=== PATIENT | female | born 1935 | race Caucasian/White ===

== ENCOUNTER → 2019-12-07 15:13 | Outpatient (BNVA) | payer MEDICARE, SELFPAY | PROVIDERS: PCP Internal Medicine; Referring Provider Internal Medicine; Visit Provider Internal Medicine | DX: J44.9 Chronic obstructive pulmonary disease, unspecified (principal); Z79.899 Other long term (current) drug therapy | CPT/HCPCS: 99213 ==

== ENCOUNTER → 2020-10-31 14:42 | Outpatient (BNVA) | payer MEDICARE, SELFPAY | PROVIDERS: PCP Internal Medicine; Visit Provider Internal Medicine | DX: J44.9 Chronic obstructive pulmonary disease, unspecified (principal); I10 Essential (primary) hypertension; E78.01 Familial hypercholesterolemia; F33.2 Major depressive disorder, recurrent severe without psychotic features; F41.9 Anxiety disorder, unspecified; Z88.6 Allergy status to analgesic agent; Z79.899 Other long term (current) drug therapy | CPT/HCPCS: Q3014 ==

== ENCOUNTER 2020-11-06 16:52 | Outpatient (REF) | payer MEDICARE, SELFPAY ==
[2020-11-06 16:59] LABS: Appearance Urine HAZY; Color Urine YELLOW; Glucose Urine UA NEG (NEG); Leukocyte Esterase Urine 2+ (NEG); Nitrite Urine NEG (NEG); Specific Gravity - Urine <= 1.005 (1.005-1.025); Urine Blood NEG (NEG); Urine Ketones NEG (NEG); Urine Protein NEG (NEG-TRACE)
[2020-11-06 17:22] LABS: Bacteria Urine 3+ /LPF; Squamous Epithelial Cell Urine 1+ /LPF
== END 2020-11-06 16:53 | disposition home or self-care (01) ==
LOC: HO.LNP 16:52
PROVIDERS: Visit Provider Internal Medicine
DX: N39.0 Urinary tract infection, site not specified (principal)
CPT/HCPCS: 81001; 87086

== ENCOUNTER 2020-12-17 09:15 | Outpatient (REF) | payer MEDICARE, SELFPAY ==
[2020-12-17 09:25] LABS: MANUAL DIFF FLAG NO
[2020-12-17 09:32] LABS: Basophils Percent Auto 0.4 % (0-2); Eosinophils Absolute Auto 0.2 X10*3/uL (0.0-0.4); Eosinophils Percent Auto 3.4 % (0-4); Hematocrit 34.7 % (37.0-47.0); Imm Gran Abs Auto 0.02 X10*3/uL (0.00-0.03); Imm Gran Pct Auto 0.4 % (0.0-0.4); Lymphocytes Absolute Auto 2.6 X10*3/uL (1.2-4.9); Lymphocytes Percent Auto 48.6 % (20-40); Mean Corpuscular HGB Conc 31.7 g/dl (31.0-35.0); Mean Corpuscular Hemoglobin 30.1 pg (27.0-33.0); Mean Corpuscular Volume 94.8 fL (80.0-98.0); Mean Platelet Volume 10.3 fL (9.4-12.3); Monocytes Absolute Auto 0.8 X10*3/uL (0.1-1.2); Monocytes Percent Auto 15.7 % (2-11); Neutrophils Absolute Auto 1.67 x10*3/uL (2.0-8.3); Neutrophils Percent Auto 31.5 % (45-73); Platelet Count 292 X10*3/uL (160-400); Red Blood Count 3.66 X10*6/uL (4.20-5.50); Red Cell Distribution Width 14.2 % (11.0-16.0); White Blood Count 5.3 X10*3/uL (4.8-10.8)
[2020-12-17 10:00] LABS: Alanine Aminotransferase 13 U/L (0-31); Albumin Level 4.4 g/dL (3.5-5.0); Alkaline Phosphatase 72 U/L (39-117); Anion Gap 12 (12-20); Aspartate Amino Transferase 23 U/L (5-31); Bilirubin Total 0.3 mg/dL (0.0-1.0); Blood Urea Nitrogen 16 mg/dL (9-16); Calcium 9.7 mg/dL (8.4-10.2); Carbon Dioxide 30 mmol/L (22-29); Chloride 102 mmol/L (96-108); Cholesterol 195 mg/dL; Estimated Glomerular Filt Rate 49; Glucose Fasting 97 mg/dL (60-99); HDL Cholesterol 45 mg/dL; Iron 75 mcg/dL (30-160); LDL Cholesterol Calculated 114 mg/dl; Percent Iron Saturation 27 % (15-50); Potassium 4.7 mmol/L (3.3-5.1); Sodium 139 mmol/L (135-145); Total Iron Binding Capacity 282 mcg/dL (228-428); Total Protein 7.4 g/dL (6.5-8.0); Triglycerides 183 mg/dL; Unsaturated Iron Binding 207 ug/dL
[2020-12-21 15:47] LABS: Vitamin D 25-OH, D2 <4 ng/mL; Vitamin D 25-OH, D3 28 ng/mL; Vitamin D 25-OH, Total 28 ng/mL (30-100)
== END 2020-12-17 09:16 | disposition home or self-care (01) ==
LOC: HO.LAB 09:15
PROVIDERS: PCP Internal Medicine; Visit Provider Internal Medicine
DX: D64.9 Anemia, unspecified (principal); E55.9 Vitamin D deficiency, unspecified; F41.9 Anxiety disorder, unspecified; I10 Essential (primary) hypertension; E78.5 Hyperlipidemia, unspecified
CPT/HCPCS: 36415; 80053; 80061; 82306; 83540; 85025

== ENCOUNTER 2020-12-26 14:06 | Outpatient (REF) | payer MEDICARE, SELFPAY ==
[2020-12-26 14:14] LABS: Appearance Urine HAZY; Color Urine YELLOW; Glucose Urine UA NEG (NEG); Leukocyte Esterase Urine 2+ (NEG); Nitrite Urine NEG (NEG); Specific Gravity - Urine <= 1.005 (1.005-1.025); UACC Culture Trigger YES; Urine Blood TRACE (NEG); Urine Ketones NEG (NEG); Urine Protein NEG (NEG-TRACE)
[2020-12-26 14:25] LABS: Bacteria Urine 4+ /LPF; RBC Urine 0-2 /HPF (0); Squamous Epithelial Cell Urine 1+ /LPF
== END 2020-12-26 14:07 | disposition home or self-care (01) ==
LOC: HO.LNP 14:06
PROVIDERS: Referring Provider Internal Medicine; Visit Provider Internal Medicine
DX: N39.0 Urinary tract infection, site not specified (principal)
CPT/HCPCS: 81001; 87086

== ENCOUNTER → 2021-01-22 12:58 | Outpatient (BNVA) | payer MEDICARE, SELFPAY | PROVIDERS: PCP Internal Medicine | DX: R35.89 Other polyuria (principal) | CPT/HCPCS: 99202 ==

== ENCOUNTER 2021-01-24 14:26 | Outpatient (REF) | payer MEDICARE, SELFPAY | END 2021-01-24 14:27 | disposition home or self-care (01) | LOC: HO.LNP 14:26 | DX: N39.0 Urinary tract infection, site not specified (principal) | CPT/HCPCS: 87086 ==

== ENCOUNTER → 2021-02-22 09:03 | Outpatient (BNVA) | payer MEDICARE, SELFPAY | PROVIDERS: PCP Internal Medicine | DX: R35.89 Other polyuria (principal) | CPT/HCPCS: Q3014 ==

== ENCOUNTER → 2021-05-01 13:33 | Outpatient (BNVA) | payer MEDICARE, SELFPAY | PROVIDERS: PCP Internal Medicine; Visit Provider Internal Medicine | DX: J45.909 Unspecified asthma, uncomplicated (principal) | CPT/HCPCS: 94010; 99212 ==

== ENCOUNTER → 2021-05-24 09:07 | Outpatient (BNVA) | payer MEDICARE, SELFPAY | PROVIDERS: PCP Internal Medicine | DX: Z13.89 Encounter for screening for other disorder (principal) | CPT/HCPCS: Q3014 ==

== ENCOUNTER 2021-07-08 12:58 | Inpatient (IN) | payer MEDICARE, SELFPAY ==
[2021-07-08] VITALS (7 sets, daily range): BP systolic 114–225; BP diastolic 63–111; PULSE 71–91; RESP 16–18; TEMP 36.3–37; O2SAT 97–99; BMI 25.8
--- NOTE | 2021-07-08 | ECG_ITS ---
Test Reason : FALL Blood Pressure : / mmHG Vent. Rate : 083 BPM Atrial Rate : 083 BPM P-R Int : 150 ms QRS Dur : 132 ms QT Int : 400 ms P-R-T Axes : 022 -03 010 degrees QTc Int : 470 ms Normal sinus rhythm Possible Left atrial enlargement Right bundle branch block Abnormal ECG When compared with ECG of 10-MAY-2019 02:28, No significant change was found Referred By: Charli Olson Electronically Signed By:Moses Arredondo
--- NOTE | ~2021-07-08 | US_ITS ---
EXAMINATION: US RETROPERITONEAL COMPLETE (RENAL) CLINICAL INFORMATION: ZEE. Urinary frequency. COMPARISON: CT abdomen and pelvis 05/10/2019. Ultrasound abdomen complete 11/07/2014. TECHNIQUE: Real-time imaging of the kidneys and bladder. FINDINGS: RIGHT KIDNEY: 8.0 x 4.0 x 3.4 cm (SAG x AP x TRV). The kidney is normal in size, contour, and echogenicity. Renal cortical thickness is normal. No renal calculi or focal parenchymal lesions. There is mild hydronephrosis. LEFT KIDNEY: 8.0 x 4.1 x 3.9 cm (SAG x AP x TRV). The kidney is normal in size, contour, and echogenicity. Renal cortical thickness is normal. No renal calculi or focal parenchymal lesions. There is mild hydronephrosis. BLADDER: Well distended with echogenic debris/sludge within. Bilateral ureteral jets are not demonstrated. Prevoid bladder volume is 540.19 mL. Postvoid bladder volume was not obtained. There is thickening of bladder wall with prominent rugae. A prominent right diverticulum is noted measuring 4.4 x 2.6 x 2.8 cm. US/US retroperitoneal comp IMPRESSION: 1. Bilateral hydronephrosis. No echogenic renal calculi seen. 2. Distended bladder with thickened bladder wall and several outpouchings. There is small diverticulum seen measuring 4.5 x 2.2 x 4.6 cm. 3. Prevoid volume measures 50.19 mL. Postvoid volume was not obtained.
--- NOTE | ~2021-07-08 | FL_ITS ---
PROCEDURE: XR FLUOROSCOPY WITH IMAGES CLINICAL INFORMATION: Left femoral fracture. COMPARISON: Radiographs left hip 07/08/2021. TECHNIQUE: Fluoroscopy performed by Dr. Luis Gleason Fluoroscopy time: 0.7 minutes DAP: 15.4 mGy-cm2 Images: 4 FINDINGS: Imaging demonstrates placement of an intramedullary sharmaine and screw in the left femur which appears in good position. FL/FL guidance in OR IMPRESSION: Fluoroscopy and spot films provided during open reduction and internal femoral fracture.
--- NOTE | ~2021-07-08 | XR_ITS ---
EXAMINATION: XR HIP, LEFT CLINICAL INFORMATION: Pain COMPARISON: None TECHNIQUE: Two views of the left hip. FINDINGS: There is an impacted fracture proximal left femur intertrochanteric region with almost 90 degrees first angulation. Left femoral head however is not dislocated. Pelvis intact. Right hip intact. There is degenerative change in the lower lumbar spine. XR/XR hip LT min 2V IMPRESSION: Proximal femoral fracture.
--- NOTE | ~2021-07-08 | NM_ITS ---
EXAMINATION: NM KIDNEY IMAGING WITH LASIX CLINICAL INFORMATION: Acute kidney injury. Urinary frequency. COMPARISON: None. TECHNIQUE: Following intravenous administration of 10 mCi of 99m technetium DTPA, imaging of both kidneys was obtained up to 30 minutes. 37 mg of IV Lasix was given at 30 minutes and further imaging was obtained for another 30 minutes. FINDINGS: On perfusion imaging, there is normal flow seen to both kidneys. There is normal bilateral symmetrical cortical uptake and slow excretion without any evidence of obstruction or hydronephrosis. There are bilateral extrarenal kidney pelvises. Post Lasix, there is bilateral slow excretion of isotope activity with no retention seen. No suspicion for hydronephrosis. On renal analysis, split renal function is 50% of each kidney. The right kidney reaches peak at 18.0 minutes and left kidney is 15.5 minutes. The T-half max of right kidney is 45.9 minutes and left kidney is 38.8 minutes. NM/NM renal flow w pharm int IMPRESSION: Normal renal perfusion with 50% cortical split function. There are extrarenal kidney pelvises with no suspicion for obstruction. There is a slow excretion which remains unchanged post Lasix.
--- NOTE | 2021-07-08 13:18 | ED.FALL ---
HPI - Fall General Chief Complaint: Fall Stated Complaint: UNWIT MECH FALL,L LEG PAIN/SHORTENED PER EMS Time Seen by Provider: 07/08/21 13:17 Source: patient Mode of arrival: EMS Limitations: no limitations History of Present Illness HPI Narrative: patient was wearing bad sneakers and tripped in the bathroom. complaint: fall Onset (ago): minute(s) Fall from: standing Fall witnessed: no Place fall occurred: home Loss of consciousness: none Context: tripped/slipped Location of injury - extremities: left: lower leg Severity: mild Quality: sharp Related Data Home Medications Medication Instructions Recorded Confirmed fluorometholone 0.1 % eye 1 drp OPHTHALMIC (EYE) BID 11/16/19 01/22/21 drops,suspension Previous Rx's Medication Instructions Recorded albuterol sulfate 90 mcg/actuation 2 puff INHALATION Q6H PRN 30 Days 01/16/21 aerosol inhaler (Ventolin HFA) #6.7 g atenolol 25 mg tablet 25 mg PO DAILY 90 Days #90 tab 01/16/21 atorvastatin 10 mg tablet 10 mg PO DAILY 90 Days #90 tab 01/16/21 fluticasone 250 mcg-salmeterol 50 1 ea PO BID 90 Days #180 ea 01/16/21 mcg/dose blistr powdr for inhalation (Milyxela Inhub) lisinopril 40 mg tablet 40 mg PO DAILY 90 Days #90 tab 01/16/21 venlafaxine 150 mg 150 mg PO DAILY 90 Days #90 cap 01/16/21 capsule,extended release 24 hr venlafaxine 75 mg capsule,extended 75 mg PO DAILY 90 Days #90 cap 01/16/21 release 24 hr vibegron 75 mg tablet (Gemtesa) 75 mg PO DAILY 30 Days #30 tab 07/02/21 Allergies Allergy/AdvReac Type Severity Reaction Status Date / Time codeine [CODEINE] Allergy Mild upset Verified 05/24/21 09:08 stomach, nause Review of Systems Constitutional: Constitutional: Reports no additional constitutional complaints Eyes: Eyes: Reports no additional eye complaints ENT: Denies dizziness Cardiovascular: Cardiovascular: Reports no additional cardiovascular complaints Respiratory: Respiratory: Reports as per HPI Gastrointestinal: Gastrointestinal: Reports no additional gastrointestinal complaints Genitourinary: Genitourinary: Reports no additional female genitourinary complaints Musculoskeletal: Musculoskeletal: Reports no additional musculoskeletal complaints Integumentary/Breasts: Skin/Breast: Denies rash Neurologic: Reports system reviewed and no additional complaints, except as documented, Denies dizziness and Denies Sensory deficit (Neuro) Psychiatric: Psychiatric: Denies anxiety PMFSH Past Medical History Medical History Anxiety Asthma COPD (chronic obstructive pulmonary disease) Endogenous depression Essential hypertension Familial hypercholesterolemia GERD (gastroesophageal reflux disease) Polyuria Vertigo Surgical History History of cataract surgery History of eye surgery S/P lumpectomy of breast Family History Family History Father No problems noted. Mother No problems noted. Brother No problems noted. Sister No problems noted. Son No problems noted. Daughter No problems noted. Social History Social History Housing: House (rented) Alcohol intake: never Patient Tobacco Use Status: Never used Tobacco e-Cigarette/Vaping Use: Never Used Second Hand Smoke Exposure: No Advance Directives: Yes Advance Directives Information Provided: Yes Advance Directives on File: No service: No Current occupational status: unemployed and retired Physical Exam Vital Signs: Vital Signs: Last Vital Signs Temp 98 F 07/08/21 13:08 Pulse 91 07/08/21 16:24 Resp 16 07/08/21 16:24 BP 224/111 H 07/08/21 16:24 Pulse Ox 98 07/08/21 14:44 BMI result Body Mass Index 25.8 Const: General: healthy appearing Nutritional Appearance: average body habitus Orientation/consciousness: oriented to person and patient oriented x3 Limitations: no limitations HEENT: Head: Yes normal to inspection Ears: external ears normal General nose exam: Normal external nose present Mouth: Normal oral and palatal mucosa present and oropharynx normal Throat: Yes posterior oropharynx normal Eyes: General: appearance normal, both eyes and all related structures Neck: Other: supple Neck: Yes normal visual inspection Chest: Chest palpation & inspection: normal inspection of the chest Resp: Auscultation: clear to auscultation bilaterally Cardio: Jugular venous distension: no JVD Rate: regular rate Rhythm: regular rhythm Heart sounds: S1 normal heart sound present and S2 normal heart sound present GI: Inspection: Yes normal to inspection Palpation (GI): Soft to palpation, nontender and No hepatosplenomegaly present Auscultation: normal bowel sounds : General: Yes no CVA tenderness Back/Spine/Pelvis: Back: no CVA tenderness Skin: General skin exam: no rashes or lesions noted Neuro: General: oriented to person and patient oriented x3 Cranial nerves: Yes CN's II-XII intact bilaterally Motor exam (neuro): 5/5 motor strength present throughout Sensory Exam: No Sensory deficit (Neuro) Extrem: Other: left hip shortened and externally rotated Psych: Appearance: grossly normal Course Reevaluation(s) Reevaluation #1: patient with intertrocanteric fracture will admit to hospital for ortho Time: 15:55 MDM - Fall Lab Data Result diagrams: 07/08/21 14:13 07/08/21 14:13 Labs: Lab Results 07/08/21 07/08/21 Range/Units 14:13 14:13 WBC 12.5 H (4.8-10.8) X10*3/uL RBC 3.29 L (4.20-5.50) X10*6/uL Hgb 9.7 L (12.0-16.0) g/dl Hct 29.7 L (37.0-47.0) % MCV 90.3 (80.0-98.0) fL MCH 29.5 (27.0-33.0) pg MCHC 32.7 (31.0-35.0) g/dl RDW 12.4 (11.0-16.0) % Plt Count 340 (160-400) X10*3/uL MPV 9.5 (9.4-12.3) fL Immature Gran % (Auto) 0.6 H (0.0-0.4) % Neut % (Auto) 76.1 H (45-73) % Lymph % (Auto) 9.6 L (20-40) % Petroleum % (Auto) 12.1 H (2-11) % Eos % (Auto) 1.4 (0-4) % Baso % (Auto) 0.2 (0-2) % Lymph # (Auto) 1.2 (1.2-4.9) X10*3/uL Petroleum # (Auto) 1.5 H (0.1-1.2) X10*3/uL Eos # (Auto) 0.2 (0.0-0.4) X10*3/uL Baso # (Auto) 0.0 (0.0-0.2) X10*3/uL Abs Immat Gran (auto) 0.07 H (0.00-0.03) X10*3/uL Absolute Neuts (auto) 9.5 H (2.0-8.3) x10*3/uL Absolute Nucleated RBC 0.000 (0.0-0.012) X10*3/uL Nucleated RBC % (auto) 0.0 (0.0-0.2) /100WBC Smear Tech's Comments VERIFIED Sodium 127 L (135-145) mmol/L Potassium 5.1 (3.3-5.1) mmol/L Chloride 94 L (96-108) mmol/L Carbon Dioxide 25 (22-29) mmol/L Anion Gap 13 (12-20) BUN 15 (9-16) mg/dL Creatinine 1.02 (0.5-1.4) mg/dL Estim Creat Clear Calc 41.8 Estimated GFR 52 Random Glucose 111 (60-115) mg/dL Calcium 9.3 (8.4-10.2) mg/dL ECG Data Attestation: I personally reviewed and interpreted this ECG as follows: Interpretation: sinus 80, RBBB no st or twave changes Discharge Plan Discharge Clinical Impression: Closed intertrochanteric fracture, COPD (chronic obstructive pulmonary disease), Essential hypertension Patient Disposition: Admitted As Inpatient
[2021-07-08 14:20] LABS: Basophils Percent Auto 0.2 % (0-2); Eosinophils Absolute Auto 0.2 X10*3/uL (0.0-0.4); Eosinophils Percent Auto 1.4 % (0-4); Hematocrit 29.7 % (37.0-47.0); Hemoglobin 9.7 g/dl (12.0-16.0); Imm Gran Abs Auto 0.07 X10*3/uL (0.00-0.03); Imm Gran Pct Auto 0.6 % (0.0-0.4); Lymphocytes Absolute Auto 1.2 X10*3/uL (1.2-4.9); Lymphocytes Percent Auto 9.6 % (20-40); MANUAL DIFF FLAG SCAN; Mean Corpuscular HGB Conc 32.7 g/dl (31.0-35.0); Mean Corpuscular Hemoglobin 29.5 pg (27.0-33.0); Mean Corpuscular Volume 90.3 fL (80.0-98.0); Mean Platelet Volume 9.5 fL (9.4-12.3); Monocytes Absolute Auto 1.5 X10*3/uL (0.1-1.2); Monocytes Percent Auto 12.1 % (2-11); Neutrophils Absolute Auto 9.5 x10*3/uL (2.0-8.3); Neutrophils Percent Auto 76.1 % (45-73); Platelet Count 340 X10*3/uL (160-400); Red Blood Count 3.29 X10*6/uL (4.20-5.50); Red Cell Distribution Width 12.4 % (11.0-16.0); SCAN SMEAR FLAG 1; White Blood Count 12.5 X10*3/uL (4.8-10.8)
[2021-07-08 14:31] LABS: Anion Gap 13 (12-20); Blood Urea Nitrogen 15 mg/dL (9-16); Calcium 9.3 mg/dL (8.4-10.2); Carbon Dioxide 25 mmol/L (22-29); Chloride 94 mmol/L (96-108); Creatinine Clr Calc Pharmacy 41.8; Estimated Glomerular Filt Rate 52; Glucose Random 111 mg/dL (60-115); Potassium 5.1 mmol/L (3.3-5.1); Sodium 127 mmol/L (135-145)
[2021-07-08 14:39] LABS: SLIDE REVIEW VERIFIED
[2021-07-08] MEDS: Morphine Sulfate 4 MG/ML CARTRIDGE IVPUSH (16:21)
[2021-07-08 16:38] LABS: COVID-19 Test Negative (Negative); IDNOW Serial# 55D5AD1C
--- NOTE | 2021-07-08 16:57 | P.HPHOSP_ITS ---
History of Present Illness Date of Service: 07/08/21 Chief Complaint: Left proxmal femor fracture 85-year-old female presents to [place] ER with left hip pain after mechanical fall. She states she tripped while going to the bathroom. X-rays in ER demonstrated a proximal left femur fracture. Patient states she did not take her meds today ; hypertensive on arrival Review of Systems Review of Systems: Denies chest pain Denies shortness of breath Denies nausea vomiting diarrhea Denies fever chills Denies hitting head or loss of consciousness [facility], LAT[facility] Medical History Anxiety Asthma COPD (chronic obstructive pulmonary disease) Endogenous depression Essential hypertension Familial hypercholesterolemia GERD (gastroesophageal reflux disease) Polyuria Vertigo Family History Father No problems noted. Mother No problems noted. Brother No problems noted. Sister No problems noted. Son No problems noted. Daughter No problems noted. Surgical History History of cataract surgery History of eye surgery S/P lumpectomy of breast Social History Housing: House (rented) Alcohol intake: never Patient Tobacco Use Status: Never used Tobacco e-Cigarette/Vaping Use: Never Used Second Hand Smoke Exposure: No Advance Directives: Yes Advance Directives Information Provided: Yes Advance Directives on File: No service: No Current occupational status: unemployed and retired Meds Allergies Allergy/AdvReac Type Severity Reaction Status Date / Time codeine [CODEINE] Allergy Mild upset Verified 05/24/21 09:08 stomach, nause Active Medications: Current Medications Acetaminophen (Acetaminophen 325 Mg Tablet) 650 mg PO Q6H PRN PRN Reason: Pain, Mild (Pain Scale 1-3) Morphine Sulfate (Morphine Sulfate 4 Mg/Ml Cartridge) 4 mg IVPUSH Q4H PRN; P rotocol PRN Reason: Pain, Severe (Pain Scale 7-10) Oxycodone HCl (Oxycodone Hcl Immed Release 5 Mg Tablet) 5 mg PO Q4H PRN PRN Reason: Pain, Moderate (Pain Scale 4-6 Pharmacy Consult (Consult Rx Perform Med Rec) 1 each MISCELLANE ONCE PRN PRN Reason: Consult order Pharmacy Consult (Consult Rx Perform Med Rec) 1 each MISCELLANE ONCE PRN PRN Reason: Consult order Pharmacy Consult (Consult Rx Perform Med Rec) 1 each MISCELLANE ONCE PRN PRN Reason: Consult order Sodium Chloride (0.9 % Sodium Chloride Flush 3 Ml Syringe) 3 ml IVFLUSH QSHIFT [facility] Home Medications Medication Instructions Recorded Confirmed Last Taken Type fluorometholone 0.1 % eye 1 drp OPHTHALMIC (EYE) BID 11/16/19 01/22/21 Unknown History drops,suspension cyanocobalamin (vitamin B-12) 1,000 mcg PO DAILY 07/08/21 07/08/21 07/07/21 History 1,000 mcg tablet melatonin 3 mg tablet 3 mg PO BEDTIME PRN 07/08/21 07/08/21 Unknown History naproxen sodium 220 mg tablet 220 mg PO BID PRN 07/08/21 07/08/21 07/07/21 History Physical Exam Vital Signs and Narrative: Vital Signs: Last Vital Signs Temp 98 F 07/08/21 13:08 Pulse 91 07/08/21 16:24 Resp 16 07/08/21 16:24 BP 224/111 H 07/08/21 16:24 Pulse Ox 98 07/08/21 14:44 BMI result Body Mass Index 25.8 Const: Other: Awake alert no acute distress uncomfortable on stretcher Resp: Other: Clear to auscultation bilaterally no rales rhonchi or wheezes GI: Other: Soft nontender nondistended with normoactive bowel sounds Extrem: Other: No edema bilaterally. Left lower leg shorter and externally rotated Results Labs CBC and Chem 7: 07/08/21 14:13 07/08/21 14:13 Labs: Laboratory Results - last 24 hr 07/08/21 07/08/21 07/08/21 14:13 14:13 16:16 MCV 90.3 MCH 29.5 MCHC 32.7 RDW 12.4 Plt Count 340 MPV 9.5 Immature Gran % (Auto) 0.6 H Neut % (Auto) 76.1 H Lymph % (Auto) 9.6 L [place] % (Auto) 12.1 H Eos % (Auto) 1.4 Baso % (Auto) 0.2 Lymph # (Auto) 1.2 [place] # (Auto) 1.5 H Eos # (Auto) 0.2 Baso # (Auto) 0.0 Abs Immat Gran (auto) 0.07 H Absolute Neuts (auto) 9.5 H Absolute Nucleated RBC 0.000 Nucleated RBC % (auto) 0.0 Smear Tech's Comments VERIFIED Anion Gap 13 Estim Creat Clear Calc 41.8 Estimated GFR 52 Random Glucose 111 Calcium 9.3 COVID-19 (JOE) Negative COVID-19 Clin Com See Note Imaging Radiologist's Impressions: Impressions Hip X-Ray 07/08/21 13:50 IMPRESSION: Proximal femoral fracture. Assessment and Plan (1) Closed intertrochanteric fracture: Status: Acute (2) Essential hypertension: Status: Acute (3) Urinary tract infection: Qualifiers: Urinary tract infection type: site unspecified Hematuria presence: without hematuria Qualified Code(s): N39.0 - Urinary tract infection, site not specified Status: Acute (4) GERD (gastroesophageal reflux disease): Status: Acute Plan 85-year-old female presents after mechanical fall fracturing left proximal femur. Found to be markedly hypertensive in the ER. Voices no cardiac complaints 1. Left proximal femur fracture -consult orthopedics. Patient is a moderate but acceptable cardiovascular risk for orthopedic repair and can proceed as per Orthopedics. There are no medically prohibitive issues at this time 2. Hypertension -poorly control secondary to no medicines today -will give 1 dose IV hydralazine then give lisinopril and atenolol at home doses -resume all home meds and adjust as indicated 3. Hyperlipidemia -continue statin as ordered 4. Anxiety -continue Effexor at outpatient dosing -add PRNs if indicated 5. GERD -PPI perioperatively Full code Sequential Patient will require 2 midnights going forward for repair of left proximal femoral fracture. This cannot be achieved and a lesser acute setting Quality Stroke Does the patient have a stroke diagnosis?: No VTE Prior VTE?: No VTE Risk Level:: Medical - moderate - high VTE Device Contraindication: N/A - Device Ordered VTE Drug Contraindication: Treatment Not Indicated
--- NOTE | 2021-07-08 17:00 | PHA.MEDREC ---
Pharmacy Consult ? Medication Reconciliation Pharmacy has completed the medication reconciliation. Per patient, Dr Chadwick d/c all COPD and acute inhalers. Romario
[2021-07-08] MEDS: atenoloL 25 MG TABLET PO (17:44)
[2021-07-08] MEDS: lisinopriL 40 MG TABLET PO (17:44)
[2021-07-08] MEDS: Atorvastatin Calcium 10 MG TABLET PO (17:45)
[2021-07-08 17:51] LABS: Appearance Urine CLOUDY; Color Urine YELLOW; Glucose Urine UA NEG (NEG); Leukocyte Esterase Urine 3+ (NEG); Nitrite Urine NEG (NEG); UACC Culture Trigger YES; Urine Blood 3+ (NEG); Urine Ketones NEG (NEG); Urine Protein 2+ MG/DL (NEG-TRACE)
[2021-07-08 18:02] LABS: WBC Urine TNTC /HPF (0-4)
[2021-07-08 18:03] LABS: Bacteria Urine 4+ /LPF; Squamous Epithelial Cell Urine 1+ /LPF; WBC Clumps Urine NOTED
[2021-07-08] MEDS: 0.9 % Sodium Chloride Flush 3 ML SYRINGE IVFLUSH (22:04)
[2021-07-09] VITALS (10 sets, daily range): BP systolic 128–149; BP diastolic 43–67; PULSE 66–84; RESP 16–18; TEMP 36.2–37.4; O2SAT 95–100
[2021-07-09] MEDS: Morphine Sulfate 4 MG/ML CARTRIDGE IVPUSH (03:54)
[2021-07-09 06:27] LABS: Basophils Percent Auto 0.3 % (0-2); Eosinophils Absolute Auto 0.1 X10*3/uL (0.0-0.4); Eosinophils Percent Auto 0.9 % (0-4); Hematocrit 28.9 % (37.0-47.0); Hemoglobin 9.6 g/dl (12.0-16.0); Imm Gran Abs Auto 0.06 X10*3/uL (0.00-0.03); Imm Gran Pct Auto 0.5 % (0.0-0.4); Lymphocytes Absolute Auto 1.8 X10*3/uL (1.2-4.9); Lymphocytes Percent Auto 15.9 % (20-40); MANUAL DIFF FLAG SCAN; Mean Corpuscular HGB Conc 33.2 g/dl (31.0-35.0); Mean Corpuscular Volume 90.3 fL (80.0-98.0); Mean Platelet Volume 9.7 fL (9.4-12.3); Monocytes Absolute Auto 2.1 X10*3/uL (0.1-1.2); Monocytes Percent Auto 18.7 % (2-11); Neutrophils Absolute Auto 7.1 x10*3/uL (2.0-8.3); Neutrophils Percent Auto 63.7 % (45-73); Platelet Count 361 X10*3/uL (160-400); Red Cell Distribution Width 12.4 % (11.0-16.0); SCAN SMEAR FLAG 1; White Blood Count 11.2 X10*3/uL (4.8-10.8)
--- NOTE | 2021-07-09 06:45 | P.CONOP_ITS ---
History of Present Illness HPI Consult date: 07/09/21 Requesting physician: Clayton Carlson Consult reason: fracture Chief complaint: proximal left fe,oral fracture Narrative: This is a 85 yo F in her usual state of health who presented to the ED with a left proximal femur fracture sustained after a mechanical fall at home. She presented hypertensive and unable to ambulate. Radiographs revealed a left intertrocahnteric femur fracture and she was admitted to the hospitalist service. She is a community ambulator with a history of COPD. She denied LOC or chest pain prior to her fall. Review of Systems Review of Systems: Yes all other systems are reviewed and are negative Constitutional: Constitutional: Reports as per HPI Eyes: Eyes: Reports no additional eye complaints ENT: Reports system reviewed and no additional complaints, except as documented Cardiovascular: Cardiovascular: Reports no additional cardiovascular complaints Respiratory: Respiratory: Reports no additional respiratory complaints Gastrointestinal: Gastrointestinal: Reports no additional gastrointestinal complaints Genitourinary: Genitourinary: Reports no additional female genitourinary complaints Musculoskeletal: Musculoskeletal: Reports other (left hip pain) Integumentary/Breasts: Skin/Breast: Reports system reviewed and no additional complaints, except as docu Neurologic: Reports system reviewed and no additional complaints, except as documented Psychiatric: Psychiatric: Reports no additional psychiatric complaints Endocrine: Endocrine: Reports no additional endocrine complaints Hematologic/Lymphatic: Hematologic/Lymphatic: Reports no additional hematologic/lymphatic complaints Allergic/Immunologic: Allergic/Immunologic: Reports no additional allergic/immunologic complaints [facility] Past Medical History Medical History Anxiety Asthma COPD (chronic obstructive pulmonary disease) Endogenous depression Essential hypertension Familial hypercholesterolemia GERD (gastroesophageal reflux disease) Polyuria Vertigo Family History Family History Father No problems noted. Mother No problems noted. Brother No problems noted. Sister No problems noted. Son No problems noted. Daughter No problems noted. Surgical History Surgical History History of cataract surgery History of eye surgery S/P lumpectomy of breast Social History Social History Household Members: Children Housing: Apartment Do you presently have visiting nurse or other home services: No Alcohol intake: never Patient Tobacco Use Status: Never used Tobacco e-Cigarette/Vaping Use: Never Used Second Hand Smoke Exposure: No Use of substances other than those prescribed or required for medical reasons: No Currently Displaying Signs/Symptoms of Drug Intoxication Withdrawal: No Have you been hit, kicked, punched, or otherwise hurt by someone within the past year? If so, by whom?: No Do you feel safe in your current relationship?: Yes Is there a partner from a previous relationship who is making you feel unsafe now?: No Are you made to feel afraid or neglected: No Advance Directives: Yes Advance Directives Information Provided: Yes Advance Directives on File: No Advance Directives Date on File: 07/08/21 Do you have a plan to hurt others: No Plan Recently lost weight without trying: No Nutrition Risks: No Nutritional Risk service: No Current occupational status: unemployed and retired Meds Allergies Allergy/AdvReac Type Severity Reaction Status Date / Time codeine [CODEINE] Allergy Mild upset Verified 05/24/21 09:08 stomach, nause Active Medications: Current Medications Acetaminophen (Acetaminophen 325 Mg Tablet) 650 mg PO Q6H PRN PRN Reason: Pain, Mild (Pain Scale 1-3) Atenolol (Atenolol 25 Mg Tablet) 25 mg PO DAILY [facility]; Protocol Last Admin: 07/08/21 17:44 Dose: 25 mg Documented by: Atorvastatin Calcium (Atorvastatin Calcium 10 Mg Tablet) 10 mg PO DAILY [facility] Last Admin: 07/08/21 17:45 Dose: 10 mg Documented by: Cyanocobalamin (Cyanocobalamin (Vitamin B-12) 1,000 Mcg Tablet) 1,000 mcg PO DAILY [facility] Lisinopril (Lisinopril 40 Mg Tablet) 40 mg PO DAILY [facility]; Protocol Last Admin: 07/08/21 17:44 Dose: 40 mg Documented by: Melatonin (Melatonin 3 Mg Tablet) 3 mg PO BEDTIME PRN PRN Reason: Insomnia Morphine Sulfate (Morphine Sulfate 4 Mg/Ml Cartridge) 4 mg IVPUSH Q4H PRN; Protocol PRN Reason: Pain, Severe (Pain Scale 7-10) Last Admin: 07/09/21 03:54 Dose: 4 mg Documented by: Patient Own Med ( Vibegron [Gemtesa] 75 Mg Tablet) 75 mg PO DAILY [facility] Oxycodone HCl (Oxycodone Hcl Immed Release 5 Mg Tablet) 5 mg PO Q4H PRN PRN Reason: Pain, Moderate (Pain Scale 4-6 Pharmacy Consult (Consult Rx Perform Med Rec) 1 each MISCELLANE ONCE PRN PRN Reason: Consult order Pharmacy Consult (Consult Rx Perform Med Rec) 1 each MISCELLANE ONCE PRN PRN Reason: Consult order Pharmacy Consult (Consult Rx Perform Med Rec) 1 each MISCELLANE ONCE PRN PRN Reason: Consult order Sodium Chloride (0.9 % Sodium Chloride Flush 3 Ml Syringe) 3 ml IVFLUSH QSHIFT [facility] Last Admin: 07/08/21 22:04 Dose: 3 ml Documented by: Venlafaxine HCl (Venlafaxine Hcl Er 75 Mg Cap.Er.24h) 75 mg PO DAILY [facility] Venlafaxine HCl (Venlafaxine Hcl Er 150 Mg Cap.Er.24h) 150 mg PO DAILY [facility] Home Medications Medication Instructions Recorded Confirmed Last Taken Type fluorometholone 0.1 % eye 1 drp OPHTHALMIC (EYE) BID 11/16/19 07/08/21 07/07/21 History drops,suspension cyanocobalamin (vitamin B-12) 1,000 mcg PO DAILY 07/08/21 07/08/21 07/07/21 History 1,000 mcg tablet melatonin 3 mg tablet 3 mg PO BEDTIME PRN 07/08/21 07/08/21 Unknown History naproxen sodium 220 mg tablet 220 mg PO BID PRN 07/08/21 07/08/21 07/07/21 History Physical Exam Vital Signs: Vital Signs: Last Vital Signs Temp 98 F 07/09/21 03:56 Pulse 75 07/09/21 03:56 Resp 17 07/09/21 03:56 BP 135/65 07/09/21 03:56 Pulse Ox 97 07/09/21 03:56 BMI result Body Mass Index 25.8 Extrem: Other: Left LE externally roatoted and minimal motion 2/2 pain Results Labs Result Diagrams: 07/09/21 05:17 07/09/21 05:17 Labs: Abnormal lab results 07/08/21 07/08/21 07/08/21 Range/Units 14:13 14:13 17:40 WBC 12.5 H (4.8-10.8) X10*3/uL RBC 3.29 L (4.20-5.50) X10*6/uL Hgb 9.7 L (12.0-16.0) g/dl Hct 29.7 L (37.0-47.0) % Immature Gran % (Auto) 0.6 H (0.0-0.4) % Neut % (Auto) 76.1 H (45-73) % Lymph % (Auto) 9.6 L (20-40) % [place] % (Auto) 12.1 H (2-11) % [place] # (Auto) 1.5 H (0.1-1.2) X10*3/uL Abs Immat Gran (auto) 0.07 H (0.00-0.03) X10*3/uL Absolute Neuts (auto) 9.5 H (2.0-8.3) x10*3/uL Sodium 127 L (135-145) mmol/L Chloride 94 L (96-108) mmol/L Urine Protein 2+ H (NEG-TRACE) MG/DL Urine Blood 3+ H (NEG) Ur Leukocyte Esterase 3+ H (NEG) Urine RBC 10-14 H (0) /HPF Urine WBC TNTC H (0-4) /HPF H & H 07/08/21 Range/Units 14:13 Hgb 9.7 L (12.0-16.0) g/dl Hct 29.7 L (37.0-47.0) % All other labs normal. Diagnostic results Hip x-ray: image reviewed (Left displaced intertroachanteric femur fracture) Assessment and Plan (1) Closed intertrochanteric fracture: Status: Acute Plan This is a 85 yo healthy F with a left hip IT fracture sustained after a mechanical fall. She has been cleared for surgery by the medical service. I recommend intra-medullary fixation for her left hip fracture. I discussed the risks benefits and alternatives including but not limited to the risk of pain, infection, stiffness, need for further surgery as well as potential medical complications such as blood clots, pulmonary embolism and cardiac complications. She expressed understanding and would like to proceed forward. She will be kept NPO. Procedures Date of Service Date of Service: 07/09/21
[2021-07-09 06:50] LABS: Alanine Aminotransferase 12 U/L (0-31); Albumin Level 3.3 g/dL (3.5-5.0); Alkaline Phosphatase 76 U/L (39-117); Anion Gap 15 (12-20); Aspartate Amino Transferase 18 U/L (5-31); Bilirubin Total 0.3 mg/dL (0.0-1.0); Blood Urea Nitrogen 15 mg/dL (9-16); Calcium 8.9 mg/dL (8.4-10.2); Carbon Dioxide 23 mmol/L (22-29); Chloride 97 mmol/L (96-108); Creatinine Clr Calc Pharmacy 47.4; Estimated Glomerular Filt Rate 60; Glucose Fasting 93 mg/dL (60-99); Potassium 4.6 mmol/L (3.3-5.1); Sodium 130 mmol/L (135-145); Total Protein 6.2 g/dL (6.5-8.0)
[2021-07-09 06:57] LABS: INTERNATIONAL NORM RATIO 1.3 (0.9-1.1); Prothrombin Time 14.9 SEC (9.9-13.0)
[2021-07-09 07:15] LABS: SLIDE REVIEW VERIFIED
[2021-07-09] MEDS: lisinopriL 40 MG TABLET PO (09:25)
[2021-07-09] MEDS: atenoloL 25 MG TABLET PO (09:25)
[2021-07-09] MEDS: Venlafaxine HCl ER 150 MG CAP.ER.24H PO (09:25)
[2021-07-09] MEDS: Venlafaxine HCl ER 75 MG CAP.ER.24H PO (09:25)
[2021-07-09] MEDS: 0.9 % Sodium Chloride Flush 3 ML SYRINGE IVFLUSH ×2 (09:25→23:39)
[2021-07-09] MEDS: Cyanocobalamin (Vitamin B-12) 1,000 MCG TABLET 1000 MCG PO (09:25)
[2021-07-09] MEDS: oxyCODONE HCl Immed Release 5 MG TABLET PO (09:28)
--- NOTE | 2021-07-09 09:35 | MHC.CM.PN ---
IMM 07/09/21 REVIEWED W/PT AND PLACED IN CHART, EMR REVIEWED, PT ADMITTED W/A L FEMORAL FX AFTER A MECHANICAL FALL AT HOME, CM MET W/PT WHO IS A&O, PT REPORTS SHE LIVES ALONE IN AN APT W/1 LIGHT OF STAIRS, PT HAS A CANE, TOILET RISE AND GRAB BARS IN BR, PT DENIES HAVING ANY HOME SERVICES. PT REQUESTING CM CONTACT EITHER KAROLINA OR SHANNON WHO ARE PT'S CHILDREN/HCP'S TO DISCUSS DISPO AND SNF VS AR OPTIONS, KAROLINA IS AN EMPLOYEE OF [employer] AND WOULD LIKE TO BE UPDATED, HER EXT IS [id number]. PT VERIFIES PCP IS RICHARD PARKS, HCP IS ON FILE FROM PREVIOUS ADMIT AND UPLOADED TO [facility], PT HAS RECEIVED Beryllium VACCINE X2 ON 12/12/20 AND 01/17/21. D/C PLAN: STR VS AR W/BLS TRANSPORT
--- NOTE | 2021-07-09 11:01 | HO.ANESPROP2 ---
Documented by User: Yusuf Henry MD 07/09/21 11:03 HPI - Anesthesia Eval Consult details Narrative: 85 F for IM nailing PMFSH Active Problems Active Problems: All Active Problems (Updated 07/08/21 @ 16:00 by Clayton Carlson MD) Closed intertrochanteric fracture (Acute) Asthma (Acute) Vertigo (Acute) Polyuria (Acute) Anxiety (Acute) Essential hypertension (Acute) GERD (gastroesophageal reflux disease) (Acute) Familial hypercholesterolemia (Acute) Endogenous depression (Acute) Urinary tract infection (Acute) COPD (chronic obstructive pulmonary disease) (Acute) Past Medical History Medical History Anxiety Asthma COPD (chronic obstructive pulmonary disease) Endogenous depression Essential hypertension Familial hypercholesterolemia GERD (gastroesophageal reflux disease) Polyuria Vertigo Family History Family History Father No problems noted. Mother No problems noted. Brother No problems noted. Sister No problems noted. Son No problems noted. Daughter No problems noted. Family history of problems with anesthesia: No Surgical History Surgical History History of cataract surgery History of eye surgery S/P lumpectomy of breast History of Problems with Anesthesia: No Social History Social History Household Members: Children Housing: Apartment Do you presently have visiting nurse or other home services: No Alcohol intake: never Patient Tobacco Use Status: Never used Tobacco e-Cigarette/Vaping Use: Never Used Second Hand Smoke Exposure: No Use of substances other than those prescribed or required for medical reasons: No Currently Displaying Signs/Symptoms of Drug Intoxication Withdrawal: No Have you been hit, kicked, punched, or otherwise hurt by someone within the past year? If so, by whom?: No Do you feel safe in your current relationship?: Yes Is there a partner from a previous relationship who is making you feel unsafe now?: No Are you made to feel afraid or neglected: No Are you DNR?: No Advance Directives: Yes Advance Directives Information Provided: Yes Advance Directives on File: No Advance Directives Date on File: 07/08/21 Do you have a plan to hurt others: No Plan Recently lost weight without trying: No Nutrition Risks: No Nutritional Risk service: No Current occupational status: retired Meds Allergies Allergy/AdvReac Type Severity Reaction Status Date / Time codeine [CODEINE] Allergy Mild upset Verified 05/24/21 09:08 stomach, nause Active Medications: Current Medications Acetaminophen (Acetaminophen 325 Mg Tablet) 650 mg PO Q6H PRN PRN Reason: Pain, Mild (Pain Scale 1-3) Atenolol (Atenolol 25 Mg Tablet) 25 mg PO DAILY [facility]; Protocol Last Admin: 07/09/21 09:25 Dose: 25 mg Documented by: Atorvastatin Calcium (Atorvastatin Calcium 10 Mg Tablet) 10 mg PO DAILY [facility] Last Admin: 07/09/21 09:25 Dose: Not Given Documented by: Cyanocobalamin (Cyanocobalamin (Vitamin B-12) 1,000 Mcg Tablet) 1,000 mcg PO DAILY [facility] Last Admin: 07/09/21 09:25 Dose: 1,000 mcg Documented by: Lisinopril (Lisinopril 40 Mg Tablet) 40 mg PO DAILY [facility]; Protocol Last Admin: 07/09/21 09:25 Dose: 40 mg Documented by: Melatonin (Melatonin 3 Mg Tablet) 3 mg PO BEDTIME PRN PRN Reason: Insomnia Morphine Sulfate (Morphine Sulfate 4 Mg/Ml Cartridge) 4 mg IVPUSH Q4H PRN; Protocol PRN Reason: Pain, Severe (Pain Scale 7-10) Last Admin: 07/09/21 03:54 Dose: 4 mg Documented by: Patient Own Med ( Vibegron [Gemtesa] 75 Mg Tablet) 75 mg PO DAILY [facility] Last Admin: 07/09/21 09:33 Dose: Not Given Documented by: Oxycodone HCl (Oxycodone Hcl Immed Release 5 Mg Tablet) 5 mg PO Q4H PRN PRN Reason: Pain, Moderate (Pain Scale 4-6 Last Admin: 07/09/21 09:28 Dose: 5 mg Documented by: Pharmacy Consult (Consult Rx Perform Med Rec) 1 each MISCELLANE ONCE PRN PRN Reason: Consult order Pharmacy Consult (Consult Rx Perform Med Rec) 1 each MISCELLANE ONCE PRN PRN Reason: Consult order Pharmacy Consult (Consult Rx Perform Med Rec) 1 each MISCELLANE ONCE PRN PRN Reason: Consult order Sodium Chloride (0.9 % Sodium Chloride Flush 3 Ml Syringe) 3 ml IVFLUSH QSHIFT [facility] Last Admin: 07/09/21 09:25 Dose: 3 ml Documented by: Venlafaxine HCl (Venlafaxine Hcl Er 75 Mg Cap.Er.24h) 75 mg PO DAILY [facility] Last Admin: 07/09/21 09:25 Dose: 75 mg Documented by: Venlafaxine HCl (Venlafaxine Hcl Er 150 Mg Cap.Er.24h) 150 mg PO DAILY [facility] Last Admin: 07/09/21 09:25 Dose: 150 mg Documented by: Home Medications Medication Instructions Recorded Confirmed Last Taken Type fluorometholone 0.1 % eye 1 drp OPHTHALMIC (EYE) BID 11/16/19 07/08/21 07/07/21 History drops,suspension cyanocobalamin (vitamin B-12) 1,000 mcg PO DAILY 07/08/21 07/08/21 07/07/21 History 1,000 mcg tablet melatonin 3 mg tablet 3 mg PO BEDTIME PRN 07/08/21 07/08/21 Unknown History naproxen sodium 220 mg tablet 220 mg PO BID PRN 07/08/21 07/08/21 07/07/21 History Exam Exam Date and Time: July 09, 2021 1101 Height,Weight and Vital Signs: Height 5 ft 6 in Weight 72.575 kg Last Vital Signs Temp 98.0 F 07/09/21 10:54 Pulse 72 07/09/21 10:54 Resp 16 07/09/21 10:54 BP 131/59 L 07/09/21 10:54 Pulse Ox 96 07/09/21 10:54 Pertinent Lab Results Pertinent Lab Results: Laboratory Tests 07/08/21 07/08/21 07/08/21 14:13 14:13 16:16 WBC 12.5 H RBC 3.29 L Hgb 9.7 L Hct 29.7 L MCV 90.3 MCH 29.5 MCHC 32.7 RDW 12.4 Plt Count 340 MPV 9.5 Immature Gran % (Auto) 0.6 H Neut % (Auto) 76.1 H Lymph % (Auto) 9.6 L [place] % (Auto) 12.1 H Eos % (Auto) 1.4 Baso % (Auto) 0.2 Lymph # (Auto) 1.2 [place] # (Auto) 1.5 H Eos # (Auto) 0.2 Baso # (Auto) 0.0 Abs Immat Gran (auto) 0.07 H Absolute Neuts (auto) 9.5 H Absolute Nucleated RBC 0.000 Nucleated RBC % (auto) 0.0 Smear Tech's Comments VERIFIED PT INR Sodium 127 L Potassium 5.1 Chloride 94 L Carbon Dioxide 25 Anion Gap 13 BUN 15 Creatinine 1.02 Estim Creat Clear Calc 41.8 Estimated GFR 52 Random Glucose 111 Fasting Glucose Calcium 9.3 Total Bilirubin AST ALT Alkaline Phosphatase Total Protein Albumin Urine Color Urine Appearance Urine pH Ur Specific [place] Urine Protein Urine Glucose (UA) Urine Ketones Urine Blood Urine Nitrite Ur Leukocyte Esterase Urine RBC Urine WBC Urine WBC Clumps Ur Squamous Epith Cells Urine Bacteria COVID-19 (JOE) Negative COVID-19 Clin Com See Note Blood Type Antibody Screen 07/08/21 07/09/21 07/09/21 17:40 05:17 05:17 WBC 11.2 H RBC 3.20 L Hgb 9.6 L Hct 28.9 L MCV 90.3 MCH 30.0 MCHC 33.2 RDW 12.4 Plt Count 361 MPV 9.7 Immature Gran % (Auto) 0.5 H Neut % (Auto) 63.7 Lymph % (Auto) 15.9 L [place] % (Auto) 18.7 H Eos % (Auto) 0.9 Baso % (Auto) 0.3 Lymph # (Auto) 1.8 [place] # (Auto) 2.1 H Eos # (Auto) 0.1 Baso # (Auto) 0.0 Abs Immat Gran (auto) 0.06 H Absolute Neuts (auto) 7.1 Absolute Nucleated RBC 0.000 Nucleated RBC % (auto) 0.0 Smear Tech's Comments VERIFIED PT 14.9 H INR 1.3 H Sodium Potassium Chloride Carbon Dioxide Anion Gap BUN Creatinine Estim Creat Clear Calc Estimated GFR Random Glucose Fasting Glucose Calcium Total Bilirubin AST ALT Alkaline Phosphatase Total Protein Albumin Urine Color YELLOW Urine Appearance CLOUDY Urine pH 8.0 Ur Specific [place] 1.020 Urine Protein 2+ H Urine Glucose (UA) NEG Urine Ketones NEG Urine Blood 3+ H Urine Nitrite NEG Ur Leukocyte Esterase 3+ H Urine RBC 10-14 H Urine WBC TNTC H Urine WBC Clumps NOTED Ur Squamous Epith Cells 1+ Urine Bacteria 4+ COVID-19 ([facility]E) COVID-19 Clin Com Blood Type Antibody Screen 07/09/21 07/09/21 05:17 08:08 WBC RBC Hgb Hct MCV MCH MCHC RDW Plt Count MPV Immature Gran % (Auto) Neut % (Auto) Lymph % (Auto) [place] % (Auto) Eos % (Auto) Baso % (Auto) Lymph # (Auto) [place] # (Auto) Eos # (Auto) Baso # (Auto) Abs Immat Gran (auto) Absolute Neuts (auto) Absolute Nucleated RBC Nucleated RBC % (auto) Smear Tech's Comments PT INR Sodium 130 L Potassium 4.6 Chloride 97 Carbon Dioxide 23 Anion Gap 15 BUN 15 Creatinine 0.90 Estim Creat Clear Calc 47.4 Estimated GFR 60 Random Glucose Fasting Glucose 93 Calcium 8.9 Total Bilirubin 0.3 AST 18 ALT 12 Alkaline Phosphatase 76 Total Protein 6.2 L Albumin 3.3 L D Urine Color Urine Appearance Urine pH Ur Specific [place] Urine Protein Urine Glucose (UA) Urine Ketones Urine Blood Urine Nitrite Ur Leukocyte Esterase Urine RBC Urine WBC Urine WBC Clumps Ur Squamous Epith Cells Urine Bacteria COVID-19 (JOE) COVID-19 Clin Com Blood Type A Positive Antibody Screen NEGATIVE Airway Mallampati Class: IV TM Dist: >3cm Neck ROM: Full Denture: Upper and Lower Assessment and Plan Final Anesthetic Review Family History of Problems with Anesthesia: No History of Problems with Anesthesia: No NPO: Yes ASA Class: III and Emergency Patient Risk: Intermediate Procedure Risk: Intermediate Anesthetic Plan Anesthetic Plan: GA Disposition: Inp. Admit - Standard Bed Documented by User: aJss Estes MD 07/09/21 17:30 HPI - Anesthesia Eval Consult details Narrative: 85 F for IM nailing Na 130 Asthma , possible UTI PMFSH Past Medical History Medical History Anxiety Asthma COPD (chronic obstructive pulmonary disease) Endogenous depression Essential hypertension Familial hypercholesterolemia GERD (gastroesophageal reflux disease) Polyuria Vertigo Family History Family History Father No problems noted. Mother No problems noted. Brother No problems noted. Sister No problems noted. Son No problems noted. Daughter No problems noted. Surgical History Surgical History History of cataract surgery History of eye surgery S/P lumpectomy of breast Social History Social History Household Members: Children Housing: Apartment Do you presently have visiting nurse or other home services: No Alcohol intake: never Patient Tobacco Use Status: Never used Tobacco e-Cigarette/Vaping Use: Never Used Second Hand Smoke Exposure: No Use of substances other than those prescribed or required for medical reasons: No Currently Displaying Signs/Symptoms of Drug Intoxication Withdrawal: No Have you been hit, kicked, punched, or otherwise hurt by someone within the past year? If so, by whom?: No Do you feel safe in your current relationship?: Yes Is there a partner from a previous relationship who is making you feel unsafe now?: No Are you made to feel afraid or neglected: No Are you DNR?: No Advance Directives: Yes Advance Directives Information Provided: Yes Advance Directives on File: No Advance Directives Date on File: 07/08/21 Do you have a plan to hurt others: No Plan Recently lost weight without trying: No Nutrition Risks: No Nutritional Risk service: No Current occupational status: retired [employer] (?)s Allergies Allergy/AdvReac Type Severity Reaction Status Date / Time codeine [CODEINE] Allergy Mild upset Verified 05/24/21 09:08 stomach, nause Home Medications Medication Instructions Recorded Confirmed Last Taken Type fluorometholone 0.1 % eye 1 drp OPHTHALMIC (EYE) BID 11/16/19 07/08/21 07/07/21 History drops,suspension cyanocobalamin (vitamin B-12) 1,000 mcg PO DAILY 07/08/21 07/08/21 07/07/21 History 1,000 mcg tablet melatonin 3 mg tablet 3 mg PO BEDTIME PRN 07/08/21 07/08/21 Unknown History naproxen sodium 220 mg tablet 220 mg PO BID PRN 07/08/21 07/08/21 07/07/21 History Assessment and Plan Anesthetic Plan Disposition: Standard PACU
--- NOTE | 2021-07-09 12:53 | MHC.CM.PN ---
CM MET W/PT'S DTR/HCP KAROLINA ON UNIT TO DISCUSS DISPO, PER DISCUSSION KAROLINA PREFERS ACUTE REHAB FOR PT, CM RECEIVED CALL BACK FROM K[facility]OL[facility] AFTER [facility]UTE [facility] OPTIONS WERE DISCUSSED W/FAMILY AND KAROLINA REPORTS [facility] IS PREFERRED FACILITY, REFERRAL WILL BE PLACED.
--- NOTE | 2021-07-09 13:29 | MHC.SHP ---
Pre-Procedural Eval Section A Date of Service: 07/09/21 The patient is an INPATIENT: Yes Changes since office visit: No Cold of Flu in the past 2 weeks, No New Medical Problems, No Changes in Medication and No Patient answered all questions The History & Physical has been completed within 30 days and I have reviewed it.: Yes Section B Chief Complaint: proximal left fe,oral fracture Allergies: Allergies Allergy/AdvReac Type Severity Reaction Status Date / Time codeine [CODEINE] Allergy Mild upset Verified 05/24/21 09:08 stomach, nause Plan I have reviewed the history and physical and performed a pertinent physical examination on my patient. No changes have occurred unless specified.
--- NOTE | 2021-07-09 13:30 | HO.PM.IMPN ---
Subjective Subjective Date of Service: 07/09/21 Interval History: complain of left femur pain with movement otherwise address denies any acute issues provide history of frequent urination denies dysuria denies burning denies fever chills is being followed by Urology as outpatient. 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 Neck no JVD. CVS regular rate rhythm, Respiratory lungs clear to auscultation, no respiratory distress, no wheeze, no rhonchi. Gastrointestinal abdomen soft, nontender, bowel sounds audible Extremities no edema. Neuro nonfocal , speech clear. Skin no rash Psych appropriate affect Objective Data Active Medications Acetaminophen (Acetaminophen 325 Mg Tablet) 650 mg PO Q6H PRN PRN Reason: Pain, Mild (Pain Scale 1-3) Atenolol (Atenolol 25 Mg Tablet) 25 mg PO DAILY [facility]; Protocol Last Admin: 07/09/21 09:25 Dose: 25 mg Documented by: REMIGIO Atorvastatin Calcium (Atorvastatin Calcium 10 Mg Tablet) 10 mg PO DAILY [facility] Last Admin: 07/09/21 09:25 Dose: Not Given Documented by: REMIGIO Non-Admin Reason: Physician Held Med Comments: Held per MD Brown - other am meds okay to give prior to surgery Cyanocobalamin (Cyanocobalamin (Vitamin B-12) 1,000 Mcg Tablet) 1,000 mcg PO DAILY [facility] Last Admin: 07/09/21 09:25 Dose: 1,000 mcg Documented by: REMIGIO Lisinopril (Lisinopril 40 Mg Tablet) 40 mg PO DAILY [facility]; Protocol Last Admin: 07/09/21 09:25 Dose: 40 mg Documented by: REMIGIO Melatonin (Melatonin 3 Mg Tablet) 3 mg PO BEDTIME PRN PRN Reason: Insomnia Morphine Sulfate (Morphine Sulfate 4 Mg/Ml Cartridge) 4 mg IVPUSH Q4H PRN; Protocol PRN Reason: Pain, Severe (Pain Scale 7-10) Last Admin: 07/09/21 03:54 Dose: 4 mg Documented by: MORALES Patient Own Med ( Vibegron [Gemtesa] 75 Mg Tablet) 75 mg PO DAILY [facility] Last Admin: 07/09/21 09:33 Dose: Not Given Documented by: REMIGIO Non-Admin Reason: Med Not Available Oxycodone HCl (Oxycodone Hcl Immed Release 5 Mg Tablet) 5 mg PO Q4H PRN PRN Reason: Pain, Moderate (Pain Scale 4-6 Last Admin: 07/09/21 09:28 Dose: 5 mg Documented by: REMIGIO Pharmacy Consult (Consult Rx Perform Med Rec) 1 each MISCELLANE ONCE PRN PRN Reason: Consult order Pharmacy Consult (Consult Rx Perform Med Rec) 1 each MISCELLANE ONCE PRN PRN Reason: Consult order Pharmacy Consult (Consult Rx Perform Med Rec) 1 each MISCELLANE ONCE PRN PRN Reason: Consult order Sodium Chloride (0.9 % Sodium Chloride Flush 3 Ml Syringe) 3 ml IVFLUSH QSHIFT [facility] Last Admin: 07/09/21 09:25 Dose: 3 ml Documented by: REMIGIO Venlafaxine HCl (Venlafaxine Hcl Er 75 Mg Cap.Er.24h) 75 mg PO DAILY [facility] Last Admin: 07/09/21 09:25 Dose: 75 mg Documented by: REMIGIO Venlafaxine HCl (Venlafaxine Hcl Er 150 Mg Cap.Er.24h) 150 mg PO DAILY [facility] Last Admin: 07/09/21 09:25 Dose: 150 mg Documented by: REMIGIO Labs CBC & Chem 7: 07/09/21 05:17 07/09/21 05:17 Labs: Laboratory Results - last 24 hr 07/08/21 07/08/21 07/08/21 14:13 14:13 16:16 MCV 90.3 MCH 29.5 MCHC 32.7 RDW 12.4 Plt Count 340 MPV 9.5 Immature Gran % (Auto) 0.6 H Neut % (Auto) 76.1 H Lymph % (Auto) 9.6 L [place] % (Auto) 12.1 H Eos % (Auto) 1.4 Baso % (Auto) 0.2 Lymph # (Auto) 1.2 [place] # (Auto) 1.5 H Eos # (Auto) 0.2 Baso # (Auto) 0.0 Abs Immat Gran (auto) 0.07 H Absolute Neuts (auto) 9.5 H Absolute Nucleated RBC 0.000 Nucleated RBC % (auto) 0.0 Smear Tech's Comments VERIFIED PT INR Anion Gap 13 Estim Creat Clear Calc 41.8 Estimated GFR 52 Random Glucose 111 Fasting Glucose Calcium 9.3 Total Bilirubin AST ALT Alkaline Phosphatase Total Protein Albumin Urine Color Urine Appearance Urine pH Ur Specific [place] Urine Protein Urine Glucose (UA) Urine Ketones Urine Blood Urine Nitrite Ur Leukocyte Esterase Urine RBC Urine WBC Urine WBC Clumps Ur Squamous Epith Cells Urine Bacteria COVID-19 (JOE) Negative COVID-19 Clin Com See Note Blood Type Antibody Screen 07/08/21 07/09/21 07/09/21 17:40 05:17 05:17 MCV 90.3 MCH 30.0 MCHC 33.2 RDW 12.4 Plt Count 361 MPV 9.7 Immature Gran % (Auto) 0.5 H Neut % (Auto) 63.7 Lymph % (Auto) 15.9 L [place] % (Auto) 18.7 H Eos % (Auto) 0.9 Baso % (Auto) 0.3 Lymph # (Auto) 1.8 [place] # (Auto) 2.1 H Eos # (Auto) 0.1 Baso # (Auto) 0.0 Abs Immat Gran (auto) 0.06 H Absolute Neuts (auto) 7.1 Absolute Nucleated RBC 0.000 Nucleated RBC % (auto) 0.0 Smear Tech's Comments VERIFIED PT 14.9 H INR 1.3 H Anion Gap Estim Creat Clear Calc Estimated GFR Random Glucose Fasting Glucose Calcium Total Bilirubin AST ALT Alkaline Phosphatase Total Protein Albumin Urine Color YELLOW Urine Appearance CLOUDY Urine pH 8.0 Ur Specific [place] 1.020 Urine Protein 2+ H Urine Glucose (UA) NEG Urine Ketones NEG Urine Blood 3+ H Urine Nitrite NEG Ur Leukocyte Esterase 3+ H Urine RBC 10-14 H Urine WBC TNTC H Urine WBC Clumps NOTED Ur Squamous Epith Cells 1+ Urine Bacteria 4+ COVID-19 (JOE) COVID-19 Clin Com Blood Type Antibody Screen 07/09/21 07/09/21 05:17 08:08 MCV MCH MCHC RDW Plt Count MPV Immature Gran % (Auto) Neut % (Auto) Lymph % (Auto) [place] % (Auto) Eos % (Auto) Baso % (Auto) Lymph # (Auto) [place] # (Auto) Eos # (Auto) Baso # (Auto) Abs Immat Gran (auto) Absolute Neuts (auto) Absolute Nucleated RBC Nucleated RBC % (auto) Smear Tech's Comments PT INR Anion Gap 15 Estim Creat Clear Calc 47.4 Estimated GFR 60 Random Glucose Fasting Glucose 93 Calcium 8.9 Total Bilirubin 0.3 AST 18 ALT 12 Alkaline Phosphatase 76 Total Protein 6.2 L Albumin 3.3 L D Urine Color Urine Appearance Urine pH Ur Specific [place] Urine Protein Urine Glucose (UA) Urine Ketones Urine Blood Urine Nitrite Ur Leukocyte Esterase Urine RBC Urine WBC Urine WBC Clumps Ur Squamous Epith Cells Urine Bacteria COVID-19 (JOE) COVID-19 Clin Com Blood Type A Positive Antibody Screen NEGATIVE Microbiology Microbiology Results: Microbiology 07/08/21 17:40 Urine Culture - Preliminary Urine clean catch - Urine crow top No growth to date. Assessment and Plan (1) Closed intertrochanteric fracture: Status: Acute (2) Polyuria: Status: Acute (3) Anxiety: Status: Acute (4) Essential hypertension: Status: Acute Plan 85-year-old female presents after mechanical fall fracturing left proximal femur.? Found to be markedly hypertensive in the ER.? Voices no cardiac complaints 1. Left proximal femur fracture - sustained left femur fracture due to mechanical fall, seen by Orthopedic surgery and scheduled for left femur surgery today continue NPO continue current pain medication will encourage incentive spirometry, add bowel regimen and follow clinical course 2. Hypertension - noted to have significantly elevated blood pressure that improved with 1 dose of IV hydralazine patient will be continued on home medication atenolol and lisinopril, will follow blood pressure closely. 3. urinary tract infection patient complain of urinary frequency UA significantly positive will place patient on IV ceftriaxone and follow urine culture no evidence of sepsis on admission 4. Anxiety -continue Effexor at outpatient dosing 5. GERD continue PPI 6.Hyperlipidemia -continue statin Full code Sequential, further anticoagulation as per Orthopedic surgery will require continued inpatient hospitalization due to repair of left proximal femoral fracture and treatment of UTI with IV antibiotics.? Quality Stroke Does the patient have a stroke diagnosis?: No VTE Prior VTE?: No VTE Risk Level:: Medical - moderate - high VTE Device Contraindication: N/A - Device Ordered VTE Drug Contraindication: Treatment Not Indicated
[2021-07-09] MEDS: cefTRIAXone sodium 1 GM in 0.9 % Sodium Chloride 50 ML IV (17:28)
--- NOTE | 2021-07-09 18:31 | PM.OP ---
Brief Operative Note Date of Service: 07/09/21 Pre-op diagnosis: Left hip IT fracture Procedure: IMN left hip Implants: [place] [id number] with 95 mm hip screw and 42.5 distal interlock Surgeon: Luis Gleason MD Anesthesia: GETA and local Was an Underlay Stitcher used for this Procedure?: No Estimated blood loss (mL): 50 IV fluids (mL): 400 Urine output (mL): 200 Pathology: none sent Condition: stable Disposition: PACU
[2021-07-09] MEDS: ceFAZolin Sodium/Dextrose,Iso 2 GM/50 ML PIGGYBACK IV (23:42)
[2021-07-10] VITALS (8 sets, daily range): BP systolic 82–149; BP diastolic 48–65; PULSE 62–89; RESP 17–18; TEMP 36.2–37.2; O2SAT 92–99
[2021-07-10 06:41] LABS: Basophils Percent Auto 0.2 % (0-2); Eosinophils Absolute Auto 0.1 X10*3/uL (0.0-0.4); Eosinophils Percent Auto 0.6 % (0-4); Hematocrit 27.4 % (37.0-47.0); Hemoglobin 8.9 g/dl (12.0-16.0); Imm Gran Abs Auto 0.06 X10*3/uL (0.00-0.03); Imm Gran Pct Auto 0.5 % (0.0-0.4); Lymphocytes Absolute Auto 1.9 X10*3/uL (1.2-4.9); Lymphocytes Percent Auto 15.1 % (20-40); MANUAL DIFF FLAG SCAN; Mean Corpuscular HGB Conc 32.5 g/dl (31.0-35.0); Mean Corpuscular Hemoglobin 29.7 pg (27.0-33.0); Mean Corpuscular Volume 91.3 fL (80.0-98.0); Mean Platelet Volume 9.9 fL (9.4-12.3); Monocytes Absolute Auto 2.3 X10*3/uL (0.1-1.2); Monocytes Percent Auto 18.2 % (2-11); Neutrophils Absolute Auto 8.2 x10*3/uL (2.0-8.3); Neutrophils Percent Auto 65.4 % (45-73); Platelet Count 346 X10*3/uL (160-400); Red Cell Distribution Width 12.7 % (11.0-16.0); SCAN SMEAR FLAG 1; White Blood Count 12.5 X10*3/uL (4.8-10.8)
[2021-07-10 06:47] LABS: Alanine Aminotransferase 9 U/L (0-31); Albumin Level 3.1 g/dL (3.5-5.0); Alkaline Phosphatase 66 U/L (39-117); Anion Gap 13 (12-20); Aspartate Amino Transferase 18 U/L (5-31); Bilirubin Total 0.2 mg/dL (0.0-1.0); Blood Urea Nitrogen 25 mg/dL (9-16); Calcium 8.2 mg/dL (8.4-10.2); Carbon Dioxide 24 mmol/L (22-29); Chloride 97 mmol/L (96-108); Creatinine Clr Calc Pharmacy 39.5; Estimated Glomerular Filt Rate 48; Glucose Fasting 115 mg/dL (60-99); Potassium 4.8 mmol/L (3.3-5.1); Sodium 129 mmol/L (135-145)
[2021-07-10 07:06] LABS: SLIDE REVIEW VERIFIED
--- NOTE | 2021-07-10 07:51 | PM.PNORT ---
Subjective Subjective Date of Service: 07/10/21 Interval history: POD1 s/p Left hip IM nail with Dr. Gleason. patient is resting comfortably in bed. Pain is well managed. No overnight events. No additional complaints. Physical Exam Vital Signs: Vital Signs: Last Vital Signs Temp 99 F 07/10/21 03:31 Pulse 89 07/10/21 03:31 Resp 18 07/10/21 03:31 BP 149/65 H 07/10/21 03:31 Pulse Ox 99 07/10/21 03:31 BMI result Body Mass Index 25.8 Const: General: cooperative, healthy appearing and no acute distress Resp: Effort & Inspection: normal respiratory effort and able to speak in complete sentences Cardio: Rate: regular rate Peripheral pulses: Peripheral pulses 2+ throughout GI: Palpation (GI): Soft to palpation Skin: Lesions: no lesions Rashes: no rashes Extrem: Other: left hip dressings are clean dry and intact. Patient is able to dorsiflex and plantar flex. Sensation is reportedly intact. Pedal pulse intact. Procedures Date of Service Date of Service: 07/10/21 Progress Note: A&P Assessment and plan (1) Closed intertrochanteric fracture: Status: Acute Assessment and Plan: Continue pain mgmnt Begin Lovenox for dvt ppx begin PT/OT for lt hip IM Nail WBAT Dispo planning-Pending PT eval, pain mgmnt Time Spent With Patient Time: Total time spent is greater than 50% in coordination of care (as documented) at patient's floor/unit and/or counseling patient: Quality Stroke Does the patient have a stroke diagnosis?: No VTE Prior VTE?: No VTE Risk Level:: Medical - moderate - high VTE Device Contraindication: N/A - Device Ordered VTE Drug Contraindication: Treatment Not Indicated
[2021-07-10] MEDS: Morphine Sulfate 4 MG/ML CARTRIDGE IVPUSH ×2 (08:49→14:32)
[2021-07-10] MEDS: 0.9 % Sodium Chloride Flush 3 ML SYRINGE IVFLUSH ×3 (08:51→20:58)
[2021-07-10] MEDS: Cyanocobalamin (Vitamin B-12) 1,000 MCG TABLET 1000 MCG PO (08:51)
[2021-07-10] MEDS: Atorvastatin Calcium 10 MG TABLET PO (08:51)
[2021-07-10] MEDS: lisinopriL 40 MG TABLET PO (08:51)
[2021-07-10] MEDS: Docusate Sodium 100 MG CAPSULE PO ×2 (08:51→20:58)
[2021-07-10] MEDS: Venlafaxine HCl ER 75 MG CAP.ER.24H PO (08:51)
[2021-07-10] MEDS: atenoloL 25 MG TABLET PO (08:51)
[2021-07-10] MEDS: Venlafaxine HCl ER 150 MG CAP.ER.24H PO (08:51)
--- NOTE | 2021-07-10 11:16 | HO.POSTANES ---
Post Anesthesia Evaluation Post Anesthesia Evaluation Vital Signs: Vital Signs Temp Pulse Resp BP Pulse Ox 07/10/21 09:31 81 107/52 L 99 07/10/21 07:58 98.9 F 81 18 107/52 L 99 07/10/21 03:31 99 F 89 18 149/65 H 99 07/09/21 23:38 99.4 F 84 18 149/67 H 95 Anesthesia: General Mental Status: Awake Pain Control: Satisfactory Nausea/Vomiting: None Hydration: Adequate Anesthesia-Related Issues: No Anes. Related Issues
[2021-07-10] MEDS: oxyCODONE HCl Immed Release 5 MG TABLET PO (11:38)
--- NOTE | 2021-07-10 11:55 | PC.NURSE ---
Matthews removed at 1200. Patient due to void at 1800. Purewick in place. Will continue to monitor.
--- NOTE | 2021-07-10 13:58 | P.PNIM_ITS ---
Subjective Subjective Date of Service: 07/10/21 Interval History: Complaining of weakness and left thigh pain, noted to have soft blood pressures this morning, denies chest pain no shortness of breath, no palpitations, Matthews catheter draining clear urine. 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 awake alert x3, no acute distress.? Neck no JVD. CVS? regular rate rhythm, Respiratory lungs clear to auscultation, no respiratory distress, no wheeze, no rhonchi. Gastrointestinal abdomen soft, nontender, bowel sounds audible Extremities no? edema. Left hip dressing in place Neuro nonfocal , speech clear. Skin no rash Psych appropriate affect Objective Data Active Medications Acetaminophen (Acetaminophen 325 Mg Tablet) 650 mg PO Q6H PRN PRN Reason: Pain, Mild (Pain Scale 1-3) Atenolol (Atenolol 25 Mg Tablet) 25 mg PO DAILY [facility]; Protocol Last Admin: 07/10/21 08:51 Dose: 25 mg Documented by: JIM Atorvastatin Calcium (Atorvastatin Calcium 10 Mg Tablet) 10 mg PO DAILY [facility] Last Admin: 07/10/21 08:51 Dose: 10 mg Documented by: JIM Cyanocobalamin (Cyanocobalamin (Vitamin B-12) 1,000 Mcg Tablet) 1,000 mcg PO DAILY [facility] Last Admin: 07/10/21 08:51 Dose: 1,000 mcg Documented by: JIM Docusate Sodium (Docusate Sodium 100 Mg Capsule) 100 mg PO BID [facility] Last Admin: 07/10/21 08:51 Dose: 100 mg Documented by: JIM Enoxaparin Sodium (Enoxaparin Sodium 40 Mg/0.4 Ml Syringe) 40 mg SUBCUT Q24H [facility] Fentanyl (Fentanyl Citrate/Pf 100 Mcg/2 Ml Vial) 25 mcg IVPUSH Q5M PRN; Protocol PRN Reason: Pain, Moderate (Pain Scale 4-6 Hydromorphone HCl (Hydromorphone Hcl 0.5 Mg/0.5 Ml Syringe) 0.25 mg IVPUSH Q5M PRN; Protocol PRN Reason: Pain, Severe (Pain Scale 7-10) Ceftriaxone Sodium 1 gm/ (Sodium Chloride) 50 mls @ 100 mls/hr IV Q24H [facility] Last Infusion: 07/09/21 20:03 Dose: 0 mls/hr Documented by: BONI Promethazine HCl 12.5 mg/ (Sodium Chloride) 50.5 mls @ 202 mls/hr IV ONCE PRN PRN Reason: Nausea and Vomiting Melatonin (Melatonin 3 Mg Tablet) 3 mg PO BEDTIME PRN PRN Reason: Insomnia Morphine Sulfate (Morphine Sulfate 4 Mg/Ml Cartridge) 4 mg IVPUSH Q4H PRN; Protocol PRN Reason: Pain, Severe (Pain Scale 7-10) Last Admin: 07/10/21 08:49 Dose: 4 mg Documented by: JIM Patient Own Med ( Vibegron [Gemtesa] 75 Mg Tablet) 75 mg PO DAILY [facility] Last Admin: 07/10/21 08:54 Dose: Not Given Documented by: JIM Non-Admin Reason: Med Not Available Oxycodone HCl (Oxycodone Hcl Immed Release 5 Mg Tablet) 5 mg PO Q4H PRN PRN Reason: Pain, Moderate (Pain Scale 4-6 Last Admin: 07/10/21 11:38 Dose: 5 mg Documented by: JIM Pharmacy Consult (Consult Rx Perform Med Rec) 1 each MISCELLANE ONCE PRN PRN Reason: Consult order Pharmacy Consult (Consult Rx Perform Med Rec) 1 each MISCELLANE ONCE PRN PRN Reason: Consult order Pharmacy Consult (Consult Rx Perform Med Rec) 1 each MISCELLANE ONCE PRN PRN Reason: Consult order Sodium Chloride (0.9 % Sodium Chloride Flush 3 Ml Syringe) 3 ml IVFLUSH QSHIFT [facility] Last Admin: 07/10/21 08:51 Dose: 3 ml Documented by: JIM Venlafaxine HCl (Venlafaxine Hcl Er 75 Mg Cap.Er.24h) 75 mg PO DAILY [facility] Last Admin: 05/25/22 08:51 Dose: 75 mg Documented by: JIM Venlafaxine HCl (Venlafaxine Hcl Er 150 Mg Cap.Er.24h) 150 mg PO DAILY [facility] Last Admin: 07/10/21 08:51 Dose: 150 mg Documented by: JIM Labs CBC & Chem 7: 07/10/21 05:26 07/10/21 05:26 Labs: Laboratory Results - last 24 hr 07/10/21 07/10/21 05:26 05:26 MCV 91.3 MCH 29.7 MCHC 32.5 RDW 12.7 Plt Count 346 MPV 9.9 Immature Gran % (Auto) 0.5 H Neut % (Auto) 65.4 Lymph % (Auto) 15.1 L [place] % (Auto) 18.2 H Eos % (Auto) 0.6 Baso % (Auto) 0.2 Lymph # (Auto) 1.9 [place] # (Auto) 2.3 H Eos # (Auto) 0.1 Baso # (Auto) 0.0 Abs Immat Gran (auto) 0.06 H Absolute Neuts (auto) 8.2 Absolute Nucleated RBC 0.000 Nucleated RBC % (auto) 0.0 Smear Tech's Comments VERIFIED Anion Gap 13 Estim Creat Clear Calc 39.5 Estimated GFR 48 Fasting Glucose 115 H Calcium 8.2 L D Total Bilirubin 0.2 AST 18 ALT 9 Alkaline Phosphatase 66 Total Protein 6.0 L Albumin 3.1 L Microbiology Microbiology Results: Microbiology 07/08/21 17:40 Urine Culture - Final Urine clean catch - Urine crow top Assessment and Plan (1) Closed intertrochanteric fracture: Status: Acute (2) Polyuria: Status: Acute (3) Anxiety: Status: Acute (4) Essential hypertension: Status: Acute Plan 85-year-old female presents after mechanical fall fracturing left proximal femur.? Found to be markedly hypertensive in the ER.? Voices no cardiac complaints 1. Left proximal femur fracture - status post left hip IMN, complaining of hip discomfort and weakness Hematocrit dropped but stable will add iron supplement follow CBC continue current pain medication with IV morphine, IV Dilaudid and oxycodone, will add scheduled Tylenol, continue bowel regimen, encourage incentive spirometry. 2. Hypertension - noted to have low blood pressure this morning will hold lisinopril, continue atenolol and follow blood pressure closely 3. urinary tract infection patient complain of urinary frequency UA significantly positive , however urine culture came back negative, since patient is symptomatic with positive UA will treat and follow clinical course Patient has history of urinary frequency, on gemtesa, beta 3 adrenergic receptor stimulant to relax bladder smooth muscle, recommend continued outpatient urology follow-up will obtain bladder ultrasound 4. Anxiety -continue Effexor at outpatient dosing 5. GERD continue PPI 6.Hyperlipidemia -continue statin Full code Continue Lovenox will require continued inpatient hospitalization due to left hip surgery, requiring intravenous pain medication. Quality Stroke Does the patient have a stroke diagnosis?: No VTE Prior VTE?: No VTE Risk Level:: Medical - moderate - high VTE Device Contraindication: N/A - Device Ordered VTE Drug Contraindication: Treatment Not Indicated
[2021-07-10] MEDS: cefTRIAXone sodium 1 GM in 0.9 % Sodium Chloride 50 ML IV (14:33)
[2021-07-10] MEDS: Enoxaparin Sodium 40 MG/0.4 ML SYRINGE SUBCUT (15:42)
[2021-07-10] MEDS: Ferrous Sulfate 324 MG TABLET.DR PO (15:42)
[2021-07-10] MEDS: Acetaminophen 325 MG TABLET 650 MG PO (20:58)
[2021-07-11] VITALS (10 sets, daily range): BP systolic 115–174; BP diastolic 52–77; PULSE 64–88; RESP 16–18; TEMP 36.3–37.1; O2SAT 95–97
[2021-07-11 06:19] LABS: Basophils Percent Auto 0.2 % (0-2); Eosinophils Absolute Auto 0.4 X10*3/uL (0.0-0.4); Eosinophils Percent Auto 3.1 % (0-4); Hematocrit 26.9 % (37.0-47.0); Hemoglobin 8.7 g/dl (12.0-16.0); Imm Gran Abs Auto 0.12 X10*3/uL (0.00-0.03); Imm Gran Pct Auto 0.9 % (0.0-0.4); Lymphocytes Absolute Auto 1.5 X10*3/uL (1.2-4.9); Lymphocytes Percent Auto 11.2 % (20-40); MANUAL DIFF FLAG SCAN; Mean Corpuscular HGB Conc 32.3 g/dl (31.0-35.0); Mean Corpuscular Volume 92.8 fL (80.0-98.0); Mean Platelet Volume 9.4 fL (9.4-12.3); Monocytes Absolute Auto 2.3 X10*3/uL (0.1-1.2); Monocytes Percent Auto 16.7 % (2-11); Neutrophils Absolute Auto 9.3 x10*3/uL (2.0-8.3); Neutrophils Percent Auto 67.9 % (45-73); Platelet Count 320 X10*3/uL (160-400); Red Cell Distribution Width 12.8 % (11.0-16.0); SCAN SMEAR FLAG 1; White Blood Count 13.7 X10*3/uL (4.8-10.8)
[2021-07-11 06:20] LABS: Hemoglobin 8.7 g/dl (12.0-16.0)
[2021-07-11 06:37] LABS: SLIDE REVIEW VERIFIED
[2021-07-11 06:38] LABS: Alanine Aminotransferase 9 U/L (0-31); Albumin Level 3.2 g/dL (3.5-5.0); Alkaline Phosphatase 64 U/L (39-117); Anion Gap 14 (12-20); Aspartate Amino Transferase 37 U/L (5-31); Bilirubin Total 0.2 mg/dL (0.0-1.0); Blood Urea Nitrogen 31 mg/dL (9-16); Calcium 8.7 mg/dL (8.4-10.2); Carbon Dioxide 26 mmol/L (22-29); Chloride 96 mmol/L (96-108); Creatinine Clr Calc Pharmacy 29.2; Estimated Glomerular Filt Rate 34; Glucose Fasting 94 mg/dL (60-99); Sodium 131 mmol/L (135-145); Total Protein 6.1 g/dL (6.5-8.0)
[2021-07-11] MEDS: 0.9 % Sodium Chloride Flush 3 ML SYRINGE IVFLUSH ×3 (07:51→21:45)
[2021-07-11] MEDS: 0.9 % Sodium Chloride 500 ML 80 ML IVCONT (08:02)
--- NOTE | 2021-07-11 08:21 | P.PNOP_ITS ---
Subjective Subjective Date of Service: 07/11/21 Interval history: POD 2 s/p LT hip IMN no overnight events PT was challenging yesterday denies cp, palpitations, sob Physical Exam Vital Signs: Vital Signs: Last Vital Signs Temp 98.7 F 07/11/21 07:42 Pulse 77 07/11/21 07:42 Resp 18 07/11/21 07:42 BP 138/69 07/11/21 07:42 Pulse Ox 95 07/11/21 07:42 BMI result Body Mass Index 25.8 Const: General: cooperative, healthy appearing and no acute distress Resp: Effort & Inspection: normal respiratory effort and able to speak in complete sentences Cardio: Rate: regular rate Peripheral pulses: Peripheral pulses 2+ throughout GI: Palpation (GI): Soft to palpation Skin: General skin exam: no rashes or lesions noted Extrem: Other: incision clean dry and intact. [place] intact. No erythema or effusion. Calf supple nontender. Neurovascularly intact. Procedures Date of Service Date of Service: 07/11/21 Progress Note: A&P Assessment and plan (1) Closed intertrochanteric fracture: Status: Acute Assessment and Plan: cont pain mgmnt cont lovenox cont PT/OT dispo-ok to dc from ortho standpoint Time Spent With Patient Time: Total time spent is greater than 50% in coordination of care (as documented) at patient's floor/unit and/or counseling patient: Quality Stroke Does the patient have a stroke diagnosis?: No VTE Prior VTE?: No VTE Risk Level:: Medical - moderate - high VTE Device Contraindication: N/A - Device Ordered VTE Drug Contraindication: Treatment Not Indicated
[2021-07-11] MEDS: Acetaminophen 325 MG TABLET 650 MG PO ×4 (08:53→20:56)
[2021-07-11] MEDS: oxyCODONE HCl Immed Release 5 MG TABLET PO (08:54)
[2021-07-11] MEDS: Docusate Sodium 100 MG CAPSULE PO ×2 (08:54→20:57)
[2021-07-11] MEDS: Ferrous Sulfate 324 MG TABLET.DR PO (08:54)
[2021-07-11] MEDS: Atorvastatin Calcium 10 MG TABLET PO (08:54)
[2021-07-11] MEDS: Cyanocobalamin (Vitamin B-12) 1,000 MCG TABLET 1000 MCG PO (08:54)
[2021-07-11] MEDS: Venlafaxine HCl ER 150 MG CAP.ER.24H PO (08:55)
[2021-07-11] MEDS: Venlafaxine HCl ER 75 MG CAP.ER.24H PO (08:55)
[2021-07-11] MEDS: cefTRIAXone sodium 1 GM in 0.9 % Sodium Chloride 50 ML IV (14:25)
[2021-07-11] MEDS: Enoxaparin Sodium 40 MG/0.4 ML SYRINGE SUBCUT (14:26)
--- NOTE | 2021-07-11 14:27 | HO.PM.IMPN ---
Subjective Subjective Date of Service: 07/11/21 Interval History: Feeling better this morning, sitting on chair, good pain control, denies lightheadedness or dizziness, noted to have low blood pressure last night, BP stable this morning, denies chest pain, no palpitation. 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 awake alert x3, no acute distress.? Neck no JVD. CVS? regular rate rhythm, Respiratory lungs clear to auscultation, no respiratory distress, no wheeze, no rhonchi. Gastrointestinal abdomen soft, nontender, bowel sounds audible Extremities no? edema.? Left hip dressing in place, left hip pain with movement Neuro nonfocal , speech clear. Skin no rash Psych appropriate affect Objective Data Active Medications Acetaminophen (Acetaminophen 325 Mg Tablet) 650 mg PO Q6H PRN PRN Reason: Pain, Mild (Pain Scale 1-3) Acetaminophen (Acetaminophen 325 Mg Tablet) 650 mg PO QID [facility] Last Admin: 07/11/21 08:53 Dose: 650 mg Documented by: PAGE Atenolol (Atenolol 25 Mg Tablet) 25 mg PO DAILY [facility]; Protocol Last Admin: 07/10/21 08:51 Dose: 25 mg Documented by: JIM Atorvastatin Calcium (Atorvastatin Calcium 10 Mg Tablet) 10 mg PO DAILY [facility] Last Admin: 07/11/21 08:54 Dose: 10 mg Documented by: PAGE Cyanocobalamin (Cyanocobalamin (Vitamin B-12) 1,000 Mcg Tablet) 1,000 mcg PO DAILY [facility] Last Admin: 07/11/21 08:54 Dose: 1,000 mcg Documented by: PAGE Docusate Sodium (Docusate Sodium 100 Mg Capsule) 100 mg PO BID [facility] Last Admin: 07/11/21 08:54 Dose: 100 mg Documented by: PAGE Enoxaparin Sodium (Enoxaparin Sodium 40 Mg/0.4 Ml Syringe) 40 mg SUBCUT Q24H [facility] Last Admin: 07/10/21 15:42 Dose: 40 mg Documented by: JIM Fentanyl (Fentanyl Citrate/Pf 100 Mcg/2 Ml Vial) 25 mcg IVPUSH Q5M PRN; Protocol PRN Reason: Pain, Moderate (Pain Scale 4-6 Ferrous Sulfate (Ferrous Sulfate 324 Mg Tablet.Dr) 324 mg PO DAILY [facility] Last Admin: 07/11/21 08:54 Dose: 324 mg Documented by: PAGE Hydromorphone HCl (Hydromorphone Hcl 0.5 Mg/0.5 Ml Syringe) 0.25 mg IVPUSH Q5M PRN; Protocol PRN Reason: Pain, Severe (Pain Scale 7-10) Ceftriaxone Sodium 1 gm/ (Sodium Chloride) 50 mls @ 100 mls/hr IV Q24H [facility] Last Infusion: 07/10/21 15:19 Dose: 0 mls/hr Documented by: JIM Promethazine HCl 12.5 mg/ (Sodium Chloride) 50.5 mls @ 202 mls/hr IV ONCE PRN PRN Reason: Nausea and Vomiting Melatonin (Melatonin 3 Mg Tablet) 3 mg PO BEDTIME PRN PRN Reason: Insomnia Morphine Sulfate (Morphine Sulfate 4 Mg/Ml Cartridge) 4 mg IVPUSH Q4H PRN; Protocol PRN Reason: Pain, Severe (Pain Scale 7-10) Last Admin: 07/10/21 14:32 Dose: 4 mg Documented by: JIM Patient Own Med ( Vibegron [Gemtesa] 75 Mg Tablet) 75 mg PO DAILY [facility] Last Admin: 07/11/21 08:55 Dose: Not Given Documented by: PAGE Non-Admin Reason: Med Not Available Oxycodone HCl (Oxycodone Hcl Immed Release 5 Mg Tablet) 5 mg PO Q4H PRN PRN Reason: Pain, Moderate (Pain Scale 4-6 Last Admin: 07/11/21 08:54 Dose: 5 mg Documented by: PAGE Pharmacy Consult (Consult Rx Perform Med Rec) 1 each MISCELLANE ONCE PRN PRN Reason: Consult order Pharmacy Consult (Consult Rx Perform Med Rec) 1 each MISCELLANE ONCE PRN PRN Reason: Consult order Pharmacy Consult (Consult Rx Perform Med Rec) 1 each MISCELLANE ONCE PRN PRN Reason: Consult order Sodium Chloride (0.9 % Sodium Chloride Flush 3 Ml Syringe) 3 ml IVFLUSH QSHIFT [facility] Last Admin: 07/11/21 07:51 Dose: 3 ml Documented by: WENDI Venlafaxine HCl (Venlafaxine Hcl Er 75 Mg Cap.Er.24h) 75 mg PO DAILY [facility] Last Admin: 07/11/21 08:55 Dose: 75 mg Documented by: PAGE Venlafaxine HCl (Venlafaxine Hcl Er 150 Mg Cap.Er.24h) 150 mg PO DAILY [facility] Last Admin: 07/11/21 08:55 Dose: 150 mg Documented by: PAGE Labs CBC & Chem 7: 07/11/21 06:01 07/11/21 06:01 Labs: Laboratory Results - last 24 hr 07/11/21 07/11/21 06:01 06:01 MCV 92.8 MCH 30.0 MCHC 32.3 RDW 12.8 Plt Count 320 MPV 9.4 Immature Gran % (Auto) 0.9 H Neut % (Auto) 67.9 Lymph % (Auto) 11.2 L [place] % (Auto) 16.7 H Eos % (Auto) 3.1 Baso % (Auto) 0.2 Lymph # (Auto) 1.5 [place] # (Auto) 2.3 H Eos # (Auto) 0.4 Baso # (Auto) 0.0 Abs Immat Gran (auto) 0.12 H Absolute Neuts (auto) 9.3 H Absolute Nucleated RBC 0.000 Nucleated RBC % (auto) 0.0 Smear Tech's Comments VERIFIED Anion Gap 14 Estim Creat Clear Calc 29.2 Estimated GFR 34 Fasting Glucose 94 Calcium 8.7 D Total Bilirubin 0.2 AST 37 H D ALT 9 Alkaline Phosphatase 64 Total Protein 6.1 L Albumin 3.2 L Microbiology Microbiology Results: Microbiology 07/08/21 17:40 Urine Culture - Final Urine clean catch - Urine crow top Assessment and Plan (1) Closed intertrochanteric fracture: Status: Acute (2) Polyuria: Status: Acute (3) Anxiety: Status: Acute (4) Essential hypertension: Status: Acute Plan 85-year-old female presents after mechanical fall fracturing left proximal femur.? Found to be markedly hypertensive in the ER.? Voices no cardiac complaints 1. Left proximal femur fracture - status post left hip IMN, good pain control Hematocrit dropped to 27, continue iron supplement follow CBC Will DC IV Dilaudid, continue IV morphine, and prn oxycodone, continue scheduled Tylenol, continue bowel regimen, encourage incentive spirometry. 2. Hypertension - noted to have low blood pressure last night, will hold atenolol, Zestril was discontinued on 07/10 due to low blood pressure, follow BP closely. 3. Urinary tract infection patient complained of urinary frequency UA significantly positive , however urine culture came back negative, since patient is symptomatic with positive UA, leukocytosis will treat with antibiotics and follow clinical course D3 IV ceftriaxone Patient has history of urinary frequency, on gemtesa, beta 3 adrenergic receptor stimulant to relax bladder smooth muscle, recommend continued outpatient urology follow-up 4. Anxiety -continue Effexor at outpatient dosing 5. GERD continue PPI 6.Hyperlipidemia -continue statin 7. Acute kidney injury likely due to hypotension will give IV fluid hold antihypertensive repeat BMP if not better obtained Nephro eval Full code Continue Lovenox will require continued inpatient hospitalization due to left hip surgery, requiring intravenous pain medication, acute kidney injury need IV hydration. Quality Stroke Does the patient have a stroke diagnosis?: No VTE Prior VTE?: No VTE Risk Level:: Medical - moderate - high VTE Device Contraindication: N/A - Device Ordered VTE Drug Contraindication: Treatment Not Indicated
[2021-07-12 03:28] VITALS: BP 158/80; PULSE 92; RESP 18; TEMP 36.4; O2SAT 95
[2021-07-12 05:54] LABS: Hemoglobin 8.9 g/dl (12.0-16.0); Mean Corpuscular Hemoglobin 29.5 pg (27.0-33.0); Mean Corpuscular Volume 89.4 fL (80.0-98.0); Mean Platelet Volume 9.3 fL (9.4-12.3); Platelet Count 355 X10*3/uL (160-400); Red Blood Count 3.02 X10*6/uL (4.20-5.50); Red Cell Distribution Width 12.7 % (11.0-16.0); White Blood Count 15.2 X10*3/uL (4.8-10.8)
[2021-07-12 06:05] LABS: Anion Gap 16 (12-20); Blood Urea Nitrogen 34 mg/dL (9-16); Calcium 8.8 mg/dL (8.4-10.2); Carbon Dioxide 20 mmol/L (22-29); Chloride 96 mmol/L (96-108); Creatinine Clr Calc Pharmacy 33.3; Estimated Glomerular Filt Rate 40; Glucose Random 108 mg/dL (60-115); Potassium 4.8 mmol/L (3.3-5.1); Sodium 127 mmol/L (135-145)
[2021-07-12 07:09] VITALS: BP 198/90; PULSE 85; RESP 18; TEMP 36.8; O2SAT 97
[2021-07-12] MEDS: Acetaminophen 325 MG TABLET 650 MG PO ×3 (07:45→21:37)
[2021-07-12] MEDS: amLODIPine Besylate 5 MG TABLET PO (07:45)
[2021-07-12] MEDS: Atorvastatin Calcium 10 MG TABLET PO (07:45)
[2021-07-12] MEDS: Venlafaxine HCl ER 150 MG CAP.ER.24H PO (07:46)
[2021-07-12] MEDS: Docusate Sodium 100 MG CAPSULE PO ×2 (07:46→22:09)
[2021-07-12] MEDS: Ferrous Sulfate 324 MG TABLET.DR PO (07:46)
[2021-07-12] MEDS: Cyanocobalamin (Vitamin B-12) 1,000 MCG TABLET 1000 MCG PO (07:46)
[2021-07-12] MEDS: Morphine Sulfate 4 MG/ML CARTRIDGE IVPUSH (07:47)
--- NOTE | 2021-07-12 07:57 | PM.PNORT ---
Subjective Subjective Date of Service: 07/12/21 Interval history: POD3 s/p lt hip IMN. Patient is resting in bed. Having some nausea and a bout of vomiting. Nurse at bedside to administer zofran. Pain is well managed. No additional complaints. Physical Exam Vital Signs: Vital Signs: Last Vital Signs Temp 98.2 F 07/12/21 07:09 Pulse 85 07/12/21 07:09 Resp 18 07/12/21 07:09 BP 198/90 H 07/12/21 07:09 Pulse Ox 97 07/12/21 07:09 BMI result Body Mass Index 25.8 Const: General: cooperative, healthy appearing and no acute distress Resp: Effort & Inspection: normal respiratory effort and able to speak in complete sentences Cardio: Rate: regular rate Peripheral pulses: Peripheral pulses 2+ throughout GI: Palpation (GI): Soft to palpation Skin: Lesions: no lesions Rashes: no rashes Extrem: Other: incision clean dry and intact.? [place] intact.? No erythema or? effusion.? Calf supple nontender.? Neurovascularly intact. Procedures Date of Service Date of Service: 07/12/21 Progress Note: A&P Assessment and plan (1) Closed intertrochanteric fracture: Status: Acute Assessment and Plan: Continue pain mgmnt Continue dvt ppx Continue PT for lt hip IMN Dispo planning-Pending Pain mgmnt, cleared for d/c from ortho perspective Time Spent With Patient Time: Total time spent is greater than 50% in coordination of care (as documented) at patient's floor/unit and/or counseling patient: Quality Stroke Does the patient have a stroke diagnosis?: No VTE Prior VTE?: No VTE Risk Level:: Medical - moderate - high VTE Device Contraindication: N/A - Device Ordered VTE Drug Contraindication: Treatment Not Indicated
[2021-07-12] MEDS: oxyCODONE HCl Immed Release 5 MG TABLET PO (11:37)
[2021-07-12] MEDS: polyethylene glycoL 3350 17 GM POWD.PACK PO (11:38)
[2021-07-12] MEDS: 0.9 % Sodium Chloride Flush 3 ML SYRINGE IVFLUSH ×3 (11:41→21:38)
[2021-07-12 11:46] VITALS: BP 198/90; PULSE 85; O2SAT 97
[2021-07-12 12:00] VITALS: BP 154/71; PULSE 84; RESP 18; TEMP 36.7; O2SAT 96
--- NOTE | 2021-07-12 12:23 | MHC.CM.PN ---
EMR REVIEWED, PT CLEARED FOR D/C BY ORTHO HOWEVER PT'S WBC INCREASED TO 15.2, NA DECREASED TO 127, BP REMAINS IS ELEVATED 189/90 X2, NO PLAN FOR D/C TODAY, PREFERRED FACILITY [facility] NOT OFFERING A BED, [facility] ARE FOLLOWING, WILL CONFIRM WHICH IS PREFERRED BY FAMILY.
--- NOTE | 2021-07-12 13:14 | HO.PM.IMPN ---
Subjective Subjective Date of Service: 07/12/21 Interval History: Complaining of tiredness, and left hip pain, had 1 episode of dark colored vomitus this a.m., denies abdominal pain, noted to respond slowly, no bowel movement, denies shortness of breath, no chest pain no palpitation, daughter at bedside. 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 awake alert x3, no acute distress.? Neck no JVD. CVS? regular rate rhythm, Respiratory lungs clear to auscultation, no respiratory distress, no wheeze, no rhonchi. Gastrointestinal abdomen soft, nontender, bowel sounds audible Extremities no? edema.? Left hip dressing in place, no drainage Neuro nonfocal , speech clear. Was slow to respond at a.m. later in the afternoon awake alert and answering appropriately Skin no rash Psych appropriate affect Objective Data Active Medications Acetaminophen (Acetaminophen 325 Mg Tablet) 650 mg PO Q6H PRN PRN Reason: Pain, Mild (Pain Scale 1-3) Acetaminophen (Acetaminophen 325 Mg Tablet) 650 mg PO QID [facility] Last Admin: 07/12/21 07:45 Dose: 650 mg Documented by: CHERELLE Amlodipine Besylate (Amlodipine Besylate 5 Mg Tablet) 5 mg PO DAILY [facility]; Protocol Last Admin: 07/12/21 07:45 Dose: 5 mg Documented by: CHERELLE Atenolol (Atenolol 25 Mg Tablet) 25 mg PO DAILY [facility]; Protocol Last Admin: 07/10/21 08:51 Dose: 25 mg Documented by: JIM Atorvastatin Calcium (Atorvastatin Calcium 10 Mg Tablet) 10 mg PO DAILY [facility] Last Admin: 07/12/21 07:45 Dose: 10 mg Documented by: CHERELLE Cyanocobalamin (Cyanocobalamin (Vitamin B-12) 1,000 Mcg Tablet) 1,000 mcg PO DAILY [facility] Last Admin: 07/12/21 07:46 Dose: 1,000 mcg Documented by: CHERELLE Docusate Sodium (Docusate Sodium 100 Mg Capsule) 100 mg PO BID [facility] Last Admin: 07/12/21 07:46 Dose: 100 mg Documented by: CHERELLE Enoxaparin Sodium (Enoxaparin Sodium 40 Mg/0.4 Ml Syringe) 40 mg SUBCUT Q24H [facility] Last Admin: 07/11/21 14:26 Dose: 40 mg Documented by: PAGE Ferrous Sulfate (Ferrous Sulfate 324 Mg Tablet.Dr) 324 mg PO DAILY [facility] Last Admin: 07/12/21 07:46 Dose: 324 mg Documented by: CHERELLE Ceftriaxone Sodium 1 gm/ (Sodium Chloride) 50 mls @ 100 mls/hr IV Q24H [facility] Last Infusion: 07/11/21 15:45 Dose: 0 mls/hr Documented by: PAGE Promethazine HCl 12.5 mg/ (Sodium Chloride) 50.5 mls @ 202 mls/hr IV ONCE PRN PRN Reason: Nausea and Vomiting Melatonin (Melatonin 3 Mg Tablet) 3 mg PO BEDTIME PRN PRN Reason: Insomnia Patient Own Med ( Vibegron [Gemtesa] 75 Mg Tablet) 75 mg PO DAILY [facility] Last Admin: 07/12/21 11:34 Dose: 75 mg Documented by: FISH Oxycodone HCl (Oxycodone Hcl Immed Release 5 Mg Tablet) 5 mg PO Q4H PRN PRN Reason: Pain, Moderate (Pain Scale 4-6 Last Admin: 07/12/21 11:37 Dose: 5 mg Documented by: FISH Pharmacy Consult (Consult Rx Perform Med Rec) 1 each MISCELLANE ONCE PRN PRN Reason: Consult order Pharmacy Consult (Consult Rx Perform Med Rec) 1 each MISCELLANE ONCE PRN PRN Reason: Consult order Pharmacy Consult (Consult Rx Perform Med Rec) 1 each MISCELLANE ONCE PRN PRN Reason: Consult order Polyethylene Glycol (Polyethylene Glycol 3350 17 Gm Powd.Pack) 17 gm PO DAILY [facility] Last Admin: 07/12/21 11:38 Dose: 17 gm Documented by: FISH Sodium Chloride (0.9 % Sodium Chloride Flush 3 Ml Syringe) 3 ml IVFLUSH QSHIFT [facility] Last Admin: 07/12/21 11:41 Dose: 3 ml Documented by: FISH Venlafaxine HCl (Venlafaxine Hcl Er 75 Mg Cap.Er.24h) 75 mg PO DAILY [facility] Last Admin: 07/12/21 07:49 Dose: Not Given Documented by: CHERELLE Non-Admin Reason: Patient Refused Venlafaxine HCl (Venlafaxine Hcl Er 150 Mg Cap.Er.24h) 150 mg PO DAILY [facility] Last Admin: 07/12/21 07:46 Dose: 150 mg Documented by: CHERELLE Labs CBC & Chem 7: 07/12/21 05:30 07/12/21 05:30 Labs: Laboratory Results - last 24 hr 07/12/21 07/12/21 05:30 05:30 MCV 89.4 MCH 29.5 MCHC 33.0 RDW 12.7 Plt Count 355 MPV 9.3 L Absolute Nucleated RBC 0.000 Nucleated RBC % (auto) 0.0 Anion Gap 16 Estim Creat Clear Calc 33.3 Estimated GFR 40 Random Glucose 108 Calcium 8.8 Assessment and Plan (1) Closed intertrochanteric fracture: Status: Acute (2) Polyuria: Status: Acute (3) Anxiety: Status: Acute (4) Essential hypertension: Status: Acute Plan 85-year-old female presents after mechanical fall fracturing left proximal femur.? Found to be markedly hypertensive in the ER.? Voices no cardiac complaints 1. Left proximal femur fracture - status post left hip IMN, hip pain with movement Hematocrit dropped to 27, continue iron supplement follow CBC Will DC IV morphine, continue prn oxycodone, scheduled Tylenol, continue bowel regimen, encourage incentive spirometry. Add MiraLax due to lack of bowel movement Noted weakness and slow to respond, but improved, normal neuro examination likely due to narcotics, will check home dose of Effexor and follow clinical course. 2. Hypertension - had low blood pressures last couple days, this morning noted to have high blood pressure therefore will place on Norvasc 5 mg and resume atenolol, Zestril discontinued due to ZEE 3. Urinary tract infection patient complained of urinary frequency UA significantly positive , however urine culture negative, since patient symptomatic with positive UA, leukocytosis will treat with 5 days of antibiotics Patient has history of urinary frequency, on gemtesa, beta 3 adrenergic receptor stimulant to relax bladder smooth muscle, recommend continued outpatient urology follow-up 4. Anxiety -continue Effexor will check home dose . 5. GERD had 1 episode of dark colored vomit, give PPI follow CBC 6.Hyperlipidemia -continue statin 7. Acute kidney injury likely due to hypotension resolved with IV fluids will avoid nephrotoxins and hypotension. 8. Leukocytosis likely reactive on IV antibiotic for urine infection no fevers no chills follow CBC. Full code Continue Lovenox will require continued inpatient hospitalization due to left hip surgery, requiring intravenous pain medication, leukocytosis, fluctuating blood pressure need medication adjustment Quality Stroke Does the patient have a stroke diagnosis?: No VTE Prior VTE?: No VTE Risk Level:: Medical - moderate - high VTE Device Contraindication: N/A - Device Ordered VTE Drug Contraindication: Treatment Not Indicated
[2021-07-12] MEDS: Omeprazole 20 MG CAPSULE.DR PO (14:14)
[2021-07-12] MEDS: cefTRIAXone sodium 1 GM in 0.9 % Sodium Chloride 50 ML IV (14:14)
[2021-07-12 15:40] VITALS: BP 134/62; PULSE 74; RESP 18; TEMP 36.9; O2SAT 95
--- NOTE | 2021-07-12 15:49 | MHC.CM.PN ---
PT'S DTR MET W/CM ON UNIT, PER DTR [place] NEW PREFERRED CHOICE WILL BE [facility] AND THEY ARE FOLLOWING.
--- NOTE | 2021-07-12 15:55 | W.PM.OPN ---
Operative Note Operative Note Date of Service: 07/12/21 Narrative: Date of Service: 07/09/21 Pre-op diagnosis: Left hip IT fracture Procedure: IMN left hip Implants: [employer] [id number] with 95 mm hip screw and 42.5 distal interlock Surgeon: Luis Gleason MD Anesthesia: GETA and local Was an Senior Business Development Manager used for this Procedure?: No Estimated blood loss (mL): 50 IV fluids (mL): 400 Urine output (mL): 200 Pathology: none sent Condition: stable Disposition: PACU Procedure in detail: Patient was brought to the operating room and prepped and draped in standard sterile fashion. Time-out was called to identify proper site procedure proper surgeon and IV antibiotics per weight were administered. She was positioned on the fracture table and a traction and slight internal rotation were performed and biplanar fluoroscopy confirmed initial fracture reduction. I then made a stab incision proximal to the greater trochanter in using a guidewire made a entry point just lateral to the tip of the greater trochanter and placed a guidewire into the femoral metadiaphysis. I then over-reamed with 15 mm Reamer placed my ball-tip guidewire down distally in the femur and measured my length. I selected a [id number] nail and reamed up to a 13. I then placed a the implantl. I then turned my attention to the hip screw where I used a guidewire and a tip apex distance of less than 1.5 measured a 95mm hip screw. I then pre drilled and placed a hip screw using biplanar fluoroscopy. Once I was satisfied with the position of the hip screw I turned my attention to the distal aspect of the nail. Using perfect [place] technique I placed 1 static 42.5 mm distal interlocking screw in standard AO technique. I then removed all I then placed my set screw proximally and removed all extraneous instrumentation. Final biplanar radiographs were taken. I was satisfied with the position of the hardware and the fracture reduction. I think copiously irrigated closed with absorbable sutures birdie and injected 30 mL of into the area of the incisions. Traction was let down patient was placed in sterile dressing awakened from anesthesia brought to recovery room stable condition there were no known complications.
[2021-07-12] MEDS: Enoxaparin Sodium 40 MG/0.4 ML SYRINGE SUBCUT (17:40)
[2021-07-12 19:12] VITALS: BP 110/58; PULSE 78; RESP 18; TEMP 36.9; O2SAT 99
[2021-07-13] VITALS (8 sets, daily range): BP systolic 110–175; BP diastolic 55–72; PULSE 67–75; RESP 18; TEMP 36.2–37.1; O2SAT 92–99
[2021-07-13] MEDS: Omeprazole 20 MG CAPSULE.DR PO (05:48)
[2021-07-13 06:04] LABS: Hematocrit 25.2 % (37.0-47.0); Hemoglobin 8.1 g/dl (12.0-16.0); Mean Corpuscular HGB Conc 32.1 g/dl (31.0-35.0); Mean Corpuscular Hemoglobin 29.6 pg (27.0-33.0); Mean Platelet Volume 9.3 fL (9.4-12.3); Platelet Count 354 X10*3/uL (160-400); Red Blood Count 2.74 X10*6/uL (4.20-5.50); White Blood Count 12.7 X10*3/uL (4.8-10.8)
[2021-07-13 06:19] LABS: Anion Gap 15 (12-20); Blood Urea Nitrogen 48 mg/dL (9-16); Calcium 8.8 mg/dL (8.4-10.2); Carbon Dioxide 24 mmol/L (22-29); Chloride 96 mmol/L (96-108); Estimated Glomerular Filt Rate 21; Glucose Random 92 mg/dL (60-115); Potassium 5.4 mmol/L (3.3-5.1); Sodium 130 mmol/L (135-145)
--- NOTE | 2021-07-13 09:16 | PM.PNORT ---
Subjective Subjective Date of Service: 07/13/21 Interval history: Pod for status post left hip IM nail patient is eating breakfast in bed comfortably. No overnight events. Pain is well managed. No additional complaints. Physical Exam Vital Signs: Vital Signs: Last Vital Signs Temp 97.6 F 07/13/21 07:53 Pulse 67 07/13/21 07:53 Resp 18 07/13/21 07:53 BP 162/72 H 07/13/21 07:53 Pulse Ox 95 07/13/21 07:53 BMI result Body Mass Index 25.8 Const: General: cooperative, healthy appearing and no acute distress Resp: Effort & Inspection: normal respiratory effort and able to speak in complete sentences Cardio: Rate: regular rate Peripheral pulses: Peripheral pulses 2+ throughout GI: Palpation (GI): Soft to palpation Skin: Lesions: no lesions Rashes: no rashes Extrem: Other: incision clean dry and intact.? [place] intact.? No erythema or? effusion.? Calf supple nontender.? Neurovascularly intact. Procedures Date of Service Date of Service: 07/13/21 Progress Note: A&P Assessment and plan (1) Closed intertrochanteric fracture: Status: Acute Assessment and Plan: Continue pain mgmnt Continue dvt ppx Continue PT for lt hip IMN? Dispo planning-Pending Pain mgmnt, cleared for d/c from ortho perspective Time Spent With Patient Time: Total time spent is greater than 50% in coordination of care (as documented) at patient's floor/unit and/or counseling patient: Quality Stroke Does the patient have a stroke diagnosis?: No VTE Prior VTE?: No VTE Risk Level:: Medical - moderate - high VTE Device Contraindication: N/A - Device Ordered VTE Drug Contraindication: Treatment Not Indicated
[2021-07-13] MEDS: Dextrose 5 % and Lactated Ring 1,000 ML 100 ML IVCONT (09:44)
[2021-07-13] MEDS: 0.9 % Sodium Chloride Flush 3 ML SYRINGE IVFLUSH ×2 (09:47→21:01)
[2021-07-13] MEDS: polyethylene glycoL 3350 17 GM POWD.PACK PO (09:49)
[2021-07-13] MEDS: Docusate Sodium 100 MG CAPSULE PO ×2 (09:49→20:58)
[2021-07-13] MEDS: Venlafaxine HCl ER 150 MG CAP.ER.24H PO (09:49)
[2021-07-13] MEDS: atenoloL 25 MG TABLET PO (09:49)
[2021-07-13] MEDS: Atorvastatin Calcium 10 MG TABLET PO (09:49)
[2021-07-13] MEDS: Venlafaxine HCl ER 75 MG CAP.ER.24H PO (09:49)
[2021-07-13] MEDS: Ferrous Sulfate 324 MG TABLET.DR PO (09:49)
[2021-07-13] MEDS: Cyanocobalamin (Vitamin B-12) 1,000 MCG TABLET 1000 MCG PO (09:49)
[2021-07-13] MEDS: Acetaminophen 325 MG TABLET 650 MG PO ×4 (09:49→20:58)
--- NOTE | 2021-07-13 11:42 | P.PNIM_ITS ---
Subjective Subjective Date of Service: 07/14/21 Interval History: Denies left hip pain, denies nausea vomiting no lightheadedness or dizziness, able to answer questions appropriately but at times appears mildy confused, no weakness, or speech impairment noted. Review of Systems NEGATIVE SPOTTER no headache, no dizziness General denies fever, no chills Respiratory no cough, no sputum production CVS no chest pain, no palpitation Review of Systems: Yes all other systems are reviewed and are negative Review of Systems: Yes all other systems are reviewed and are negative Physical Exam Vital Signs: Vital Signs: Last Vital Signs Temp 97.6 F 07/13/21 07:53 Pulse 67 07/13/21 09:24 Resp 18 07/13/21 07:53 BP 162/72 H 07/13/21 09:24 Pulse Ox 95 07/13/21 09:24 BMI result Body Mass Index 25.8 Const: Other: General? awake alert x3, no acute distress.? Neck no JVD. CVS? regular rate rhythm, Respiratory lungs clear to auscultation, no respiratory distress, no wheeze, no rhonchi. Gastrointestinal abdomen soft, nontender, bowel sounds audible Extremities no? edema.? Left hip dressing in place, no drainage Neuro nonfocal , speech clear. Skin no rash Psych appropriate affect Objective Data Active Medications Acetaminophen (Acetaminophen 325 Mg Tablet) 650 mg PO Q6H PRN PRN Reason: Pain, Mild (Pain Scale 1-3) Acetaminophen (Acetaminophen 325 Mg Tablet) 650 mg PO QID [facility] Last Admin: 07/13/21 09:49 Dose: 650 mg Documented by: REMIGIO Atenolol (Atenolol 25 Mg Tablet) 25 mg PO DAILY [facility]; Protocol Last Admin: 07/13/21 09:49 Dose: 25 mg Documented by: REMIGIO Atorvastatin Calcium (Atorvastatin Calcium 10 Mg Tablet) 10 mg PO DAILY [facility] Last Admin: 07/13/21 09:49 Dose: 10 mg Documented by: REMIGIO Cyanocobalamin (Cyanocobalamin (Vitamin B-12) 1,000 Mcg Tablet) 1,000 mcg PO DAILY [facility] Last Admin: 07/13/21 09:49 Dose: 1,000 mcg Documented by: REMIGIO Docusate Sodium (Docusate Sodium 100 Mg Capsule) 100 mg PO BID [facility] Last Admin: 07/13/21 09:49 Dose: 100 mg Documented by: REMIGIO Enoxaparin Sodium (Enoxaparin Sodium 40 Mg/0.4 Ml Syringe) 40 mg SUBCUT Q24H [facility] Last Admin: 07/12/21 17:40 Dose: 40 mg Documented by: CHERELLE Ferrous Sulfate (Ferrous Sulfate 324 Mg Tablet.) 324 mg PO DAILY [facility] Last Admin: 07/13/21 09:49 Dose: 324 mg Documented by: REMIGIO Ceftriaxone Sodium 1 gm/ (Sodium Chloride) 50 mls @ 100 mls/hr IV Q24H [facility] Last Infusion: 07/12/21 17:42 Dose: 0 mls/hr Documented by: CHERELLE Promethazine HCl 12.5 mg/ (Sodium Chloride) 50.5 mls @ 202 mls/hr IV ONCE PRN PRN Reason: Nausea and Vomiting Dextrose/Lactated Ringer's (D5lr) 1,000 mls @ 100 mls/hr IVCONT .Q10H [facility] Last Admin: 07/13/21 09:44 Dose: 100 mls/hr Documented by: REMIGIO Melatonin (Melatonin 3 Mg Tablet) 3 mg PO BEDTIME PRN PRN Reason: Insomnia Patient Own Med ( Vibegron [Gemtesa] 75 Mg Tablet) 75 mg PO DAILY [facility] Last Admin: 07/13/21 09:48 Dose: 75 mg Documented by: REMIGIO Omeprazole (Omeprazole 20 Mg Capsule.) 20 mg PO DAILY@0630 [facility] Last Admin: 07/13/21 05:48 Dose: 20 mg Documented by: MORALES Oxycodone HCl (Oxycodone Hcl Immed Release 5 Mg Tablet) 2.5 mg PO Q6H PRN PRN Reason: Pain, Moderate (Pain Scale 4-6 Pharmacy Consult (Consult Rx Perform Med Rec) 1 each MISCELLANE ONCE PRN PRN Reason: Consult order Pharmacy Consult (Consult Rx Perform Med Rec) 1 each MISCELLANE ONCE PRN PRN Reason: Consult order Pharmacy Consult (Consult Rx Perform Med Rec) 1 each MISCELLANE ONCE PRN PRN Reason: Consult order Polyethylene Glycol (Polyethylene Glycol 3350 17 Gm Powd.Pack) 17 gm PO DAILY [facility] Last Admin: 07/13/21 09:49 Dose: 17 gm Documented by: REMIGIO Sodium Chloride (0.9 % Sodium Chloride Flush 3 Ml Syringe) 3 ml IVFLUSH QSHIFT [facility] Last Admin: 07/13/21 09:47 Dose: 3 ml Documented by: REMIGIO Venlafaxine HCl (Venlafaxine Hcl Er 75 Mg Cap.Er.24h) 75 mg PO DAILY [facility] Last Admin: 07/13/21 09:49 Dose: 75 mg Documented by: REMIGIO Venlafaxine HCl (Venlafaxine Hcl Er 150 Mg Cap.Er.24h) 150 mg PO DAILY [facility] Last Admin: 07/13/21 09:49 Dose: 150 mg Documented by: REMIGIO Labs CBC & Chem 7: 07/14/21 06:16 07/14/21 06:16 Labs: Laboratory Results - last 24 hr 07/13/21 07/13/21 05:25 05:25 MCV 92.0 MCH 29.6 MCHC 32.1 RDW 13.0 Plt Count 354 MPV 9.3 L Absolute Nucleated RBC 0.000 Nucleated RBC % (auto) 0.0 Anion Gap 15 Estim Creat Clear Calc 19.0 Estimated GFR 21 Random Glucose 92 Calcium 8.8 Assessment and Plan (1) Closed intertrochanteric fracture: Status: Acute (2) Polyuria: Status: Acute (3) Anxiety: Status: Acute (4) Essential hypertension: Status: Acute Plan 85-year-old female presents after mechanical fall fracturing left proximal femu r.? Found to be markedly hypertensive in the ER.? Voices no cardiac complaints 1. Left proximal femur fracture - status post left hip IMN,pod #5, good pain control Hematocrit dropped this a.m.,on iron supplement, question related to recent hip surgery, no acute GI bleed noted, will repeat hematocrit and if remained low will transfuse, patient asymptomatic continue scheduled and as needed Tylenol, continue bowel regimen, MiraLax and Colace, encourage incentive spirometry. 2. Hypertension - had low blood pressures this morning will DC Norvasc, continue atenolol,Zestril discontinued due to ZEE 3. Urinary tract infection patient complained of urinary frequency UA significantly positive , however urine culture negative, since patient symptomatic with positive UA, leukocytosis will treat with 5 days of antibiotics, day 5/5 today Patient has history of urinary frequency, on gemtesa, beta 3 adrenergic receptor stimulant to relax bladder smooth muscle, renal ultrasound obtained that showed bilateral hydronephrosis, distended bladder with thickened bladder wall, will obtain neurology consult. 4. Anxiety - continue Effexor home dose verified. 5. Acute on chronic anemia likely due to hip surgery/ 1 episode of dark colored vomit, continue PPI, follow stool guaiac, iron studies December 2020 were unremarkable avoid NSAIDs, follow CBC 6.Hyperlipidemia -continue statin 7. Acute kidney injury likely due to hypotension /decreased by mouth intake/and some component of retention with bilateral hydronephrosis, will place on IV fluids Zestril discontinued 3 days ago, avoid nephrotoxic , renal ultrasound showed bilateral hydronephrosis no echogenic renal calculi, distended bladder with thickened bladder wall and several outpouchings and a small diverticulum Case discussed with Nephrology, noted to have elevated bladder scan, will place Matthews cath will obtain neuro eval 8. Leukocytosis likely reactive on IV antibiotic for urine infection no fevers, no chills, no cough, no sputum production WBC trending down, follow CBC and clinical course Full code Continue Lovenox will require continued inpatient hospitalization due to left hip surgery, r equiring intravenous pain medication, acute kidney injury requiring IV fluids and further workup . Quality Stroke Does the patient have a stroke diagnosis?: No VTE Prior VTE?: No VTE Risk Level:: Medical - moderate - high VTE Device Contraindication: N/A - Device Ordered VTE Drug Contraindication: Treatment Not Indicated
[2021-07-13] MEDS: cefTRIAXone sodium 1 GM in 0.9 % Sodium Chloride 50 ML IV (13:35)
[2021-07-13] MEDS: Sodium Zirconium Cyclosilicate 10 GM POWD.PACK PO (13:35)
[2021-07-13 17:02] LABS: Appearance Urine CLEAR; Color Urine YELLOW; Glucose Urine UA NEG (NEG); Leukocyte Esterase Urine 2+ (NEG); Nitrite Urine NEG (NEG); Urine Blood 1+ (NEG); Urine Ketones NEG (NEG); Urine Protein 2+ MG/DL (NEG-TRACE)
[2021-07-13 17:11] LABS: Bacteria Urine 1+ /LPF; Squamous Epithelial Cell Urine TRACE /LPF
[2021-07-13 17:23] LABS: Creatinine Urine 62.18 mg/dL; Total Protein Urine Random 145 mg/dL (<12)
[2021-07-13] MEDS: Enoxaparin Sodium 40 MG/0.4 ML SYRINGE SUBCUT (17:34)
[2021-07-14] VITALS (7 sets, daily range): BP systolic 127–149; BP diastolic 44–65; PULSE 71–78; RESP 16–18; TEMP 36.2–37.1; O2SAT 93–100
[2021-07-14] MEDS: Omeprazole 20 MG CAPSULE.DR PO (05:51)
[2021-07-14 06:57] LABS: Anion Gap 11 (12-20); Blood Urea Nitrogen 35 mg/dL (9-16); Calcium 8.7 mg/dL (8.4-10.2); Carbon Dioxide 26 mmol/L (22-29); Chloride 100 mmol/L (96-108); Creatinine Clr Calc Pharmacy 39.2; Estimated Glomerular Filt Rate 48; Glucose Random 93 mg/dL (60-115); Sodium 132 mmol/L (135-145)
[2021-07-14 07:05] LABS: Hematocrit 23.3 % (37.0-47.0); Hemoglobin 7.7 g/dl (12.0-16.0); Mean Corpuscular Volume 90.7 fL (80.0-98.0); Mean Platelet Volume 9.3 fL (9.4-12.3); Platelet Count 351 X10*3/uL (160-400); Red Blood Count 2.57 X10*6/uL (4.20-5.50); Red Cell Distribution Width 12.8 % (11.0-16.0); White Blood Count 9.9 X10*3/uL (4.8-10.8)
--- NOTE | 2021-07-14 08:04 | P.CNUR_ITS ---
History of Present Illness Consult details Consult date: 07/14/21 Reason for consult: other [facility] Past Medical History Medical History Anxiety Asthma COPD (chronic obstructive pulmonary disease) Endogenous depression Essential hypertension Familial hypercholesterolemia GERD (gastroesophageal reflux disease) Polyuria Vertigo Family History Family History Father No problems noted. Mother No problems noted. Brother No problems noted. Sister No problems noted. Son No problems noted. Daughter No problems noted. Surgical History Surgical History History of cataract surgery History of eye surgery S/P lumpectomy of breast Social History Social History Household Members: Children Housing: Apartment Do you presently have visiting nurse or other home services: No Alcohol intake: never Patient Tobacco Use Status: Never used Tobacco e-Cigarette/Vaping Use: Never Used Second Hand Smoke Exposure: No Advance Directives Date on File: 07/08/21 service: No Current occupational status: retired [employer] Allergies Allergy/AdvReac Type Severity Reaction Status Date / Time codeine [CODEINE] Allergy Mild upset Verified 05/24/21 09:08 stomach, nause Active Medications: Current Medications Acetaminophen (Acetaminophen 325 Mg Tablet) 650 mg PO Q6H PRN PRN Reason: Pain, Mild (Pain Scale 1-3) Acetaminophen (Acetaminophen 325 Mg Tablet) 650 mg PO QID [facility] Last Admin: 07/13/21 20:58 Dose: 650 mg Documented by: Atenolol (Atenolol 25 Mg Tablet) 25 mg PO DAILY [facility]; Protocol Last Admin: 07/13/21 09:49 Dose: 25 mg Documented by: Atorvastatin Calcium (Atorvastatin Calcium 10 Mg Tablet) 10 mg PO DAILY [facility] Last Admin: 07/13/21 09:49 Dose: 10 mg Documented by: Cyanocobalamin (Cyanocobalamin (Vitamin B-12) 1,000 Mcg Tablet) 1,000 mcg PO DAILY [facility] Last Admin: 07/13/21 09:49 Dose: 1,000 mcg Documented by: Docusate Sodium (Docusate Sodium 100 Mg Capsule) 100 mg PO BID [facility] Last Admin: 07/13/21 20:58 Dose: 100 mg Documented by: Enoxaparin Sodium (Enoxaparin Sodium 40 Mg/0.4 Ml Syringe) 40 mg SUBCUT Q24H [facility] Last Admin: 07/13/21 17:34 Dose: 40 mg Documented by: Ferrous Sulfate (Ferrous Sulfate 324 Mg Tablet.) 324 mg PO DAILY [facility] Last Admin: 07/13/21 09:49 Dose: 324 mg Documented by: Promethazine HCl 12.5 mg/ (Sodium Chloride) 50.5 mls @ 202 mls/hr IV ONCE PRN PRN Reason: Nausea and Vomiting Melatonin (Melatonin 3 Mg Tablet) 3 mg PO BEDTIME PRN PRN Reason: Insomnia Patient Own Med ( Vibegron [Gemtesa] 75 Mg Tablet) 75 mg PO DAILY [facility] Last Admin: 07/13/21 09:48 Dose: 75 mg Documented by: Omeprazole (Omeprazole 20 Mg Capsule.) 20 mg PO DAILY@0630 [facility] Last Admin: 07/14/21 05:51 Dose: 20 mg Documented by: Pharmacy Consult (Consult Rx Perform Med Rec) 1 each MISCELLANE ONCE PRN PRN Reason: Consult order Pharmacy Consult (Consult Rx Perform Med Rec) 1 each MISCELLANE ONCE PRN PRN Reason: Consult order Pharmacy Consult (Consult Rx Perform Med Rec) 1 each MISCELLANE ONCE PRN PRN Reason: Consult order Polyethylene Glycol (Polyethylene Glycol 3350 17 Gm Powd.Pack) 17 gm PO DAILY [facility] Last Admin: 07/13/21 09:49 Dose: 17 gm Documented by: Sodium Chloride (0.9 % Sodium Chloride Flush 3 Ml Syringe) 3 ml IVFLUSH QSHIFT [facility] Last Admin: 07/13/21 21:01 Dose: 3 ml Documented by: Venlafaxine HCl (Venlafaxine Hcl Er 75 Mg Cap.Er.24h) 75 mg PO DAILY [facility] Last Admin: 07/13/21 09:49 Dose: 75 mg Documented by: Venlafaxine HCl (Venlafaxine Hcl Er 150 Mg Cap.Er.24h) 150 mg PO DAILY [facility] Last Admin: 07/13/21 09:49 Dose: 150 mg Documented by: Home Medications Medication Instructions Recorded Confirmed Last Taken Type fluorometholone 0.1 % eye 1 drp OPHTHALMIC (EYE) BID 11/16/19 07/08/21 07/07/21 History drops,suspension cyanocobalamin (vitamin B-12) 1,000 mcg PO DAILY 07/08/21 07/08/21 07/07/21 History 1,000 mcg tablet melatonin 3 mg tablet 3 mg PO BEDTIME PRN 07/08/21 07/08/21 Unknown History naproxen sodium 220 mg tablet 220 mg PO BID PRN 07/08/21 07/08/21 07/07/21 History Physical Exam Vital Signs: Vital Signs: Last Vital Signs Temp 98.6 F 07/14/21 07:15 Pulse 75 07/14/21 07:15 Resp 18 07/14/21 07:15 BP 136/63 07/14/21 07:15 Pulse Ox 94 07/14/21 07:15 BMI result Body Mass Index 25.8 Results Labs Result diagrams: 07/14/21 06:16 07/14/21 06:16 Labs: Abnormal lab results 07/13/21 07/13/21 07/14/21 Range/Units 16:47 16:47 06:16 RBC 2.57 L (4.20-5.50) X10*6/uL Hgb 7.7 L (12.0-16.0) g/dl Hct 23.3 L (37.0-47.0) % MPV 9.3 L (9.4-12.3) fL Sodium (135-145) mmol/L Anion Gap (12-20) BUN (9-16) mg/dL Urine Protein 2+ H (NEG-TRACE) MG/DL Urine Blood 1+ H (NEG) Ur Leukocyte Esterase 2+ H (NEG) Urine WBC 10-14 H (0-4) /HPF U Random Total Protein 145 H (<12) mg/dL 07/14/21 Range/Units 06:16 RBC (4.20-5.50) X10*6/uL Hgb (12.0-16.0) g/dl Hct (37.0-47.0) % MPV (9.4-12.3) fL Sodium 132 L (135-145) mmol/L Anion Gap 11 L (12-20) BUN 35 H (9-16) mg/dL Urine Protein (NEG-TRACE) MG/DL Urine Blood (NEG) Ur Leukocyte Esterase (NEG) Urine WBC (0-4) /HPF U Random Total Protein (<12) mg/dL Short CBC 07/14/21 Range/Units 06:16 WBC 9.9 (4.8-10.8) X10*3/uL Hgb 7.7 L (12.0-16.0) g/dl Hct 23.3 L (37.0-47.0) % Plt Count 351 (160-400) X10*3/uL BMP 07/14/21 06:16 Sodium 132 L Potassium 5.0 Chloride 100 Carbon Dioxide 26 BUN 35 H Creatinine 1.09 Calcium 8.7 Urine 07/08/21 07/13/21 Range/Units 17:40 16:47 Urine Color YELLOW YELLOW Urine Appearance CLOUDY CLEAR Urine pH 8.0 6.0 (5.0-8.0) Ur Specific [place] 1.020 1.010 (1.005-1.025) Urine Protein 2+ H 2+ H (NEG-TRACE) MG/DL Urine Glucose (UA) NEG NEG (NEG) MG/DL All other labs normal.
--- NOTE | 2021-07-14 09:23 | PM.PNORT ---
Subjective Subjective Date of Service: 07/14/21 Interval history: POD5 status post left hip IM nail patient is eating breakfast in bed comfortably.? No overnight events.? Pain is well managed.? No additional complaints. Physical Exam Vital Signs: Vital Signs: Last Vital Signs Temp 98.6 F 07/14/21 07:15 Pulse 75 07/14/21 07:15 Resp 18 07/14/21 07:15 BP 136/63 07/14/21 07:15 Pulse Ox 94 07/14/21 07:15 BMI result Body Mass Index 25.8 Const: General: cooperative, healthy appearing and no acute distress Resp: Effort & Inspection: normal respiratory effort and able to speak in complete sentences Cardio: Rate: regular rate Peripheral pulses: Peripheral pulses 2+ throughout GI: Palpation (GI): Soft to palpation Skin: Lesions: no lesions Rashes: no rashes Extrem: Other: left hip incision clean dry and intact.? Teresa intact.? No erythema or? effusion.? Calf supple nontender.? Neurovascularly intact. Procedures Date of Service Date of Service: 07/14/21 Progress Note: A&P Assessment and plan (1) Closed intertrochanteric fracture: Status: Acute Assessment and Plan: Continue pain mgmnt Continue dvt ppx Continue PT for lt hip IMN? Dispo planning-Pending Pain mgmnt, cleared for d/c from ortho perspective Time Spent With Patient Time: Total time spent is greater than 50% in coordination of care (as documented) at patient's floor/unit and/or counseling patient: Quality Stroke Does the patient have a stroke diagnosis?: No VTE Prior VTE?: No VTE Risk Level:: Medical - moderate - high VTE Device Contraindication: N/A - Device Ordered VTE Drug Contraindication: Treatment Not Indicated
[2021-07-14] MEDS: Ferrous Sulfate 324 MG TABLET.DR PO (09:32)
[2021-07-14] MEDS: Venlafaxine HCl ER 150 MG CAP.ER.24H PO (09:32)
[2021-07-14] MEDS: Cyanocobalamin (Vitamin B-12) 1,000 MCG TABLET 1000 MCG PO (09:32)
[2021-07-14] MEDS: Docusate Sodium 100 MG CAPSULE PO ×2 (09:32→20:38)
[2021-07-14] MEDS: Venlafaxine HCl ER 75 MG CAP.ER.24H PO (09:33)
[2021-07-14] MEDS: 0.9 % Sodium Chloride Flush 3 ML SYRINGE IVFLUSH ×3 (09:33→20:39)
[2021-07-14] MEDS: polyethylene glycoL 3350 17 GM POWD.PACK PO (09:33)
[2021-07-14] MEDS: Acetaminophen 325 MG TABLET 650 MG PO ×4 (09:33→20:38)
[2021-07-14] MEDS: atenoloL 25 MG TABLET PO (09:33)
[2021-07-14] MEDS: Atorvastatin Calcium 10 MG TABLET PO (09:33)
--- NOTE | 2021-07-14 09:33 | P.CNUR_ITS ---
History of Present Illness Consult details Consult date: 07/14/21 Reason for consult: other (hydronephrosis) Review of Systems Review of Systems: Yes all other systems are reviewed and are negative [facility] Past Medical History Medical History Anxiety Asthma COPD (chronic obstructive pulmonary disease) Endogenous depression Essential hypertension Familial hypercholesterolemia GERD (gastroesophageal reflux disease) Polyuria Vertigo Family History Family History Father No problems noted. Mother No problems noted. Brother No problems noted. Sister No problems noted. Son No problems noted. Daughter No problems noted. Surgical History Surgical History History of cataract surgery History of eye surgery S/P lumpectomy of breast Social History Social History Household Members: Children Housing: Apartment Do you presently have visiting nurse or other home services: No Alcohol intake: never Patient Tobacco Use Status: Never used Tobacco e-Cigarette/Vaping Use: Never Used Second Hand Smoke Exposure: No Advance Directives Date on File: 07/08/21 service: No Current occupational status: retired [employer] Allergies Allergy/AdvReac Type Severity Reaction Status Date / Time codeine [CODEINE] Allergy Mild upset Verified 05/24/21 09:08 stomach, nause Active Medications: Current Medications Acetaminophen (Acetaminophen 325 Mg Tablet) 650 mg PO Q6H PRN PRN Reason: Pain, Mild (Pain Scale 1-3) Acetaminophen (Acetaminophen 325 Mg Tablet) 650 mg PO QID [facility] Last Admin: 07/13/21 20:58 Dose: 650 mg Documented by: Atenolol (Atenolol 25 Mg Tablet) 25 mg PO DAILY [facility]; Protocol Last Admin: 07/13/21 09:49 Dose: 25 mg Documented by: Atorvastatin Calcium (Atorvastatin Calcium 10 Mg Tablet) 10 mg PO DAILY [facility] Last Admin: 07/13/21 09:49 Dose: 10 mg Documented by: Cyanocobalamin (Cyanocobalamin (Vitamin B-12) 1,000 Mcg Tablet) 1,000 mcg PO DAILY [facility] Last Admin: 07/13/21 09:49 Dose: 1,000 mcg Documented by: Docusate Sodium (Docusate Sodium 100 Mg Capsule) 100 mg PO BID [facility] Last Admin: 07/13/21 20:58 Dose: 100 mg Documented by: Enoxaparin Sodium (Enoxaparin Sodium 40 Mg/0.4 Ml Syringe) 40 mg SUBCUT Q24H [facility] Last Admin: 07/13/21 17:34 Dose: 40 mg Documented by: Ferrous Sulfate (Ferrous Sulfate 324 Mg Tablet.) 324 mg PO DAILY [facility] Last Admin: 07/13/21 09:49 Dose: 324 mg Documented by: Promethazine HCl 12.5 mg/ (Sodium Chloride) 50.5 mls @ 202 mls/hr IV ONCE PRN PRN Reason: Nausea and Vomiting Melatonin (Melatonin 3 Mg Tablet) 3 mg PO BEDTIME PRN PRN Reason: Insomnia Patient Own Med ( Vibegron [Gemtesa] 75 Mg Tablet) 75 mg PO DAILY [facility] Last Admin: 07/13/21 09:48 Dose: 75 mg Documented by: Omeprazole (Omeprazole 20 Mg Capsule.) 20 mg PO DAILY@0630 [facility] Last Admin: 07/14/21 05:51 Dose: 20 mg Documented by: Pharmacy Consult (Consult Rx Perform Med Rec) 1 each MISCELLANE ONCE PRN PRN Reason: Consult order Pharmacy Consult (Consult Rx Perform Med Rec) 1 each MISCELLANE ONCE PRN PRN Reason: Consult order Pharmacy Consult (Consult Rx Perform Med Rec) 1 each MISCELLANE ONCE PRN PRN Reason: Consult order Polyethylene Glycol (Polyethylene Glycol 3350 17 Gm Powd.Pack) 17 gm PO DAILY [facility] Last Admin: 07/13/21 09:49 Dose: 17 gm Documented by: Sodium Chloride (0.9 % Sodium Chloride Flush 3 Ml Syringe) 3 ml IVFLUSH QSHIFT [facility] Last Admin: 07/13/21 21:01 Dose: 3 ml Documented by: Venlafaxine HCl (Venlafaxine Hcl Er 75 Mg Cap.Er.24h) 75 mg PO DAILY [facility] Last Admin: 07/13/21 09:49 Dose: 75 mg Documented by: Venlafaxine HCl (Venlafaxine Hcl Er 150 Mg Cap.Er.24h) 150 mg PO DAILY [facility] Last Admin: 07/13/21 09:49 Dose: 150 mg Documented by: Home Medications Medication Instructions Recorded Confirmed Last Taken Type fluorometholone 0.1 % eye 1 drp OPHTHALMIC (EYE) BID 11/16/19 07/08/21 07/07/21 History drops,suspension cyanocobalamin (vitamin B-12) 1,000 mcg PO DAILY 07/08/21 07/08/21 07/07/21 History 1,000 mcg tablet melatonin 3 mg tablet 3 mg PO BEDTIME PRN 07/08/21 07/08/21 Unknown History naproxen sodium 220 mg tablet 220 mg PO BID PRN 07/08/21 07/08/21 07/07/21 History Physical Exam Vital Signs: Vital Signs: Last Vital Signs Temp 98.6 F 07/14/21 07:15 Pulse 75 07/14/21 07:15 Resp 18 07/14/21 07:15 BP 136/63 07/14/21 07:15 Pulse Ox 94 07/14/21 07:15 BMI result Body Mass Index 25.8 Const: Orientation/consciousness: patient oriented x3 Neck: Neck: Yes normal visual inspection Chest: Chest palpation & inspection: normal inspection of the chest Resp: Effort & Inspection: normal respiratory effort Cardio: Rate: regular rate Rhythm: regular rhythm GI: Inspection: Yes normal to inspection Neuro: General: patient oriented x3 Psych: Appearance: grossly normal Results Labs Result diagrams: 07/14/21 06:16 07/14/21 06:16 Labs: Abnormal lab results 07/13/21 07/13/21 07/14/21 Range/Units 16:47 16:47 06:16 RBC 2.57 L (4.20-5.50) X10*6/uL Hgb 7.7 L (12.0-16.0) g/dl Hct 23.3 L (37.0-47.0) % MPV 9.3 L (9.4-12.3) fL Sodium (135-145) mmol/L Anion Gap (12-20) BUN (9-16) mg/dL Urine Protein 2+ H (NEG-TRACE) MG/DL Urine Blood 1+ H (NEG) Ur Leukocyte Esterase 2+ H (NEG) Urine WBC 10-14 H (0-4) /HPF U Random Total Protein 145 H (<12) mg/dL 07/14/21 Range/Units 06:16 RBC (4.20-5.50) X10*6/uL Hgb (12.0-16.0) g/dl Hct (37.0-47.0) % MPV (9.4-12.3) fL Sodium 132 L (135-145) mmol/L Anion Gap 11 L (12-20) BUN 35 H (9-16) mg/dL Urine Protein (NEG-TRACE) MG/DL Urine Blood (NEG) Ur Leukocyte Esterase (NEG) Urine WBC (0-4) /HPF U Random Total Protein (<12) mg/dL Short CBC 07/14/21 Range/Units 06:16 WBC 9.9 (4.8-10.8) X10*3/uL Hgb 7.7 L (12.0-16.0) g/dl Hct 23.3 L (37.0-47.0) % Plt Count 351 (160-400) X10*3/uL BMP 07/14/21 06:16 Sodium 132 L Potassium 5.0 Chloride 100 Carbon Dioxide 26 BUN 35 H Creatinine 1.09 Calcium 8.7 Urine 07/08/21 07/13/21 Range/Units 17:40 16:47 Urine Color YELLOW YELLOW Urine Appearance CLOUDY CLEAR Urine pH 8.0 6.0 (5.0-8.0) Ur Specific [place] 1.020 1.010 (1.005-1.025) Urine Protein 2+ H 2+ H (NEG-TRACE) MG/DL Urine Glucose (UA) NEG NEG (NEG) MG/DL All other labs normal. Imaging Abdomen CT scan report/results: report reviewed and image reviewed Assessment and Plan (1) Hydronephrosis: Status: Acute Plan evidence of high pressure voiding start flomax 0.4 mg qd, cai cth for 2 weeks, dynamic renal scan of thursday to assess function and possible obstruction, need to have cai in for test, follow up with dr red for voiding trial and review of scan no dicatation available Procedures Date of Service Date of Service: 07/14/21
[2021-07-14 14:40] LABS: Hematocrit 24.1 % (37.0-47.0); Hemoglobin 7.8 g/dl (12.0-16.0)
--- NOTE | 2021-07-14 14:46 | P.PNIM_ITS ---
Subjective Subjective Date of Service: 07/14/21 Interval History: Awake alert this morning, answering questions appropriately tolerating diet, no acute issues overnight, no recurrent vomiting. Review of Systems Review of Systems: Yes all other systems are reviewed and are negative Physical Exam Vital Signs: Vital Signs: Last Vital Signs Temp 98.5 F 07/14/21 12:00 Pulse 74 07/14/21 12:00 Resp 18 07/14/21 12:00 BP 136/62 07/14/21 12:00 Pulse Ox 97 07/14/21 12:00 BMI result Body Mass Index 25.8 Const: Other: General? awake alert x3, no acute distress.? Neck no JVD. CVS? regular rate rhythm, Respiratory lungs clear to auscultation, no respiratory distress, no wheeze, no rhonchi. Gastrointestinal abdomen soft, nontender, bowel sounds audible Extremities no?edema.? Left hip dressing in place, no drainage Neuro nonfocal , speech clear. Skin no rash Psych appropriate affect Objective Data Active Medications Acetaminophen (Acetaminophen 325 Mg Tablet) 650 mg PO Q6H PRN PRN Reason: Pain, Mild (Pain Scale 1-3) Acetaminophen (Acetaminophen 325 Mg Tablet) 650 mg PO QID [facility] Last Admin: 07/14/21 13:18 Dose: 650 mg Documented by: REMIGIO Atenolol (Atenolol 25 Mg Tablet) 25 mg PO DAILY [facility]; Protocol Last Admin: 07/14/21 09:33 Dose: 25 mg Documented by: REMIGIO Atorvastatin Calcium (Atorvastatin Calcium 10 Mg Tablet) 10 mg PO DAILY [facility] Last Admin: 07/14/21 09:33 Dose: 10 mg Documented by: REMIGIO Cyanocobalamin (Cyanocobalamin (Vitamin B-12) 1,000 Mcg Tablet) 1,000 mcg PO DAILY [facility] Last Admin: 07/14/21 09:32 Dose: 1,000 mcg Documented by: REMIGIO Docusate Sodium (Docusate Sodium 100 Mg Capsule) 100 mg PO BID [facility] Last Admin: 07/14/21 09:32 Dose: 100 mg Documented by: REMIGIO Enoxaparin Sodium (Enoxaparin Sodium 40 Mg/0.4 Ml Syringe) 40 mg SUBCUT Q24H [facility] Last Admin: 07/13/21 17:34 Dose: 40 mg Documented by: REMIGIO Ferrous Sulfate (Ferrous Sulfate 324 Mg Tablet.) 324 mg PO DAILY [facility] Last Admin: 07/14/21 09:32 Dose: 324 mg Documented by: REMIGIO Promethazine HCl 12.5 mg/ (Sodium Chloride) 50.5 mls @ 202 mls/hr IV ONCE PRN PRN Reason: Nausea and Vomiting Melatonin (Melatonin 3 Mg Tablet) 3 mg PO BEDTIME PRN PRN Reason: Insomnia Patient Own Med ( Vibegron [Gemtesa] 75 Mg Tablet) 75 mg PO DAILY [facility] Last Admin: 07/14/21 09:32 Dose: 75 mg Documented by: REMIGIO Omeprazole (Omeprazole 20 Mg Capsule.) 20 mg PO DAILY@0630 [facility] Last Admin: 07/14/21 05:51 Dose: 20 mg Documented by: MORALES Pharmacy Consult (Consult Rx Perform Med Rec) 1 each MISCELLANE ONCE PRN PRN Reason: Consult order Pharmacy Consult (Consult Rx Perform Med Rec) 1 each MISCELLANE ONCE PRN PRN Reason: Consult order Pharmacy Consult (Consult Rx Perform Med Rec) 1 each MISCELLANE ONCE PRN PRN Reason: Consult order Polyethylene Glycol (Polyethylene Glycol 3350 17 Gm Powd.Pack) 17 gm PO DAILY [facility] Last Admin: 07/14/21 09:33 Dose: 17 gm Documented by: REMIGIO Sodium Chloride (0.9 % Sodium Chloride Flush 3 Ml Syringe) 3 ml IVFLUSH QSHIFT [facility] Last Admin: 07/14/21 09:33 Dose: 3 ml Documented by: REMIGIO Venlafaxine HCl (Venlafaxine Hcl Er 75 Mg Cap.Er.24h) 75 mg PO DAILY [facility] Last Admin: 07/14/21 09:33 Dose: 75 mg Documented by: REMIGIO Venlafaxine HCl (Venlafaxine Hcl Er 150 Mg Cap.Er.24h) 150 mg PO DAILY [facility] Last Admin: 07/14/21 09:32 Dose: 150 mg Documented by: REMIGIO Labs CBC & Chem 7: 07/14/21 14:23 07/14/21 06:16 Labs: Laboratory Results - last 24 hr 07/13/21 07/13/21 07/14/21 16:47 16:47 06:16 MCV 90.7 MCH 30.0 MCHC 33.0 RDW 12.8 Plt Count 351 MPV 9.3 L Absolute Nucleated RBC 0.000 Nucleated RBC % (auto) 0.0 Anion Gap Estim Creat Clear Calc Estimated GFR Random Glucose Calcium Urine Color YELLOW Urine Appearance CLEAR Urine pH 6.0 Ur Specific [place] 1.010 Urine Protein 2+ H Urine Glucose (UA) NEG Urine Ketones NEG Urine Blood 1+ H Urine Nitrite NEG Ur Leukocyte Esterase 2+ H Urine RBC 1-4 Urine WBC 10-14 H Ur Squamous Epith Cells TRACE Urine Bacteria 1+ U Random Total Protein 145 H Ur Random Sodium 44.0 Urine Creatinine 62.18 07/14/21 06:16 MCV MCH MCHC RDW Plt Count MPV Absolute Nucleated RBC Nucleated RBC % (auto) Anion Gap 11 L Estim Creat Clear Calc 39.2 Estimated GFR 48 Random Glucose 93 Calcium 8.7 Urine Color Urine Appearance Urine pH Ur Specific [place] Urine Protein Urine Glucose (UA) Urine Ketones Urine Blood Urine Nitrite Ur Leukocyte Esterase Urine RBC Urine WBC Ur Squamous Epith Cells Urine Bacteria U Random Total Protein Ur Random Sodium Urine Creatinine Assessment and Plan (1) Closed intertrochanteric fracture: Status: Acute (2) Polyuria: Status: Acute (3) Anxiety: Status: Acute (4) Essential hypertension: Status: Acute Plan 85-year-old female presents after mechanical fall fracturing left proximal femur.? Found to be markedly hypertensive in the ER.? Voices no cardiac complaints 1. Left proximal femur fracture - status post left hip IMN,pod #5, good pain control Hematocrit dropped this a.m.,on iron supplement, question related to recent hip surgery, no acute GI bleed noted, will repeat hematocrit and if remained low will transfuse, patient asymptomatic continue scheduled and as needed Tylenol, continue bowel regimen, MiraLax and Colace, encourage incentive spirometry. 2. Hypertension - stable blood pressure continue atenolol Zestril discontinued due to ZEE and low blood pressure 3. Urinary tract infection patient complained of urinary frequency UA significantly positive , however urine culture negative, since patient symptomatic with positive UA, leukocytosis, treated with 5 days of IV ceftriaxone. 4. Anxiety - continue Effexor home dose verified. 5. Acute on chronic anemia likely due to hip surgery/ 1 episode of dark colored vomit, continue PPI, follow stool guaiac, iron studies December 2020 were u nremarkable avoid NSAIDs, Hematocrit dropped to 23.3 this morning likely dilutional, repeat hematocrit is 24 since patient asymptomatic hold blood transfusion 6.Hyperlipidemia -continue statin 7. Acute kidney injury likely due to hypotension /decreased by mouth intake/and retention Creatinine normalized continue Matthews catheter Patient seen by Urology they recommend to continue Matthews for 2 weeks, add Flomax 0.4 mg and obtain dynamic renal scan to assess function and possible ob struction need to have Matthews in during test 8. Leukocytosis resolved Full code Continue Lovenox will require continued inpatient hospitalization due to left hip surgery, requiring intravenous pain medication, acute kidney injury requiring IV fluids and further workup . Quality Stroke Does the patient have a stroke diagnosis?: No VTE Prior VTE?: No VTE Risk Level:: Medical - moderate - high VTE Device Contraindication: N/A - Device Ordered VTE Drug Contraindication: Treatment Not Indicated
[2021-07-14] MEDS: Enoxaparin Sodium 40 MG/0.4 ML SYRINGE SUBCUT (17:35)
--- NOTE | 2021-07-14 17:40 | P.PNNP_ITS ---
Subjective Subjective Date of Service: 07/14/21 Interval history: Seen and examined, events noted Physical Exam Vital Signs: Vital Signs: Last Vital Signs Temp 97.4 F 07/14/21 15:47 Pulse 71 07/14/21 15:47 Resp 16 07/14/21 15:47 BP 127/60 07/14/21 15:47 Pulse Ox 98 07/14/21 15:47 BMI result Body Mass Index 25.8 Const: Other: General? awake alert x3, no acute distress.? Neck no JVD. CVS? regular rate rhythm, Respiratory lungs clear to auscultation, no respiratory distress, no wheeze, no rhonchi. Gastrointestinal abdomen soft, nontender, bowel sounds audible Extremities no?edema.? Left hip dressing in place, no drainage Neuro nonfocal , speech clear. Skin no rash Psych appropriate affect General: cooperative, healthy appearing and no acute distress Nutritional Appearance: average body habitus Orientation/consciousness: oriented to person and patient oriented x3 L imitations: no limitations and No language barrier HEENT: Head: Yes normal to inspection Ears: external ears normal General nose exam: Normal external nose present Mouth: Normal oral and palatal mucosa present and oropharynx normal Throat: Yes posterior oropharynx normal Eyes: General: appearance normal, both eyes and all related structures Neck: Other: supple Neck: Yes normal visual inspection Chest: Chest palpation & inspection: normal inspection of the chest Resp: Other: Clear to auscultation bilaterally no rales rhonchi or wheezes Effort & Inspection: normal respiratory effort and able to speak in complete sentences Auscultation: clear to auscultation bilaterally Cardio: Jugular venous distension: no JVD Rate: regular rate Rhythm: regular rhythm Heart sounds: S1 normal heart sound present and S2 normal heart sound present Peripheral pulses: Peripheral pulses 2+ throughout GI: Other: Soft nontender nondistended with normoactive bowel sounds Inspection: Yes normal to inspection Palpation (GI): Soft to palpation, nontender and No hepatosplenomegaly present Auscultation: normal bowel sounds : General: Yes no CVA tenderness Back/Spine/Pelvis: Back: no CVA tenderness Skin: General skin exam: no rashes or lesions noted Lesions: no lesions Rashes: no rashes Neuro: General: oriented to person and patient oriented x3 Cranial nerves: Yes CN's II-XII intact bilaterally Motor exam (neuro): 5/5 motor strength present throughout Sensory Exam: No Sensory deficit (Neuro) Extrem: Other: left hip incision clean dry and intact.? [place] intact.? No erythema or? effusion.? Calf supple nontender.? Neurovascularly intact. General: Yes normal to inspection Psych: Appearance: grossly normal Objective Data Labs CBC & Chem 7: 07/14/21 14:23 07/14/21 06:16 Labs: Laboratory Results - last 24 hr 07/14/21 07/14/21 07/14/21 06:16 06:16 14:23 WBC 9.9 RBC 2.57 L Hgb 7.7 L 7.8 L Hct 23.3 L 24.1 L MCV 90.7 MCH 30.0 MCHC 33.0 RDW 12.8 Plt Count 351 MPV 9.3 L Absolute Nucleated RBC 0.000 Nucleated RBC % (auto) 0.0 Sodium 132 L Potassium 5.0 Chloride 100 Carbon Dioxide 26 Anion Gap 11 L BUN 35 H Creatinine 1.09 Estim Creat Clear Calc 39.2 Estimated GFR 48 Random Glucose 93 Calcium 8.7 Microbiology Microbiology Results: Microbiology 07/08/21 17:40 Urine clean catch - Urine crow top Urine Culture - Final Procedures Date of Service Date of Service: 07/14/21 Assessment & Plan Assessment and plan (1) Closed intertrochanteric fracture: Status: Acute (2) Polyuria: Status: Acute (3) Anxiety: Status: Acute (4) Essential hypertension: Status: Acute Plan 1. ZEE: resolved with cai 2. Ur retention: cai in place; f/u with urol 3. HTN REC: contto track renal func; avoid NSAIDs; cai and f/u with urol . Time Spent With Patient Time: Total time spent is greater than 50% in coordination of care (as documented) at patient's floor/unit and/or counseling patient: Progress Note: Quality Stroke Does the patient have a stroke diagnosis?: No
[2021-07-14] MEDS: Tamsulosin HCL 0.4 MG CAPSULE PO (20:38)
[2021-07-15] VITALS (7 sets, daily range): BP systolic 114–155; BP diastolic 41–76; PULSE 70–83; RESP 14–18; TEMP 36.2–36.6; O2SAT 95–97
[2021-07-15] MEDS: Omeprazole 20 MG CAPSULE.DR PO (06:00)
[2021-07-15] MEDS: Acetaminophen 325 MG TABLET 650 MG PO ×4 (09:56→20:04)
[2021-07-15] MEDS: Cyanocobalamin (Vitamin B-12) 1,000 MCG TABLET 1000 MCG PO (09:56)
[2021-07-15] MEDS: Atorvastatin Calcium 10 MG TABLET PO (09:56)
[2021-07-15] MEDS: atenoloL 25 MG TABLET PO (09:57)
[2021-07-15] MEDS: Ferrous Sulfate 324 MG TABLET.DR PO (09:57)
[2021-07-15] MEDS: Venlafaxine HCl ER 75 MG CAP.ER.24H PO (09:57)
[2021-07-15] MEDS: polyethylene glycoL 3350 17 GM POWD.PACK PO (09:57)
[2021-07-15] MEDS: Docusate Sodium 100 MG CAPSULE PO ×2 (09:57→20:05)
[2021-07-15] MEDS: Venlafaxine HCl ER 150 MG CAP.ER.24H PO (09:58)
[2021-07-15] MEDS: 0.9 % Sodium Chloride Flush 3 ML SYRINGE IVFLUSH ×3 (09:58→20:06)
--- NOTE | 2021-07-15 14:59 | P.PNIM_ITS ---
Subjective Subjective Date of Service: 07/15/21 Interval History: Feeling better last left hip pain more awake alert answering questions appropriately, eating breakfast denies nausea, vomiting, and abdominal pain, no acute issues overnight. Review of Systems Review of Systems: Yes all other systems are reviewed and are negative Physical Exam Vital Signs: Vital Signs: Last Vital Signs Temp 97.1 F 07/15/21 11:21 Pulse 81 07/15/21 11:21 Resp 18 07/15/21 11:21 BP 128/58 L 07/15/21 11:21 Pulse Ox 96 07/15/21 11:21 BMI result Body Mass Index 25.8 Const: Other: General? awake nick rt x3, no acute di stress.? Neck no J VD. CVS? regular r ate rhythm, Respir atory lungs clear to auscultation, n o respiratory dist ress, no wheeze, n o rhonchi. Gastroi ntestinal abdomen soft, nontender, b owel sounds audibl e Extremities no?e anoop.? Left hip dr betancourt in place, n o drainage Neuro n onfocal , speech c lear. Skin no rash Psych appropriate affect Objective Data Active Medications Acetaminophen (Acetaminophen 325 Mg Tablet) 650 mg PO Q6H PRN PRN Reason: Pain, Mild (Pain Scale 1-3) Acetaminophen (Acetaminophen 325 Mg Tablet) 650 mg PO QID [facility] Last Admin: 07/15/21 13:15 Dose: 650 mg Documented by: CHERELLE Atenolol (Atenolol 25 Mg Tablet) 25 mg PO DAILY [facility]; Protocol Last Admin: 07/15/21 09:57 Dose: 25 mg Documented by: CHERELLE Atorvastatin Calcium (Atorvastatin Calcium 10 Mg Tablet) 10 mg PO DAILY [facility] Last Admin: 07/15/21 09:56 Dose: 10 mg Documented by: CHERELLE Cyanocobalamin (Cyanocobalamin (Vitamin B-12) 1,000 Mcg Tablet) 1,000 mcg PO DAILY [facility] Last Admin: 07/15/21 09:56 Dose: 1,000 mcg Documented by: CHERELLE Docusate Sodium (Docusate Sodium 100 Mg Capsule) 100 mg PO BID [facility] Last Admin: 07/15/21 09:57 Dose: 100 mg Documented by: CHERELLE Enoxaparin Sodium (Enoxaparin Sodium 40 Mg/0.4 Ml Syringe) 40 mg SUBCUT Q24H [facility] Last Admin: 07/14/21 17:35 Dose: 40 mg Documented by: REMIGIO Ferrous Sulfate (Ferrous Sulfate 324 Mg Tablet.) 324 mg PO DAILY [facility] Last Admin: 07/15/21 09:57 Dose: 324 mg Documented by: CHERELLE Promethazine HCl 12.5 mg/ (Sodium Chloride) 50.5 mls @ 202 mls/hr IV ONCE PRN PRN Reason: Nausea and Vomiting Melatonin (Melatonin 3 Mg Tablet) 3 mg PO BEDTIME PRN PRN Reason: Insomnia Patient Own Med ( Vibegron [Gemtesa] 75 Mg Tablet) 75 mg PO DAILY [facility] Last Admin: 07/15/21 09:59 Dose: 75 mg Documented by: CHERELLE Omeprazole (Omeprazole 20 Mg Capsule.) 20 mg PO DAILY@0630 [facility] Last Admin: 07/15/21 06:00 Dose: 20 mg Documented by: JHON Pharmacy Consult (Consult Rx Perform Med Rec) 1 each MISCELLANE ONCE PRN PRN Reason: Consult order Pharmacy Consult (Consult Rx Perform Med Rec) 1 each MISCELLANE ONCE PRN PRN Reason: Consult order Pharmacy Consult (Consult Rx Perform Med Rec) 1 each MISCELLANE ONCE PRN PRN Reason: Consult order Polyethylene Glycol (Polyethylene Glycol 3350 17 Gm Powd.Pack) 17 gm PO DAILY [facility] Last Admin: 07/15/21 09:57 Dose: 17 gm Documented by: CHERELLE Sodium Chloride (0.9 % Sodium Chloride Flush 3 Ml Syringe) 3 ml IVFLUSH QSHIFT [facility] Last Admin: 07/15/21 09:58 Dose: 3 ml Documented by: CHERELLE Tamsulosin HCl (Tamsulosin Hcl 0.4 Mg Capsule) 0.4 mg PO BEDTIME [facility] Last Admin: 07/14/21 20:38 Dose: 0.4 mg Documented by: JHON Venlafaxine HCl (Venlafaxine Hcl Er 75 Mg Cap.Er.24h) 75 mg PO DAILY [facility] Last Admin: 07/15/21 09:57 Dose: 75 mg Documented by: CHERELLE Venlafaxine HCl (Venlafaxine Hcl Er 150 Mg Cap.Er.24h) 150 mg PO DAILY [facility] Last Admin: 07/15/21 09:58 Dose: 150 mg Documented by: CHERELLE Labs CBC & Chem 7: 07/14/21 14:23 07/14/21 06:16 Assessment and Plan (1) Closed intertrochanteric fracture: Status: Acute (2) Polyuria: Status: Acute (3) Anxiety: Status: Acute (4) Essential hypertension: Status: Acute Plan 85-year-old female presents after mechanical fall fracturing left proximal femur.? Found to be markedly hypertensive in the ER.? Voices no cardiac compl aints 1. Left proximal femur fracture - status post left hip IMN,pod #6, good pain control Hematocrit dropped but stable, continue iron supplement, question related to recent hip surgery, no acute GI bleed noted, hold transfusion, patient asymptomatic continue scheduled and as needed Tylenol, continue bowel regimen, MiraLax and Colace, encourage incentive spirometry. 2. Hypertension - stable blood pressure continue atenolol, Zestril discontinued due to ZEE and low blood pressure 3. Urinary tract infection patient complained of urinary frequency UA significantly positive , however urine culture negative, since patient was symptomatic with leukocytosis, treated with 5 days of IV ceftriaxone. 4. Anxiety - continue home dose of Effexor 5. Acute on chronic anemia likely due to hip surgery/ 1 episode of dark colored vomit, continue PPI, follow stool guaiac, iron studies December 2020 were unremarkable avoid NSAIDs, Hematocrit 24 since patient asymptomatic hold blood transfusion 6.Hyperlipidemia -continue statin 7. Acute kidney injury likely due to hypotension /decreased by mouth intake/and retention Creatinine normalized continue Matthews catheter Patient seen by Urology they recommend to continue Matthews for 2 weeks, continue Flomax 0.4 mg and obtain dynamic renal scan to assess function and possible obstruction need to have Matthews in during test 8. Leukocytosis resolved Full code Continue Lovenox will require continued inpatient hospitalization due to left hip surgery, urinary retention requiring further urological workup and waiting for safe discharge to rehab. Quality Stroke Does the patient have a stroke diagnosis?: No VTE Prior VTE?: No VTE Risk Level:: Medical - moderate - high VTE Device Contraindication: N/A - Device Ordered VTE Drug Contraindication: Treatment Not Indicated
[2021-07-15] MEDS: Enoxaparin Sodium 40 MG/0.4 ML SYRINGE SUBCUT (17:20)
--- NOTE | 2021-07-15 18:17 | P.PNNP_ITS ---
Subjective Subjective Date of Service: 07/15/21 Interval history: Seen and examined, events noted Physical Exam Vital Signs: Vital Signs: Last Vital Signs Temp 97.9 F 07/15/21 15:58 Pulse 83 07/15/21 15:58 Resp 17 07/15/21 15:58 BP 131/56 L 07/15/21 15:58 Pulse Ox 96 07/15/21 15:58 BMI result Body Mass Index 25.8 Const: Other: General? awake alert x3, no acute distress.? Neck no JVD. CVS? regular rate rhythm, Respiratory lungs clear to auscultation, no respiratory distress, no wheeze, no rhonchi. Gastrointestinal abdomen soft, nontender, bowel sounds audible Extremities no?edema.? Left hip dressing in place, no drainage Neuro nonfocal , speech clear. Skin no rash Psych appropriate affect General: cooperative, healthy appearing and no acute distress Nutritional Appearance: average body habitus Orientation/consciousness: oriented to person and patient oriented x3 L imitations: no limitations and No language barrier HEENT: Head: Yes normal to inspection Ears: external ears normal General nose exam: Normal external nose present Mouth: Normal oral and palatal mucosa present and oropharynx normal Throat: Yes posterior oropharynx normal Eyes: General: appearance normal, both eyes and all related structures Neck: Other: supple Neck: Yes normal visual inspection Chest: Chest palpation & inspection: normal inspection of the chest Resp: Other: Clear to auscultation bilaterally no rales rhonchi or wheezes Effort & Inspection: normal respiratory effort and able to speak in complete sentences Auscultation: clear to auscultation bilaterally Cardio: Jugular venous distension: no JVD Rate: regular rate Rhythm: regular rhythm Heart sounds: S1 normal heart sound present and S2 normal heart sound present Peripheral pulses: Peripheral pulses 2+ throughout GI: Other: Soft nontender nondistended with normoactive bowel sounds Inspection: Yes normal to inspection Palpation (GI): Soft to palpation, nontender and No hepatosplenomegaly present Auscultation: normal bowel sounds : General: Yes no CVA tenderness Back/Spine/Pelvis: Back: no CVA tenderness Skin: General skin exam: no rashes or lesions noted Lesions: no lesions Rashes: no rashes Neuro: General: oriented to person and patient oriented x3 Cranial nerves: Yes CN's II-XII intact bilaterally Motor exam (neuro): 06/20 motor strength present throughout Sensory Exam: No Sensory deficit (Neuro) Extrem: Other: left hip incision clean dry and intact.? [place] intact.? No erythema or? effusion.? Calf supple nontender.? Neurovascularly intact. General: Yes normal to inspection Psych: Appearance: grossly normal Objective Data Labs CBC & Chem 7: 07/14/21 14:23 07/14/21 06:16 Microbiology Microbiology Results: Microbiology 07/08/21 17:40 Urine clean catch - Urine crow top Urine Culture - Final Procedures Date of Service Date of Service: 07/15/21 Assessment & Plan Assessment and plan (1) Closed intertrochanteric fracture: Status: Acute (2) Polyuria: Status: Acute (3) Anxiety: Status: Acute (4) Essential hypertension: Status: Acute Plan 1. ZEE: resolved with cai 2. Ur retention: cai in place; f/u with urol 3. HTN 4. HypoNa REC:repeat renal labs and SNa, avoid NSAIDs; cai and f/u with urol eval . Time Spent With Patient Time: Total time spent is greater than 50% in coordination of care (as documented) at patient's floor/unit and/or counseling patient: Progress Note: Quality Stroke Does the patient have a stroke diagnosis?: No
[2021-07-15] MEDS: Tamsulosin HCL 0.4 MG CAPSULE PO (20:05)
[2021-07-16] MEDS: Omeprazole 20 MG CAPSULE.DR PO (05:46)
--- NOTE | 2021-07-16 07:49 | P.CDIC_ITS ---
CDI Concurrent Query Documentation Clarification: PHYSICIAN'S DOCUMENTATION REQUEST Date of Query: 07/16/21 0750 Patient Name: Latonia Wakefield Admit Date: 07/08/21 Dear Doctor, A review of the medical record indicates additional documentation may be needed. Please review below and update the documentation accordingly. Clinical Indicators: Risk Factors/Clinical Indicators/Treatments H/H 07/08/21: 9.7/29.7 H/H 07/11/21: 8.7/27 Iron 324 mg po daily ordered 07/10/21 MD progress note 07/13/21: Acute on Chronic Anemia likely due to hip surgery, one episode dark vomit, PPI H/H 07/14/21: 7.7/23.3, per MD note, likely dilutional MD note 07/15/21: no acute GIB Based on the above, could you clarify in the Progress Notes which of the following is the most likely type of anemia you are evaluating, treating, and/or monitoring? * Acute blood loss anemia * Acute blood loss anemia with baseline chronic anemia (specify type) * Anemia of chronic disease- indicate if neoplastic disease, CKD, or other * Chronic iron deficiency anemia due to blood loss * Other ? please specify * Unable to determine Use of terms such as suspected, likely, concern for, or probable (associated with a specific diagnosis that is being evaluated, monitored, or treated as if it exists) are acceptable and can be coded in the inpatient setting, when documented at the time of discharge. Thank you, Taty Holland RN Extension: [phone] Please use your independent medical judgment in providing your response. THIS QUERY IS PART OF THE PERMANENT MEDICAL RECORD Provider Response: Other Other Diagnosis: No acute blood loss anemia
[2021-07-16] MEDS: 0.9 % Sodium Chloride Flush 3 ML SYRINGE IVFLUSH ×3 (07:52→22:25)
[2021-07-16] MEDS: Ferrous Sulfate 324 MG TABLET.DR PO (07:52)
[2021-07-16] MEDS: Docusate Sodium 100 MG CAPSULE PO ×2 (07:52→22:25)
[2021-07-16] MEDS: Cyanocobalamin (Vitamin B-12) 1,000 MCG TABLET 1000 MCG PO (07:52)
[2021-07-16] MEDS: Venlafaxine HCl ER 150 MG CAP.ER.24H PO (07:52)
[2021-07-16] MEDS: Acetaminophen 325 MG TABLET 650 MG PO ×4 (07:52→22:25)
[2021-07-16] MEDS: atenoloL 25 MG TABLET PO (07:53)
[2021-07-16] MEDS: Atorvastatin Calcium 10 MG TABLET PO (07:53)
[2021-07-16] MEDS: polyethylene glycoL 3350 17 GM POWD.PACK PO (07:53)
[2021-07-16] MEDS: Venlafaxine HCl ER 75 MG CAP.ER.24H PO (07:53)
[2021-07-16 07:55] VITALS: BP 148/81; PULSE 83; RESP 16; TEMP 36.3; O2SAT 93
--- NOTE | 2021-07-16 09:46 | MHC.CM.PN ---
[facility] NOT ABLE TO OFFER. [facility] IS OFFERING A BED, PENDING AUTH. DAUGHTER KAROLINA AWARE
[2021-07-16 11:11] VITALS: BP 127/57; PULSE 72; RESP 17; TEMP 36.2; O2SAT 96
[2021-07-16 11:39] VITALS: BP 127/57; PULSE 72; O2SAT 96
--- NOTE | 2021-07-16 13:44 | CONS_ITS ---
DATE OF SERVICE: 07/13/2021 REASON FOR CONSULTATION: I was asked to see the patient to assist in the evaluation and management of patient's acute kidney injury as reflected by BUN and creatinine going from 34 and 1.28 yesterday to 48 and 2.25 today. Actually, her serum creatinine was 1.02 when she was admitted on the . She had episode with creatinine up to 1.46 on July 11 and then got better yesterday and now worse again. There is mention made that her blood pressure has been soft at times and she may have had a hypotensive event that contributed to the acute kidney injury. The patient is a poor historian, so information was obtained from the electronic medical record. HISTORY OF PRESENT ILLNESS: In summary, patient is an 85-year-old female who came to the emergency room on the with left hip pain after mechanical fall, noted to have a fracture and she did undergo surgical repair. Initially when she presented, she was quite hypertensive. As mentioned, blood pressures have been somewhat labile over the past several days. She is overall feeling better. PAST MEDICAL HISTORY: Notable for anxiety, asthma, COPD, depression, hypertension, GERD, and vertigo. She is not aware of having had kidney problems in the past. There is no history of kidney stones. MEDICATIONS: Her medications on admission are noted in the records and they do include naproxen which she takes apparently routinely. Since she has been admitted, I do not see that she has been on any NSAIDs. Current medications noted in the MAR. SOCIAL HISTORY: She is nonsmoker, nondrinker. No illicit drug use. REVIEW OF SYSTEMS: As noted above, somewhat limited. FAMILY HISTORY: Noncontributory. PHYSICAL EXAMINATION: VITAL SIGNS: Blood pressure of 147/67 now, and as mentioned if you look in the record, she has had episodes of both high and low blood pressures. HEAD: Atraumatic and normocephalic. NECK: Supple. Mucous membranes are moist. LUNGS: Breath sounds bilaterally. CARDIAC: Regular rate and rhythm. ABDOMEN: Soft. EXTREMITIES: 1+ edema bilaterally. LABORATORY DATA: Labs from today show sodium 130, potassium 5.4, chloride 96, bicarb 24, BUN 48, creatinine 2.25. As mentioned yesterday, her BUN and creatinine were 34 and 1.28 and on admission, creatinine was 1.02. Her albumin is 3.2, calcium is 8.8. Hemoglobin 8.1, hematocrit 25.2, white count 12.7, platelet count 354. Urinalysis showed 2+ protein by dipstick, 3+ blood, and many white blood cells in the urine that was on July 08, suggestive of urinary tract infection. She had an ultrasound done on August 11 which showed small kidneys bilaterally, the right was 8 cm as was the left. There is also mention made of thickening of the bladder wall. There is also mention made of bilateral hydronephrosis on the ultrasound. 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 IMPRESSION: 85-YEAR-OLD WITH ACUTE KIDNEY INJURY IN THE SETTING OF HIP SURGERY AFTER A MECHANICAL FALL. 1. Acute kidney injury. Reviewing the ultrasound it looks like she may have a component of obstructive uropathy from bladder abnormality causing the acute kidney injury. We will need to repeat urine studies and get Urology to see the patient to make sure we placed a Matthews catheter. She may need repeat imaging studies of the kidneys including a CAT scan given the bilateral hydro noted. Other possibilities for acute kidney injury would be low blood pressure causing ischemic acute tubular necrosis. 2. Anemia. 3. Recent mechanical fall with hip fracture and repair. 4. Question of urinary tract infection. SUGGESTIONS: At this time include bladder scan and low threshold to place a Matthews catheter in. Currently she has Danielito. Urology consultation. Repeat urinalysis, urine culture, and send spot urine for protein creatinine and sodium. Avoid nephrotoxins. Follow urine output and renal function. We will follow the patient closely with the team. MD JAVI Hartmann/MICHEAL / [id number]
--- NOTE | 2021-07-16 14:44 | HO.PM.IMPN ---
Subjective Subjective Date of Service: 07/16/21 Interval History: Good pain control left hip, tolerating diet no nausea no vomiting, denies abdominal pain no lightheadedness or dizziness answering questions appropriately no acute overnight issues, Matthews catheter with clear urine. Physical Exam Vital Signs: Vital Signs: Last Vital Signs Temp 97.1 F 07/16/21 11:11 Pulse 72 07/16/21 11:39 Resp 17 07/16/21 11:11 BP 127/57 L 07/16/21 11:39 Pulse Ox 96 07/16/21 11:39 BMI result Body Mass Index 25.8 Const: Other: General? awake alert x3, no acute distress.? Neck no JVD. CVS? regular rate rhythm, Respiratory lungs clear to auscultation, no respiratory distress, no wheeze, no rhonchi. Gastrointestinal abdomen soft, non tender, bowel sounds audible Extremities no?edema.? Left hip dressing in place, Neuro non focal , speech clear. Skin no rash Psych appropriate?affect Objective Data Active Medications Acetaminophen (Acetaminophen 325 Mg Tablet) 650 mg PO Q6H PRN PRN Reason: Pain, Mild (Pain Scale 1-3) Acetaminophen (Acetaminophen 325 Mg Tablet) 650 mg PO QID [facility] Last Admin: 07/16/21 12:56 Dose: 650 mg Documented by: CHERELLE Atenolol (Atenolol 25 Mg Tablet) 25 mg PO DAILY [facility]; Protocol Last Admin: 07/16/21 07:53 Dose: 25 mg Documented by: CHERELLE Atorvastatin Calcium (Atorvastatin Calcium 10 Mg Tablet) 10 mg PO DAILY [facility] Last Admin: 07/16/21 07:53 Dose: 10 mg Documented by: CHERELLE Cyanocobalamin (Cyanocobalamin (Vitamin B-12) 1,000 Mcg Tablet) 1,000 mcg PO DAILY [facility] Last Admin: 07/16/21 07:52 Dose: 1,000 mcg Documented by: CHERELLE Docusate Sodium (Docusate Sodium 100 Mg Capsule) 100 mg PO BID [facility] Last Admin: 07/16/21 07:52 Dose: 100 mg Documented by: CHERELLE Enoxaparin Sodium (Enoxaparin Sodium 40 Mg/0.4 Ml Syringe) 40 mg SUBCUT Q24H [facility] Last Admin: 07/15/21 17:20 Dose: 40 mg Documented by: CHERELLE Ferrous Sulfate (Ferrous Sulfate 324 Mg Tablet.) 324 mg PO DAILY [facility] Last Admin: 07/16/21 07:52 Dose: 324 mg Documented by: CHERELLE Promethazine HCl 12.5 mg/ (Sodium Chloride) 50.5 mls @ 202 mls/hr IV ONCE PRN PRN Reason: Nausea and Vomiting Melatonin (Melatonin 3 Mg Tablet) 3 mg PO BEDTIME PRN PRN Reason: Insomnia Patient Own Med ( Vibegron [Gemtesa] 75 Mg Tablet) 75 mg PO DAILY [facility] Last Admin: 07/16/21 07:53 Dose: 75 mg Documented by: CHERELLE Omeprazole (Omeprazole 20 Mg Capsule.) 20 mg PO DAILY@0630 [facility] Last Admin: 07/16/21 05:46 Dose: 20 mg Documented by: JHON Pharmacy Consult (Consult Rx Perform Med Rec) 1 each MISCELLANE ONCE PRN PRN Reason: Consult order Pharmacy Consult (Consult Rx Perform Med Rec) 1 each MISCELLANE ONCE PRN PRN Reason: Consult order Pharmacy Consult (Consult Rx Perform Med Rec) 1 each MISCELLANE ONCE PRN PRN Reason: Consult order Polyethylene Glycol (Polyethylene Glycol 3350 17 Gm Powd.Pack) 17 gm PO DAILY [facility] Last Admin: 07/16/21 07:53 Dose: 17 gm Documented by: CHERELLE Sodium Chloride (0.9 % Sodium Chloride Flush 3 Ml Syringe) 3 ml IVFLUSH QSHIFT [facility] Last Admin: 07/16/21 07:52 Dose: 3 ml Documented by: CHERELLE Tamsulosin HCl (Tamsulosin Hcl 0.4 Mg Capsule) 0.4 mg PO BEDTIME [facility] Last Admin: 07/15/21 20:05 Dose: 0.4 mg Documented by: JHON Venlafaxine HCl (Venlafaxine Hcl Er 75 Mg Cap.Er.24h) 75 mg PO DAILY [facility] Last Admin: 07/16/21 07:53 Dose: 75 mg Documented by: CHERELLE Venlafaxine HCl (Venlafaxine Hcl Er 150 Mg Cap.Er.24h) 150 mg PO DAILY [facility] Last Admin: 07/16/21 07:52 Dose: 150 mg Documented by: CHERELLE Labs CBC & Chem 7: 07/14/21 14:23 07/14/21 06:16 Assessment and Plan (1) Closed intertrochanteric fracture: Status: Acute (2) Polyuria: Status: Acute (3) Anxiety: Status: Acute (4) Essential hypertension: Status: Acute Plan 85-year-old female presents after mechanical fall fracturing left proximal femur.? Found to be markedly hypertensive in the ER.? Voices no cardiac complaints 1. Left proximal femur fracture - status post left hip IMN,pod #7, good pain control Hematocrit dropped but stable, continue iron supplement, question related to recent hip surgery, no acute GI bleed noted, hold transfusion, patient asymptomatic continue scheduled and as needed Tylenol, continue bowel regimen, MiraLax and Colace, encourage incentive spirometry. 2. Hypertension - stable blood pressure continue atenolol, Zestril discontinued due to ZEE and low blood pressure 3. Urinary tract infection patient complained of urinary frequency UA significantly positive , however urine culture negative, since patient was symptomatic with leukocytosis, treated with 5 days of IV ceftriaxone. 4. Anxiety - continue home dose of Effexor 5. Acute on chronic anemia no acute blood loss noted likely multifactorial dilutional, due to hip surgery/ 1 episode of dark colored vomitus with no recurrent episodes continue PPI, follow stool guaiac, iron studies December 2020 were unremarkable avoid NSAIDs, Hematocrit 24 since patient asymptomatic hold blood transfusion, repeat CBC 6.Hyperlipidemia -continue statin 7. Acute kidney injury likely due to hypotension /decreased by mouth intake/and retention Creatinine normalized continue Matthews catheter Patient seen by Urology they recommend to continue Matthews for 2 weeks, continue Flomax 0.4 mg and obtain dynamic renal scan, test taken report pending, follow-up with Dr. Waite 8. Leukocytosis resolved Full code Continue Lovenox will require continued inpatient hospitalization due to left hip surgery, urinary retention requiring further urological workup, uro eval and waiting for safe discharge to rehab. Quality Stroke Does the patient have a stroke diagnosis?: No VTE Prior VTE?: No VTE Risk Level:: Medical - moderate - high VTE Device Contraindication: N/A - Device Ordered VTE Drug Contraindication: Treatment Not Indicated
--- NOTE | 2021-07-16 15:03 | MHC.CM.PN ---
[facility] WILL NOT AUTH FOR ACUTE REHAB. REFERRALS TO SNF UPDATED [facility] AT [facility] REFERRALS PLACED AND CM AWAITING RESPONSES
[2021-07-16 15:37] VITALS: BP 137/77; PULSE 79; RESP 18; TEMP 36.8; O2SAT 96
[2021-07-16 15:52] LABS: Hematocrit 26.9 % (37.0-47.0); Hemoglobin 8.7 g/dl (12.0-16.0)
[2021-07-16] MEDS: Enoxaparin Sodium 40 MG/0.4 ML SYRINGE SUBCUT (16:06)
[2021-07-16 20:00] VITALS: BP 116/78; PULSE 100; RESP 16; TEMP 36.9; O2SAT 98
[2021-07-16] MEDS: Tamsulosin HCL 0.4 MG CAPSULE PO (22:25)
[2021-07-16 23:39] VITALS: BP 103/61; PULSE 87; RESP 16; TEMP 36.3; O2SAT 98
[2021-07-17] VITALS (7 sets, daily range): BP systolic 102–133; BP diastolic 42–82; PULSE 78–91; RESP 14–18; TEMP 36.1–36.9; O2SAT 95–98
[2021-07-17] MEDS: Omeprazole 20 MG CAPSULE.DR PO (06:18)
[2021-07-17] MEDS: Docusate Sodium 100 MG CAPSULE PO ×2 (10:17→22:00)
[2021-07-17] MEDS: 0.9 % Sodium Chloride Flush 3 ML SYRINGE IVFLUSH ×3 (10:17→22:00)
[2021-07-17] MEDS: Cyanocobalamin (Vitamin B-12) 1,000 MCG TABLET 1000 MCG PO (10:18)
[2021-07-17] MEDS: Venlafaxine HCl ER 150 MG CAP.ER.24H PO (10:18)
[2021-07-17] MEDS: Acetaminophen 325 MG TABLET 650 MG PO ×4 (10:18→22:00)
[2021-07-17] MEDS: Atorvastatin Calcium 10 MG TABLET PO (10:18)
[2021-07-17] MEDS: Ferrous Sulfate 324 MG TABLET.DR PO (10:19)
[2021-07-17] MEDS: atenoloL 25 MG TABLET PO (10:20)
[2021-07-17] MEDS: polyethylene glycoL 3350 17 GM POWD.PACK PO (10:20)
[2021-07-17] MEDS: Venlafaxine HCl ER 75 MG CAP.ER.24H PO (10:20)
--- NOTE | 2021-07-17 11:22 | MHC.CM.PN ---
Addendum entered by Eileen Gamble RN 07/17/21 12:38: CM CONTACTED PT'S DTR/HCP KAROLINA AT EXT [id number] AT 12:35PM, KAROLINA INFORMED [facility] WILL NOT GIVE AUTH FOR ACUTE REHAB AND WANTS PT TO GO TO [facility], KAROLINA REPORTS SHE DOES NOT WANT [place] AND PREFERRED SNF IS [facility], SNF REFERRAL EXPANDED AND KAROLINA AWARE WE HAVE NO BED OFFERS AT THIS TIME AND CM WILL UPDATE HER ONCE BED OFFER RECEIVED. Original Note: PT REMAINS MEDICALLY CLEARED FOR D/C, PER [facility]ON[facility] HAS DECLINED ACUTE REHAB, CM AWAITING TO HEAR BACK FROM SNF'S TO FIND OUT BED AVAILABILITY.
--- NOTE | 2021-07-17 12:59 | MHC.CM.PN ---
[facility] CONSIDER PT NOT UP TO DATE W/VACCINE IF NOT BOOSTERED AND DO NOT HAVE PRIVATE ROOM IN BUILDINGS, [facility] AND [facility] ARE INTERESTED, CM GAVE NAMES TO VALERIE TURCIOS TO REVIEW AND WILL GET BACK TO CM.
--- NOTE | 2021-07-17 14:15 | MHC.CM.PN ---
CM MET W/PT'S DTR KAROLINA ON UNIT, KAROLINA REPORTS SHE DISCUSSED W/HER BROTHER AND THEY ARE AGREEABLE TO ACCEPT BED OFFER AT [facility] AND THAT SHE ALREADY REACHED OUT TO THEM, [facility] HAS ALSO UPDATED SNF AND WILL HAVE BED AVAILABLE TOMORROW 07/18/21.
--- NOTE | 2021-07-17 15:09 | HO.PM.IMPN ---
Subjective Subjective Date of Service: 07/17/21 Interval History: Resting comfortably offers no acute complaint, no events overnight, Matthews with clear urine. Review of Systems [employer] no headache no dizziness CVS no chest pain, no palpitation GI no nausea, no vomiting, no diarrhea Review of Systems: Yes all other systems are reviewed and are negative Physical Exam Vital Signs: Vital Signs: Last Vital Signs Temp 97.9 F 07/17/21 12:00 Pulse 91 07/17/21 12:00 Resp 18 07/17/21 12:00 BP 120/68 07/17/21 12:00 Pulse Ox 95 07/17/21 12:00 BMI result Body Mass Index 25.8 Const: Other: General? awake alert x3, no acute distress.? Neck no JVD. CVS? regular rate rhythm, Respiratory lungs clear to auscultation, no respiratory distress, no wheeze, no rhonchi. Gastrointestinal abdomen soft, non tender, bowel sounds audible Extremities no?edema.? Left hip incision clean and dry no swelling, no erythema. Neuro non focal , speech clear. Skin no rash Psych appropriate?affect Objective Data Active Medications Acetaminophen (Acetaminophen 325 Mg Tablet) 650 mg PO Q6H PRN PRN Reason: Pain, Mild (Pain Scale 1-3) Acetaminophen (Acetaminophen 325 Mg Tablet) 650 mg PO QID [facility] Last Admin: 07/17/21 12:49 Dose: 650 mg Documented by: JIM Atenolol (Atenolol 25 Mg Tablet) 25 mg PO DAILY [facility]; Protocol Last Admin: 07/17/21 10:20 Dose: 25 mg Documented by: JIM Atorvastatin Calcium (Atorvastatin Calcium 10 Mg Tablet) 10 mg PO DAILY [facility] Last Admin: 07/17/21 10:18 Dose: 10 mg Documented by: JIM Cyanocobalamin (Cyanocobalamin (Vitamin B-12) 1,000 Mcg Tablet) 1,000 mcg PO DAILY [facility] Last Admin: 07/17/21 10:18 Dose: 1,000 mcg Documented by: JIM Docusate Sodium (Docusate Sodium 100 Mg Capsule) 100 mg PO BID [facility] Last Admin: 07/17/21 10:17 Dose: 100 mg Documented by: JIM Enoxaparin Sodium (Enoxaparin Sodium 40 Mg/0.4 Ml Syringe) 40 mg SUBCUT Q24H [facility] Last Admin: 07/16/21 16:06 Dose: 40 mg Documented by: CHERELLE Ferrous Sulfate (Ferrous Sulfate 324 Mg Tablet.) 324 mg PO DAILY [facility] Last Admin: 07/17/21 10:19 Dose: 324 mg Documented by: JIM Promethazine HCl 12.5 mg/ (Sodium Chloride) 50.5 mls @ 202 mls/hr IV ONCE PRN PRN Reason: Nausea and Vomiting Melatonin (Melatonin 3 Mg Tablet) 3 mg PO BEDTIME PRN PRN Reason: Insomnia Patient Own Med ( Vibegron [Gemtesa] 75 Mg Tablet) 75 mg PO DAILY [facility] Last Admin: 07/17/21 10:23 Dose: 75 mg Documented by: JIM Omeprazole (Omeprazole 20 Mg Capsule.) 20 mg PO DAILY@0630 [facility] Last Admin: 07/17/21 06:18 Dose: 20 mg Documented by: SRIDHAR Pharmacy Consult (Consult Rx Perform Med Rec) 1 each MISCELLANE ONCE PRN PRN Reason: Consult order Pharmacy Consult (Consult Rx Perform Med Rec) 1 each MISCELLANE ONCE PRN PRN Reason: Consult order Pharmacy Consult (Consult Rx Perform Med Rec) 1 each MISCELLANE ONCE PRN PRN Reason: Consult order Polyethylene Glycol (Polyethylene Glycol 3350 17 Gm Powd.Pack) 17 gm PO DAILY [facility] Last Admin: 07/17/21 10:20 Dose: 17 gm Documented by: JIM Sodium Chloride (0.9 % Sodium Chloride Flush 3 Ml Syringe) 3 ml IVFLUSH QSHIFT [facility] Last Admin: 07/17/21 10:17 Dose: 3 ml Documented by: JIM Tamsulosin HCl (Tamsulosin Hcl 0.4 Mg Capsule) 0.4 mg PO BEDTIME [facility] Last Admin: 07/16/21 22:25 Dose: 0.4 mg Documented by: SRIDHAR Venlafaxine HCl (Venlafaxine Hcl Er 75 Mg Cap.Er.24h) 75 mg PO DAILY [facility] Last Admin: 07/17/21 10:20 Dose: 75 mg Documented by: JIM Venlafaxine HCl (Venlafaxine Hcl Er 150 Mg Cap.Er.24h) 150 mg PO DAILY [facility] Last Admin: 07/17/21 10:18 Dose: 150 mg Documented by: HO.MATTHEP Labs CBC & Chem 7: 07/16/21 15:43 07/14/21 06:16 Assessment and Plan (1) Closed intertrochanteric fracture: Status: Acute (2) Polyuria: Status: Acute (3) Anxiety: Status: Acute (4) Essential hypertension: Status: Acute Plan 85-year-old female presents after mechanical fall fracturing left proximal femur.? Found to be markedly hypertensive in the ER.? Voices no cardiac complaints 1. Left proximal femur fracture - status post left hip IMN,pod #8, good pain control Hematocrit dropped but improved to 26.9, continue iron supplement, multifactorial likely related to recent hip surgery, no acute GI bleed noted, hold transfusion, patient asymptomatic continue scheduled and as needed Tylenol, continue bowel regimen, MiraLax and Colace, encourage incentive spirometry. 2. Hypertension - stable blood pressure continue atenolol, Zestril discontinued due to ZEE and low blood pressure 3. Urinary tract infection patient complained of urinary frequency UA significantly positive , however urine culture negative, since patient was symptomatic with leukocytosis, treated with 5 days of IV ceftriaxone. 4. Anxiety - continue home dose of Effexor 5. Acute on chronic anemia hematocrit improved no acute blood loss noted likely multifactorial dilutional, due to hip surgery/ 1 episode of dark colored vomitus with no recurrent episodes continue PPI, follow stool guaiac, iron studies December 2020 were unremarkable avoid NSAIDs, 6.Hyperlipidemia -continue statin 7. Acute kidney injury likely due to hypotension /decreased by mouth intake/and retention Creatinine normalized continue Matthews catheter Patient seen by Dr. Kendall III he recommend to continue Matthews for 2 weeks, continue Flomax 0.4 mg ,dynamic renal scan obtained, that showed normal renal perfusion, extra renal kidney pelvises with no suspicion for obstruction, there was slow excretion which remains unchanged post Lasix. 8. Leukocytosis resolved Full code Continue Lovenox will require continued inpatient hospitalization due to left hip surgery, urinary retention , anemia, waiting for safe discharge to rehab. CM arranging for bed. Quality Stroke Does the patient have a stroke diagnosis?: No VTE Prior VTE?: No VTE Risk Level:: Medical - moderate - high VTE Device Contraindication: N/A - Device Ordered VTE Drug Contraindication: Treatment Not Indicated
[2021-07-17] MEDS: Enoxaparin Sodium 40 MG/0.4 ML SYRINGE SUBCUT (17:28)
[2021-07-17] MEDS: Tamsulosin HCL 0.4 MG CAPSULE PO (21:59)
[2021-07-18 03:37] VITALS: BP 146/67; PULSE 77; RESP 16; TEMP 36.2; O2SAT 96
[2021-07-18] MEDS: Omeprazole 20 MG CAPSULE.DR PO (06:17)
[2021-07-18 08:00] VITALS: BP 147/64; PULSE 94; RESP 18; TEMP 36.3; O2SAT 96
[2021-07-18] MEDS: Acetaminophen 325 MG TABLET 650 MG PO ×4 (09:51→19:57)
[2021-07-18] MEDS: Ferrous Sulfate 324 MG TABLET.DR PO (09:51)
[2021-07-18] MEDS: Docusate Sodium 100 MG CAPSULE PO ×2 (09:52→19:58)
[2021-07-18] MEDS: atenoloL 25 MG TABLET PO (09:52)
[2021-07-18] MEDS: Venlafaxine HCl ER 75 MG CAP.ER.24H PO (09:52)
[2021-07-18] MEDS: Venlafaxine HCl ER 150 MG CAP.ER.24H PO (09:52)
[2021-07-18] MEDS: Cyanocobalamin (Vitamin B-12) 1,000 MCG TABLET 1000 MCG PO (09:52)
[2021-07-18] MEDS: Atorvastatin Calcium 10 MG TABLET PO (09:53)
[2021-07-18] MEDS: polyethylene glycoL 3350 17 GM POWD.PACK PO (09:53)
[2021-07-18] MEDS: 0.9 % Sodium Chloride Flush 3 ML SYRINGE IVFLUSH ×3 (09:53→19:58)
[2021-07-18 10:15] LABS: COVID-19 Test Negative (Negative); IDNOW Serial# 16C4AD1C
[2021-07-18 10:58] VITALS: BP 147/64; PULSE 94; O2SAT 96
[2021-07-18 11:52] VITALS: BP 126/64; PULSE 81; RESP 18; TEMP 36.7; O2SAT 100
[2021-07-18 15:18] VITALS: BP 126/54; PULSE 79; RESP 17; TEMP 36.6; O2SAT 94
--- NOTE | 2021-07-18 16:02 | MHC.CM.PN ---
Addendum entered by Margo Almonte 07/18/21 16:09: STILL AWAITING INSURANCE AUTH PTS DAUGHTER AWARE DC WILL LIKELY HAPPEN TOMORROW Original Note: PT IS CLEARED TO DC TO [facility] PENDING INSURANCE AUTH [employer] SUBMITTED FOR AUTH THIS MORNING AND CM HAS CALLED MULTIPLE TIMES STILL NO RESPONSE FAMILY AWARE
[2021-07-18] MEDS: Enoxaparin Sodium 40 MG/0.4 ML SYRINGE SUBCUT (16:54)
--- NOTE | 2021-07-18 17:43 | HO.PM.IMPN ---
Subjective Subjective Date of Service: 07/19/21 Interval History: no acute sxs this morning, patient awake alert eating breakfast, denies nausea vomiting, no fevers no chills, no lightheadedness or dizziness. Review of Systems [employer] no headache no dizziness CVS no chest pain, no palpitation GI no nausea, no vomiting, no diarrhea Review of Systems: Yes all other systems are reviewed and are negative Physical Exam Vital Signs: Vital Signs: Last Vital Signs Temp 97.9 F 07/18/21 15:18 Pulse 79 07/18/21 15:18 Resp 17 07/18/21 15:18 BP 126/54 L 07/18/21 15:18 Pulse Ox 94 07/18/21 15:18 BMI result Body Mass Index 25.8 Const: Other: General? awake alert x3, no acute distress.? Neck no JVD. CVS? regular rate rhythm, Respiratory lungs clear to auscultation, no respiratory distress, no wheeze, no rhonchi. Gastrointestinal abdomen soft, non tender, bowel sounds audible Extremities no?edema.? Left hip incision clean and dry no swelling, no erythema. Neuro non focal , speech clear. Skin no rash Psych appropriate?affect Matthews with clear urine Objective Data Active Medications Acetaminophen (Acetaminophen 325 Mg Tablet) 650 mg PO Q6H PRN PRN Reason: Pain, Mild (Pain Scale 1-3) Acetaminophen (Acetaminophen 325 Mg Tablet) 650 mg PO QID [facility] Last Admin: 07/18/21 16:54 Dose: 650 mg Documented by: REMIGIO Atenolol (Atenolol 25 Mg Tablet) 25 mg PO DAILY [facility]; Protocol Last Admin: 07/18/21 09:52 Dose: 25 mg Documented by: AIMEE Atorvastatin Calcium (Atorvastatin Calcium 10 Mg Tablet) 10 mg PO DAILY [facility] Last Admin: 07/18/21 09:53 Dose: 10 mg Documented by: AIMEE Cyanocobalamin (Cyanocobalamin (Vitamin B-12) 1,000 Mcg Tablet) 1,000 mcg PO DAILY [facility] Last Admin: 07/18/21 09:52 Dose: 1,000 mcg Documented by: AIMEE Docusate Sodium (Docusate Sodium 100 Mg Capsule) 100 mg PO BID [facility] Last Admin: 07/18/21 09:52 Dose: 100 mg Documented by: AIMEE Enoxaparin Sodium (Enoxaparin Sodium 40 Mg/0.4 Ml Syringe) 40 mg SUBCUT Q24H [facility] Last Admin: 07/18/21 16:54 Dose: 40 mg Documented by: REMIGIO Ferrous Sulfate (Ferrous Sulfate 324 Mg Tablet.) 324 mg PO DAILY [facility] Last Admin: 07/18/21 09:51 Dose: 324 mg Documented by: AIMEE Promethazine HCl 12.5 mg/ (Sodium Chloride) 50.5 mls @ 202 mls/hr IV ONCE PRN PRN Reason: Nausea and Vomiting Melatonin (Melatonin 3 Mg Tablet) 3 mg PO BEDTIME PRN PRN Reason: Insomnia Patient Own Med ( Vibegron [Gemtesa] 75 Mg Tablet) 75 mg PO DAILY [facility] Last Admin: 07/18/21 10:08 Dose: 75 mg Documented by: AIMEE Omeprazole (Omeprazole 20 Mg Capsule.) 20 mg PO DAILY@0630 [facility] Last Admin: 07/18/21 06:17 Dose: 20 mg Documented by: SRIDHAR Pharmacy Consult (Consult Rx Perform Med Rec) 1 each MISCELLANE ONCE PRN PRN Reason: Consult order Pharmacy Consult (Consult Rx Perform Med Rec) 1 each MISCELLANE ONCE PRN PRN Reason: Consult order Pharmacy Consult (Consult Rx Perform Med Rec) 1 each MISCELLANE ONCE PRN PRN Reason: Consult order Polyethylene Glycol (Polyethylene Glycol 3350 17 Gm Powd.Pack) 17 gm PO DAILY [facility] Last Admin: 07/18/21 09:53 Dose: 17 gm Documented by: AIMEE Sodium Chloride (0.9 % Sodium Chloride Flush 3 Ml Syringe) 3 ml IVFLUSH QSHIFT [facility] Last Admin: 07/18/21 16:54 Dose: 3 ml Documented by: REMIGIO Tamsulosin HCl (Tamsulosin Hcl 0.4 Mg Capsule) 0.4 mg PO BEDTIME [facility] Last Admin: 07/17/21 21:59 Dose: 0.4 mg Documented by: SRIDHAR Venlafaxine HCl (Venlafaxine Hcl Er 75 Mg Cap.Er.24h) 75 mg PO DAILY [facility] Last Admin: 07/18/21 09:52 Dose: 75 mg Documented by: AIMEE Venlafaxine HCl (Venlafaxine Hcl Er 150 Mg Cap.Er.24h) 150 mg PO DAILY [facility] Last Admin: 07/18/21 09:52 Dose: 150 mg Documented by: AIMEE Labs CBC & Chem 7: 07/16/21 15:43 07/14/21 06:16 Labs: Laboratory Results - last 24 hr 07/18/21 09:55 COVID-19 (JOE) Negative COVID-19 Clin Com See Note Assessment and Plan (1) Closed intertrochanteric fracture: Status: Acute (2) Polyuria: Status: Acute (3) Anxiety: Status: Acute (4) Essential hypertension: Status: Acute Plan 85-year-old female presents after mechanical fall fracturing left proximal femur.? Found to be markedly hypertensive in the ER.? Voices no cardiac complaints 1. Left proximal femur fracture - status post left hip IMN,pod #9, good pain control Hematocrit dropped but improved to 26.9, continue iron supplement, continue scheduled and as needed Tylenol, continue bowel regimen, MiraLax and Colace, encourage incentive spirometry. No bowel movement will add lactulose 2. Hypertension - stable blood pressure continue atenolol, Zestril discontinued due to ZEE and low blood pressure 3. Urinary tract infection patient finished 5 day course of antibiotic c 4. Anxiety - continue home dose of Effexor 5. Acute on chronic anemia hematocrit improved no acute blood loss noted likely multifactorial dilutional, due to hip surgery/ 1 episode of dark colored vomitus with no recurrent episodes continue PPI, follow stool guaiac, iron studies December 2020 were unremarkable avoid NSAIDs, 6.Hyperlipidemia -continue statin 7. Acute kidney injury likely due to hypotension /decreased by mouth intake/and retention Creatinine normalized continue Matthews catheter Patient seen by Dr. Kendall III he recommend to continue Matthews for 2 weeks, continue Flomax 0.4 mg ,dynamic renal scan obtained, that showed normal renal perfusion, extra renal kidney pelvises with no suspicion for obstruction, there was slow excretion which remains unchanged post Lasix. 8. Leukocytosis resolved Full code Continue Lovenox will require continued inpatient hospitalization due to left hip surgery, urinary retention , anemia, waiting for safe discharge to rehab. CM arranging for bed. Quality Stroke Does the patient have a stroke diagnosis?: No VTE Prior VTE?: No VTE Risk Level:: Medical - moderate - high VTE Device Contraindication: N/A - Device Ordered VTE Drug Contraindication: Treatment Not Indicated
[2021-07-18 18:44] VITALS: BP 116/53; PULSE 84; RESP 18; TEMP 36.5; O2SAT 98
[2021-07-18] MEDS: Tamsulosin HCL 0.4 MG CAPSULE PO (19:56)
[2021-07-19] VITALS: BP 99/57; PULSE 80; RESP 16; TEMP 36.6; O2SAT 96
[2021-07-19 03:28] VITALS: BP 123/57; PULSE 78; RESP 18; TEMP 36.8; O2SAT 98
[2021-07-19] MEDS: Omeprazole 20 MG CAPSULE.DR PO (05:13)
[2021-07-19 07:24] VITALS: BP 133/63; PULSE 82; RESP 20; TEMP 37.1; O2SAT 90
[2021-07-19] MEDS: 0.9 % Sodium Chloride Flush 3 ML SYRINGE IVFLUSH (07:36)
[2021-07-19] MEDS: Atorvastatin Calcium 10 MG TABLET PO (07:36)
[2021-07-19] MEDS: atenoloL 25 MG TABLET PO (07:36)
[2021-07-19] MEDS: Venlafaxine HCl ER 150 MG CAP.ER.24H PO (07:37)
[2021-07-19] MEDS: Acetaminophen 325 MG TABLET 650 MG PO (07:37)
[2021-07-19] MEDS: Venlafaxine HCl ER 75 MG CAP.ER.24H PO (07:37)
[2021-07-19] MEDS: Cyanocobalamin (Vitamin B-12) 1,000 MCG TABLET 1000 MCG PO (07:37)
[2021-07-19] MEDS: Ferrous Sulfate 324 MG TABLET.DR PO (07:37)
[2021-07-19] MEDS: Docusate Sodium 100 MG CAPSULE PO (07:37)
[2021-07-19] MEDS: polyethylene glycoL 3350 17 GM POWD.PACK PO (07:37)
--- NOTE | 2021-07-19 08:46 | P.DS_ITS ---
DS: Providers Provider Date of Service: 07/19/21 Date of admission: 07/08/21 16:51 Primary care physician: Saritha Russell MD Consults: 07/13/21 07:26 Consult to Nephrology Routine Consulting Provider: Ricky Marte Reason for consultation: susan Has provider been notified: No 07/13/21 13:44 Consult to Urology Routine Consulting Provider: Jass Waite Reason for consultation: b/l hydronephrosis /urianry retention Has provider been notified: No DS: Diagnosis Discharge Diagnosis (1) Closed intertrochanteric fracture: Status: Acute (2) Polyuria: Status: Acute (3) Anxiety: Status: Acute (4) Essential hypertension: Status: Acute DS: Summary Hospital Course Hospital Course: Due to some recent discharge: 07/19/2021, patient was waiting for snf. Labs and vitals reviewed from today, patient put exam is unchanged. History of presenting illness Chief Complaint: Left proxmal femor fracture 85-year-old female presents to [facility] with left hip pain after mechanical fall.? She states she tripped while going to the bathroom.? X-rays in ER demonstrated a proximal left femur fracture.? Patient states she did not take her meds today ; hypertensive on arrival. Hospital course 85-year-old female presents after mechanical fall fracturing left proximal femur.? Found to be markedly hypertensive in the ER.? 1. Left proximal femur fracture, admitted to medical service underwent left hip IMN,on 07/12/21, has good pain control, continue Tylenol and bowel regimen with Colace and MiraLax if patient has no bowel movement in next 24 hours consider lactulose encouraged to use incentive spirometry and recommend to continue with physical therapy and Lovenox as per Orthopedic recommendation ?? 2. Hypertension continue atenolol blood pressure is stable was on Zestril that has been discontinued due to few low blood pressure reading. 3. Urinary tract infection patient complained of urinary frequency UA significantly positive , however urine culture negative, since patient was symptomatic with leukocytosis, received 5 days of antibiotics. ? ? 4. Anxiety continue home dose of Effexor 5. Acute on chronic anemia hematocrit improved no acute blood loss noted likely multifactorial dilutional, due to hip surgery/ 1 episode of dark colored vomitus with no recurrent episodes, normal iron studies. avoid NSAID ?? Did not require blood transfusion. ? 6.Hyperlipidemia continue statin 7. Acute kidney injury likely due to hypotension /decreased by mouth intake/and urinary retention, renal ultrasound showed bilateral hydronephrosis no renal calculi, distended bladder with thickened bladder wall and several outpouchings, creatinine normalized after Matthews insertion,patient seen by Dr. Kendall III he recommend to continue Matthews for 2 weeks, continue Flomax 0.4 mg ,dynamic renal scan obtained, that showed normal renal perfusion, extra renal kidney pelvises with no suspicion for obstruction, there was slow excretion which remains unchanged post Lasix, recommended to follow-up with Dr. Waite from Urology in 2 weeks. ? ? Time Spent with Patient Time attestation: Total time spent providing and/or coordinating discharge services: Discharge coordination time: Greater than 30 minutes Quality: Safe Use of Opioids Does Pt have an Active Cancer Diagnosis on the Problem List?: No Quality: Stroke Does the patient have a stroke diagnosis?: No Physical Exam Vital Signs: Vital Signs: Last Vital Signs Temp 97.4 F 07/18/21 08:00 Pulse 94 07/18/21 08:00 Resp 18 07/18/21 08:00 BP 147/64 H 07/18/21 08:00 Pulse Ox 96 07/18/21 08:00 BMI result Body Mass Index 25.8 Const: Other: General? awake alert x3, no acute distress.? Neck no JVD. CVS? regular rate rhythm, Respiratory lungs clear to auscultation, no respiratory distress, no wheeze, no rhonchi. Gastrointestinal abdomen soft, non tender, bowel sounds audible Extremities no?edema.? Left hip incision clean and dry no swelling, no erythema. Neuro non focal , speech clear. Skin no rash Psych appropriate?affect Discharge Plan Discharge Patient Disposition: Xfer SNF Discharge Diagnosis: Left proximal femur fracture status post IMN Acute on chronic anemia Acute kidney injury Bilateral hydronephrosis Referrals: Denise Castro PA-C [Physician Human Services Professional] - 2 Weeks (07/23/21 1:15pm [facility] Discharge Medications: New enoxaparin 40 mg/0.4 mL Syringe 40 mg subcut Q24H 42 Days Qty: 16.8 0RF docusate sodium 100 mg Capsule 100 mg PO BID Qty: 60 0RF polyethylene glycol 3350 17 gram Powder In Packet 17 g PO DAILY Qty: 30 0RF acetaminophen 325 mg Tablet 650 mg PO QID Qty: 20 0RF Rx Instructions: Continue scheduled Tylenol for 4 more days than change to as needed for pain ferrous sulfate 324 mg (65 mg iron) Tablet,Delayed Release (Dr/Ec) 324 mg PO DAILY Qty: 14 0RF tamsulosin 0.4 mg Capsule 0.4 mg PO BEDTIME Qty: 30 0RF Continued Gemtesa 75 mg tablet 75 mg PO DAILY 30 Days Qty: 30 3RF cyanocobalamin (vitamin B-12) 1,000 mcg Tablet 1,000 mcg PO DAILY 0RF melatonin 3 mg Tablet 3 mg PO BEDTIME PRN (Reason: Insomnia) 0RF atorvastatin 10 mg tablet 10 mg PO DAILY 90 Days Qty: 90 3RF atenolol 25 mg tablet 25 mg PO DAILY 90 Days Qty: 90 3RF venlafaxine 150 mg capsule,extended release 24hr 150 mg PO DAILY 90 Days Qty: 90 3RF venlafaxine 75 mg capsule,extended release 24hr 75 mg PO DAILY 90 Days Qty: 90 3RF fluorometholone 0.1 % drops,suspension 1 drp ophthalmic (eye) BID 0RF Discontinued naproxen sodium 220 mg Tablet 220 mg PO BID PRN (Reason: Pain) 0RF lisinopril 40 mg tablet 40 mg PO DAILY 90 Days Qty: 90 3RF Discharge Orders: Discharge Order (Routine); Ordered 07/19/21 Ordered By: Constance Chaney Diet: regular diet Activity on Discharge: Use cane or walker Stand Alone Forms: Patient Portal Discharge page Care Plan Goals: Restore function of joint Health Concerns: Hypertension/hyperlipidemia/left hip surgery Continue all medications as ordered, pain under good control continue Tylenol and physical therapy Continue Matthews care Monitor for bowel movement Plan of Treatment: Gait training, strengthening, ADLs Continue lovenox for weeks Keep dressing clean,dry and intact-no showering or tub baths Follow up with Orthopedics in 2 weeks Outpatient follow-up with Dr. Waite for voiding trial and review of Renal scan in 2 weeks Discharge to rehab for less than 30 Assessment: As per discharge summary
--- NOTE | 2021-07-19 09:43 | MHC.CM.PN ---
PATIENT TO TRANSFER TO [facility] FOR 11:00 [facility]IA [facility] DAUGHTER KAROLINA AWARE AND IMM 07/19 SIGNED. IMM IN CHART UNIT, PATIENT, AND RN AWARE
== END 2021-07-19 11:43 | disposition skilled nursing facility (03) | DRG 481 ==
LOC: HO.ED 16:00 → HO.EDOVER 17:17 → HO.S3 17:54
PROVIDERS: Internal Medicine Nephrology; Orthopaedic Surgery; Admitting Provider Hospitalist; Emergency Provider Emergency Medicine; PCP Internal Medicine; Visit Provider Hospitalist
PROC: 0QS734Z Reposition Left Upper Femur with Internal Fixation Device, Percutaneous Approach (ICD-10-PCS; principal; 2021-07-09 14:30)
DX: S72.142A Displaced intertrochanteric fracture of left femur, initial encounter for closed fracture (principal); F33.2 Major depressive disorder, recurrent severe without psychotic features; N13.6 Pyonephrosis; N17.9 Acute kidney failure, unspecified; E87.1 Hypo-osmolality and hyponatremia; J44.9 Chronic obstructive pulmonary disease, unspecified; I95.9 Hypotension, unspecified; I10 Essential (primary) hypertension; F41.9 Anxiety disorder, unspecified; D64.9 Anemia, unspecified; R33.9 Retention of urine, unspecified; W01.0XXA Fall on same level from slipping, tripping and stumbling without subsequent striking against object, initial encounter; K21.9 Gastro-esophageal reflux disease without esophagitis; Z20.822 Contact with and (suspected) exposure to COVID-19; Z88.5 Allergy status to narcotic agent; Z79.899 Other long term (current) drug therapy
CPT/HCPCS: 36415; 73502; 76770; 76775; 78708; 80048; 80053; 81001; 84156; 84300; 85014; 85018; 85025; 85027; 85610; 86850; 86900; 86901; 87086; 87635; 93005; 96374; 97110; 97162; 97166; 97530; 97535; 99284; 99285; A9539; C1713; C1758; C1769; J0690; J0696; J1650; J2270; J2405; J3010

== ENCOUNTER 2021-07-23 07:27 | Outpatient (REF) | payer MEDICARE, SELFPAY ==
--- NOTE | ~2021-07-23 | XR_ITS ---
EXAMINATION: XR HIP, LEFT CLINICAL INFORMATION: Pain left hip COMPARISON: None TECHNIQUE: Two views of the left hip. FINDINGS: There is a left femoral antrum and sharmaine and a hip nail stabilizing intertrochanteric fracture. There is no dislocation. There is no loosening seen. There is a radiopaque foreign body overlying the lower pelvis. SI joints are symmetrical. The right hip is normal. There is mild osteopenia. XR/XR hip LT w PEL1V IMPRESSION: Left femoral intramedullary sharmaine and nails stabilizing intertrochanteric fracture. There is no dislocation. The right hip and the pelvis is unremarkable. There is a radiopaque foreign body in the midline pelvis.
== END 2021-07-23 07:28 | disposition home or self-care (01) ==
LOC: HO.HOSX 07:27
PROVIDERS: Visit Provider Physician Assistant
DX: S72.142D Displaced intertrochanteric fracture of left femur, subsequent encounter for closed fracture with routine healing (principal)
CPT/HCPCS: 73502

== ENCOUNTER → 2021-07-30 09:30 | Outpatient (BNVA) | payer MEDICARE, SELFPAY | PROVIDERS: PCP Internal Medicine; Visit Provider Urology | DX: R33.9 Retention of urine, unspecified (principal) | CPT/HCPCS: 51700; 51702; 51798 ==

== ENCOUNTER 2021-08-26 08:14 | Outpatient (REF) | payer OTHER, SELFPAY ==
--- NOTE | ~2021-08-26 | XR_ITS ---
EXAMINATION: XR PELVIS CLINICAL INFORMATION: Pain in the hip COMPARISON: Pelvis and left hip 08/02/2021 TECHNIQUE: AP view of the pelvis. FINDINGS: Status post internal fixation with intramedullary sharmaine and compression screw left hip. No change in alignment of fracture fragments is prior exam. Fracture line remains partially radiolucent. No acute fracture of the pelvis or right hip. There is degenerative spondylosis of disc height narrowing and vertebral endplate spur L4-L5. Sacroiliac joints are normal. XR/XR pelvis 1-2V IMPRESSION: Status post internal fixation left hip. Fracture remains partially radiolucent. No change in alignment since prior studies.
== END 2021-08-26 08:15 | disposition home or self-care (01) ==
LOC: HO.HOSX 08:14
PROVIDERS: Visit Provider Physician Assistant
DX: M25.559 Pain in unspecified hip (principal)
CPT/HCPCS: 72170

== ENCOUNTER 2021-09-06 18:38 | Emergency (ER) | payer OTHER, SELFPAY ==
--- NOTE | ~2021-09-06 | CT_ITS ---
EXAMINATION: CT HEAD WITHOUT CONTRAST CT CERVICAL SPINE WITHOUT CONTRAST CLINICAL INFORMATION: Status post fall. COMPARISON: CT head 10/22/2016. TECHNIQUE: Head and cervical spine is acquired without intravenous contrast administration. Postprocessing is performed at a dedicated workstation. Multiplanar reformatted images are submitted. This CT scan was performed using dose optimization techniques as appropriate to a performed exam including the following: *Automated exposure control. *Adjustment of mA and/or kV according to patient size (this includes techniques or standardized protocols for targeted exams were dose is matched to indication/reason for exam; i.e. extremities or head). *Use of iterative reconstruction technique. DLP: 579.17 mGy-cm 261.03 mGy-cm FINDINGS: CT HEAD: There is moderate global volume loss with proportionate dilatation of the ventricles and cortical sulci. There is no evidence of acute intracranial hemorrhage, midline shift, mass effect, acute territorial infarction or abnormal extra-axial fluid collection. Bilateral periventricular white matter patchy low-attenuation changes are noted, likely reflecting changes of chronic microangiopathy. Osseous calvarium is intact. No significant calvarial soft tissue swelling or hematoma is noted. The visualized paranasal sinuses and mastoid air cells are well aerated. CT CERVICAL SPINE: Cervical vertebral body heights and alignment are maintained. The posterior elements are intact and in normal alignment. Atlantoaxial and atlanto-occipital alignments are maintained. Mild anterior wedge compression of T11 body, of indeterminate age, probably chronic. Mild central canal stenosis is noted at multiple levels. There is a moderate retrocardiac sclerosis at C5-C6 with severe bilateral neural foraminal stenosis. Multilevel marginal disc osteophyte changes are noted. No evidence of prevertebral soft tissue swelling. No focal nodule is noted in the visualized thyroid. Visualized lung apices are unremarkable. CT/CT cervical spine wo con IMPRESSION: HEAD: No acute intracranial abnormality. Specifically, there is no evidence of acute intracranial hemorrhage or acute fracture of the osseous calvarium. CERVICAL SPINE: 1. No evidence of acute fracture or traumatic subluxation in the cervical spine. Cervical spondylosis, most severe at C5-C6. 2. Mild anterior wedge compression of T1 body, of indeterminate age, probably chronic. Recommend clinical correlation.
--- NOTE | ~2021-09-06 | XR_ITS ---
EXAMINATION: XR PELVIS CLINICAL INFORMATION: Status post fall. COMPARISON: Pelvic x-ray of 08/26/2021. Pelvic and left hip x-rays of 07/23/2021 and 07/08/2021. TECHNIQUE: AP view of the pelvis. FINDINGS: Surgical hardware transfixing the left femoral intertrochanteric fracture is partially seen. Sclerotic changes are noted in the region suggesting interval healing. The left femoral head is well seated in the acetabulum. Right hip joint is intact. Mild osteoarthritic changes in the right hip. Symphysis pubis is intact. Limited evaluation of the sacral iliac joints is unremarkable. There is no convincing evidence of acute fracture in the pelvis. Diffuse osteopenia. Degenerative changes in the lower lumbar spine. XR/XR pelvis 1-2V IMPRESSION: Surgical hardware in the left proximal femur is partially seen with overall appearance similar to that seen on the previous x-ray of 08/26/2021. No convincing radiographic evidence of acute fracture or dislocation.
[2021-09-06 18:52] VITALS: BP 102/66; BP 103/50; PULSE 70; PULSE 79; RESP 18; O2SAT 94; BMI 24.3
--- NOTE | 2021-09-06 18:55 | ED.WEAKNESS ---
HPI - Weakness General Chief complaint: Weakness Stated complaint: weakness, dehydration, broken hip, can't ambulate Time Seen by Provider: 09/06/21 18:55 Source: patient and family Mode of arrival: EMS Limitations: no limitations History of Present Illness HPI Narrative: Patient status post left hip intertrochanteric fracture ORIF on 07/12 went to rehab just discharged from there 4 days ago since then patient has been be in very unsteady gait fell 2 times incontinence of urine with odor generally feeling very weak no fever no chills no cough no shortness of breath Related Data Home Medications Medication Instructions Recorded Confirmed fluorometholone 0.1 % eye 1 drp ophthalmic (eye) BID 11/16/19 07/08/21 drops,suspension cyanocobalamin (vitamin B-12) 1,000 mcg PO DAILY 07/08/21 07/08/21 1,000 mcg tablet melatonin 3 mg tablet 3 mg PO BEDTIME PRN Insomnia 07/08/21 07/08/21 Previous Rx's Medication Instructions Recorded atenolol 25 mg tablet 25 mg PO DAILY 90 days #90 tabs 01/16/21 atorvastatin 10 mg tablet 10 mg PO DAILY 90 days #90 tabs 01/16/21 venlafaxine 150 mg 150 mg PO DAILY 90 days #90 caps 01/16/21 capsule,extended release 24 hr venlafaxine 75 mg capsule,extended 75 mg PO DAILY 90 days #90 caps 01/16/21 release 24 hr vibegron 75 mg tablet (Gemtesa) 75 mg PO DAILY 30 days #30 tabs 07/02/21 enoxaparin 40 mg/0.4 mL 40 mg (0.4 mL) subcut Q24H 42 days 07/11/21 subcutaneous syringe #16.8 mL acetaminophen 325 mg tablet 650 mg PO QID #20 tabs 07/12/21 docusate sodium 100 mg capsule 100 mg PO BID #60 caps 07/12/21 ferrous sulfate 324 mg (65 mg 324 mg PO DAILY #14 tabs 07/12/21 iron) tablet,delayed release polyethylene glycol 3350 17 gram 17 g PO DAILY #30 ea 07/12/21 oral powder packet tamsulosin 0.4 mg capsule 0.4 mg PO BEDTIME #30 caps 07/17/21 fluconazole 150 mg tablet 150 mg PO Q3D 2 doses #2 tabs 07/30/21 terazosin 1 mg capsule 1 mg PO DAILY 30 days #30 caps 07/30/21 nitrofurantoin macrocrystal 100 mg 100 mg PO BID 7 days #14 caps 09/06/21 capsule Allergies Allergy/AdvReac Type Severity Reaction Status Date / Time codeine [CODEINE] Allergy Mild upset Verified 08/26/21 15:17 stomach, nause Review of Systems Review of Systems: Yes all other systems are reviewed and are negative [facility] Past Medical History Medical History Anxiety Asthma COPD (chronic obstructive pulmonary disease) Endogenous depression Essential hypertension Familial hypercholesterolemia GERD (gastroesophageal reflux disease) Polyuria Vertigo Surgical History History of cataract surgery History of eye surgery S/P lumpectomy of breast Family History Family History Father No problems noted. Mother No problems noted. Brother No problems noted. Sister No problems noted. Son No problems noted. Daughter No problems noted. Social History Social History Household Members: Children Housing: Apartment Do you presently have visiting nurse or other home services: No Alcohol intake: never Patient Tobacco Use Status: Never used Tobacco e-Cigarette/Vaping Use: Never Used Second Hand Smoke Exposure: No Advance Directives: Yes Advance Directives on File: Yes Advance Directives Date on File: 07/22/21 service: No Current occupational status: retired Physical Exam Vital Signs: Vital Signs: Last Vital Signs Pulse 79 09/06/21 18:52 Resp 18 09/06/21 18:52 BP 103/50 L 09/06/21 18:52 Pulse Ox 94 09/06/21 18:52 O2 Del Method 09/06/21 18:52 BMI result Body Mass Index 24.3 Appearance: Alert. Oriented X3. No acute distress. Strong oder in the urine Eyes: PERRLA, No Nystagmus ENT: Pharynx normal. Oral Mucosa moist Neck: Normal inspection. Neck supple. CVS: Normal heart rate and rhythm. Pulses normal. Respiratory: No respiratory distress. Equal air entry bilateral, no wheezing/rales/rhonchi Abdomen: Soft and nontender. Bowel sounds are present, no mass palpable, no CVA tenderness Skin: Skin warm and dry. Normal skin color. Normal skin turgor. Extremities: No lower extremity edema. No calf tenderness healing ulcers at left heel Neuro: Oriented X 3. No motor deficit. No sensory deficit.No cerebellar signs , cranial nerves II-XII intact MDM - Weakness MDM Narrative Medical decision making narrative: Patient 85 years old with increased weakness poor oral intake multiple falls status post left intertrochanteric fracture status post ORIF in 07/07 patient was in rehab discharge 4 days ago and fell again at this time patient has slight UTI will give antibiotics plan to consult case management for rehab placement Lab Data Attestation: I reviewed the patient's lab results. Result diagrams: 09/06/21 19:53 09/06/21 19:53 Labs: Lab Results 09/06/21 09/06/21 09/06/21 Range/Units 19:53 19:53 19:53 WBC 10.9 H (4.8-10.8) X10*3/uL RBC 3.22 L D (4.20-5.50) X10*6/uL Hgb 9.5 L (12.0-16.0) g/dl Hct 29.1 L (37.0-47.0) % MCV 90.4 (80.0-98.0) fL MCH 29.5 (27.0-33.0) pg MCHC 32.6 (31.0-35.0) g/dl RDW 15.1 (11.0-16.0) % Plt Count 329 (160-400) X10*3/uL MPV 9.8 (9.4-12.3) fL Immature Gran % (Auto) 0.6 H (0.0-0.4) % Neut % (Auto) 56.9 (45-73) % Lymph % (Auto) 26.3 (20-40) % [place] % (Auto) 16.1 H (2-11) % Eos % (Auto) 0.1 (0-4) % Baso % (Auto) 0.0 (0-2) % Lymph # (Auto) 2.9 (1.2-4.9) X10*3/uL [place] # (Auto) 1.8 H (0.1-1.2) X10*3/uL Eos # (Auto) 0.0 (0.0-0.4) X10*3/uL Baso # (Auto) 0.0 (0.0-0.2) X10*3/uL Abs Immat Gran (auto) 0.06 H (0.00-0.03) X10*3/uL Absolute Neuts (auto) 6.2 (2.0-8.3) x10*3/uL Absolute Nucleated RBC 0.000 (0.0-0.012) X10*3/uL Nucleated RBC % (auto) 0.0 (0.0-0.2) /100WBC Smear Tech's Comments VERIFIED Sodium 130 L (135-145) mmol/L Potassium 4.3 (3.3-5.1) mmol/L Chloride 94 L (96-108) mmol/L Carbon Dioxide 25 (22-29) mmol/L Anion Gap 15 (12-20) BUN 23 H (9-16) mg/dL Creatinine 1.16 (0.5-1.4) mg/dL Estim Creat Clear Calc 32.5 Estimated GFR 45 Random Glucose 97 (60-115) mg/dL Lactic Acid (0.5-2.0) mmol/L Calcium 8.9 (8.4-10.2) mg/dL Total Bilirubin 0.5 (0.0-1.0) mg/dL AST 21 D (5-31) U/L ALT 12 (0-31) U/L Alkaline Phosphatase 103 D (39-117) U/L Total Protein 7.3 (6.5-8.0) g/dL Albumin 3.7 (3.5-5.0) g/dL Urine Color Urine Appearance Urine pH (5.0-8.0) Ur Specific [place] (1.005-1.025) Urine Protein (NEG-TRACE) MG/DL Urine Glucose (UA) (NEG) MG/DL Urine Ketones (NEG) MG/DL Urine Blood (NEG) Urine Nitrite (NEG) Ur Leukocyte Esterase (NEG) Urine RBC (0) /HPF Urine WBC (0-4) /HPF Ur Squamous Epith Cells /LPF Urine Bacteria /LPF COVID-19 (JOE) Negative (Negative) COVID-19 Clin Com See Note 09/06/21 09/06/21 Range/Units 19:53 19:59 WBC (4.8-10.8) X10*3/uL RBC (4.20-5.50) X10*6/uL Hgb (12.0-16.0) g/dl Hct (37.0-47.0) % MCV (80.0-98.0) fL MCH (27.0-33.0) pg MCHC (31.0-35.0) g/dl RDW (11.0-16.0) % Plt Count (160-400) X10*3/uL MPV (9.4-12.3) fL Immature Gran % (Auto) (0.0-0.4) % Neut % (Auto) (45-73) % Lymph % (Auto) (20-40) % [place] % (Auto) (2-11) % Eos % (Auto) (0-4) % Baso % (Auto) (0-2) % Lymph # (Auto) (1.2-4.9) X10*3/uL [place] # (Auto) (0.1-1.2) X10*3/uL Eos # (Auto) (0.0-0.4) X10*3/uL Baso # (Auto) (0.0-0.2) X10*3/uL Abs Immat Gran (auto) (0.00-0.03) X10*3/uL Absolute Neuts (auto) (2.0-8.3) x10*3/uL Absolute Nucleated RBC (0.0-0.012) X10*3/uL Nucleated RBC % (auto) (0.0-0.2) /100WBC Smear Tech's Comments Sodium (135-145) mmol/L Potassium (3.3-5.1) mmol/L Chloride (96-108) mmol/L Carbon Dioxide (22-29) mmol/L Anion Gap (12-20) BUN (9-16) mg/dL Creatinine (0.5-1.4) mg/dL Estim Creat Clear Calc Estimated GFR Random Glucose (60-115) mg/dL Lactic Acid 1.6 (0.5-2.0) mmol/L Calcium (8.4-10.2) mg/dL Total Bilirubin (0.0-1.0) mg/dL AST (5-31) U/L ALT (0-31) U/L Alkaline Phosphatase (39-117) U/L Total Protein (6.5-8.0) g/dL Albumin (3.5-5.0) g/dL Urine Color ORANGE A Urine Appearance CLOUDY Urine pH 7.5 (5.0-8.0) Ur Specific [place] 1.015 (1.005-1.025) Urine Protein 1+ H (NEG-TRACE) MG/DL Urine Glucose (UA) NEG (NEG) MG/DL Urine Ketones 15 (NEG) MG/DL Urine Blood TRACE (NEG) Urine Nitrite NEG (NEG) Ur Leukocyte Esterase 1+ H (NEG) Urine RBC 0-2 (0) /HPF Urine WBC 10-14 H (0-4) /HPF Ur Squamous Epith Cells 3+ /LPF Urine Bacteria 4+ /LPF COVID-19 (JOE) (Negative) COVID-19 Clin Com Discharge Plan Discharge Clinical Impression: Weakness, UTI (urinary tract infection) Patient Disposition: Still a Patient Prescriptions: No Action Gemtesa 75 mg tablet 75 mg PO DAILY 30 Days Qty: 30 3RF nitrofurantoin macrocrystal 100 mg capsule 100 mg PO BID 7 Days Qty: 14 0RF Rx Instructions: must administer with a meal/food cyanocobalamin (vitamin B-12) 1,000 mcg Tablet 1,000 mcg PO DAILY melatonin 3 mg Tablet 3 mg PO BEDTIME PRN (Reason: Insomnia) enoxaparin 40 mg/0.4 mL Syringe 40 mg subcut Q24H 42 Days Qty: 16.8 0RF docusate sodium 100 mg Capsule 100 mg PO BID Qty: 60 0RF polyethylene glycol 3350 17 gram Powder In Packet 17 g PO DAILY Qty: 30 0RF acetaminophen 325 mg Tablet 650 mg PO QID Qty: 20 0RF Rx Instructions: Continue scheduled Tylenol for 4 more days than change to as needed for pain ferrous sulfate 324 mg (65 mg iron) Tablet,Delayed Release (Dr/Ec) 324 mg PO DAILY Qty: 14 0RF tamsulosin 0.4 mg Capsule 0.4 mg PO BEDTIME Qty: 30 0RF atorvastatin 10 mg tablet 10 mg PO DAILY 90 Days Qty: 90 3RF atenolol 25 mg tablet 25 mg PO DAILY 90 Days Qty: 90 3RF venlafaxine 150 mg capsule,extended release 24hr 150 mg PO DAILY 90 Days Qty: 90 3RF venlafaxine 75 mg capsule,extended release 24hr 75 mg PO DAILY 90 Days Qty: 90 3RF fluorometholone 0.1 % drops,suspension 1 drp ophthalmic (eye) BID terazosin 1 mg capsule 1 mg PO DAILY 30 Days Qty: 30 1RF fluconazole 150 mg tablet 150 mg PO Q3D Qty: 2 0RF
--- NOTE | 2021-09-06 19:08 | ECG_ITS ---
Test Reason : GENERAL MEDICAL Blood Pressure : / mmHG Vent. Rate : 075 BPM Atrial Rate : 075 BPM P-R Int : 144 ms QRS Dur : 124 ms QT Int : 442 ms P-R-T Axes : 023 -09 000 degrees QTc Int : 493 ms Normal sinus rhythm Possible Left atrial enlargement Right bundle branch block Abnormal ECG When compared with ECG of 08-JUL-2021 16:17, No significant change was found Referred By: Christian Sahu Electronically Signed By:Moses Arredondo
[2021-09-06] MEDS: 0.9 % Sodium Chloride 1,000 ML 999 ML IV (20:01)
[2021-09-06 20:05] LABS: Eosinophils Percent Auto 0.1 % (0-4); Hematocrit 29.1 % (37.0-47.0); Hemoglobin 9.5 g/dl (12.0-16.0); Imm Gran Abs Auto 0.06 X10*3/uL (0.00-0.03); Imm Gran Pct Auto 0.6 % (0.0-0.4); Lymphocytes Absolute Auto 2.9 X10*3/uL (1.2-4.9); Lymphocytes Percent Auto 26.3 % (20-40); MANUAL DIFF FLAG SCAN; Mean Corpuscular HGB Conc 32.6 g/dl (31.0-35.0); Mean Corpuscular Hemoglobin 29.5 pg (27.0-33.0); Mean Corpuscular Volume 90.4 fL (80.0-98.0); Mean Platelet Volume 9.8 fL (9.4-12.3); Monocytes Absolute Auto 1.8 X10*3/uL (0.1-1.2); Monocytes Percent Auto 16.1 % (2-11); Neutrophils Absolute Auto 6.2 x10*3/uL (2.0-8.3); Neutrophils Percent Auto 56.9 % (45-73); Platelet Count 329 X10*3/uL (160-400); Red Blood Count 3.22 X10*6/uL (4.20-5.50); Red Cell Distribution Width 15.1 % (11.0-16.0); SCAN SMEAR FLAG 1; White Blood Count 10.9 X10*3/uL (4.8-10.8)
[2021-09-06 20:12] LABS: Appearance Urine CLOUDY; Color Urine ORANGE; Glucose Urine UA NEG (NEG); Leukocyte Esterase Urine 1+ (NEG); Nitrite Urine NEG (NEG); PH 7.5 (5.0-8.0); Specific Gravity - Urine 1.015 (1.005-1.025); UACC Culture Trigger YES; Urine Blood TRACE (NEG); Urine Ketones 15 MG/DL (NEG); Urine Protein 1+ MG/DL (NEG-TRACE)
[2021-09-06 20:17] LABS: COVID-19 Test Negative (Negative); Lactic Acid 1.6 mmol/L (0.5-2.0)
[2021-09-06 20:20] LABS: Bacteria Urine 4+ /LPF; RBC Urine 0-2 /HPF (0); Squamous Epithelial Cell Urine 3+ /LPF
[2021-09-06 20:25] LABS: Alanine Aminotransferase 12 U/L (0-31); Albumin Level 3.7 g/dL (3.5-5.0); Alkaline Phosphatase 103 U/L (39-117); Anion Gap 15 (12-20); Aspartate Amino Transferase 21 U/L (5-31); Bilirubin Total 0.5 mg/dL (0.0-1.0); Blood Urea Nitrogen 23 mg/dL (9-16); Calcium 8.9 mg/dL (8.4-10.2); Carbon Dioxide 25 mmol/L (22-29); Chloride 94 mmol/L (96-108); Creatinine Clr Calc Pharmacy 32.5; Estimated Glomerular Filt Rate 45; Glucose Random 97 mg/dL (60-115); Potassium 4.3 mmol/L (3.3-5.1); Sodium 130 mmol/L (135-145); Total Protein 7.3 g/dL (6.5-8.0)
[2021-09-06 20:27] LABS: SLIDE REVIEW VERIFIED
[2021-09-06] MEDS: cefTRIAXone sodium 1 GM in 0.9 % Sodium Chloride 50 ML IV (21:40)
--- NOTE | 2021-09-06 22:25 | PC.NURSE ---
pt 900cc of urine from cai cath.
[2021-09-07] VITALS (9 sets, daily range): BP systolic 125–187; BP diastolic 62–84; PULSE 72–79; RESP 12–18; TEMP 36.1–36.7; O2SAT 92–99
--- NOTE | 2021-09-07 05:31 | PC.NURSE ---
aware of pt BP
[2021-09-07] MEDS: lisinopriL 40 MG TABLET PO (05:39)
--- NOTE | 2021-09-07 09:41 | PC.NURSE ---
pt has deep tissue injury to left heel. Redressed it. Pt repositioned in bed and physical therapy is now with her
--- NOTE | 2021-09-07 09:48 | PC.NURSE ---
removed cai at 0948. 850mL of clear yellow urine
--- NOTE | 2021-09-07 09:56 | PHA.MEDREC ---
Pharmacy Consult ? Medication Reconciliation Pharmacy has completed the medication reconciliation. Patient has list from recent discharged from [facility]. Macrobid was precribed 09/06/21 by PCP Khushboo Luciano and cefuroxime was prescribed 09/06/21 by ED provider Hilaria. Kinjal Acosta, AntonioD
--- NOTE | 2021-09-07 12:28 | MHC.CM.ED ---
Addendum entered by Nathaly Joy 09/07/21 13:06: Per Dalila, facility chocies: 1) [facility] 2) [facility] 3)[facility]. Original Note: Received case management consult overnight due to weakness. Patient was [place] [facility] for STR. Patient was discharged home with [facility]. Patient fell twice. Physical therapy eval completed. Short term rehab is recommended. Patient does not feel she needs STR, even though she wasn't able to ambulate with physical therapy. Met with patient and daughter, Dalila. Dalila works at [facility] anticoagulation clinic. Dalila feels patient was discharged too soon. Dalila states the forensic social worker at [facility] was aware patient lives alone but discharged patient anyway. Dalila has been with patient for past 24 hours. Dalila doesn't feel patient can safely return home. Patient received 3 Pfizer vaccines. PCP verified. HCP verified to be on file. Referrals made to [facility] and [facility] at Dalila's request. Continue to monitor for d/c needs.
[2021-09-07] MEDS: Ferrous Sulfate 324 MG TABLET.DR PO (14:12)
[2021-09-07] MEDS: Acetaminophen 325 MG TABLET 650 MG PO ×3 (14:13→20:42)
[2021-09-07] MEDS: Cyanocobalamin (Vitamin B-12) 1,000 MCG TABLET 1000 MCG PO (14:13)
[2021-09-07] MEDS: polyethylene glycoL 3350 17 GM POWD.PACK PO (14:13)
[2021-09-07] MEDS: Docusate Sodium 100 MG CAPSULE PO ×2 (14:13→16:00)
[2021-09-07] MEDS: atenoloL 25 MG TABLET PO (14:14)
[2021-09-07] MEDS: Venlafaxine HCl ER 150 MG CAP.ER.24H PO (14:14)
[2021-09-07] MEDS: Venlafaxine HCl ER 75 MG CAP.ER.24H PO (14:14)
[2021-09-07] MEDS: Atorvastatin Calcium 10 MG TABLET PO (14:14)
[2021-09-07] MEDS: Doxazosin Mesylate 1 MG TABLET PO (14:14)
--- NOTE | 2021-09-07 15:07 | PC.NURSE ---
pt bladder scanned for 261 ML. Provider aware and cai reinserted at 1508
--- NOTE | 2021-09-07 20:32 | PC.NURSE ---
placed in hospital bed. dark wound to left heel redressed, legs elevated. positioned right side lying. daughter at bedside for update. cai care given. shallow open wound on coccyx. barrier cream applied. alert. oriented x 3 awaits rehab placement.
[2021-09-07] MEDS: Tamsulosin HCL 0.4 MG CAPSULE PO (20:42)
[2021-09-07] MEDS: Gabapentin 100 MG CAPSULE PO (20:44)
[2021-09-07] MEDS: Melatonin 3 MG TABLET PO (20:44)
[2021-09-08 06:19] VITALS: BP 133/60; PULSE 63; RESP 16; TEMP 36.8; O2SAT 97
[2021-09-08] MEDS: Omeprazole 20 MG CAPSULE.DR PO (06:47)
[2021-09-08 08:02] VITALS: BP 124/54; PULSE 68; RESP 16; O2SAT 96
[2021-09-08] MEDS: Venlafaxine HCl ER 150 MG CAP.ER.24H PO (10:25)
[2021-09-08] MEDS: Atorvastatin Calcium 10 MG TABLET PO (10:25)
[2021-09-08] MEDS: Ferrous Sulfate 324 MG TABLET.DR PO (10:25)
[2021-09-08] MEDS: Acetaminophen 325 MG TABLET 650 MG PO ×3 (10:25→20:58)
[2021-09-08] MEDS: atenoloL 25 MG TABLET PO (10:25)
[2021-09-08] MEDS: Docusate Sodium 100 MG CAPSULE PO (10:25)
[2021-09-08] MEDS: polyethylene glycoL 3350 17 GM POWD.PACK PO (10:26)
[2021-09-08] MEDS: Cyanocobalamin (Vitamin B-12) 1,000 MCG TABLET 1000 MCG PO (10:26)
[2021-09-08] MEDS: Venlafaxine HCl ER 75 MG CAP.ER.24H PO (10:28)
[2021-09-08] MEDS: Doxazosin Mesylate 1 MG TABLET PO (10:31)
[2021-09-08 10:38] VITALS: BP 136/58; PULSE 68; RESP 18; O2SAT 96
--- NOTE | 2021-09-08 11:21 | MHC.CM.ED ---
Patient remains in ER. [facility] will has not answered [facility]. [facility] is first choice. Spoke with Dalila via telephone at [phone]. Dalila would like to wait to see if [facility] has a bed to offer. Dalila aware it may not be before Thursday. Continue to monitor for d/c needs.
--- NOTE | 2021-09-08 13:29 | PC.NURSE ---
pt two assist to commode, l heel dressing appears intact from yesterday. pt had small soft bm, dark in color. pt taking multiple iron supplements. offers no new complaints. pt placed back in bed, repositioned to r side lying from lying on back. small amount of barrier cream applied to small coccyx wound.
--- NOTE | 2021-09-08 16:27 | PC.NURSE ---
pt repositioned to l side with pillows, heels remain without pressure using pillows as well. pt offers no new complaints at this time. pleasant in conversation. concerned some meds are making her more tired than usual. pt educated about medications she is taking.
--- NOTE | 2021-09-08 19:06 | PC.NURSE ---
Assumed care of this pt. at 1900 - report from Lokesh Roberts RN
[2021-09-08 20:00] VITALS: BP 106/52; PULSE 64; RESP 18; O2SAT 94
[2021-09-08] MEDS: Melatonin 3 MG TABLET PO (20:58)
[2021-09-08] MEDS: Tamsulosin HCL 0.4 MG CAPSULE PO (20:58)
[2021-09-08] MEDS: Gabapentin 100 MG CAPSULE PO (20:58)
[2021-09-09] VITALS: BP 103/40; PULSE 57; O2SAT 92
[2021-09-09 02:00] VITALS: BP 97/45; PULSE 57; RESP 12; O2SAT 92
[2021-09-09 04:00] VITALS: BP 112/47; PULSE 55; RESP 16; O2SAT 94
[2021-09-09 07:04] VITALS: BP 166/67; PULSE 71; RESP 16; O2SAT 96
[2021-09-09] MEDS: atenoloL 25 MG TABLET PO (09:47)
[2021-09-09] MEDS: polyethylene glycoL 3350 17 GM POWD.PACK PO (09:47)
[2021-09-09] MEDS: Venlafaxine HCl ER 150 MG CAP.ER.24H PO (09:47)
[2021-09-09] MEDS: Atorvastatin Calcium 10 MG TABLET PO (09:47)
[2021-09-09] MEDS: Ferrous Sulfate 324 MG TABLET.DR PO (09:47)
[2021-09-09] MEDS: Docusate Sodium 100 MG CAPSULE PO ×2 (09:47→17:45)
[2021-09-09] MEDS: Acetaminophen 325 MG TABLET 650 MG PO ×3 (09:48→21:35)
[2021-09-09] MEDS: Cyanocobalamin (Vitamin B-12) 1,000 MCG TABLET 1000 MCG PO (09:48)
[2021-09-09] MEDS: Venlafaxine HCl ER 75 MG CAP.ER.24H PO (09:48)
[2021-09-09 09:55] VITALS: BP 137/59; PULSE 79; RESP 14; O2SAT 93
[2021-09-09] MEDS: Doxazosin Mesylate 1 MG TABLET PO (12:02)
--- NOTE | 2021-09-09 12:38 | PC.NURSE ---
Per case management pt awaiting new facility to be accepted closer. Pt assisted to bedside commode with Randell tech, per tech needing assist of two with transfer. Pt denies pain at this time and appears comfortable. Matthews patent.
--- NOTE | 2021-09-09 12:47 | MHC.CM.ED ---
Addendum entered by Ashlie Arnold 09/09/21 16:15: [facility] clarification per Liasion: The bed opening is at the south building and not north as previously indicated. Call placed to pt's dtr/HCP Dalila to inform her of building change (same campus). Dalila states acceptance but will research on quality ratings. CM to follow Addendum entered by Ashlie Arnold 09/09/21 13:56: Pt has received interest from the following facilities: [facility], [facility], and [place] ([facility]). Pt's dtrDalila called at ext [phone] to relay info: she will review the ratings and let CM know who she prefers. [facility] will not have a bed until 09/10 - Dalila aware. Original Note: Review of EMR and STR referrals: pt has not received any offers from the 4 facilities of choice. Pt is requesting to return to home: attempted to review personal safety, fall hx and PT eval without success. Call placed to pt's dtDalila warner at ext [phone]. Discussed placing a broad search to which she agrees but will veto any that are offered but she has concerns with. Will await offers to review with Dalila.
[2021-09-09 13:59] VITALS: BP 105/50; PULSE 67; RESP 16; O2SAT 97
[2021-09-09] MEDS: Melatonin 3 MG TABLET PO (21:35)
[2021-09-09] MEDS: Gabapentin 100 MG CAPSULE PO (21:35)
[2021-09-09] MEDS: Tamsulosin HCL 0.4 MG CAPSULE PO (21:35)
[2021-09-10] MEDS: Omeprazole 20 MG CAPSULE.DR PO (06:57)
[2021-09-10 07:48] VITALS: BP 132/48; PULSE 74; RESP 14; O2SAT 92
[2021-09-10] MEDS: Doxazosin Mesylate 1 MG TABLET PO (10:06)
[2021-09-10] MEDS: Venlafaxine HCl ER 150 MG CAP.ER.24H PO (10:06)
[2021-09-10] MEDS: Acetaminophen 325 MG TABLET 650 MG PO (10:06)
[2021-09-10] MEDS: polyethylene glycoL 3350 17 GM POWD.PACK PO (10:06)
[2021-09-10] MEDS: Docusate Sodium 100 MG CAPSULE PO (10:07)
[2021-09-10] MEDS: Atorvastatin Calcium 10 MG TABLET PO (10:07)
[2021-09-10] MEDS: atenoloL 25 MG TABLET PO (10:07)
[2021-09-10] MEDS: Cyanocobalamin (Vitamin B-12) 1,000 MCG TABLET 1000 MCG PO (10:07)
[2021-09-10] MEDS: Ferrous Sulfate 324 MG TABLET.DR PO (10:56)
[2021-09-10] MEDS: Venlafaxine HCl ER 75 MG CAP.ER.24H PO (10:56)
--- NOTE | 2021-09-10 11:38 | MHC.CM.ED ---
Addendum entered by Nathaly Joy 09/10/21 11:47: Received return telephoen call from Dalila. Dalila agreeable to discharge plan. Original Note: Patient remains in ER. [facility] has obtained insurance auth. Attempted to notify patient's daughter, Dalila. Left message requesting a return telephone call. [facility] booked for 1pm. Med nec with chart. Continue to monitor for d/c needs.
[2021-09-10 12:53] LABS: COVID-19 Test Negative (Negative); IDNOW Serial# 55D5AD1C
== END 2021-09-10 13:10 | disposition skilled nursing facility (03) ==
PROVIDERS: Physician Assistant; Emergency Provider Internal Medicine; PCP Internal Medicine
DX: N39.0 Urinary tract infection, site not specified (principal); R53.1 Weakness; R26.81 Unsteadiness on feet; Z20.822 Contact with and (suspected) exposure to COVID-19; I10 Essential (primary) hypertension; Z91.81 History of falling; Z79.02 Long term (current) use of antithrombotics/antiplatelets; Z79.899 Other long term (current) drug therapy
CPT/HCPCS: 36415; 51702; 70450; 72125; 72170; 80053; 81001; 83605; 85025; 87040; 87086; 87088; 87147; 87186; 87205; 87635; 93005; 96361; 96365; 97161; 99285; J0696

== ENCOUNTER → 2021-10-08 08:58 | Outpatient (BNVA) | payer OTHER, SELFPAY | PROVIDERS: PCP Internal Medicine; Visit Provider Urology | DX: N39.0 Urinary tract infection, site not specified (principal); R33.9 Retention of urine, unspecified | CPT/HCPCS: 99212 ==

== ENCOUNTER 2022-01-08 12:43 | Outpatient (RCR) | payer OTHER, SELFPAY | END 2022-02-04 11:57 | disposition home or self-care (01) | LOC: HO.WCC 12:43 | PROVIDERS: PCP Internal Medicine; Visit Provider Surgery | DX: Z09 Encounter for follow-up examination after completed treatment for conditions other than malignant neoplasm (principal); I10 Essential (primary) hypertension; Z87.2 Personal history of diseases of the skin and subcutaneous tissue | CPT/HCPCS: 11042; 99212 ==

== ENCOUNTER → 2022-01-17 14:14 | Outpatient (BNVA) | payer OTHER, SELFPAY | PROVIDERS: PCP Internal Medicine; Visit Provider Urology | DX: R33.9 Retention of urine, unspecified (principal); N39.0 Urinary tract infection, site not specified | CPT/HCPCS: 51798; 99212 ==

== ENCOUNTER 2022-03-18 21:45 | Emergency (ER) | payer OTHER, SELFPAY ==
--- NOTE | ~2022-03-18 | CT_ITS ---
EXAMINATION: CT ABDOMEN AND PELVIS WITHOUT CONTRAST CLINICAL INFORMATION: Colitis COMPARISON: 05/10/2019 TECHNIQUE: Multidetector volumetric imaging was performed from the superior aspect of the liver through the pubic symphysis. Sagittal and coronal reformatted images were obtained on the technologist's workstation. This CT examination was performed using dose optimization techniques as appropriate, variously including the following: *Automated exposure control *Adjustment of mA and/or kV according to patient size (this includes techniques or standardized protocols for targeted exams where dose is matched to indication/reason for exam; i.e. extremities or head) *Use of iterative reconstruction technique DLP: 432 mGy-cm FINDINGS: LUNG BASES: Small to moderate-sized hiatal hernia with gaseous distention of the distal esophagus. Coronary artery calcifications are present. LIVER, GALLBLADDER, AND BILIARY TREE: The liver is normal in size, shape, and attenuation. No focal hepatic lesion or biliary ductal dilatation is present. The gallbladder is unremarkable. PANCREAS: Moderately atrophic. SPLEEN: Unremarkable. ADRENAL GLANDS: Unremarkable. KIDNEYS AND URETERS: Moderate bilateral hydroureteronephrosis with no obstructing calculus seen. BLADDER: Distended without significant wall thickening. GASTROINTESTINAL TRACT: There is colonic diverticulosis without convincing diverticulitis. No evidence of bowel obstruction. Mild wall thickening of the descending colon is difficult to exclude. Appendix appears nondilated. No free fluid or free air is seen. ABDOMINAL WALL: No significant hernia is appreciated. LYMPH NODES: Normal. VASCULAR: There is atherosclerotic calcification along the aorta and iliac arteries. PELVIC VISCERA: Unremarkable. OSSEOUS STRUCTURES: Degenerative changes are noted in the spine. There is moderate to severe compression deformity of L1 which is new from prior though otherwise favored to be subacute to chronic. Partially visualized left femoral hardware. CT/CT abdomen pelvis wo IV con IMPRESSION: 1. Distended urinary bladder with moderate bilateral hydroureteronephrosis. No obstructing calculus identified. 2. Mild mural prominence of the descending colon, for which mild colitis cannot be excluded. 3. Small to moderate-sized hiatal hernia. 4. Moderate to severe compression deformity of L1, new from prior though otherwise favored to be subacute to chronic.
--- NOTE | 2022-03-18 21:52 | ED_ITS ---
HPI - Nausea/Vomiting/Diarrhea General Chief complaint: Nausea/Vomiting/Diarrhea Stated complaint: diarrhea Time Seen by Provider: 03/18/22 21:52 Source: patient Mode of arrival: EMS Limitations: no limitations History of Present Illness HPI Narrative: Patient history of hypertension COPD was in good health until 17:00 and started having abdominal cramps nausea and multiple times watery diarrhea nonstop. No other family member sick patient didnot have any seafood had usual food at home on arrival patient temperature was 94.8 degrees feeling cold no abdominal distension or pain, feels weak, chills+ Related Data Home Medications Medication Instructions Recorded Confirmed fluorometholone 0.1 % eye 1 drp ophthalmic (eye) 11/16/19 03/06/22 drops,suspension BID@0900,1600 cyanocobalamin (vitamin B-12) 1,000 mcg PO DAILY 07/08/21 03/06/22 1,000 mcg tablet melatonin 3 mg tablet 3 mg PO BEDTIME 07/08/21 03/06/22 docusate sodium 100 mg capsule 100 mg PO BID@0900,1600 09/07/21 03/06/22 esomeprazole magnesium 20 mg 20 mg PO DAILY@0630 09/07/21 03/06/22 capsule,delayed release (Nexium) tramadol 50 mg tablet 50 mg PO Q6H PRN Moderate Pain 09/07/21 03/06/22 (Scale Score 5-6) Previous Rx's Medication Instructions Recorded acetaminophen 325 mg tablet 650 mg PO QID #20 tabs 07/12/21 terazosin 1 mg capsule 1 mg PO DAILY 30 days #30 caps 07/30/21 bethanechol chloride 50 mg tablet 50 mg PO BID 30 days #60 tabs 01/17/22 atenolol 25 mg tablet 25 mg PO DAILY 90 days #90 tabs 02/19/22 venlafaxine 150 mg 150 mg PO DAILY 90 days #90 caps 02/19/22 capsule,extended release 24 hr venlafaxine 75 mg capsule,extended 75 mg PO DAILY 90 days #90 caps 02/19/22 release 24 hr atorvastatin 10 mg tablet 10 mg PO DAILY 90 days #90 tabs 02/28/22 compression stockings 40 mmHg #2 ea 03/06/22 furosemide 20 mg tablet 20 mg PO DAILY #90 tabs 03/08/22 Allergies Allergy/AdvReac Type Severity Reaction Status Date / Time codeine [CODEINE] Allergy Mild upset Verified 03/06/22 15:11 stomach, nause Review of Systems Review of Systems: Yes all other systems are reviewed and are negative [facility] Past Medical History Medical History Anxiety Asthma COPD (chronic obstructive pulmonary disease) Endogenous depression Essential hypertension Familial hypercholesterolemia GERD (gastroesophageal reflux disease) Polyuria Vertigo Surgical History History of cataract surgery History of eye surgery S/P lumpectomy of breast Family History Family History Father No problems noted. Mother No problems noted. Brother No problems noted. Sister No problems noted. Son No problems noted. Daughter No problems noted. Social History Social History Household Members: Children Housing: Apartment Do you presently have visiting nurse or other home services: No Alcohol intake: never Patient Tobacco Use Status: Never used Tobacco Smoked in Last 30 Days: No e-Cigarette/Vaping Use: Never Used Second Hand Smoke Exposure: No Use of substances other than those prescribed or required for medical reasons: No Advance Directives: Yes Advance Directives on File: Yes Advance Directives Date on File: 07/22/21 service: No Current occupational status: retired Cognitive needs: Yes Hearing needs: No Vision needs: Yes Physical Exam Vital Signs: Vital Signs: Last Vital Signs Temp 97.6 F 03/19/22 02:13 Pulse 80 03/19/22 02:13 Resp 16 03/19/22 02:13 BP 173/73 H 03/19/22 02:13 Pulse Ox 100 03/19/22 02:13 O2 Del Method 03/19/22 02:13 BMI result Body Mass Index 25.0 Appearance: Alert. Oriented X3. No acute distress. Cool to touch Eyes: No pallor or icterus ENT: Pharynx normal. Oral Mucosa moist Neck: Normal inspection. Neck supple. CVS: Normal heart rate and rhythm. Pulses normal. Respiratory: No respiratory distress. Equal air entry bilateral, no wheezing/rales/rhonchi Abdomen: Soft and nontender. Bowel sounds are present, no mass palpable, no CVA tenderness Skin: Skin warm and dry. Normal skin color. Normal skin turgor. Extremities: No lower extremity edema. No calf tenderness Neuro: Oriented X 3. No motor deficit. No sensory deficit.No cerebellar signs , cranial nerves II-XII intact Medications Administered Discontinued Medications Generic Name Dose Route Start Last Admin Trade Name Danielq PRN Reason Stop Dose Admin Sodium Chloride 1,000 mls @ 999 mls/hr 03/18/22 22:08 03/19/22 00:15 Ns IV 03/18/22 23:08 Infused .Q1H1M ONE Infusion Levofloxacin 500 mg in 100 mls @ 100 mls/hr 03/18/22 22:16 03/19/22 00:15 Levaquin IV 03/18/22 23:15 Infused ONCE ONE Infusion Sodium Chloride 1,000 mls @ 999 mls/hr 03/18/22 23:02 03/19/22 01:42 Ns IV 03/19/22 00:02 Infused .Q1H1M ONE Infusion Loperamide HCl 2 mg 03/19/22 03:14 03/19/22 03:26 Loperamide Hcl 2 Mg Capsule PO 03/19/22 03:15 2 mg ONCE ONE Administration Medical Decision Making Medical Decision Making [facility] Narrative: Patient with acute enteritis with diarrhea likely from norovirus/or E coli. Patient felt better after IV fluids, received 2 L of normal saline also patient was given Levaquin as prophylactic for severe diarrhea C diff was negative stool culture was sent. Patient at this time feeling much better will discharge patient home on Cipro for 3 days advised to follow-up with PCP Lab Data [facility] Lab Attestation statement: I reviewed the patient's lab results. 03/18/22 22:23 03/18/22 22:23 Labs: Lab Results 03/18/22 03/18/22 03/18/22 Range/Units 22:23 22:23 22:23 WBC 15.2 H (4.8-10.8) X10*3/uL RBC 4.25 D (4.20-5.50) X10*6/uL Hgb 12.6 D (12.0-16.0) g/dl Hct 39.1 D (37.0-47.0) % MCV 92.0 (80.0-98.0) fL MCH 29.6 (27.0-33.0) pg MCHC 32.2 (31.0-35.0) g/dl RDW 14.0 (11.0-16.0) % Plt Count 401 H (160-400) X10*3/uL MPV 10.3 (9.4-12.3) fL Immature Gran % (Auto) 0.5 H (0.0-0.4) % Neut % (Auto) 73.3 H (45-73) % Lymph % (Auto) 15.9 L (20-40) % Hodgeman % (Auto) 9.5 (2-11) % Eos % (Auto) 0.5 (0-4) % Baso % (Auto) 0.3 (0-2) % Lymph # (Auto) 2.4 (1.2-4.9) X10*3/uL Hodgeman # (Auto) 1.5 H (0.1-1.2) X10*3/uL Eos # (Auto) 0.1 (0.0-0.4) X10*3/uL Baso # (Auto) 0.0 (0.0-0.2) X10*3/uL Abs Immat Gran (auto) 0.07 H (0.00-0.03) X10*3/uL Absolute Neuts (auto) 11.2 H (2.0-8.3) x10*3/uL Absolute Nucleated RBC 0.000 (0.0-0.012) X10*3/uL Nucleated RBC % (auto) 0.0 (0.0-0.2) /100WBC Sodium 141 (135-145) mmol/L Potassium 4.3 (3.3-5.1) mmol/L Chloride 98 (96-108) mmol/L Carbon Dioxide 28 (22-29) mmol/L Anion Gap 19 (12-20) BUN 24 H (9-16) mg/dL Creatinine 1.35 (0.5-1.4) mg/dL Estim Creat Clear Calc 27.4 Estimated GFR 37 Random Glucose 119 H (60-115) mg/dL Lactic Acid 3.0 H* (0.5-2.0) mmol/L Lactic Acid F/U @ 2Hr (0.5-2.0) mmol/L Calcium 10.1 D (8.4-10.2) mg/dL Magnesium 2.4 (1.6-2.6) mg/dL Total Bilirubin 0.4 (0.0-1.0) mg/dL AST 25 (5-31) U/L ALT 11 (0-31) U/L Alkaline Phosphatase 109 (39-117) U/L Total Protein 8.8 H (6.5-8.0) g/dL Albumin 5.1 H (3.5-5.0) g/dL C. difficile Tox B Gene (Negative) 03/18/22 03/19/22 Range/Units 23:25 01:19 WBC (4.8-10.8) X10*3/uL RBC (4.20-5.50) X10*6/uL Hgb (12.0-16.0) g/dl Hct (37.0-47.0) % MCV (80.0-98.0) fL MCH (27.0-33.0) pg MCHC (31.0-35.0) g/dl RDW (11.0-16.0) % Plt Count (160-400) X10*3/uL MPV (9.4-12.3) fL Immature Gran % (Auto) (0.0-0.4) % Neut % (Auto) (45-73) % Lymph % (Auto) (20-40) % Hodgeman % (Auto) (2-11) % Eos % (Auto) (0-4) % Baso % (Auto) (0-2) % Lymph # (Auto) (1.2-4.9) X10*3/uL Hodgeman # (Auto) (0.1-1.2) X10*3/uL Eos # (Auto) (0.0-0.4) X10*3/uL Baso # (Auto) (0.0-0.2) X10*3/uL Abs Immat Gran (auto) (0.00-0.03) X10*3/uL Absolute Neuts (auto) (2.0-8.3) x10*3/uL Absolute Nucleated RBC (0.0-0.012) X10*3/uL Nucleated RBC % (auto) (0.0-0.2) /100WBC Sodium (135-145) mmol/L Potassium (3.3-5.1) mmol/L Chloride (96-108) mmol/L Carbon Dioxide (22-29) mmol/L Anion Gap (12-20) BUN (9-16) mg/dL Creatinine (0.5-1.4) mg/dL Estim Creat Clear Calc Estimated GFR Random Glucose (60-115) mg/dL Lactic Acid (0.5-2.0) mmol/L Lactic Acid F/U @ 2Hr 1.1 (0.5-2.0) mmol/L Calcium (8.4-10.2) mg/dL Magnesium (1.6-2.6) mg/dL Total Bilirubin (0.0-1.0) mg/dL AST (5-31) U/L ALT (0-31) U/L Alkaline Phosphatase (39-117) U/L Total Protein (6.5-8.0) g/dL Albumin (3.5-5.0) g/dL C. difficile Tox B Gene NEGATIVE (Negative) Discharge Plan Discharge Clinical Impression: Gastroenteritis Prescriptions: No Action atenolol 25 mg tablet 25 mg PO DAILY 90 Days Qty: 90 3RF venlafaxine 150 mg capsule,extended release 24hr 150 mg PO DAILY 90 Days Qty: 90 3RF venlafaxine 75 mg capsule,extended release 24hr 75 mg PO DAILY 90 Days Qty: 90 3RF atorvastatin 10 mg tablet 10 mg PO DAILY 90 Days Qty: 90 3RF furosemide 20 mg tablet 20 mg PO DAILY Qty: 90 1RF cyanocobalamin (vitamin B-12) 1,000 mcg Tablet 1,000 mcg PO DAILY melatonin 3 mg Tablet 3 mg PO BEDTIME acetaminophen 325 mg Tablet 650 mg PO QID Qty: 20 0RF Rx Instructions: Continue scheduled Tylenol for 4 more days than change to as needed for pain tramadol 50 mg Tablet 50 mg PO Q6H PRN (Reason: Moderate Pain (Scale Score 5-6)) esomeprazole magnesium [Nexium] 20 mg Capsule,Delayed Release(Dr/Ec) 20 mg PO DAILY@0630 docusate sodium 100 mg capsule 100 mg PO BID@0900,1600 (DME) compression stockings 40 mmHg knee high See Rx Instructions .Route .MEDSUPPLY Qty: 2 2RF Rx Instructions: As directed fluorometholone 0.1 % drops,suspension 1 drp ophthalmic (eye) BID@0900,1600 terazosin 1 mg capsule 1 mg PO DAILY 30 Days Qty: 30 1RF bethanechol chloride 50 mg tablet 50 mg PO BID 30 Days Qty: 60 1RF
[2022-03-18 21:55] VITALS: BP 156/58; BP 158/82; PULSE 72; PULSE 75; TEMP 34.9; BMI 25.0
[2022-03-18 22:28] LABS: MANUAL DIFF FLAG NO
[2022-03-18] MEDS: levoFLOXacin/D5W 500 MG/100 ML PIGGYBACK 100 MG IV (22:28)
[2022-03-18] MEDS: 0.9 % Sodium Chloride 1,000 ML 999 ML IV (22:29)
[2022-03-18 22:32] LABS: Basophils Percent Auto 0.3 % (0-2); Eosinophils Absolute Auto 0.1 X10*3/uL (0.0-0.4); Eosinophils Percent Auto 0.5 % (0-4); Hematocrit 39.1 % (37.0-47.0); Hemoglobin 12.6 g/dl (12.0-16.0); Imm Gran Abs Auto 0.07 X10*3/uL (0.00-0.03); Imm Gran Pct Auto 0.5 % (0.0-0.4); Lymphocytes Absolute Auto 2.4 X10*3/uL (1.2-4.9); Lymphocytes Percent Auto 15.9 % (20-40); Mean Corpuscular HGB Conc 32.2 g/dl (31.0-35.0); Mean Corpuscular Hemoglobin 29.6 pg (27.0-33.0); Mean Platelet Volume 10.3 fL (9.4-12.3); Monocytes Absolute Auto 1.5 X10*3/uL (0.1-1.2); Monocytes Percent Auto 9.5 % (2-11); Neutrophils Absolute Auto 11.2 x10*3/uL (2.0-8.3); Neutrophils Percent Auto 73.3 % (45-73); Platelet Count 401 X10*3/uL (160-400); Red Blood Count 4.25 X10*6/uL (4.20-5.50); White Blood Count 15.2 X10*3/uL (4.8-10.8)
[2022-03-18 23:00] LABS: Alanine Aminotransferase 11 U/L (0-31); Albumin Level 5.1 g/dL (3.5-5.0); Alkaline Phosphatase 109 U/L (39-117); Anion Gap 19 (12-20); Aspartate Amino Transferase 25 U/L (5-31); Bilirubin Total 0.4 mg/dL (0.0-1.0); Blood Urea Nitrogen 24 mg/dL (9-16); Calcium 10.1 mg/dL (8.4-10.2); Carbon Dioxide 28 mmol/L (22-29); Chloride 98 mmol/L (96-108); Creatinine Clr Calc Pharmacy 27.4; Estimated Glomerular Filt Rate 37; Glucose Random 119 mg/dL (60-115); Magnesium 2.4 mg/dL (1.6-2.6); Potassium 4.3 mmol/L (3.3-5.1); Sodium 141 mmol/L (135-145); Total Protein 8.8 g/dL (6.5-8.0)
[2022-03-19] MEDS: 0.9 % Sodium Chloride 1,000 ML 999 ML IV (00:17)
[2022-03-19 00:21] LABS: CDiff Gene PCR NEGATIVE (Negative)
[2022-03-19 00:22] VITALS: BP 173/82; PULSE 80; RESP 18; TEMP 36.4; O2SAT 97
[2022-03-19 00:26] LABS: Reflex Lactate? Lactic Acid Added
[2022-03-19 01:46] LABS: ~Lactic Acid-LAB USE ONLY 1.1 mmol/L (0.5-2.0)
[2022-03-19 02:00] VITALS: BP 173/73; RESP 18; TEMP 36.9
[2022-03-19 02:13] VITALS: BP 173/73; PULSE 80; RESP 16; TEMP 36.4; O2SAT 100
[2022-03-19] MEDS: Loperamide HCl 2 MG CAPSULE PO (03:26)
--- NOTE | 2022-03-19 03:44 | PC.NURSE ---
Pt had an episode of diarrhea, she was changed and cleaned, immodium administered per APR. aware
--- NOTE | 2022-03-19 06:12 | PC.NURSE ---
Spoke with the son who will be picking the pt up at approximately 0645
[2022-03-19 12:53] LABS: Campylobacter Not Detected (Not Detect.); E. coli EAEC Not Detected (Not Detect.); E. coli EPEC Not Detected (Not Detect.); E. coli ETEC Not Detected (Not Detect.); E. coli STEC Not Detected (Not Detect.); Plesiomonas shigelloides Not Detected (Not Detect.); Salmonella Not Detected (Not Detect.); Vibrio Not Detected (Not Detect.); Vibrio Cholerae Not Detected (Not Detect.); Yersinia enterocolitica Not Detected (Not Detect.)
[2022-03-19 12:54] LABS: Adenovirus F 40/41 Not Detected (Not Detect.); Astrovirus Not Detected (Not Detect.); Cryptosporidium Not Detected (Not Detect.); Cyclospora cayetanensis Not Detected (Not Detect.); Entamoeba histolytica Not Detected (Not Detect.); Giardia lamblia Not Detected (Not Detect.); Norovirus GI/GII Not Detected (Not Detect.); Rotavirus A Not Detected (Not Detect.); Sapovirus Not Detected (Not Detect.); Shigella sp./EIEC Not Detected (Not Detect.)
== END 2022-03-19 07:07 | disposition home or self-care (01) ==
PROVIDERS: Emergency Provider Internal Medicine; PCP Internal Medicine
DX: K52.9 Noninfective gastroenteritis and colitis, unspecified (principal); R19.7 Diarrhea, unspecified; I10 Essential (primary) hypertension; Z79.899 Other long term (current) drug therapy; Z79.02 Long term (current) use of antithrombotics/antiplatelets
CPT/HCPCS: 36415; 74176; 80053; 83605; 83735; 85025; 87040; 87493; 87507; 96361; 96365; 99284; J1956

== ENCOUNTER 2022-04-08 08:36 | Emergency (ER) | payer OTHER, SELFPAY ==
--- NOTE | ~2022-04-08 | XR_ITS ---
EXAMINATION: XR KUB, XR lumbar spine 2-3V CLINICAL INFORMATION: Reason for Exam constipation COMPARISON: CT abdomen/pelvis dated 03/19/2022 and 05/10/2019 TECHNIQUE: AP view of the abdomen and 3 views of the lumbar spine FINDINGS: There is a large amount of stool throughout the colon, particularly right colon and transverse colon. No evidence of obstruction. Vascular calcifications. Left femoral intramedullary sharmaine and dynamic compression screw. Moderate levoconvex lumbar scoliosis has progressed slightly since 2019. There is a new anterior wedge compression fracture at L1 as described in the prior CT examination. Remaining vertebral body heights are maintained. Endplate osteophytes and facet arthropathy throughout the lumbar spine. Moderate disc space narrowing on the right lateral interspace at L2-L3, with milder degrees of disc space height loss throughout the remainder of the lumbar spine. XR/XR lumbar spine 2-3V IMPRESSION: * Large amount of stool throughout the colon, particularly right colon and transverse colon. No evidence of obstruction. * Moderate levoconvex lumbar scoliosis has progressed slightly since 2019. * New, but chronic appearing L1 anterior wedge compression fracture. * Moderate lumbar spondylosis as described.
--- NOTE | ~2022-04-08 | XR_ITS ---
EXAMINATION: XR KUB, XR lumbar spine 2-3V CLINICAL INFORMATION: Reason for Exam constipation COMPARISON: CT abdomen/pelvis dated 03/19/2022 and 05/10/2019 TECHNIQUE: AP view of the abdomen and 3 views of the lumbar spine FINDINGS: There is a large amount of stool throughout the colon, particularly right colon and transverse colon. No evidence of obstruction. Vascular calcifications. Left femoral intramedullary sharmaine and dynamic compression screw. Moderate levoconvex lumbar scoliosis has progressed slightly since 2019. There is a new anterior wedge compression fracture at L1 as described in the prior CT examination. Remaining vertebral body heights are maintained. Endplate osteophytes and facet arthropathy throughout the lumbar spine. Moderate disc space narrowing on the right lateral interspace at L2-L3, with milder degrees of disc space height loss throughout the remainder of the lumbar spine. XR/XR KUB IMPRESSION: * Large amount of stool throughout the colon, particularly right colon and transverse colon. No evidence of obstruction. * Moderate levoconvex lumbar scoliosis has progressed slightly since 2019. * New, but chronic appearing L1 anterior wedge compression fracture. * Moderate lumbar spondylosis as described.
[2022-04-08 08:43] VITALS: BP 182/82; BP 206/98; PULSE 84; PULSE 88; RESP 16; TEMP 36.7; O2SAT 100; O2SAT 99; BMI 23.2
--- NOTE | 2022-04-08 10:10 | ED.BACK ---
HPI - Back Pain/Injury General Chief Complaint: Back Pain/Injury Stated Complaint: BACK PAIN X'S 5 DAYS,NO INJURY PER EMS Time Seen by Provider: 04/08/22 09:55 Source: patient Mode of arrival: EMS Limitations: no limitations History of Present Illness HPI Narrative: Patient with abdominal pain into the back, patient states that she has it frequently. No dysuria, last BM 4 days ago. Patient has had UTI in the past. patient was seen one month ago for enteritis and was place on cipro. Onset (ago): week(s) Timing: intermittent Location: lumbar spine Radiation: none Related Data Home Medications Medication Instructions Recorded Confirmed fluorometholone 0.1 % eye 1 drp ophthalmic (eye) 11/16/19 03/06/22 drops,suspension BID@0900,1600 cyanocobalamin (vitamin B-12) 1,000 mcg PO DAILY 07/08/21 03/06/22 1,000 mcg tablet melatonin 3 mg tablet 3 mg PO BEDTIME 07/08/21 03/06/22 docusate sodium 100 mg capsule 100 mg PO BID@0900,1600 09/07/21 03/06/22 esomeprazole magnesium 20 mg 20 mg PO DAILY@0630 09/07/21 03/06/22 capsule,delayed release (Nexium) tramadol 50 mg tablet 50 mg PO Q6H PRN Moderate Pain 09/07/21 03/06/22 (Scale Score 5-6) Previous Rx's Medication Instructions Recorded acetaminophen 325 mg tablet 650 mg PO QID #20 tabs 07/12/21 terazosin 1 mg capsule 1 mg PO DAILY 30 days #30 caps 07/30/21 bethanechol chloride 50 mg tablet 50 mg PO BID 30 days #60 tabs 01/17/22 atenolol 25 mg tablet 25 mg PO DAILY 90 days #90 tabs 02/19/22 venlafaxine 150 mg 150 mg PO DAILY 90 days #90 caps 02/19/22 capsule,extended release 24 hr venlafaxine 75 mg capsule,extended 75 mg PO DAILY 90 days #90 caps 02/19/22 release 24 hr atorvastatin 10 mg tablet 10 mg PO DAILY 90 days #90 tabs 02/28/22 compression stockings 40 mmHg #2 ea 03/06/22 furosemide 20 mg tablet 20 mg PO DAILY #90 tabs 03/08/22 ciprofloxacin HCl 500 mg tablet 500 mg PO BID #10 tabs 03/19/22 (Cipro) loperamide 2 mg tablet (Imodium 2 mg PO Q6H PRN loose stool #6 tabs 03/19/22 A-D) lactulose 20 gram/30 mL oral 30 g (45 mL) PO TID #1,500 mL 04/08/22 solution Allergies Allergy/AdvReac Type Severity Reaction Status Date / Time codeine [CODEINE] Allergy Mild upset Verified 03/06/22 15:11 stomach, nause Review of Systems Review of Systems: Yes all other systems are reviewed and are negative Gastrointestinal: Gastrointestinal: Reports abdominal pain Musculoskeletal: Musculoskeletal: Reports back pain Neurologic: Denies Sensory deficit (Neuro) [facility] Past Medical History Medical History Anxiety Asthma COPD (chronic obstructive pulmonary disease) Endogenous depression Essential hypertension Familial hypercholesterolemia GERD (gastroesophageal reflux disease) Polyuria Vertigo Surgical History History of cataract surgery History of eye surgery S/P lumpectomy of breast Family History Family History Father No problems noted. Mother No problems noted. Brother No problems noted. Sister No problems noted. Son No problems noted. Daughter No problems noted. Social History Social History Household Members: Children Housing: Apartment Do you presently have visiting nurse or other home services: No Alcohol intake: never Patient Tobacco Use Status: Never used Tobacco Smoked in Last 30 Days: No e-Cigarette/Vaping Use: Never Used Second Hand Smoke Exposure: No Use of substances other than those prescribed or required for medical reasons: No Advance Directives: Yes Advance Directives on File: Yes Advance Directives Date on File: 07/22/21 service: No Current occupational status: retired Cognitive needs: Yes Hearing needs: No Vision needs: Yes Physical Exam Vital Signs: Vital Signs: Last Vital Signs Temp 98.1 F 04/08/22 10:52 Pulse 88 04/08/22 10:52 Resp 13 04/08/22 10:52 BP 178/94 H 04/08/22 11:38 Pulse Ox 100 04/08/22 10:52 O2 Del Method 04/08/22 10:52 BMI result Body Mass Index 23.2 Const: Other: elderly frail Nutritional Appearance: average body habitus Orientation/consciousness: oriented to person Limitations: no limitations HEENT: Head: Yes normal to inspection Ears: external ears normal General nose exam: Normal external nose present Mouth: Normal oral and palatal mucosa present and oropharynx normal Throat: Yes posterior oropharynx normal Eyes: General: appearance normal, both eyes and all related structures Neck: Other: supple Neck: Yes normal visual inspection Chest: Chest palpation & inspection: normal inspection of the chest Resp: Auscultation: clear to auscultation bilaterally Cardio: Jugular venous distension: no JVD Rate: regular rate Rhythm: regular rhythm Heart sounds: S1 normal heart sound present and S2 normal heart sound present GI: Inspection: Yes normal to inspection Palpation (GI): Soft to palpation, nontender and No hepatosplenomegaly present Auscultation: normal bowel sounds : General: Yes no CVA tenderness Back/Spine/Pelvis: Other: lumbar tenderness mostly on the left Back: no CVA tenderness Skin: General skin exam: no rashes or lesions noted Neuro: General: oriented to person Cranial nerves: Yes CN's II-XII intact bilaterally Motor exam (neuro): 5/5 motor strength present throughout Sensory Exam: No Sensory deficit (Neuro) Extrem: General: Yes normal to inspection Psych: Appearance: grossly normal Course Reevaluation(s) Reevaluation #1: by history and physical this seems most consistent with constipation will start lactulose Time: 11:59 Medications Administered Discontinued Medications Generic Name Dose Route Start Last Admin Trade Name Danielq PRN Reason Stop Dose Admin Atenolol 50 mg 04/08/22 10:17 04/08/22 10:35 Atenolol 50 Mg Tablet PO 04/08/22 10:18 50 mg ONCE ONE Administration Protocol Medical Decision Making Differential Diagnosis Differential Diagnoses: The differential diagnosis associated with the presentation includes (constipation, sciatica, UTI, renal stone all considered) Admission/Observation Consideration of admission/observation: Escalation of care including admission/observation considered (86 yo female with abdominal pain will be considered for admission) Lab Data MDM Lab Attestation statement: I reviewed the patient's lab results. Urine has chronic WBC, will wait for culture 04/08/22 11:10 04/08/22 11:10 Labs: Lab Results 04/08/22 04/08/22 04/08/22 Range/Units 11:10 11:10 11:10 WBC 10.0 (4.8-10.8) X10*3/uL RBC 3.99 L (4.20-5.50) X10*6/uL Hgb 12.0 (12.0-16.0) g/dl Hct 36.7 L (37.0-47.0) % MCV 92.0 (80.0-98.0) fL MCH 30.1 (27.0-33.0) pg MCHC 32.7 (31.0-35.0) g/dl RDW 13.3 (11.0-16.0) % Plt Count 335 (160-400) X10*3/uL MPV 10.9 (9.4-12.3) fL Immature Gran % (Auto) 0.2 (0.0-0.4) % Neut % (Auto) 67.3 (45-73) % Lymph % (Auto) 19.1 L (20-40) % Curry % (Auto) 12.7 H (2-11) % Eos % (Auto) 0.5 (0-4) % Baso % (Auto) 0.2 (0-2) % Lymph # (Auto) 1.9 (1.2-4.9) X10*3/uL Curry # (Auto) 1.3 H (0.1-1.2) X10*3/uL Eos # (Auto) 0.1 (0.0-0.4) X10*3/uL Baso # (Auto) 0.0 (0.0-0.2) X10*3/uL Abs Immat Gran (auto) 0.02 (0.00-0.03) X10*3/uL Absolute Neuts (auto) 6.8 (2.0-8.3) x10*3/uL Absolute Nucleated RBC 0.000 (0.0-0.012) X10*3/uL Nucleated RBC % (auto) 0.0 (0.0-0.2) /100WBC Sodium 138 (135-145) mmol/L Potassium 4.2 (3.3-5.1) mmol/L Chloride 98 (96-108) mmol/L Carbon Dioxide 30 H (22-29) mmol/L Anion Gap 14 (12-20) BUN 16 (9-16) mg/dL Creatinine 0.84 (0.5-1.4) mg/dL Estim Creat Clear Calc 42.2 Estimated GFR > 60 Random Glucose 99 (60-115) mg/dL Calcium 10.7 H (8.4-10.2) mg/dL Total Bilirubin 0.6 (0.0-1.0) mg/dL AST 18 (5-31) U/L ALT 10 (0-31) U/L Alkaline Phosphatase 110 (39-117) U/L Total Protein 7.9 (6.5-8.0) g/dL Albumin 4.4 (3.5-5.0) g/dL Lipase 15 (8-78) U/L Urine Color Yellow Urine Appearance Clear Urine pH 7.5 (5.0-9.0) Ur Specific Garrett <= 1.005 (1.005-1.025) Urine Protein Negative (Neg-Trace) mg/dL Urine Glucose (UA) Negative (Negative) mg/dL Urine Ketones Negative (Negative) mg/dL Urine Blood Negative (Negative) Urine Nitrite Negative (Negative) Ur Leukocyte Esterase Small (1+) H (Negative) Urine RBC 0-2 (0-2) /HPF Urine WBC 6-10 H (0-5) /HPF Ur Squamous Epith Cells 3-5 (0-2) /HPF Urine Bacteria None Seen (None Seen) Hyaline Casts 0-2 (0-2) /LPF Independent Interpretation I performed an independent interpretation of an: Plain X-Ray (KUB full of stool, lumbar severe djd with compression fracture) Independent Historian Clinical information obtained from an independent historian. History obtained from or confirmed by: Other (son) Discharge Plan Discharge Clinical Impression: Constipation Patient Disposition: Home, Self-Care Instructions: Constipation (ED) Prescriptions: New lactulose 20 gram/30 mL solution 30 g PO TID Qty: 1500 0RF Rx Instructions: take until stool is soft or liquid then stop No Action atenolol 25 mg tablet 25 mg PO DAILY 90 Days Qty: 90 3RF venlafaxine 150 mg capsule,extended release 24hr 150 mg PO DAILY 90 Days Qty: 90 3RF venlafaxine 75 mg capsule,extended release 24hr 75 mg PO DAILY 90 Days Qty: 90 3RF atorvastatin 10 mg tablet 10 mg PO DAILY 90 Days Qty: 90 3RF furosemide 20 mg tablet 20 mg PO DAILY Qty: 90 1RF cyanocobalamin (vitamin B-12) 1,000 mcg Tablet 1,000 mcg PO DAILY melatonin 3 mg Tablet 3 mg PO BEDTIME acetaminophen 325 mg Tablet 650 mg PO QID Qty: 20 0RF Rx Instructions: Continue scheduled Tylenol for 4 more days than change to as needed for pain tramadol 50 mg Tablet 50 mg PO Q6H PRN (Reason: Moderate Pain (Scale Score 5-6)) esomeprazole magnesium [Nexium] 20 mg Capsule,Delayed Release(Dr/Ec) 20 mg PO DAILY@0630 docusate sodium 100 mg capsule 100 mg PO BID@0900,1600 ciprofloxacin HCl [Cipro] 500 mg tablet 500 mg PO BID Qty: 10 0RF loperamide [Imodium A-D] 2 mg tablet 2 mg PO Q6H PRN (Reason: loose stool) Qty: 6 0RF (DME) compression stockings 40 mmHg knee high See Rx Instructions .Route .MEDSUPPLY Qty: 2 2RF Rx Instructions: As directed fluorometholone 0.1 % drops,suspension 1 drp ophthalmic (eye) BID@0900,1600 terazosin 1 mg capsule 1 mg PO DAILY 30 Days Qty: 30 1RF bethanechol chloride 50 mg tablet 50 mg PO BID 30 Days Qty: 60 1RF Referrals: Saritha Ellis MD [Primary Care Provider] -
[2022-04-08] MEDS: atenoloL 50 MG TABLET PO (10:35)
--- NOTE | 2022-04-08 10:37 | PC.NURSE ---
Pt medicated with home rx Atenolol, pt htn. Out of room at this time for xray
[2022-04-08 10:52] VITALS: BP 222/118; PULSE 88; RESP 13; TEMP 36.7; O2SAT 100
[2022-04-08 11:15] LABS: MANUAL DIFF FLAG NO
[2022-04-08 11:18] LABS: Basophils Percent Auto 0.2 % (0-2); Eosinophils Absolute Auto 0.1 X10*3/uL (0.0-0.4); Eosinophils Percent Auto 0.5 % (0-4); Hematocrit 36.7 % (37.0-47.0); Imm Gran Abs Auto 0.02 X10*3/uL (0.00-0.03); Imm Gran Pct Auto 0.2 % (0.0-0.4); Lymphocytes Absolute Auto 1.9 X10*3/uL (1.2-4.9); Lymphocytes Percent Auto 19.1 % (20-40); Mean Corpuscular HGB Conc 32.7 g/dl (31.0-35.0); Mean Corpuscular Hemoglobin 30.1 pg (27.0-33.0); Mean Platelet Volume 10.9 fL (9.4-12.3); Monocytes Absolute Auto 1.3 X10*3/uL (0.1-1.2); Monocytes Percent Auto 12.7 % (2-11); Neutrophils Absolute Auto 6.8 x10*3/uL (2.0-8.3); Neutrophils Percent Auto 67.3 % (45-73); Platelet Count 335 X10*3/uL (160-400); Red Blood Count 3.99 X10*6/uL (4.20-5.50); Red Cell Distribution Width 13.3 % (11.0-16.0)
[2022-04-08 11:20] LABS: Appearance Urine Clear; Color Urine Yellow; Glucose Urine UA Negative (Negative); Leukocyte Esterase Urine Small (1+) (Negative); Nitrite Urine Negative (Negative); PH 7.5 (5.0-9.0); Specific Gravity - Urine <= 1.005 (1.005-1.025); UMIC TRIGGER UACC YES; Urine Blood Negative (Negative); Urine Ketones Negative (Negative); Urine Protein Negative (Neg-Trace)
[2022-04-08 11:24] LABS: Bacteria Urine None Seen (None Seen); Hyaline Casts Urine 0-2 /LPF (0-2); RBC Urine 0-2 /HPF (0-2); UACC Culture Trigger YES
[2022-04-08 11:31] LABS: Alanine Aminotransferase 10 U/L (0-31); Albumin Level 4.4 g/dL (3.5-5.0); Alkaline Phosphatase 110 U/L (39-117); Anion Gap 14 (12-20); Aspartate Amino Transferase 18 U/L (5-31); Bilirubin Total 0.6 mg/dL (0.0-1.0); Blood Urea Nitrogen 16 mg/dL (9-16); Calcium 10.7 mg/dL (8.4-10.2); Carbon Dioxide 30 mmol/L (22-29); Chloride 98 mmol/L (96-108); Creatinine Clr Calc Pharmacy 42.2; Estimated Glomerular Filt Rate > 60; Glucose Random 99 mg/dL (60-115); Lipase 15 U/L (8-78); Potassium 4.2 mmol/L (3.3-5.1); Sodium 138 mmol/L (135-145); Total Protein 7.9 g/dL (6.5-8.0)
[2022-04-08 11:38] VITALS: BP 178/94
== END 2022-04-08 12:40 | disposition home or self-care (01) ==
PROVIDERS: Emergency Provider Emergency Medicine; PCP Internal Medicine
DX: K59.00 Constipation, unspecified (principal); M54.50 Low back pain, unspecified; I10 Essential (primary) hypertension; Z79.899 Other long term (current) drug therapy; Z79.02 Long term (current) use of antithrombotics/antiplatelets
CPT/HCPCS: 36415; 72100; 74018; 80053; 81001; 83690; 85025; 87086; 99283; 99284

== ENCOUNTER → 2022-04-17 13:42 | Outpatient (BNVA) | payer OTHER, SELFPAY | PROVIDERS: PCP Internal Medicine; Visit Provider Nurse Practitioner Family | DX: N39.0 Urinary tract infection, site not specified (principal); N39.490 Overflow incontinence; R33.9 Retention of urine, unspecified | CPT/HCPCS: 51798; 99212 ==

== ENCOUNTER → 2022-05-21 13:52 | Outpatient (BNVA) | payer OTHER, SELFPAY | PROVIDERS: PCP Internal Medicine; Visit Provider Urology | DX: R33.9 Retention of urine, unspecified (principal); Z79.899 Other long term (current) drug therapy | CPT/HCPCS: 52000; 99212 ==

== ENCOUNTER 2022-12-22 16:16 | Emergency (ER) | payer OTHER, SELFPAY ==
[2022-12-22 16:54] VITALS: BP 187/75; PULSE 78; RESP 16; TEMP 36.6; O2SAT 98; BMI 23.2
[2022-12-22 18:43] LABS: Basophils Percent Auto 0.2 % (0-2); Eosinophils Absolute Auto 0.1 X10*3/uL (0.0-0.4); Eosinophils Percent Auto 0.6 % (0-4); Hematocrit 35.2 % (37.0-47.0); Hemoglobin 11.4 g/dl (12.0-16.0); Imm Gran Abs Auto 0.04 X10*3/uL (0.00-0.03); Imm Gran Pct Auto 0.4 % (0.0-0.4); Lymphocytes Absolute Auto 2.1 X10*3/uL (1.2-4.9); Lymphocytes Percent Auto 20.3 % (20-40); MANUAL DIFF FLAG NO; Mean Corpuscular HGB Conc 32.4 g/dl (31.0-35.0); Mean Corpuscular Volume 92.6 fL (80.0-98.0); Mean Platelet Volume 10.8 fL (9.4-12.3); Monocytes Absolute Auto 1.2 X10*3/uL (0.1-1.2); Monocytes Percent Auto 11.3 % (2-11); Neutrophils Absolute Auto 7.1 x10*3/uL (2.0-8.3); Neutrophils Percent Auto 67.2 % (45-73); Platelet Count 280 X10*3/uL (160-400); Red Cell Distribution Width 13.5 % (11.0-16.0); White Blood Count 10.5 X10*3/uL (4.8-10.8)
[2022-12-22 18:55] LABS: Anion Gap 13 (12-20); Blood Urea Nitrogen 18 mg/dL (9-16); Calcium 9.7 mg/dL (8.4-10.2); Carbon Dioxide 27 mmol/L (22-29); Chloride 103 mmol/L (96-108); Estimated Glomerular Filt Rate > 60; Glucose Random 107 mg/dL (60-115); Potassium 4.4 mmol/L (3.3-5.1); Sodium 139 mmol/L (135-145)
--- NOTE | 2022-12-22 21:15 | PC.NURSE ---
Pt broguht into room in personal wheelchair, Pt is AOx3, pt denies pain, pt is reporting increased urinary frequency with frustration pt stated This has been going on for over 3 years, every hour I'm getting up to urinate use pads and depends, and i cant get any sleep because I keep getting up at night. Son reports pt has been very tearful lately. Pt states I feel like 87 years old whats the meaning of life I feel that empty inside. Pt was reassured, and a purwhick has been placed.
[2022-12-22 22:17] LABS: Appearance Urine Clear; Color Urine Yellow; Glucose Urine UA Negative (Negative); Leukocyte Esterase Urine Moderate (2+) (Negative); Nitrite Urine Negative (Negative); PH 7.5 (5.0-9.0); UMIC TRIGGER UACC YES; Urine Blood Negative (Negative); Urine Ketones Negative (Negative); Urine Protein Trace mg/dL (Neg-Trace)
--- NOTE | 2022-12-22 22:20 | ED_ITS ---
HPI - General Adult General Chief complaint: Failure to Thrive Stated complaint: depressed just not feeling well Time Seen by Provider: 12/22/22 20:05 Source: patient Mode of arrival: ambulatory Limitations: no limitations History of Present Illness HPI narrative: 87 yold presents to the ED for depression and feeling cold. Patient has been cyring alot as per patient and son. Patient denies any suicidal or homicidal ideation. Patient denies any auditory/visual hallucinations. Son denies any change in patient's altered mental status or any auditory or visual hallucination by patient. Son denies patient stating any suicidal homicidal ideation. Son and patient admits to increased increased urinary frequency which is chronic, but patient has had urinary tract before infection before in the past. They came to evaluate her urine. Patient denies any abdominal pain, nausea, vomiting, fever, chills, dysuria, hematuria, rash, chest pain, or shortness of breath. Son and patient denies any recent trauma Related Data Home Medications Medication Instructions Recorded Confirmed fluorometholone 0.1 % eye 1 drp ophthalmic (eye) 11/16/19 07/09/22 drops,suspension BID@0900,1600 cyanocobalamin (vitamin B-12) 1,000 mcg PO DAILY 07/08/21 07/09/22 1,000 mcg tablet melatonin 3 mg tablet 3 mg PO BEDTIME 07/08/21 07/09/22 esomeprazole magnesium 20 mg 20 mg PO DAILY@0630 09/07/21 07/09/22 capsule,delayed release (Nexium) Previous Rx's Medication Instructions Recorded venlafaxine 75 mg capsule,extended 75 mg PO DAILY 90 days #90 caps 02/19/22 release 24 hr atorvastatin 10 mg tablet 10 mg PO DAILY 90 days #90 tabs 02/28/22 compression stockings 40 mmHg #2 ea 03/06/22 bethanechol chloride 50 mg tablet 50 mg PO BID 90 days #180 tabs 05/21/22 diclofenac sodium 1 % topical gel 2 g topical QID PRN pain 90 days 07/17/22 (Arthritis Pain (diclofenac)) #100 grams food supplemt, lactose-reduced 1 ea PO TID 24 days #5,688 mL 08/06/22 (Ensure oral liquid) sulfamethoxazole 800 1 tab PO BID #10 tabs 10/03/22 mg-trimethoprim 160 mg tablet (Bactrim DS) tramadol 50 mg tablet 50 mg PO Q8H PRN Moderate Pain 11/06/22 (Scale Score 5-6) 30 days #90 tabs atenolol 25 mg tablet 25 mg PO DAILY 90 days #90 tabs 11/17/22 venlafaxine 150 mg 150 mg PO DAILY 90 days #90 caps 11/17/22 capsule,extended release 24 hr Allergies Allergy/AdvReac Type Severity Reaction Status Date / Time codeine [CODEINE] Allergy Mild upset Verified 07/09/22 14:55 stomach, nause Review of Systems 2 Review of Systems: Depression. Increased urinary frequency Yes all other systems are reviewed and are negative [facility] Past Medical History Medical History (Updated 12/22/22 @ 23:49 by TYSHAWN Ramierz) Asthma Vertigo Polyuria Anxiety Essential hypertension GERD (gastroesophageal reflux disease) Familial hypercholesterolemia Endogenous depression COPD (chronic obstructive pulmonary disease) Surgical History S/P lumpectomy of breast History of eye surgery History of cataract surgery Family History Family History Father No problems noted. Mother No problems noted. Brother No problems noted. Sister No problems noted. Son No problems noted. Daughter No problems noted. Social History Social History Household Members: Children Housing: Apartment Do you presently have visiting nurse or other home services: No Alcohol intake: never Patient Tobacco Use Status: Never used Tobacco Smoked in Last 30 Days: No e-Cigarette/Vaping Use: Never Used Second Hand Smoke Exposure: No Use of substances other than those prescribed or required for medical reasons: No Advance Directives: Yes Advance Directives on File: Yes Advance Directives Date on File: 07/22/21 service: No Current occupational status: retired Cognitive needs: Yes Hearing needs: No Vision needs: Yes Physical Exam ED Vital Signs: Vital Signs - 24 hr 12/22/22 16:54 12/22/22 22:30 Temperature 97.8 F 97.9 F Pulse Rate 78 78 Respiratory Rate 16 20 Blood Pressure 187/75 H 178/76 H Pulse Oximetry 98 97 Oxygen Delivery Method Room Air BMI result Body Mass Index 23.2 Const General: cooperative, healthy appearing, comfortable, no acute distress, well developed, alert, awake and Physically active Orientation/consciousness: oriented to person, oriented to place, oriented to time and patient oriented x3 HENMT Head: Yes normal to inspection, Yes No palpable skull fracture present, Yes normocephalic, Yes atraumatic and No abrasion Ears: hearing grossly normal bilaterally, external ears normal, TM's normal bilaterally, TM normal on the right, TM normal on the left, EAC's normal, mastoids normal and no periauricular adenopathy Eyes General: appearance normal, both eyes and all related structures Neck Neck: Yes normal visual inspection, Yes full ROM, Yes no lymphadenopathy, Yes no meningeal signs, Yes trachea midline, Yes supple, No anterior neck swelling and No tender Chest Chest palpation & inspection: normal inspection of the chest and normal palpation of entire chest wall Resp Effort & Inspection: normal respiratory effort and able to speak in complete sentences Auscultation: clear to auscultation bilaterally Cardio Jugular venous distension: no JVD Heart sounds: S1 normal heart sound present and S2 normal heart sound present GI Inspection: Yes normal to inspection and No abdominal wall ecchymosis Palpation (GI): Soft to palpation, not firm, nontender, no guarding and not rigid General: No CVA tenderness and Yes no CVA tenderness Back/Spine/Pelvis Back: no CVA tenderness, No CVA tenderness and No back tenderness Skin General skin exam: no rashes or lesions noted, elasticity normal and turgor normal Neuro General: oriented to person, oriented to place, oriented to time, patient oriented x3, gait normal, tone normal, moves all extremities, Normal light touch and pain sensation, no meningeal signs, no focal motor deficits, CN's II-XI intact bilaterally and normal sensation to monofilament Extrem General: Yes normal to inspection, Yes full ROM and Yes capillary refill normal Psych Appearance: grossly normal, well kempt and not disheveled Medical Decision Making Medical Decision Making MDM Narrative: [age] year female presents to the ED for the ED more depressed crying, and increased urinary frequency. Patient denies any other physical complaints. Patient is not suicidal or homicidal. Patient denies any auditory/visual hallucinations. As per son patient is at her baseline mentally. Labs are normal. Patient has no URI symptoms. Patient and son refused x-ray return for pneumonia. Patient not dehydrated. Electrolytes are normal. UA does not show any obvious UTI. UA results discussed with Dr. Sahu who deos not recommend antibiotics at this time. Patient and son also refuse care team evaluation. Patient does have visiting nurse service at home. Son states patient depressed because just want her other kids to visit her they have not seen her in a long time. Also she is depressed because she is a . patient is not suicidal or homicidal. Patient lives with mother and usually watches her. He states he will bring patient back to the ED if she deteriorates. Differential Diagnosis Differential Diagnoses: The differential diagnosis associated with the presentation includes (Depression, UTI, suicidal, homicidal, dementia altered mental status) Admission/Observation Consideration of admission/observation: Escalation of care including admission/observation considered Lab Data MDM Lab Attestation statement: I reviewed the patient's lab results. 12/22/22 18:35 12/22/22 18:35 Labs: Lab Results 12/22/22 12/22/22 12/22/22 Range/Units 18:35 22:01 22:02 WBC 10.5 (4.8-10.8) X10*3/uL RBC 3.80 L (4.20-5.50) X10*6/uL Hgb 11.4 L (12.0-16.0) g/dl Hct 35.2 L (37.0-47.0) % MCV 92.6 (80.0-98.0) fL MCH 30.0 (27.0-33.0) pg MCHC 32.4 (31.0-35.0) g/dl RDW 13.5 (11.0-16.0) % Plt Count 280 (160-400) X10*3/uL MPV 10.8 (9.4-12.3) fL Immature Gran % (Auto) 0.4 (0.0-0.4) % Neut % (Auto) 67.2 (45-73) % Lymph % (Auto) 20.3 (20-40) % [place] % (Auto) 11.3 H (2-11) % Eos % (Auto) 0.6 (0-4) % Baso % (Auto) 0.2 (0-2) % Lymph # (Auto) 2.1 (1.2-4.9) X10*3/uL [place] # (Auto) 1.2 (0.1-1.2) X10*3/uL Eos # (Auto) 0.1 (0.0-0.4) X10*3/uL Baso # (Auto) 0.0 (0.0-0.2) X10*3/uL Abs Immat Gran (auto) 0.04 H (0.00-0.03) X10*3/uL Absolute Neuts (auto) 7.1 (2.0-8.3) x10*3/uL Absolute Nucleated RBC 0.000 (0.0-0.012) X10*3/uL Nucleated RBC % (auto) 0.0 (0.0-0.2) /100WBC Sodium 139 (135-145) mmol/L Potassium 4.4 (3.3-5.1) mmol/L Chloride 103 (96-108) mmol/L Carbon Dioxide 27 (22-29) mmol/L Anion Gap 13 (12-20) BUN 18 H (9-16) mg/dL Creatinine 0.87 (0.5-1.4) mg/dL Estim Creat Clear Calc 40.0 Estimated GFR > 60 Random Glucose 107 (60-115) mg/dL Calcium 9.7 D (8.4-10.2) mg/dL Urine Color Yellow Urine Appearance Clear Urine pH 7.5 (5.0-9.0) Ur Specific [place] 1.010 (1.005-1.025) Urine Protein Trace (Neg-Trace) mg/dL Urine Glucose (UA) Negative (Negative) mg/dL Urine Ketones Negative (Negative) mg/dL Urine Blood Negative (Negative) Urine Nitrite Negative (Negative) Ur Leukocyte Esterase Moderate (2+) H (Negative) Urine RBC 0-2 (0-2) /HPF Urine WBC 0-5 (0-5) /HPF Ur Squamous Epith Cells 0-2 (0-2) /HPF Urine Bacteria 2+ (None Seen) Hyaline Casts 0-2 (0-2) /LPF Urine Opiates Screen (Not Detect) Urine Fentanyl Screen (Not Detect) Ur Barbiturates Screen (Not Detect) Ur Phencyclidine Scrn (Not Detect) Ur Amphetamines Screen (Not Detect) U Benzodiazepines Scrn (Not Detect) Urine Cocaine Screen (Not Detect) U Marijuana (THC) Screen (Not Detect) Ethyl Alcohol < 10 mg/dL 12/22/22 Range/Units Unknown WBC (4.8-10.8) X10*3/uL RBC (4.20-5.50) X10*6/uL Hgb (12.0-16.0) g/dl Hct (37.0-47.0) % MCV (80.0-98.0) fL MCH (27.0-33.0) pg MCHC (31.0-35.0) g/dl RDW (11.0-16.0) % Plt Count (160-400) X10*3/uL MPV (9.4-12.3) fL Immature Gran % (Auto) (0.0-0.4) % Neut % (Auto) (45-73) % Lymph % (Auto) (20-40) % [place] % (Auto) (2-11) % Eos % (Auto) (0-4) % Baso % (Auto) (0-2) % Lymph # (Auto) (1.2-4.9) X10*3/uL [place] # (Auto) (0.1-1.2) X10*3/uL Eos # (Auto) (0.0-0.4) X10*3/uL Baso # (Auto) (0.0-0.2) X10*3/uL Abs Immat Gran (auto) (0.00-0.03) X10*3/uL Absolute Neuts (auto) (2.0-8.3) x10*3/uL Absolute Nucleated RBC (0.0-0.012) X10*3/uL Nucleated RBC % (auto) (0.0-0.2) /100WBC Sodium (135-145) mmol/L Potassium (3.3-5.1) mmol/L Chloride (96-108) mmol/L Carbon Dioxide (22-29) mmol/L Anion Gap (12-20) BUN (9-16) mg/dL Creatinine (0.5-1.4) mg/dL Estim Creat Clear Calc Estimated GFR Random Glucose (60-115) mg/dL Calcium (8.4-10.2) mg/dL Urine Color Cancelled Urine Appearance Cancelled Urine pH Cancelled (5.0-9.0) Ur Specific [place] Cancelled (1.005-1.025) Urine Protein Cancelled (Neg-Trace) mg/dL Urine Glucose (UA) Cancelled (Negative) mg/dL Urine Ketones Cancelled (Negative) mg/dL Urine Blood Cancelled (Negative) Urine Nitrite Cancelled (Negative) Ur Leukocyte Esterase Cancelled (Negative) Urine RBC (0-2) /HPF Urine WBC (0-5) /HPF Ur Squamous Epith Cells (0-2) /HPF Urine Bacteria (None Seen) Hyaline Casts (0-2) /LPF Urine Opiates Screen Not Detected (Not Detect) Urine Fentanyl Screen Not Detected (Not Detect) Ur Barbiturates Screen Not Detected (Not Detect) Ur Phencyclidine Scrn Not Detected (Not Detect) Ur Amphetamines Screen Not Detected (Not Detect) U Benzodiazepines Scrn Not Detected (Not Detect) Urine Cocaine Screen Not Detected (Not Detect) U Marijuana (THC) Screen Not Detected (Not Detect) Ethyl Alcohol mg/dL Independent Historian Clinical information obtained from an independent historian. History obtained from or confirmed by: Other (SOn) External Record Review External record reviewed: Other (Prior ED visit) Discharge Plan Discharge Clinical Impression: Depression Patient Disposition: Home, Self-Care Instructions: Depression (ED) Additional Instructions: Return to the ED immediately for any suicidal/homicidal ideation, auditory/visual hallucinations, any physical complaints, or any other concerning symptoms. Please follow-up with primary care provider. Prescriptions: No Action venlafaxine 75 mg capsule,extended release 24hr 75 mg PO DAILY 90 Days Qty: 90 3RF atorvastatin 10 mg tablet 10 mg PO DAILY 90 Days Qty: 90 3RF diclofenac sodium [Arthritis Pain (diclofenac)] 1 % gel 2 g topical QID PRN (Reason: pain) 90 Days Qty: 100 1RF Rx Instructions: apply to single elbow, wrist or hand; for hand includes palm/fingers/back of hand Ensure Liquid 1 ea PO TID 24 Days Qty: 5688 0RF tramadol 50 mg tablet 50 mg PO Q8H PRN (Reason: Moderate Pain (Scale Score 5-6)) 30 Days Qty: 90 0RF atenolol 25 mg tablet 25 mg PO DAILY 90 Days Qty: 90 3RF venlafaxine 150 mg capsule,extended release 24hr 150 mg PO DAILY 90 Days Qty: 90 3RF cyanocobalamin (vitamin B-12) 1,000 mcg Tablet 1,000 mcg PO DAILY melatonin 3 mg Tablet 3 mg PO BEDTIME esomeprazole magnesium [Nexium] 20 mg Capsule,Delayed Release(Dr/Ec) 20 mg PO DAILY@0630 (DME) compression stockings 40 mmHg knee high See Rx Instructions .Route .MEDSUPPLY Qty: 2 2RF Rx Instructions: As directed sulfamethoxazole-trimethoprim [Bactrim DS] 800-160 mg tablet 1 tab PO BID Qty: 10 0RF fluorometholone 0.1 % drops,suspension 1 drp ophthalmic (eye) BID@0900,1600 bethanechol chloride 50 mg tablet 50 mg PO BID 90 Days Qty: 180 1RF Interventions: ED Discharge Assessment Last Done: 12/22/22 23:53 ED Discharge Assessment Last Done: 12/23/22 00:11 Discharge Date/Time: 12/23/22 00:11 Print Language: Welsh
[2022-12-22 22:27] LABS: Ethanol < 10 mg/dL
[2022-12-22 22:29] LABS: Bacteria Urine 2+ (None Seen); Hyaline Casts Urine 0-2 /LPF (0-2); RBC Urine 0-2 /HPF (0-2); Squamous Epithelial Cell Urine 0-2 /HPF (0-2); WBC Urine 0-5 /HPF (0-5)
[2022-12-22 22:30] VITALS: BP 178/76; PULSE 78; RESP 20; TEMP 36.6; O2SAT 97
[2022-12-22 22:48] LABS: Amphetamine Screen Urine Not Detected (Not Detect); Barbiturates, Urine Not Detected (Not Detect); Benzodiazepines Screen Urine Not Detected (Not Detect); Cannabinoid Screen Urine Not Detected (Not Detect); Cocaine Screen Urine Not Detected (Not Detect); Fentanyl, urine Not Detected (Not Detect); Opiate Screen Urine Not Detected (Not Detect); Phencyclidine Screen Urine Not Detected (Not Detect)
== END 2022-12-23 00:11 | disposition home or self-care (01) ==
PROVIDERS: Physician Assistant; Student in an Organized Health Care Education/Training Program; Emergency Provider Internal Medicine; PCP Internal Medicine
DX: F33.1 Major depressive disorder, recurrent, moderate (principal); R62.7 Adult failure to thrive; Z79.899 Other long term (current) drug therapy
CPT/HCPCS: 36415; 80048; 80307; 81001; 85025; 99283; 99284

== ENCOUNTER 2022-12-30 14:17 | Outpatient (AMB) | payer OTHER, SELFPAY ==
--- NOTE | 2022-12-30 14:41 | A.OFFPC_ITS ---
Vital Signs 12/30/22 14:42 Height 5 ft 4 in Weight 136 lb BMI 23.3 BP 130/72 Blood Pressure Location Lt brachial Position Sitting Pulse 69 Pulse Source Pulse Oximeter Pulse Oximetry (%) 98 Oxygen Delivery Method Room Air Intake Visit Reasons: bp Intake Note: Patient here for a follow up BP Head Packager Required: No Accompanied by: Son Allergies codeine [CODEINE] Allergy (Mild, Verified 12/30/22 14:58) upset stomach, nause Medication List - Last Reconciled 12/30/22 by Saritha Russell MD atenolol 25 mg PO DAILY 90 days atorvastatin 10 mg PO DAILY 90 days bethanechol chloride 50 mg PO BID 90 days [compression stockings 40 mmHg As directed] cyanocobalamin (vitamin B-12) 1,000 mcg PO DAILY diclofenac sodium 1% (Arthritis Pain (diclofenac)) 2 grams topical QID PRN 90 days esomeprazole magnesium (Nexium) 20 mg PO DAILY@0630 fluorometholone 0.1% 1 drp ophthalmic (eye) BID@0900,1600 food supplemt, lactose-reduced (Ensure oral liquid) 1 ea PO TID 24 days melatonin 3 mg PO BEDTIME tramadol 50 mg PO Q8H PRN 30 days venlafaxine ER 75 mg PO DAILY 90 days venlafaxine ER 150 mg PO DAILY 90 days Tobacco use date assessed: 03/06/22 Fall risk assessment: No Falls in past year Last assessed Fall Risk: 12/30/22 Dental Screening Dental Screen Date: 12/30/22 Did you have a dental visit in the last 12 months?: No Did you have a dental problem in the last 6 months where you did not have access to dental care?: No Was dental information given to patient?: Patient has dentist HPI HPI Comments History of Present Illness Details This is an 87-year-old female with hypertension, hyperlipidemia, GERD and mild major depression that comes today as a hospital discharge follow-up with discharge date 12/22/2022 due to depression and feeling cold at all times for many years. Blood pressure was elevated at ER but is stable today. On statins for hyperlipidemia. GERD stable with PPIs. On venlafaxine for her depression which has been somewhat stable. She also has the urge to urinate every hour for a long time. Saw Urology and tried a couple of medications with no relief. I recommend to make an appointment with H him see Urology for this matter. She is accompanied by her son Davon. COUNT INCLUDES THE [facility] Medical History (Updated 12/30/22 @ 16:15 by Saritha Russell MD) Asthma Vertigo Polyuria Anxiety Essential hypertension GERD (gastroesophageal reflux disease) Familial hypercholesterolemia Endogenous depression COPD (chronic obstructive pulmonary disease) Surgical History S/P lumpectomy of breast History of eye surgery History of cataract surgery Family History Father No problems noted. Mother No problems noted. Brother No problems noted. Sister No problems noted. Son No problems noted. Daughter No problems noted. Social History Household Members: Children Housing: Apartment Do you presently have visiting nurse or other home services: No Alcohol intake: never Patient Tobacco Use Status: Never used Tobacco e-Cigarette/Vaping Use: Never Used Second Hand Smoke Exposure: No Advance Directives Date on File: 07/22/21 service: No Current occupational status: retired Cognitive needs: Yes Hearing needs: No Vision needs: Yes Questionnaire Thrive Questionnaire Date Thrive assessed: 01/16/21 HAYDEN-7 AMB Questionnaire HAYDEN-7 Date HAYDEN - 7 assessed: 03/06/22 Source: Developed by Drs. Mehdi Marcum, Elis Cruz, Florentin Barriga and colleagues, with an educational manish from [employer] Review of Systems Const All systems reviewed & are unremarkable except as noted in HPI and below Eyes Reports no additional complaints, Denies change in vision and Denies other visual disturbances Card Denies chest pain at rest, Denies chest pain with activity, Denies edema, Denies irregular heart rhythm, Denies claudication, Denies dyspnea, Denies dyspnea on exertion, Denies orthopnea, Denies paroxysmal nocturnal dyspnea and Denies slow heart rate Resp Denies cough, Denies dyspnea and Denies dyspnea on exertion GI Denies abdominal pain, Denies change in bowel habits, Denies excessive flatus, Denies nausea and Denies vomiting Denies urinary incontinence, Denies urinary hesitancy and Denies urinary urgency Musc Denies abnormal gait, Denies atrophy, Denies deformity and Denies limited range of motion Skin/Breast Denies bleeding lesions, Denies changing lesions and Denies rash Neuro Denies abnormal gait and Denies lack of coordination Psych Reports depression Physical exam (Primary Care) Vital Signs: Last Vital Signs Pulse 69 12/30/22 14:42 BP 130/72 12/30/22 14:42 Pulse Ox 98 12/30/22 14:42 Oxygen Delivery Method Room Air 12/30/22 14:42 BMI result Body Mass Index 23.3 Tobacco/Smoking Status: Tobacco use Status Tobacco use date assessed 03/06/22 12/30/22 14:48 Patient Tobacco Use Status Never used Tobacco 12/30/22 14:48 e-Cigarette/Vaping Use Never Used 12/30/22 14:48 Thrive Assessment: Date of Thrive Assessment Date Thrive assessed 01/16/21 12/30/22 14:48 Const Limitations: wheelchair HENMT Head: Yes normal to inspection, Yes normocephalic and Yes atraumatic Ears: external ears normal Eyes General: appearance normal, both eyes and all related structures Eyelids: Yes eyelids normal Conjunctivae: conjunctivae normal Neck Neck: Yes normal visual inspection and Yes supple Resp Effort & Inspection: normal respiratory effort Auscultation: clear to auscultation bilaterally Cardio Jugular venous distension: no JVD Rate: regular rate Rhythm: regular rhythm Heart sounds: S1 normal heart sound present and S2 normal heart sound present Office Procedures Flu Questionnaire Does the patient have a severe egg allergy?: No Does the patient have severe life threatening allergies?: No Does the patient have a fever or illness today?: No Has the patient ever had Guillain-[place] Syndrome?: No Has the patient ever had any past reaction to a flu shot?: No Immunizations flu vacc [id number] 6mos up(PF) 60 mcg(15 mcgx4)/0.5 mL IM syringe Performing Provider: Saritha Russell MD [facility] Administered by: MONICA Wolff on 12/30/22 15:25 Dose Route Admin Location Dispensed Lot Number Expiration Date NDC Loss Control Consultant 0.5 mL IM Left Deltoid 0.5 mL [id number] 08/16/23 07324-921-87 Smart Panel VIS Given Date VIS Provided VIS Publication Date 12/30/22 Single Vaccine 20 Eligibility Eligibility Date Funding Source Not [facility] Eligible 12/30/22 Private Assessment and Plan Assessment & Plan (1) Hospital discharge follow-up: Code(s): Z09 - Encounter for follow-up examination after completed treatment for conditions other than malignant neoplasm Plan: Discharge date 12/22/2022 due to symptoms of depression and sadness due to being cold all the time thinking that she is close to dying. Labs and urinalysis were done which were within normal limits. Patient will continue venlafaxine. (2) Mild major depression: Code(s): F32.0 - Major depressive disorder, single episode, mild Plan: Continue venlafaxine. (3) GERD (gastroesophageal reflux disease): Code(s): K21.9 - Gastro-esophageal reflux disease without esophagitis Plan: Continue PPIs. (4) Essential hypertension: Code(s): I10 - Essential (primary) hypertension Plan: Continue atenolol. Blood pressure goal is equal or less than 130/80. (5) Hyperlipidemia: Code(s): E78.5 - Hyperlipidemia, unspecified Plan: Continue statins. Orders: Orders Influenza [id number] Immunization Today Z23 - Encounter for immunization Medications: Refilled tramadol 50 mg PO Q8H 30 days PRN 90 tabs 0RF Moderate Pain (Scale Score 5-6) Coding Level of Care Code TCM Mod MDM <= 14 Days Diagnoses Hospital discharge follow-up Z09 Mild major depression F32.0 GERD (gastroesophageal reflux disease) K21.9 Essential hypertension I10 Hyperlipidemia E78.5 Time Spent (min) 25
[2022-12-30 14:42] VITALS: BP 130/72; PULSE 69; O2SAT 98; BMI 23.3
== END 2022-12-30 15:28 | disposition home or self-care (01) ==
PROVIDERS: Visit Provider Internal Medicine
DX: F32.0 Major depressive disorder, single episode, mild (principal); K21.9 Gastro-esophageal reflux disease without esophagitis; Z09 Encounter for follow-up examination after completed treatment for conditions other than malignant neoplasm; I10 Essential (primary) hypertension; E78.5 Hyperlipidemia, unspecified; Z23 Encounter for immunization
CPT/HCPCS: 90471; 90686; 99213

== ENCOUNTER 2023-01-12 15:27 | Inpatient (IN) | payer OTHER, SELFPAY ==
[2023-01-12] VITALS (15 sets, daily range): BP systolic 148–206; BP diastolic 69–108; PULSE 66–77; RESP 8–22; TEMP 36.6–37.3; O2SAT 94–100; BMI 24.9
--- NOTE | ~2023-01-12 | XR_ITS ---
EXAMINATION: XR SHOULDER, RIGHT XR ELBOW, RIGHT CLINICAL INFORMATION: Fall. Pain. COMPARISON: None available. TECHNIQUE: AP internal rotation, AP external rotation, and scapular Y views of the right shoulder. AP and lateral views of the right elbow. FINDINGS: RIGHT SHOULDER: Anteroinferior dislocation of the humeral head with humeral head cortical impaction, consistent with an acute Hill-Sachs deformity. Moderate acromioclavicular osteoarthritis. No concerning lytic or blastic osseous lesion. No abnormal soft tissue calcification. RIGHT ELBOW: No displaced fracture. No significant joint space narrowing or marginal osteophytes. Enthesopathic spurring at the medial and lateral epicondyle. No large joint effusion. XR/XR elbow RT 2V IMPRESSION: RIGHT SHOULDER: Anteroinferior dislocation of the humeral head with humeral head cortical impaction, consistent with an acute Hill-Sachs deformity. Moderate acromioclavicular osteoarthritis. RIGHT ELBOW: No displaced fracture.
--- NOTE | ~2023-01-12 | CT_ITS ---
Examination: CT brain and CT cervical spine without contrast. Clinical indications: Fall, head strike. COMPARISON: CT brain and CT cervical spine 09/06/2021. TECHNIQUE: 5 mm thin axial and reformatted 2 mm thin sagittal and coronal images of brain were obtained. Subsequently axial 3 mm thin and reformatted 2 mm thin sagittal and coronal images of cervical spine were obtained. DLP 830. This CT examination was performed using dose optimization technique as appropriate, variously including the following: Automated exposure control Adjustment of MA and/or KV according to patient size(this includes techniques or standardized protocols for targeted exams where dose is matched to indication/reason for exam; extremities or head. Use of iterative reconstruction techniques. FINDINGS: Brain: There is no acute intra-axial, extra-axial bleed, masses or midline shift. There is no acute infarction evolution. There is no edema. A lateral ventricles are symmetrical in size but enlarged. There is mild periventricular hypodensity in both cerebral hemispheres without mass effect. There is dystrophic bibasal ganglia calcifications. Bone windows reveal no calvarial abnormality. There is no scalp soft tissue abnormality. Cervical spine: There is normal cervical lordosis. The vertebral heights and alignment is normal. There is loss of C5-C6 disc height. Rest the disc heights are normal. Is mild ventral spondylosis C3-C4, C4-C5, C5-C6 and C6-C7 disc levels. The craniovertebral junction and C1-C2 alignment is normal. There is a right C3-C4, C4-C5 facet joint arthropathy and hypertrophy. The prevertebral and paravertebral soft tissues are normal. There is widely patent. There is bilateral apical interstitial thickening likely chronic changes. CT/CT cervical spine wo IV con IMPRESSION: 1. No acute intracranial process seen. 2. There is no acute fracture, dislocation or subluxation in cervical spine.
--- NOTE | ~2023-01-12 | XR_ITS ---
EXAMINATION: XR HIP, RIGHT CLINICAL INFORMATION: Fall. COMPARISON: Most recent pelvic radiograph dated 09/06/2021. TECHNIQUE: AP view of the pelvis as well as AP and frog-leg lateral views of the right hip. FINDINGS: No displaced fracture. No dislocation. Mild bilateral hip joint space narrowing with acetabular marginal osteophytes, right greater than left. No concerning lytic or blastic osseous lesion. No evidence of avascular necrosis. Partially visualized left femoral intramedullary sharmaine and fixation screw across a chronic intertrochanteric fracture as seen on the prior radiographs. XR/XR hip RT w PEL1V IMPRESSION: 1. No acute fracture or dislocation. 2. Mild bilateral hip osteoarthritis, right greater than left.
--- NOTE | ~2023-01-12 | XR_ITS ---
EXAMINATION: XR CHEST CLINICAL INFORMATION: Fall. COMPARISON: Most recent chest radiograph dated 10/22/2016. TECHNIQUE: Frontal view of the chest was obtained. FINDINGS: Interstitial prominence with patchy left lower lobe airspace opacities, new/increased when compared to the most recent chest radiograph. No pleural effusion or pneumothorax. Mild cardiomegaly. Partially visualized anteroinferior right humeral head dislocation. XR/XR chest 1V IMPRESSION: 1. Interstitial prominence with patchy left lower lobe airspace opacities, new/increased when compared to the most recent chest radiograph. 2. Mild cardiomegaly. 3. Partially visualized anteroinferior right humeral head dislocation.
--- NOTE | ~2023-01-12 | XR_ITS ---
EXAMINATION: XR SHOULDER, RIGHT CLINICAL INFORMATION: Post reduction COMPARISON: Shoulder radiographs earlier today TECHNIQUE: Single of the right shoulder. FINDINGS: The right shoulder reduction appears to have been successful with an intact glenohumeral joint on this single view. No other change. XR/XR shoulder RT 1V IMPRESSION: Successful reduction of right shoulder dislocation.
--- NOTE | ~2023-01-12 | XR_ITS ---
EXAMINATION: XR SHOULDER, RIGHT XR ELBOW, RIGHT CLINICAL INFORMATION: Fall. Pain. COMPARISON: None available. TECHNIQUE: AP internal rotation, AP external rotation, and scapular Y views of the right shoulder. AP and lateral views of the right elbow. FINDINGS: RIGHT SHOULDER: Anteroinferior dislocation of the humeral head with humeral head cortical impaction, consistent with an acute Hill-Sachs deformity. Moderate acromioclavicular osteoarthritis. No concerning lytic or blastic osseous lesion. No abnormal soft tissue calcification. RIGHT ELBOW: No displaced fracture. No significant joint space narrowing or marginal osteophytes. Enthesopathic spurring at the medial and lateral epicondyle. No large joint effusion. XR/XR shoulder RT min 2V IMPRESSION: RIGHT SHOULDER: Anteroinferior dislocation of the humeral head with humeral head cortical impaction, consistent with an acute Hill-Sachs deformity. Moderate acromioclavicular osteoarthritis. RIGHT ELBOW: No displaced fracture.
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
--- NOTE | 2023-01-12 16:04 | ECG_ITS ---
Test Reason : GENERAL MEDICAL Blood Pressure : / mmHG Vent. Rate : 075 BPM Atrial Rate : 075 BPM P-R Int : 150 ms QRS Dur : 130 ms QT Int : 460 ms P-R-T Axes : 034 002 023 degrees QTc Int : 513 ms Normal sinus rhythm Possible Left atrial enlargement Right bundle branch block Nonspecific ST abnormality Abnormal ECG When compared with ECG of 06-SEP-2021 19:39, T wave inversion more evident in Anterior leads Referred By: Josafat Chen Electronically Signed By:KEL ETIENNE MD
--- NOTE | 2023-01-12 16:10 | ED_ITS ---
HPI - Fall General Chief Complaint: Fall Stated Complaint: FALL + COLLAR Time Seen by Provider: 01/12/23 15:57 Source: patient, family (Son) and EMS Mode of arrival: EMS Limitations: no limitations History of Present Illness HPI Narrative: 87-year-old female came in by EMS after was found on the floor by her son in her apartment. Patient normally lives independently at her house, ambulate with a walker the patient missed the walker lost balance fell forward, patient is complaining of neck pain, right shoulder pain, right hip pain, declined head injury but complaining of neck pain, patient remained on the ground for about 5 hours unable to get herself up, no LOC or head injury patient is not in AC. Declined CP, SOB, LOC, syncope. Related Data Home Medications Medication Instructions Recorded Confirmed fluorometholone 0.1 % eye 1 drp ophthalmic (eye) 11/16/19 12/30/22 drops,suspension BID@0900,1600 cyanocobalamin (vitamin B-12) 1,000 mcg PO DAILY 07/08/21 12/30/22 1,000 mcg tablet melatonin 3 mg tablet 3 mg PO BEDTIME 07/08/21 12/30/22 esomeprazole magnesium 20 mg 20 mg PO DAILY@0630 09/07/21 12/30/22 capsule,delayed release (Nexium) Previous Rx's Medication Instructions Recorded venlafaxine 75 mg capsule,extended 75 mg PO DAILY 90 days #90 caps 02/19/22 release 24 hr atorvastatin 10 mg tablet 10 mg PO DAILY 90 days #90 tabs 02/28/22 compression stockings 40 mmHg #2 ea 03/06/22 bethanechol chloride 50 mg tablet 50 mg PO BID 90 days #180 tabs 05/21/22 diclofenac sodium 1 % topical gel 2 g topical QID PRN pain 90 days 07/17/22 (Arthritis Pain (diclofenac)) #100 grams food supplemt, lactose-reduced 1 ea PO TID 24 days #5,688 mL 08/06/22 (Ensure oral liquid) atenolol 25 mg tablet 25 mg PO DAILY 90 days #90 tabs 11/17/22 venlafaxine 150 mg 150 mg PO DAILY 90 days #90 caps 11/17/22 capsule,extended release 24 hr tramadol 50 mg tablet 50 mg PO Q8H PRN Moderate Pain 12/30/22 (Scale Score 5-6) 30 days #90 tabs Allergies Allergy/AdvReac Type Severity Reaction Status Date / Time codeine [CODEINE] Allergy Mild upset Verified 12/30/22 14:58 stomach, nause Review of Systems 2 Review of Systems: All other systems are reviewed and are negative Constitutional: Reports as per HPI and Reports no additional constitutional complaints Eyes: Reports as per HPI and Reports no additional eye complaints Reports system reviewed and no additional complaints, except as documented Cardiovascular: Reports as per HPI and Reports no additional cardiovascular complaints Respiratory: Reports as per HPI and Reports no additional respiratory complaints Gastrointestinal: Reports as per HPI and Reports no additional gastrointestinal complaints Genitourinary: Reports no additional female genitourinary complaints Musculoskeletal: Reports no additional musculoskeletal complaints Skin/Breast: Reports system reviewed and no additional complaints, except as docu Psychiatric: Reports no additional psychiatric complaints Endocrine: Reports no additional endocrine complaints Hematologic/Lymphatic: Reports no additional hematologic/lymphatic complaints Allergic/Immunologic: Reports no additional allergic/immunologic complaints Reports system reviewed and no additional complaints, except as documented and Reports Abnormal speech present [facility] [place] Past Medical History Medical History Asthma Vertigo Polyuria Anxiety Essential hypertension GERD (gastroesophageal reflux disease) Familial hypercholesterolemia Endogenous depression COPD (chronic obstructive pulmonary disease) Surgical History S/P lumpectomy of breast History of eye surgery History of cataract surgery Family History Family History Father No problems noted. Mother No problems noted. Brother No problems noted. Sister No problems noted. Son No problems noted. Daughter No problems noted. Social History Household Members: Children Housing: Apartment Do you presently have visiting nurse or other home services: No Alcohol intake: never Patient Tobacco Use Status: Never used Tobacco e-Cigarette/Vaping Use: Never Used Second Hand Smoke Exposure: No Advance Directives: Yes Advance Directives on File: Yes Advance Directives Date on File: 07/22/21 service: No Current occupational status: retired Cognitive needs: Yes Hearing needs: No Vision needs: Yes Physical Exam 2 Vital Signs: Vital Signs: Last Vital Signs Temp 99.1 F 01/12/23 22:55 Pulse 68 01/12/23 23:20 Resp 21 H 01/12/23 23:20 BP 201/81 H 01/12/23 23:20 Pulse Ox 100 01/12/23 23:20 O2 Del Method Nasal Cannula 01/12/23 21:52 O2 Flow Rate 1 01/12/23 21:52 Oxygen Flow Rate 2 01/12/23 23:20 BMI result Body Mass Index 24.9 Vital signs have been reviewed and appear to be correct. Blood pressure elevated. Heart rate normal. Respiratory rate normal. Temperature normal. Oxygen saturation normal. Appearance: Alert. Oriented X3. No acute distress. Head: Normal external exam. Normocephalic. Atraumatic. No Kim signs noted. No raccoon eyes noted Eyes: PERRLA. EOMI. Conjunctiva and sclera normal. Eyelids normal. ENT: TM's Normal. Pharynx normal. Uvula midline. Moist mucous membranes. No trismus noted. No drooling noted. No muffled voice noted. Neck: Normal inspection. No step-off, no deformity, C-collar is in place. No adenopathy. Thyroid Normal. No meningeal signs. No neck mass noted. CVS: Normal heart rate and rhythm. Heart sound normal. No murmurs noted. Pulses normal throughout. Respiratory: No respiratory distress. Painless inspiration. Breath sounds normal. No wheezes/rales/rhonchi noted. Chest nontender. No accessory muscle usage noted or decreased air movement noted. Abdomen: Soft and nontender. Bowel sounds normal in all 4 quadrants. No distention noted. No organomegaly noted. No visible injury noted. Back: No CVA tenderness. Full range of motion noted. Skin: Skin warm and dry. Normal skin color. Normal skin turgor. No rashes/lesions/lacerations noted. Extremities: Right shoulder: No deformity, held in adduction position very tender range of motion. Mild right hip tenderness with no deformity or step off, no lower extremities rotation or shortness. Neuro: Oriented X 3. Cranial nerve exam: II-XII are grossly intact No motor deficit. No sensory deficit. Reflexes normal. Course Reevaluation(s) Reevaluation #1: 87-year-old female s/p mechanical fall remained on the floor for 5-6 hours, patient sustained rhabdomyolysis patient also have a mild congestive heart failure she is in need slow gentle hydration that would require admission. Traumatic right shoulder dislocation s/p conscious sedation with right shoulder reduction. Time: 23:53 Medications Administered Discontinued Medications Generic Name Dose Route Start Last Admin Trade Name Vibha PRN Reason Stop Dose Admin Morphine Sulfate 1 mg 01/12/23 22:04 01/12/23 22:15 Morphine Sulfate 2 Mg/Ml Cartridge IVPUSH 01/12/23 22:05 1 mg ONCE ONE Administration Protocol Oxycodone HCl 5 mg 01/12/23 16:07 01/12/23 16:13 Oxycodone Hcl Immed Release 5 Mg Tablet PO 01/12/23 16:08 5 mg ONCE ONE Administration Propofol 100 mg 01/12/23 22:24 01/12/23 23:01 Propofol 200 Mg/20 Ml Vial IVPUSH 01/12/23 22:25 100 mg ONCE ONE Administration Procedures Orthopedic Joint Reduction Joint #1: Time Out Performed: Yes Side: right Joint Reduction Location: shoulder Analgesia: procedural sedation Shoulder Technique Used (if applicable): traction/counter-traction Technique used: traction/counter-traction Post-reduction neuro exam: intact Post-reduction vascular: intact Post Reduction X-Ray Obtained: Yes Post Reduction X-Ray Results: reduced Splint Applied: Yes Patient Tolerated Procedure: well Procedural Sedation Indication: fracture/dislocation reduction ASA Class: I Mallampati Class: I Preparation: bullet casting operator applied, pulse oximeter, capnometry used, supplemental O2 applied, reversal agents at bedside, suction/airway equipment at bedside and IV secured IV Propofol dose (mg): 50 Patient Tolerated Procedure: well and no complications Complications: none Medical Decision Making Differential Diagnosis Differential Diagnoses: The differential diagnosis associated with the presentation includes (Right shoulder dislocation, right shoulder fracture, right elbow fracture, intracranial bleed, cervical spine injury, rhabdomyolysis, electrolyte abnormality, severe anemia.) Admission/Observation Consideration of admission/observation: Escalation of care including admission/observation considered Consult Healthcare Provider Management of the patient was discussed with: Hospitalist (Dr. Hernandez) Lab Data MDM Lab Attestation statement: I reviewed the patient's lab results. 01/12/23 17:26 01/12/23 17:26 Labs: Lab Results 01/12/23 01/12/23 Range/Units 17:26 20:17 WBC 11.1 H (4.8-10.8) X10*3/uL RBC 3.31 L (4.20-5.50) X10*6/uL Hgb 10.1 L (12.0-16.0) g/dl Hct 30.4 L (37.0-47.0) % MCV 91.8 (80.0-98.0) fL MCH 30.5 (27.0-33.0) pg MCHC 33.2 (31.0-35.0) g/dl RDW 13.4 (11.0-16.0) % Plt Count 230 (160-400) X10*3/uL MPV 11.2 (9.4-12.3) fL Immature Gran % (Auto) 0.5 H (0.0-0.4) % Neut % (Auto) 79.1 H (45-73) % Lymph % (Auto) 6.6 L (20-40) % Shannon % (Auto) 13.6 H (2-11) % Eos % (Auto) 0.0 (0-4) % Baso % (Auto) 0.2 (0-2) % Lymph # (Auto) 0.7 L (1.2-4.9) X10*3/uL Shannon # (Auto) 1.5 H (0.1-1.2) X10*3/uL Eos # (Auto) 0.0 (0.0-0.4) X10*3/uL Baso # (Auto) 0.0 (0.0-0.2) X10*3/uL Abs Immat Gran (auto) 0.06 H (0.00-0.03) X10*3/uL Absolute Neuts (auto) 8.8 H (2.0-8.3) x10*3/uL Absolute Nucleated RBC 0.000 (0.0-0.012) X10*3/uL Nucleated RBC % (auto) 0.0 (0.0-0.2) /100WBC Smear Tech's Comments VERIFIED Sodium 131 L (135-145) mmol/L Potassium 3.6 (3.3-5.1) mmol/L Chloride 95 L (96-108) mmol/L Carbon Dioxide 28 (22-29) mmol/L Anion Gap 12 (12-20) BUN 20 H (9-16) mg/dL Creatinine 0.85 (0.5-1.4) mg/dL Estim Creat Clear Calc 44.3 Estimated GFR > 60 Random Glucose 115 (60-115) mg/dL Calcium 9.3 (8.4-10.2) mg/dL Total Bilirubin 0.3 (0.0-1.0) mg/dL Direct Bilirubin 0.1 (0.0-0.5) mg/dL AST 47 H (5-31) U/L ALT 19 (0-31) U/L Alkaline Phosphatase 76 (39-117) U/L Total Creatine Kinase 1512 H (26-140) U/L Troponin I High Sens 19.0 H (<3.5-17.0) ng/L B-Natriuretic Peptide 977 H (<100) pg/mL Total Protein 8.2 H (6.5-8.0) g/dL Albumin 4.1 (3.5-5.0) g/dL Lipase 11 (8-78) U/L Urine Color Yellow Urine Appearance Turbid Urine pH 8.5 (5.0-9.0) Ur Specific [place] 1.015 (1.005-1.025) Urine Protein 30 (1+) H (Neg-Trace) mg/dL Urine Glucose (UA) Negative (Negative) mg/dL Urine Ketones Negative (Negative) mg/dL Urine Blood Trace H (Negative) Urine Nitrite Negative (Negative) Ur Leukocyte Esterase Trace H (Negative) Urine RBC 3-5 H (0-2) /HPF Urine WBC 0-5 (0-5) /HPF Ur Squamous Epith Cells 11-20 (0-2) /HPF Urine Bacteria 4+ (None Seen) Hyaline Casts 3-5 (0-2) /LPF Independent Interpretation I performed an independent interpretation of an: Plain X-Ray (Shoulder/elbow/chest: Negative except right shoulder dislocation.) and CT Scan (Head/cervical spine: No acute intracranial pathology, no C-spine fracture or subluxation.) Radiology Impression Discussion of test interpretation with radiology: I have reviewed the radiologist's reading. Discharge Plan Discharge Clinical Impression: Fall Rhabdomyolysis Qualifiers: Rhabdomyolysis type: traumatic Anterior dislocation of right shoulder Qualifiers: Encounter type: initial encounter Qualified Code(s): S43.014A - Anterior dislocation of right humerus, initial encounter Patient Disposition: Admitted As Inpatient Prescriptions: No Action venlafaxine 75 mg capsule,extended release 24hr 75 mg PO DAILY 90 Days Qty: 90 3RF atorvastatin 10 mg tablet 10 mg PO DAILY 90 Days Qty: 90 3RF diclofenac sodium [Arthritis Pain (diclofenac)] 1 % gel 2 g topical QID PRN (Reason: pain) 90 Days Qty: 100 1RF Rx Instructions: apply to single elbow, wrist or hand; for hand includes palm/fingers/back of hand Ensure Liquid 1 ea PO TID 24 Days Qty: 5688 0RF atenolol 25 mg tablet 25 mg PO DAILY 90 Days Qty: 90 3RF venlafaxine 150 mg capsule,extended release 24hr 150 mg PO DAILY 90 Days Qty: 90 3RF cyanocobalamin (vitamin B-12) 1,000 mcg Tablet 1,000 mcg PO DAILY melatonin 3 mg Tablet 3 mg PO BEDTIME esomeprazole magnesium [Nexium] 20 mg Capsule,Delayed Release(Dr/Ec) 20 mg PO DAILY@0630 tramadol 50 mg tablet 50 mg PO Q8H PRN (Reason: Moderate Pain (Scale Score 5-6)) 30 Days Qty: 90 0RF (DME) compression stockings 40 mmHg knee high See Rx Instructions .Route .MEDSUPPLY Qty: 2 2RF Rx Instructions: As directed fluorometholone 0.1 % drops,suspension 1 drp ophthalmic (eye) BID@0900,1600 bethanechol chloride 50 mg tablet 50 mg PO BID 90 Days Qty: 180 1RF
[2023-01-12] MEDS: oxyCODONE HCl Immed Release 5 MG TABLET PO (16:13)
--- NOTE | 2023-01-12 16:16 | PC.NURSE ---
pt in room, given oxy for pain, ct came to room to take pt to ct, collar on
[2023-01-12 17:58] LABS: Alanine Aminotransferase 19 U/L (0-31); Albumin Level 4.1 g/dL (3.5-5.0); Alkaline Phosphatase 76 U/L (39-117); Anion Gap 12 (12-20); Aspartate Amino Transferase 47 U/L (5-31); Bilirubin Direct 0.1 mg/dL (0.0-0.5); Bilirubin Total 0.3 mg/dL (0.0-1.0); Blood Urea Nitrogen 20 mg/dL (9-16); Calcium 9.3 mg/dL (8.4-10.2); Carbon Dioxide 28 mmol/L (22-29); Chloride 95 mmol/L (96-108); Creatinine Clr Calc Pharmacy 44.3; Estimated Glomerular Filt Rate > 60; Glucose Random 115 mg/dL (60-115); Lipase 11 U/L (8-78); Potassium 3.6 mmol/L (3.3-5.1); Sodium 131 mmol/L (135-145); Total Protein 8.2 g/dL (6.5-8.0)
[2023-01-12 17:59] LABS: Basophils Percent Auto 0.2 % (0-2); Hematocrit 30.4 % (37.0-47.0); Hemoglobin 10.1 g/dl (12.0-16.0); Imm Gran Abs Auto 0.06 X10*3/uL (0.00-0.03); Imm Gran Pct Auto 0.5 % (0.0-0.4); Lymphocytes Absolute Auto 0.7 X10*3/uL (1.2-4.9); Lymphocytes Percent Auto 6.6 % (20-40); MANUAL DIFF FLAG SCAN; Mean Corpuscular HGB Conc 33.2 g/dl (31.0-35.0); Mean Corpuscular Hemoglobin 30.5 pg (27.0-33.0); Mean Corpuscular Volume 91.8 fL (80.0-98.0); Mean Platelet Volume 11.2 fL (9.4-12.3); Monocytes Absolute Auto 1.5 X10*3/uL (0.1-1.2); Monocytes Percent Auto 13.6 % (2-11); Neutrophils Absolute Auto 8.8 x10*3/uL (2.0-8.3); Neutrophils Percent Auto 79.1 % (45-73); Platelet Count 230 X10*3/uL (160-400); Red Blood Count 3.31 X10*6/uL (4.20-5.50); Red Cell Distribution Width 13.4 % (11.0-16.0); SCAN SMEAR FLAG 1; White Blood Count 11.1 X10*3/uL (4.8-10.8)
[2023-01-12 18:03] LABS: B Type Natriuretic Peptide 977 pg/mL (<100)
[2023-01-12 18:42] LABS: SLIDE REVIEW VERIFIED
--- NOTE | 2023-01-12 20:20 | MHC.EDTECH ---
This pct assumed care of pt at 1945 ,vitals taken ,RN Page is aware of pt high bp ,Patient was incontinent of urine ,urine sample collected and sent to lab ,pt was change into hospital attire ,all extra linen removed from underneath Patient ,pt son at bedside ,Call nicholson within Pt reach .
[2023-01-12 20:25] LABS: Appearance Urine Turbid; Color Urine Yellow; Glucose Urine UA Negative (Negative); Leukocyte Esterase Urine Trace (Negative); Nitrite Urine Negative (Negative); PH 8.5 (5.0-9.0); Specific Gravity - Urine 1.015 (1.005-1.025); UMIC TRIGGER UACC YES; Urine Blood Trace (Negative); Urine Ketones Negative (Negative); Urine Protein 30 (1+) mg/dL (Neg-Trace)
[2023-01-12 20:55] LABS: Bacteria Urine 4+ (None Seen); WBC Urine 0-5 /HPF (0-5)
--- NOTE | 2023-01-12 21:55 | MHC.EDTECH ---
PROVIDER RONNIE AND RN PAGE IS AWARE OF PATIENT HIGH BP .
--- NOTE | 2023-01-12 22:10 | PC.NURSE ---
this rn made aware of high bp, this rn made dr moon aware of bp. no orders placed
[2023-01-12] MEDS: Morphine Sulfate 2 MG/ML CARTRIDGE 1 MG IVPUSH (22:15)
[2023-01-12] MEDS: propofoL 200 MG/20 ML VIAL 100 MG IVPUSH (23:01)
--- NOTE | 2023-01-12 23:30 | PC.NURSE ---
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
[2023-01-13] VITALS (8 sets, daily range): BP systolic 144–176; BP diastolic 65–71; PULSE 66–77; RESP 15–22; TEMP 36.6–37.3; O2SAT 92–97; BMI 24.6
[2023-01-13] MEDS: 0.9 % Sodium Chloride 1,000 ML 999 ML IV
--- NOTE | 2023-01-13 00:52 | PM.IMHP ---
History of Present Illness Date of Service: 01/12/23 Chief Complaint: Fall and dislocated right shoulder 87 year old female with history of falls, HTN, anxiety and others per PMH. She was found on the floor by her son after about 5 hrs. Patient states that she fell but not able elaborate on the circumstance. She didn't hit her head but injured the right should which was found to be dislocated and was reduced by ED provider. She is otherwise doing well and has no other complaint. CT head, neck no fracture, pelvis xray no fracture. CXR cardiomegally, patchy airway disease, CPK is mildly elevated around 1600. She has elevated BNP level 977(no old value) but with no aparent signs of symptoms of heart failure. Review of Systems Review of Systems: right shoulder pain, no shortness of breath, no chest pain, no dizziness, no abd pain, Yes all other systems are reviewed and are negative [facility] Medical History Asthma Vertigo Polyuria Anxiety Essential hypertension GERD (gastroesophageal reflux disease) Familial hypercholesterolemia Endogenous depression COPD (chronic obstructive pulmonary disease) Family History Father No problems noted. Mother No problems noted. Brother No problems noted. Sister No problems noted. Son No problems noted. Daughter No problems noted. Surgical History S/P lumpectomy of breast History of eye surgery History of cataract surgery Household Members: Children Housing: Apartment Do you presently have visiting nurse or other home services: No Alcohol intake: never Patient Tobacco Use Status: Never used Tobacco e-Cigarette/Vaping Use: Never Used Second Hand Smoke Exposure: No Advance Directives: Yes Advance Directives on File: Yes Advance Directives Date on File: 07/22/21 service: No Current occupational status: retired Cognitive needs: Yes Hearing needs: No Vision needs: Yes Meds Allergies Allergy/AdvReac Type Severity Reaction Status Date / Time codeine [CODEINE] Allergy Mild upset Verified 12/30/22 14:58 stomach, nause Active Medications: Current Medications Sodium Chloride (0.9 % Sodium Chloride Flush 3 Ml Syringe) 3 ml IVFLUSH QSHIFT PACO Last Admin: 01/13/23 00:00 Dose: 3 ml Home Medications Medication Instructions Recorded Confirmed Last Taken Type fluorometholone 0.1 % eye 1 drp ophthalmic (eye) 11/16/19 12/30/22 07/07/21 History drops,suspension BID@0900,1600 cyanocobalamin (vitamin B-12) 1,000 mcg PO DAILY 07/08/21 12/30/22 07/07/21 History 1,000 mcg tablet melatonin 3 mg tablet 3 mg PO BEDTIME 07/08/21 12/30/22 Unknown History esomeprazole magnesium 20 mg 20 mg PO DAILY@0630 09/07/21 12/30/22 Unknown History capsule,delayed release (Nexium) Physical Exam Vital Signs and Narrative: Vital Signs: Last Vital Signs Temp 99.1 F 01/12/23 22:55 Pulse 69 01/12/23 23:59 Resp 22 H 01/12/23 23:59 BP 183/73 H 01/12/23 23:59 Pulse Ox 95 01/12/23 23:59 O2 Del Method Room Air 01/12/23 23:59 O2 Flow Rate 1 01/12/23 21:52 Oxygen Flow Rate 2 01/12/23 23:20 BMI result Body Mass Index 24.9 Results Labs 01/12/23 17:26 01/12/23 17:26 Labs: Laboratory Results - last 24 hr 01/12/23 01/12/23 17:26 20:17 MCV 91.8 MCH 30.5 MCHC 33.2 RDW 13.4 Plt Count 230 MPV 11.2 Immature Gran % (Auto) 0.5 H Neut % (Auto) 79.1 H Lymph % (Auto) 6.[address] [place] % (Auto) 13.6 H Eos % (Auto) 0.0 Baso % (Auto) 0.2 Lymph # (Auto) 0.[address] [place] # (Auto) 1.5 H Eos # (Auto) 0.0 Baso # (Auto) 0.0 Abs Immat Gran (auto) 0.06 H Absolute Neuts (auto) 8.8 H Absolute Nucleated RBC 0.000 Nucleated RBC % (auto) 0.0 Smear Tech's Comments VERIFIED Anion Gap 12 Estim Creat Clear Calc 44.3 Estimated GFR > 60 Random Glucose 115 Calcium 9.3 Total Bilirubin 0.3 Direct Bilirubin 0.1 AST 47 H ALT 19 Alkaline Phosphatase 76 Total Creatine Kinase 1512 H B-Natriuretic Peptide 977 H Total Protein 8.2 H Albumin 4.1 Lipase 11 Urine Color Yellow Urine Appearance Turbid Urine pH 8.5 Ur Specific [place] 1.015 Urine Protein 30 (1+) H Urine Glucose (UA) Negative Urine Ketones Negative Urine Blood Trace H Urine Nitrite Negative Ur Leukocyte Esterase Trace H Urine RBC 3-5 H Urine WBC 0-5 Ur Squamous Epith Cells 11-20 Urine Bacteria 4+ Hyaline Casts 3-5 Imaging Radiologist's Impressions: Impressions Cervical Spine CT 01/12/23 16:58 IMPRESSION: 1. No acute intracranial process seen. 2. There is no acute fracture, dislocation or subluxation in cervical spine. Head CT 01/12/23 16:58 IMPRESSION: 1. No acute intracranial process seen. 2. There is no acute fracture, dislocation or subluxation in cervical spine. Chest X-Ray 01/12/23 19:21 IMPRESSION: 1. Interstitial prominence with patchy left lower lobe airspace opacities, new/increased when compared to the most recent chest radiograph. 2. Mild cardiomegaly. 3. Partially visualized anteroinferior right humeral head dislocation. Elbow X-Ray 01/12/23 19:21 IMPRESSION: RIGHT SHOULDER: Anteroinferior dislocation of the humeral head with humeral head cortical impaction, consistent with an acute Hill-Sachs deformity. Moderate acromioclavicular osteoarthritis. RIGHT ELBOW: No displaced fracture. Hip/Pelvis X-Ray 01/12/23 19:21 IMPRESSION: 1. No acute fracture or dislocation. 2. Mild bilateral hip osteoarthritis, right greater than left. Shoulder X-Ray 01/12/23 19:21 IMPRESSION: RIGHT SHOULDER: Anteroinferior dislocation of the humeral head with humeral head cortical impaction, consistent with an acute Hill-Sachs deformity. Moderate acromioclavicular osteoarthritis. RIGHT ELBOW: No displaced fracture. Shoulder X-Ray 01/12/23 23:12 IMPRESSION: Successful reduction of right shoulder dislocation. Assessment and Plan (1) Anterior dislocation of right shoulder: Qualifiers: Encounter type: initial encounter Qualified Code(s): S43.014A - Anterior dislocation of right humerus, initial encounter Status: Acute (2) Fall: Status: Acute Plan 87/F with HTN, HLD, GERD found on floor with circumstances of fall unclear and found to have dislocated right shoulder, early rhabdo and ? CHF Fall, nature unclear, monitor on tele, r/u arrythmia Dislocated right shoulder, reduced by ED provider, in sling. Follow up with ortho on outpatient basis, tylenol or tramadol for pain PT/OT eval Rhabdomylsis, mild, given some ivf in ED, repet CPK in am, caution with IVF given possible heart failure CHF, unspecified. BNP, and CXR finding are consistent with heart failure and is now saying she get sob walking -IV Lasix 20 mg once, get echo and consider cardiology eval HTN--resume med upon med rec completion HLD-will need to hold statin due to high CPK Mood desorder, continue home meds DVT prophyalxis: heparin Code: DNR, discussed with pt and son Horacio at the bedside Admission for at least 2 midnights for management of heart failure, fall with dislocated shoulder Quality Stroke Does the patient have a stroke diagnosis?: No VTE Prior VTE?: No VTE Risk Level:: Medical - moderate - high VTE Device Contraindication: Treatment Not Indicated VTE Drug Contraindication: N/A - Med Ordered
--- NOTE | 2023-01-13 01:25 | PC.NURSE ---
gina wick became disconnected. bed linen soiled. bed linen changed pt cooperative with care. periwick replaced
[2023-01-13] MEDS: Heparin Sodium,Porcine 5,000 UNIT/ML VIAL 5000 UNIT SUBCUT ×3 (02:18→22:28)
[2023-01-13] MEDS: Furosemide 20 MG/2 ML VIAL IVPUSH ×2 (02:18→17:53)
[2023-01-13 06:18] LABS: Anion Gap 16 (12-20); Blood Urea Nitrogen 19 mg/dL (9-16); Calcium 8.9 mg/dL (8.4-10.2); Carbon Dioxide 25 mmol/L (22-29); Chloride 97 mmol/L (96-108); Creatinine Clr Calc Pharmacy 47.1; Estimated Glomerular Filt Rate > 60; Glucose Random 86 mg/dL (60-115); Potassium 3.3 mmol/L (3.3-5.1); Sodium 135 mmol/L (135-145)
--- NOTE | 2023-01-13 07:00 | CA_ITS ---
Transthoracic Echocardiogram Patient (Last, First, Middle): Latonia Wakefield, Gender: Female Date of : 1935 Age: 87 Procedure Date: 01/13/2023 Procedure Type: Transthoracic Echocardiogram Location: [facility] Height: 162.56 cm Weight: 65.77 kg BSA: 1.71 m2 Heart Rate: bpm BP: 168 / 87 mmHg Cuff Matcher: JORGE Thompson MD: Charlie Ramos MD Gerentological Physiotherapist: Owen Escamilla MD Symptoms: heart failure Study Quality: Fair ECG Rhythm: Sinus Conclusions: - 1. Normal LV ejection fraction of 65-70% with mild LVH with impaired relaxation filling pattern 2. Mild aortic stenosis 3. Normal RV systolic pressure with normal right atrial pressures 4. Mildly dilated ascending aorta at 4 cm 5. No gross pericardial effusion Findings Procedure Information Contrast agent, definity, is being given per protocol without apparent complications. Left Ventricle Normal left ventricular size and systolic function. There is mildly increased left ventricular wall thickness. The visually estimated ejection fraction is between 65-70%. Regional wall motion abnormalities can not be excluded due to suboptimal endocardial definition. Spectral Doppler is indicative of an impaired relaxation filling pattern. E/E prime ratio is between 8 and 15 consistent with indeterminate filling pressures. Right Ventricle Normal right ventricular cavity size and systolic function. Atria The left atrium is likely dilated. Interatrial shunt cannot be excluded. The right atrium is normal in size. Aortic Valve There is mild calcification of the aortic valve. There is mild thickening of the aortic valve. There is mild aortic valve stenosis. The peak aortic gradient is 24 mmHg.The mean gradient is 13 mmHg. The aortic valve area is 1.77 cm2. There is no aortic valve regurgitation. Mitral Valve There is mild anterior and moderate posterior mitral leaflet thickening. There is moderate mitral annular calcification. There is trace mitral valve regurgitation. There is no mitral valve stenosis. Pulmonic Valve The pulmonic valve was not well visualized. Tricuspid Valve Likely normal tricuspid valve structure and function. There is trace tricuspid valve regurgitation. The right ventricular systolic pressure is normal. The right ventricular systolic pressure is 23 mmHg. Normal right atrial pressure. There is no evidence of pulmonary hypertension. Great Vessels The pulmonary artery was not well visualized. There is mild dilatation of the ascending aorta measuring 4.00 cm. Venous The inferior vena cava is normal in size and collapses greater than 50% with inspiration. Pericardium/Pleural There is a trivial loculated pericardial effusion overlying the left ventricle. Measurements 2D Linear Measurements IVSd: 1.34 0.6-0.9/0.6-1.0 cm LVIDd: 3.96 3.9-5.3/4.2-5.9 cm LVIDd Index: 2.32 2.4-3.2/2.2-3.1 cm/m2 LVIDs: 2.35 2.0-3.6 cm LVPWd: 1.30 0.7-1.1 cm Ao Root: 3.70 2.1-3.5 cm LA Diam: 3.00 2.7-3.8/3.0-4.0 cm LAIDs Index: 1.75 1.5-2.3 cm/m2 LV Mass: 256.69 67-162/88-224 g LV Mass Index: 150.11 43-95/49-115 g/m2 LVOT Diam: 1.80 3.0+(-)1.3 cm 2D Systolic Function EF 4C: 63.50 >55% EF 2C: 80.10 >55% EF BiP: 72.40 >55% Mitral Valve MV Pk E: 0.75 MV PK A: 0.90 MV Decel Time: 274.00 E/A: 0.80 E'Lateral: 5.11 E'Medial: 3.26 E/E' Med: 23.00 E/E' Lat: 14.70 PHT: 80.00 MVA PHT: 2.75 Decel [place]: 2.74 Aortic Valve AoV Pk Matthew: 2.44 AoV Mn Matthew: 1.64 AoV VTI: 0.47 AoV Pk Grad: 24.00 Aov Mn Grad: 13.00 ESME Cont.VTI: 1.77 LVOT LVOT Pk Matthew: 1.71 LVOT Mn Matthew: 1.15 LVOT VTI: 0.33 LVOT Pk Grad: 12.00 LVOT Mn Grad: 6.00 LVOT Diam: 1.80 LVOT Area: 2.54 Diastolic Function MV Pk E: 0.75 MV Pk A: 0.90 E/A: 0.80 E'Medial: 3.26 E/E' Med: 23.00 E' Laterial: 5.11 E/E' Lat: 14.70 Right Ventricle TAPSE (mm): 20.00 TVS' Matthew: 18.00 Tricuspid Valve TR Pk Matthew: 2.25 TR Pk Grad: 20.00 RA Press: 3.00 RVSP: 23.00 Great Vessels Aorta Ao Root-2D: 3.70 2.0-3.7 cm Ao Asc: 4.00 2.1-3.4 cm Pulmonary Valve PV Pk Matthew: 1.25 Peak PV Grad: 6.00 Updated in Other Vendor System with Status of Final Owen Escamilla MD electronically signed on 01/13/2023 4:53:38 PM with status of Final
--- NOTE | 2023-01-13 07:17 | PC.NURSE ---
pt disposition to be admitted. conscious sedation paperwork and discharge sheet in pt chart
--- NOTE | 2023-01-13 08:45 | PHA.MEDREC ---
Pharmacy Consult ? Medication Reconciliation Pharmacy has completed the medication reconciliation.
[2023-01-13] MEDS: Atorvastatin Calcium 10 MG TABLET PO (10:24)
[2023-01-13] MEDS: atenoloL 25 MG TABLET PO (10:24)
[2023-01-13] MEDS: Venlafaxine HCl ER 75 MG CAP.ER.24H PO (10:28)
--- NOTE | 2023-01-13 10:59 | HO.PM.IMPN ---
Subjective Subjective Date of Service: 01/13/23 Review of Systems Follow up fall doing better but tired Physical Exam Vital Signs: Vital Signs: Last Vital Signs Temp 98.6 F 01/13/23 06:26 Pulse 70 01/13/23 07:39 Resp 22 H 01/13/23 06:26 BP 176/65 H 01/13/23 07:39 Pulse Ox 96 01/13/23 07:39 O2 Del Method Room Air 01/13/23 06:26 O2 Flow Rate 1 01/12/23 21:52 Oxygen Flow Rate 2 01/12/23 23:20 BMI result Body Mass Index 24.9 Appearing in no acute distress lung sounds are clear to auscultation heart regular rate rhythm, clear S1, S2 positive bowel sounds, abdomen is soft, nontender neuro patient is alert x3, no focal deficits Sling to right arm Objective Data Active Medications Atenolol (Atenolol 25 Mg Tablet) 25 mg PO DAILY [facility]; Protocol Last Admin: 01/13/23 10:24 Dose: 25 mg Documented By: FRANCOIS Atorvastatin Calcium (Atorvastatin Calcium 10 Mg Tablet) 10 mg PO DAILY [facility] Last Admin: 01/13/23 10:24 Dose: 10 mg Documented By: FRANCOIS Heparin Sodium (Porcine) (Heparin Sodium,Porcine 5,000 Unit/Ml Vial) 5,000 unit SUBCUT BID [facility] Last Admin: 01/13/23 02:18 Dose: 5,000 unit Documented By: JOANNE Melatonin (Melatonin 3 Mg Tablet) 3 mg PO BEDTIME [facility] Sodium Chloride (0.9 % Sodium Chloride Flush 3 Ml Syringe) 3 ml IVFLUSH QSHIFT [facility] Last Admin: 01/13/23 09:18 Dose: Not Given Documented By: JANELL Non-Admin Reason: IV Running Tramadol HCl (Tramadol Hcl 50 Mg Tablet) 25 mg PO Q6H PRN PRN Reason: Pain, Severe (Pain Scale 7-10) Tramadol HCl (Tramadol Hcl 50 Mg Tablet) 50 mg PO Q8H PRN PRN Reason: Moderate Pain (Scale Score 5-6) Venlafaxine HCl (Venlafaxine Hcl Er 75 Mg Cap.Er.24h) 75 mg PO DAILY [facility] Last Admin: 01/13/23 10:28 Dose: 75 mg Documented By: FRANCOIS Labs 01/12/23 17:26 01/13/23 04:44 Labs: Laboratory Results - last 24 hr 01/12/23 01/12/23 01/13/23 17:26 20:17 04:44 MCV 91.8 MCH 30.5 MCHC 33.2 RDW 13.4 Plt Count 230 MPV 11.2 Immature Gran % (Auto) 0.5 H Neut % (Auto) 79.1 H Lymph % (Auto) 6.6 L [place] % (Auto) 13.6 H Eos % (Auto) 0.0 Baso % (Auto) 0.2 Lymph # (Auto) 0.7 L [place] # (Auto) 1.5 H Eos # (Auto) 0.0 Baso # (Auto) 0.0 Abs Immat Gran (auto) 0.06 H Absolute Neuts (auto) 8.8 H Absolute Nucleated RBC 0.000 Nucleated RBC % (auto) 0.0 Smear Tech's Comments VERIFIED Anion Gap 12 16 Estim Creat Clear Calc 44.3 47.1 Estimated GFR > 60 > 60 Random Glucose 115 86 Calcium 9.3 8.9 Total Bilirubin 0.3 Direct Bilirubin 0.1 AST 47 H ALT 19 Alkaline Phosphatase 76 Total Creatine Kinase 1512 H 1764 H B-Natriuretic Peptide 977 H Total Protein 8.2 H Albumin 4.1 Lipase 11 Urine Color Yellow Urine Appearance Turbid Urine pH 8.5 Ur Specific [place] 1.015 Urine Protein 30 (1+) H Urine Glucose (UA) Negative Urine Ketones Negative Urine Blood Trace H Urine Nitrite Negative Ur Leukocyte Esterase Trace H Urine RBC 3-5 H Urine WBC 0-5 Ur Squamous Epith Cells 11-20 Urine Bacteria 4+ Hyaline Casts 3-5 Assessment and Plan (1) Fall: Status: Acute (2) Anterior dislocation of right shoulder: Status: Acute (3) Rhabdomyolysis: Status: Acute Plan 87/F with HTN, HLD, GERD found on floor with circumstances of fall unclear and found to have dislocated right shoulder, early rhabdo and ? CHF Fall nature unclear no arrythmia on tele PT/OT rec STR Dislocated right shoulder reduced by ED provider, continue sling. Follow up with ortho on outpatient basis tylenol or tramadol for pain Rhabdomylsis mild given some ivf in ED, repeat CPK 1764 CHF, unspecified. BNP, and CXR finding are consistent with heart failure LAsix 20 BID cardio consult HTN resume med HLD will need to hold statin due to high CPK Mood disorder continue home meds DVT prophyalxis: heparin Attending Dr. Huston DNR Continued hospital stay for management of heart failure, fall with dislocated shoulder and safe disposition Quality Stroke Does the patient have a stroke diagnosis?: No VTE Prior VTE?: No VTE Risk Level:: Medical - moderate - high VTE Device Contraindication: Treatment Not Indicated VTE Drug Contraindication: N/A - Med Ordered
--- NOTE | 2023-01-13 11:42 | MHC.CM.PN ---
CM attempted to meet with pt twice in ED, she was sleeping soundly, then later was awake but kept her eyes closed and did not answer questions, told TW to come back tomorrow. CM will re-attempt to gain admission info. at a later time.
--- NOTE | 2023-01-13 13:52 | MHC.EDTECH ---
Pt incontinent of urine, washed up and all new linens placed. Pt repositioned to left side. Resting comfortably in bed with call nicholson within reach.
[2023-01-13] MEDS: 0.9 % Sodium Chloride Flush 3 ML SYRINGE IVFLUSH ×3 (17:45→22:39)
[2023-01-13] MEDS: cefTRIAXone sodium 1 GM in 0.9 % Sodium Chloride 50 ML IV (17:49)
[2023-01-13] MEDS: guaiFENesin DM 100/10/5 ML 5 ML SYRUP PO ×2 (17:52→22:29)
[2023-01-13] MEDS: 0.9 % Sodium Chloride 1,000 ML 75 ML IVCONT (18:10)
--- NOTE | 2023-01-13 19:30 | MHC.EDTECH ---
John changed patient inc
--- NOTE | 2023-01-13 19:41 | PC.NURSE ---
assumed care of pt at 1915. spoke to family member for reassurance as c/o not receiving updates/pt remaining in stretcher over hospital bed as prone to pressure ulcers. attempting to call report to imc rn to move pt upstairs into hospital bed.
[2023-01-13] MEDS: Milk of Magnesia 30 ML ORAL.SUSP PO (22:27)
[2023-01-13] MEDS: Melatonin 3 MG TABLET PO (22:29)
[2023-01-13] MEDS: traMADoL HCL 50 MG TABLET 25 MG PO (22:29)
[2023-01-14] VITALS (10 sets, daily range): BP systolic 109–160; BP diastolic 56–94; PULSE 63–76; RESP 14–20; TEMP 36.5–37.2; O2SAT 92–97
[2023-01-14] MEDS: traMADoL HCL 50 MG TABLET 25 MG PO (01:11)
[2023-01-14] MEDS: Azithromycin 500 MG in 0.9 % Sodium Chloride 250 ML 125 MG IV ×2 (01:13→23:56)
[2023-01-14 08:02] LABS: Anion Gap 11 (12-20); Blood Urea Nitrogen 34 mg/dL (9-16); Calcium 8.7 mg/dL (8.4-10.2); Carbon Dioxide 28 mmol/L (22-29); Chloride 97 mmol/L (96-108); Creatinine Clr Calc Pharmacy 39.6; Estimated Glomerular Filt Rate > 60; Glucose Random 105 mg/dL (60-115); Potassium 3.4 mmol/L (3.3-5.1); Sodium 133 mmol/L (135-145)
[2023-01-14 08:07] LABS: B Type Natriuretic Peptide 288 pg/mL (<100)
[2023-01-14 08:12] LABS: Anion Gap 11 (12-20); Blood Urea Nitrogen 34 mg/dL (9-16); Calcium 8.7 mg/dL (8.4-10.2); Carbon Dioxide 28 mmol/L (22-29); Chloride 97 mmol/L (96-108); Creatinine Clr Calc Pharmacy 39.6; Estimated Glomerular Filt Rate > 60; Glucose Random 104 mg/dL (60-115); Potassium 3.4 mmol/L (3.3-5.1); Sodium 133 mmol/L (135-145)
[2023-01-14] MEDS: 0.9 % Sodium Chloride Flush 3 ML SYRINGE IVFLUSH ×3 (09:08→22:58)
[2023-01-14] MEDS: guaiFENesin DM 100/10/5 ML 5 ML SYRUP PO ×4 (09:08→20:48)
[2023-01-14] MEDS: Furosemide 20 MG/2 ML VIAL IVPUSH (09:08)
[2023-01-14] MEDS: Docusate Sodium 100 MG CAPSULE PO ×2 (09:09→20:48)
[2023-01-14] MEDS: Atorvastatin Calcium 10 MG TABLET PO (09:09)
[2023-01-14] MEDS: atenoloL 25 MG TABLET PO (09:09)
[2023-01-14] MEDS: Venlafaxine HCl ER 75 MG CAP.ER.24H PO ×2 (09:09→20:48)
[2023-01-14] MEDS: Heparin Sodium,Porcine 5,000 UNIT/ML VIAL 5000 UNIT SUBCUT ×2 (09:09→20:49)
[2023-01-14 09:15] LABS: Procalcitonin 0.11 ng/mL
--- NOTE | 2023-01-14 11:23 | MHC.CM.PN ---
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 Pt verifies pcp and hcp on file, pfizer x3. pt's dtr/hcp Dalila entered room as cm was finishing and reports she would like update from hospitalist who has been notified via [employer] and if pt needs STR she would prefer [facility] or [facility], Dalila would not want [facility] or [facility]. Dispo pending PT teddy
--- NOTE | 2023-01-14 11:49 | PM.CNCAR ---
History of Present Illness History of Present Illness Date of Service: 01/14/23 Requesting physician: Sheyla Willoughby Consult reason: other (Elevated BNP) Chief complaint: syncope Narrative: I was consulted to see Latonia in cardiology consultation today for elevated BNP. Patient gives a good account of history. Patient says she was the other day walking with a walker and then decided to turn around and she lost her balance and fell down. At no point in time she had any symptoms of lightheadedness or felt like she was going to pass out. She did not lose consciousness and was completely however when she fell down and was on the floor for many hours till her son got to her. She was not able to get herself up. She did not have any chest pain or shortness of breath. She denies any recent symptoms of worsening shortness of breath, orthopnea or PND. She denies any history of prior congestive heart failure coronary artery disease. She does have history of hypertension as well as COPD and recurrent falls. She came in the hospital and was noted to have elevated CK consistent with rhabdomyolysis and noted to have elevated BNP the 900 range. As mention in the admission H&P there was no overt signs of heart failure although there was suggestion of chest x-ray findings of heart failure and elevated BNP. She was given some diuretics. Unfortunately no output has been recorded. Review of Systems Constitutional: Constitutional: Reports frequent falls Eyes: Eyes: Reports no additional eye complaints Cardiovascular: Cardiovascular: Reports no additional cardiovascular complaints Respiratory: Respiratory: Reports no additional respiratory complaints Gastrointestinal: Gastrointestinal: Reports no additional gastrointestinal complaints Genitourinary: Genitourinary: Reports no additional female genitourinary complaints Musculoskeletal: Musculoskeletal: Reports no additional musculoskeletal complaints Neurologic: Reports frequent falls Psychiatric: Psychiatric: Reports no additional psychiatric complaints Endocrine: Endocrine: Reports no additional endocrine complaints [facility] Past Medical History Medical History Asthma Vertigo Polyuria Anxiety Essential hypertension GERD (gastroesophageal reflux disease) Familial hypercholesterolemia Endogenous depression COPD (chronic obstructive pulmonary disease) Family History Family History Father No problems noted. Mother No problems noted. Brother No problems noted. Sister No problems noted. Son No problems noted. Daughter No problems noted. Surgical History Surgical History S/P lumpectomy of breast History of eye surgery History of cataract surgery Social History Social History Household Members: Children Housing: Apartment Do you presently have visiting nurse or other home services: Yes (3 days/wk) Alcohol intake: never Patient Tobacco Use Status: Never used Tobacco e-Cigarette/Vaping Use: Never Used Second Hand Smoke Exposure: No Advance Directives Date on File: 07/22/21 service: No Current occupational status: retired Cognitive needs: Yes Hearing needs: No Vision needs: Yes Meds Allergies Allergy/AdvReac Type Severity Reaction Status Date / Time codeine [CODEINE] Allergy Mild upset Verified 12/30/22 14:58 stomach, nause Active Medications: Current Medications Acetaminophen (Acetaminophen 325 Mg Tablet) 650 mg PO Q6H PRN PRN Reason: Pain, Mild (Pain Scale 1-3) Atenolol (Atenolol 25 Mg Tablet) 25 mg PO DAILY [facility]; Protocol Last Admin: 01/14/23 09:09 Dose: 25 mg Atorvastatin Calcium (Atorvastatin Calcium 10 Mg Tablet) 10 mg PO DAILY [facility] Last Admin: 01/14/23 09:09 Dose: 10 mg Docusate Sodium (Docusate Sodium 100 Mg Capsule) 100 mg PO BID [facility] Last Admin: 01/14/23 09:09 Dose: 100 mg Furosemide (Furosemide 20 Mg/2 Ml Vial) 20 mg IVPUSH BID@0900,1800 [facility]; Protocol Last Admin: 01/14/23 09:08 Dose: 20 mg Guaifenesin/Dextromethorphan (Guaifenesin Dm 100/10/5 Ml 5 Ml Syrup) 5 ml PO Q4H [facility] Last Admin: 01/14/23 09:08 Dose: 5 ml Heparin Sodium (Porcine) (Heparin Sodium,Porcine 5,000 Unit/Ml Vial) 5,000 unit SUBCUT BID [facility] Last Admin: 01/14/23 09:09 Dose: 5,000 unit Hydralazine HCl (Hydralazine Hcl 20 Mg/Ml Vial) 5 mg IVPUSH Q4H PRN; Protocol PRN Reason: SBP>180 Ceftriaxone Sodium 1 gm/ (Sodium Chloride) 50 mls @ 100 mls/hr IV Q24H [facility] Last Infusion: 01/13/23 18:52 Dose: Infused Azithromycin 500 mg/ Sodium (Chloride) 250 mls @ 125 mls/hr IV Q24H [facility] Magnesium Hydroxide (Milk Of Magnesia 30 Ml Oral.Susp) 30 ml PO DAILY PRN PRN Reason: Constipation Last Admin: 01/13/23 22:27 Dose: 30 ml Melatonin (Melatonin 3 Mg Tablet) 3 mg PO BEDTIME [facility] Last Admin: 01/13/23 22:29 Dose: 3 mg Sodium Chloride (0.9 % Sodium Chloride Flush 3 Ml Syringe) 3 ml IVFLUSH QSHIFT [facility] Last Admin: 01/14/23 09:08 Dose: 3 ml Tramadol HCl (Tramadol Hcl 50 Mg Tablet) 25 mg PO Q6H PRN PRN Reason: Pain, Severe (Pain Scale 7-10) Last Admin: 01/13/23 22:29 Dose: 25 mg Venlafaxine HCl (Venlafaxine Hcl Er 75 Mg Cap.Er.24h) 75 mg PO DAILY [facility] Last Admin: 01/14/23 09:09 Dose: 75 mg Home Medications Medication Instructions Recorded Confirmed Last Taken Type fluorometholone 0.1 % eye 1 drp ophthalmic (eye) 11/16/19 01/13/23 07/07/21 History drops,suspension BID@0900,1600 cyanocobalamin (vitamin B-12) 1,000 mcg PO DAILY 07/08/21 01/13/23 07/07/21 History 1,000 mcg tablet melatonin 3 mg tablet 3 mg PO BEDTIME 07/08/21 01/13/23 Unknown History esomeprazole magnesium 20 mg 20 mg PO DAILY@0630 09/07/21 01/13/23 Unknown History capsule,delayed release (Nexium) Physical Exam Vital Signs: Vital Signs: Last Vital Signs Temp 97.7 F 01/14/23 11:18 Pulse 65 01/14/23 11:18 Resp 18 01/14/23 11:18 BP 127/59 L 01/14/23 11:18 Pulse Ox 97 01/14/23 11:18 O2 Del Method Room Air 01/14/23 11:18 O2 Flow Rate 1 01/12/23 21:52 Oxygen Flow Rate 2 01/12/23 23:20 BMI result Body Mass Index 24.6 Const: General: cooperative, comfortable, alert and awake Nutritional Appearance: average body habitus Orientation/consciousness: patient oriented x3 HEENT: Head: Yes normocephalic and Yes atraumatic Neck: Neck: Yes trachea midline, Yes supple and Yes no JVD Resp: Effort & Inspection: decreased respiratory effort Auscultation: clear to auscultation bilaterally Cardio: Jugular venous distension: no JVD Palpation: normal PMI Rate: regular rate Rhythm: regular rhythm Heart sounds: S1 normal heart sound present, S2 normal heart sound present, no click, no gallops and Murmur heart sound present systolic early GI: Auscultation: normal bowel sounds Skin: General skin exam: no rashes or lesions noted Neuro: General: patient oriented x3 and no focal motor deficits Extrem: General: Yes no clubbing, cyanosis or edema Objective Labs and Meds 01/12/23 17:26 01/14/23 07:33 Lab results: Laboratory Results - last 24 hr 01/14/23 01/14/23 01/14/23 07:33 07:33 07:33 Sodium 133 L 133 L Potassium 3.4 3.4 Chloride 97 Carbon Dioxide Anion Gap BUN Creatinine Estim Creat Clear Calc Estimated GFR Random Glucose Calcium Total Creatine Kinase B-Natriuretic Peptide Procalcitonin 01/14/23 01/14/23 01/14/23 07:33 07:33 07:33 Sodium Potassium Chloride 97 Carbon Dioxide 28 28 Anion Gap 11 L 11 L BUN 34 H Creatinine Estim Creat Clear Calc Estimated GFR Random Glucose Calcium Total Creatine Kinase B-Natriuretic Peptide Procalcitonin 01/14/23 01/14/23 01/14/23 07:33 07:33 07:33 Sodium Potassium Chloride Carbon Dioxide Anion Gap BUN 34 H Creatinine 0.88 0.88 Estim Creat Clear Calc 39.6 39.6 Estimated GFR > 60 Random Glucose Calcium Total Creatine Kinase B-Natriuretic Peptide Procalcitonin 01/14/23 01/14/23 01/14/23 07:33 07:33 07:33 Sodium Potassium Chloride Carbon Dioxide Anion Gap BUN Creatinine Estim Creat Clear Calc Estimated GFR > 60 Random Glucose 104 105 Calcium 8.7 8.7 Total Creatine Kinase 1060 H B-Natriuretic Peptide 288 H Procalcitonin 0.11 Assessment and Plan (1) Elevated brain natriuretic peptide (BNP) level: Status: Acute Elevated BNP in this elderly woman without any overt clinical signs of heart failure although radiograph was suggestive of heart failure. She has no symptoms leading up to the hospitalization of heart failure. Clinically today does appear to be in heart failure. BNP is reduced significantly. Not sure if she has diuresed as as no accurate intake and output chart recorded. I do not think she has clinical heart failure at this point time but elevated BNP which is predictor of future development of heart failure. Elevated BNP 900 could be an acute stress marker in elderly woman with multiple risk factors for cardiovascular disease. I do not think she needs all long-term diuretic therapy. Should provider with heart failure education. (2) Fall: Status: Acute Frequent falls most likely related to musculoskeletal causes. She has no evidence of lightheadedness or syncope on presentation. Can check orthostatic vitals especially blood pressure. Consider physical therapy consultation. Will sign of the case at this point time. Thank you for allowing me to partake in her care Procedures Date of Service Date of Service: 01/14/23
[2023-01-14 13:10] LABS: Adenovirus PCR Not Detected (Not Detect.); Bordetella parapertussis PCR Not Detected (Not Detect.); Bordetella pertussis PCR Not Detected (Not Detect.); Chlamydia pneumoniae PCR Not Detected (Not Detect.); Coronavirus 229E PCR Not Detected (Not Detect.); Coronavirus HKU1 PCR Not Detected (Not Detect.); Coronavirus NL63 PCR Not Detected (Not Detect.); Coronavirus OC43 PCR Not Detected (Not Detect.); Human metapneumovirus PCR Not Detected (Not Detect.); Influenza A PCR Not Detected (Not Detect.); Influenza B PCR Not Detected (Not Detect.); Mycoplasma pneumoniae PCR Not Detected (Not Detect.); Parainfluenza 1 PCR Not Detected (Not Detect.); Parainfluenza 2 PCR Not Detected (Not Detect.); Parainfluenza 3 PCR Not Detected (Not Detect.); Parainfluenza 4 PCR Not Detected (Not Detect.); RSV PCR Not Detected (Not Detect.); Rhino/Enterovirus PCR Not Detected (Not Detect.)
--- NOTE | 2023-01-14 13:27 | HO.PM.IMPN ---
Subjective Subjective Date of Service: 01/14/23 Interval History: coughing sputum, started antibiotics yesterday no dyspnea no edema Review of Systems Review of Systems: Yes all other systems are reviewed and are negative Physical Exam Vital Signs: Vital Signs: Last Vital Signs Temp 97.7 F 01/14/23 11:18 Pulse 76 01/14/23 12:20 Resp 18 01/14/23 11:18 BP 113/56 L 01/14/23 12:20 Pulse Ox 97 01/14/23 11:18 O2 Del Method Room Air 01/14/23 11:18 O2 Flow Rate 1 01/12/23 21:52 Oxygen Flow Rate 2 01/12/23 23:20 BMI result Body Mass Index 24.6 Gen: in no acute distress HEENT: sclera anicteric, moist mucus membranes Neck: supple Lungs: clear to auscultation bilaterally Heart: regular rate and rhythm, no murmurs Abd: soft, non-tender, non-distended Ext: no edema, R shoulder in sling, distally N/V intact Skin: warm/well-perfused Neuro: alert and oriented x3, no focal findings Psych: appropriate affect Objective Data Active Medications Acetaminophen (Acetaminophen 325 Mg Tablet) 650 mg PO Q6H PRN PRN Reason: Pain, Mild (Pain Scale 1-3) Atenolol (Atenolol 25 Mg Tablet) 25 mg PO DAILY [facility]; Protocol Last Admin: 01/14/23 09:09 Dose: 25 mg Documented By: DEVORAH Atorvastatin Calcium (Atorvastatin Calcium 10 Mg Tablet) 10 mg PO DAILY [facility] Last Admin: 01/14/23 09:09 Dose: 10 mg Documented By: DEVORAH Docusate Sodium (Docusate Sodium 100 Mg Capsule) 100 mg PO BID [facility] Last Admin: 01/14/23 09:09 Dose: 100 mg Documented By: DEVORAH Furosemide (Furosemide 20 Mg/2 Ml Vial) 20 mg IVPUSH BID@0900,1800 [facility]; Protocol Last Admin: 01/14/23 09:08 Dose: 20 mg Documented By: DEVORAH Guaifenesin/Dextromethorphan (Guaifenesin Dm 100/10/5 Ml 5 Ml Syrup) 5 ml PO Q4H [facility] Last Admin: 01/14/23 12:39 Dose: 5 ml Documented By: CHARISSE Heparin Sodium (Porcine) (Heparin Sodium,Porcine 5,000 Unit/Ml Vial) 5,000 unit SUBCUT BID [facility] Last Admin: 01/14/23 09:09 Dose: 5,000 unit Documented By: DEVORAH Hydralazine HCl (Hydralazine Hcl 20 Mg/Ml Vial) 5 mg IVPUSH Q4H PRN; Protocol PRN Reason: SBP>180 Ceftriaxone Sodium 1 gm/ (Sodium Chloride) 50 mls @ 100 mls/hr IV Q24H [facility] Last Infusion: 01/13/23 18:52 Dose: Infused Documented By: JANELL Azithromycin 500 mg/ Sodium (Chloride) 250 mls @ 125 mls/hr IV Q24H [facility] Magnesium Hydroxide (Milk Of Magnesia 30 Ml Oral.Susp) 30 ml PO DAILY PRN PRN Reason: Constipation Last Admin: 01/13/23 22:27 Dose: 30 ml Documented By: RIA Melatonin (Melatonin 3 Mg Tablet) 3 mg PO BEDTIME [facility] Last Admin: 01/13/23 22:29 Dose: 3 mg Documented By: RIA Sodium Chloride (0.9 % Sodium Chloride Flush 3 Ml Syringe) 3 ml IVFLUSH QSHIFT [facility] Last Admin: 01/14/23 09:08 Dose: 3 ml Documented By: DEVORAH Tramadol HCl (Tramadol Hcl 50 Mg Tablet) 25 mg PO Q6H PRN PRN Reason: Pain, Severe (Pain Scale 7-10) Last Admin: 01/13/23 22:29 Dose: 25 mg Documented By: RIA Venlafaxine HCl (Venlafaxine Hcl Er 75 Mg Cap.Er.24h) 75 mg PO DAILY [facility] Last Admin: 01/14/23 09:09 Dose: 75 mg Documented By: DEVORAH Labs 01/12/23 17:26 01/14/23 07:33 Labs: Laboratory Results - last 24 hr 01/14/23 01/14/23 01/14/23 07:33 07:33 07:33 Anion Gap 11 L 11 L Estim Creat Clear Calc 39.6 39.6 Estimated GFR > 60 Random Glucose Calcium Total Creatine Kinase B-Natriuretic Peptide Procalcitonin 01/14/23 01/14/23 01/14/23 07:33 07:33 07:33 Anion Gap Estim Creat Clear Calc Estimated GFR > 60 Random Glucose 104 105 Calcium 8.7 8.7 Total Creatine Kinase 1060 H B-Natriuretic Peptide 288 H Procalcitonin 0.11 Assessment and Plan (1) Fall: Status: Acute (2) Anterior dislocation of right shoulder: Status: Acute (3) Rhabdomyolysis: Status: Acute Plan d3 87yo F with HTN, HLD, GERD who had mechanical fall without syncope but was done on the ground for several hours and sustained a dislocated R shoulder that was reduced in the ED concern of CHF with CXR findings of interstitial edema and elevated BNP dislocated R shoulder - s/p reduction, continue sling, f/u with Ortho as outpt, transfer to STR eventually fall - check orthostatics. STR. mild rhabdomyolysis - CPK came down with some IV NS PNA - ceftriaxone + azithromycin d2, trend PCT, RPP pending, not hypoxic acute-chronic HFpEF - Cardiology consulted, appears euvolemic, does not need any more diuresis - TTE 01/13: 1. Normal LV ejection fraction of 65-70% with mild LVH with impaired relaxation filling pattern 2. Mild aortic stenosis 3. Normal RV systolic pressure with normal right atrial pressures 4. Mildly dilated ascending aorta at 4 cm 5. No gross pericardial effusion HTN - continue atenolol HLD - continue atorvastatin mood disorder - continue venlafaxine VTE ppx - UFH dispo - anticipate STR In my clinical judgment, the patient requires continued inpatient hospitalization for the following reasons: IV ABX Quality Stroke Does the patient have a stroke diagnosis?: No VTE Prior VTE?: No VTE Risk Level:: Medical - moderate - high VTE Device Contraindication: Treatment Not Indicated VTE Drug Contraindication: N/A - Med Ordered
--- NOTE | 2023-01-14 13:47 | MHC.CM.PN ---
CM CONTACTED SEROLOGY TO CHECK ON RESPIRATORY PANEL FROM 01/13, PER SEROLOGY PT TESTED POSITIVE FOR COVID19 AND THE REMAINDER OF PANEL WAS NEGATIVE, RESULTS SHOULD BE IN MEDITECH SHORTLY AND HOSPITALIST/NSG AWARE.
[2023-01-14 13:51] LABS: SARS-CoV-2 PCR Detected (Not Detect.)
[2023-01-14 14:21] LABS: C Reactive Protein 12.34 mg/dL (< or = 0.50); Lactate Dehydrogenase 258 U/L (122-220)
[2023-01-14 14:42] LABS: Ferritin 250 ng/mL (10-250)
[2023-01-14] MEDS: cefTRIAXone sodium 1 GM in 0.9 % Sodium Chloride 50 ML IV (16:09)
[2023-01-14] MEDS: Omeprazole 20 MG CAPSULE.DR PO (17:35)
[2023-01-14] MEDS: Remdesivir 200 MG in 0.9 % Sodium Chloride 210 ML 105 MG IV (17:47)
[2023-01-14] MEDS: Melatonin 3 MG TABLET PO (20:48)
[2023-01-15] VITALS (7 sets, daily range): BP systolic 125–200; BP diastolic 60–80; PULSE 63–72; RESP 17–20; TEMP 36.2–37.4; O2SAT 94–98
--- NOTE | 2023-01-15 | ECG_ITS ---
Test Reason : heartburn anxiety Blood Pressure : / mmHG Vent. Rate : 068 BPM Atrial Rate : 068 BPM P-R Int : 142 ms QRS Dur : 130 ms QT Int : 444 ms P-R-T Axes : 000 203 186 degrees QTc Int : 472 ms Normal sinus rhythm Right bundle branch block T wave abnormality, consider inferolateral ischemia Abnormal ECG When compared with ECG of 12-JAN-2023 16:26, QRS axis Shifted left Referred By: Jeannette Robles Electronically Signed By:MELVINA WOO MD
[2023-01-15] MEDS: traMADoL HCL 50 MG TABLET 25 MG PO (00:03)
[2023-01-15] MEDS: guaiFENesin DM 100/10/5 ML 5 ML SYRUP PO ×6 (05:55→22:01)
[2023-01-15] MEDS: Omeprazole 20 MG CAPSULE.DR PO (05:56)
[2023-01-15 08:07] LABS: Anion Gap 13 (12-20); Blood Urea Nitrogen 34 mg/dL (9-16); Calcium 8.8 mg/dL (8.4-10.2); Carbon Dioxide 29 mmol/L (22-29); Chloride 98 mmol/L (96-108); Creatinine Clr Calc Pharmacy 38.7; Estimated Glomerular Filt Rate 59; Glucose Random 100 mg/dL (60-115); Magnesium 2.1 mg/dL (1.6-2.6); Potassium 3.2 mmol/L (3.3-5.1); Sodium 137 mmol/L (135-145)
[2023-01-15 08:12] LABS: B Type Natriuretic Peptide 139 pg/mL (<100)
[2023-01-15] MEDS: Heparin Sodium,Porcine 5,000 UNIT/ML VIAL 5000 UNIT SUBCUT ×2 (08:34→22:00)
[2023-01-15] MEDS: atenoloL 25 MG TABLET PO (08:35)
[2023-01-15] MEDS: Atorvastatin Calcium 10 MG TABLET PO (08:35)
[2023-01-15] MEDS: Venlafaxine HCl ER 150 MG CAP.ER.24H PO (08:35)
[2023-01-15] MEDS: amLODIPine Besylate 5 MG TABLET PO (08:35)
[2023-01-15] MEDS: Docusate Sodium 100 MG CAPSULE PO ×2 (08:35→22:01)
[2023-01-15] MEDS: 0.9 % Sodium Chloride Flush 3 ML SYRINGE IVFLUSH ×3 (08:36→22:02)
--- NOTE | 2023-01-15 09:56 | P.PNIM_ITS ---
Subjective Subjective Date of Service: 01/15/23 Interval History: coughing but not dyspneic nor hypoxic Review of Systems Review of Systems: Yes all other systems are reviewed and are negative Physical Exam 2 Vital Signs: Vital Signs: Last Vital Signs Temp 98.2 F 01/15/23 07:26 Pulse 64 01/15/23 07:26 Resp 20 01/15/23 07:26 BP 200/80 H 01/15/23 07:26 Pulse Ox 98 01/15/23 07:26 O2 Del Method Room Air 01/15/23 07:26 O2 Flow Rate 1 01/12/23 21:52 Oxygen Flow Rate 2 01/12/23 23:20 BMI result Body Mass Index 24.6 Gen: in no acute distress HEENT: sclera anicteric, moist mucus membranes Neck: supple Lungs: clear to auscultation bilaterally Heart: regular rate and rhythm, no murmurs Abd: soft, non-tender, non-distended Ext: no edema, R shoulder in sling, distally N/V intact Skin: warm/well-perfused Neuro: alert and oriented x3, no focal findings Psych: appropriate affect Objective Data Active Medications Acetaminophen (Acetaminophen 325 Mg Tablet) 650 mg PO Q6H PRN PRN Reason: Pain, Mild (Pain Scale 1-3) Amlodipine Besylate (Amlodipine Besylate 5 Mg Tablet) 5 mg PO DAILY [facility]; Protocol Last Admin: 01/15/23 08:35 Dose: 5 mg Documented By: RODRIGUEZ Atenolol (Atenolol 25 Mg Tablet) 25 mg PO DAILY [facility]; Protocol Last Admin: 01/15/23 08:35 Dose: 25 mg Documented By: RODRIGUEZ Atorvastatin Calcium (Atorvastatin Calcium 10 Mg Tablet) 10 mg PO DAILY [facility] Last Admin: 01/15/23 08:35 Dose: 10 mg Documented By: RODRIGUEZ Docusate Sodium (Docusate Sodium 100 Mg Capsule) 100 mg PO BID [facility] Last Admin: 01/15/23 08:35 Dose: 100 mg Documented By: RODRIGUEZ Guaifenesin/Dextromethorphan (Guaifenesin Dm 100/10/5 Ml 5 Ml Syrup) 5 ml PO Q4H [facility] Last Admin: 01/15/23 08:35 Dose: 5 ml Documented By: RODRIGUEZ Heparin Sodium (Porcine) (Heparin Sodium,Porcine 5,000 Unit/Ml Vial) 5,000 unit SUBCUT BID [facility] Last Admin: 01/15/23 08:34 Dose: 5,000 unit Documented By: RODRIGUEZ Hydralazine HCl (Hydralazine Hcl 20 Mg/Ml Vial) 5 mg IVPUSH Q4H PRN; Protocol PRN Reason: SBP>180 Ceftriaxone Sodium 1 gm/ (Sodium Chloride) 50 mls @ 100 mls/hr IV Q24H [facility] Last Infusion: 01/14/23 16:40 Dose: Infused Documented By: ALTAGRACIA Azithromycin 500 mg/ Sodium (Chloride) 250 mls @ 125 mls/hr IV Q24H [facility] Last Infusion: 01/15/23 02:01 Dose: Infused Documented By: ALTAGRACIA Remdesivir 100 mg/ Sodium (Chloride) 230 mls @ 115 mls/hr IV Q24H [facility] Stop: 01/16/23 15:59 Magnesium Hydroxide (Milk Of Magnesia 30 Ml Oral.Susp) 30 ml PO DAILY PRN PRN Reason: Constipation Last Admin: 01/13/23 22:27 Dose: 30 ml Documented By: RIA Melatonin (Melatonin 3 Mg Tablet) 3 mg PO BEDTIME [facility] Last Admin: 01/14/23 20:48 Dose: 3 mg Documented By: ALTAGRACIA Non-Formulary Medication (Fluorometholone) 1 drop EYE-BOTH BID@0900,1600 [facility] Omeprazole (Omeprazole 20 Mg Capsule.Dr) 20 mg PO DAILY@0630 [facility] Last Admin: 01/15/23 05:56 Dose: 20 mg Documented By: RODRIGUEZ Sodium Chloride (0.9 % Sodium Chloride Flush 3 Ml Syringe) 3 ml IVFLUSH QSHIFT [facility] Last Admin: 01/15/23 08:36 Dose: 3 ml Documented By: RODRIGUEZ Tramadol HCl (Tramadol Hcl 50 Mg Tablet) 25 mg PO Q6H PRN PRN Reason: Pain, Severe (Pain Scale 7-10) Last Admin: 01/15/23 00:03 Dose: 25 mg Documented By: ALTAGRACIA Venlafaxine HCl (Venlafaxine Hcl Er 150 Mg Cap.Er.24h) 150 mg PO DAILY [facility] Last Admin: 01/15/23 08:35 Dose: 150 mg Documented By: RODRIGUEZ Venlafaxine HCl (Venlafaxine Hcl Er 75 Mg Cap.Er.24h) 75 mg PO BEDTIME [facility] Last Admin: 01/14/23 20:48 Dose: 75 mg Documented By: ALTAGRACIA Labs 01/12/23 17:26 01/15/23 06:39 Labs: Laboratory Results - last 24 hr 01/13/23 01/14/23 01/15/23 18:12 07:33 06:39 Anion Gap 13 Estim Creat Clear Calc 38.7 Estimated GFR 59 Random Glucose 100 Calcium 8.8 Magnesium 2.1 Ferritin 250 Lactate Dehydrogenase 258 H Total Creatine Kinase 663 H C-Reactive Protein 12.34 H B-Natriuretic Peptide 139 H Respiratory Panel Turner See Note Adenovirus (Rapid PCR) Not Detected B.pert (TEM-PCR) Not Detected B.parapertussis DNA PCR Not Detected C. pneumoniae DNA (PCR) Not Detected Coronavirus OC43 (PCR) Not Detected Coronavirus HKU1 (PCR) Not Detected Coronavirus 229E (PCR) Not Detected Coronavirus NL63 (PCR) Not Detected Human Metapneumovir PCR Not Detected Influenza A (RT-PCR) Not Detected Influenza B (RT-PCR) Not Detected M. pneumoniae (PCR) Not Detected Parainfluenza 1 (PCR) Not Detected Parainfluenza 2 (PCR) Not Detected Parainfluenza 3 (PCR) Not Detected Parainfluenza 4 (PCR) Not Detected RSV (PCR) Not Detected Entero/Rhino (PCR) Not Detected SARS-CoV-2 RNA (RT-PCR) Detected A Assessment and Plan (1) Fall: Status: Acute (2) Anterior dislocation of right shoulder: Status: Acute (3) Rhabdomyolysis: Status: Acute Plan d3 87yo F with HTN, HLD, GERD who had mechanical fall without syncope but was done on the ground for several hours and sustained a dislocated R shoulder that was reduced in the ED concern of CHF with CXR findings of interstitial edema and elevated BNP developed cough with purulent sputum 01/13/23 and started antibiotics for PNA tested positive for Covid-19 dislocated R shoulder - s/p reduction, continue sling, f/u with Ortho as outpt, transfer to STR eventually fall - recheck orthostatics. STR eventually. mild rhabdomyolysis - CPK came down with IV NS, now well <1000 PNA - ceftriaxone + azithromycin d3 but if PCT remains low tomorrow consider stopping ABX Covid-19 infection - CRP quite high but not hypoxic. on day 2/3 of remdesivir given risk factors for severe disease. continue isolation HTN - continue atenolol - add amlodipine today acute-chronic HFpEF - Cardiology consulted, appears euvolemic, does not need any more diuresis - TTE 01/13: 1. Normal LV ejection fraction of 65-70% with mild LVH with impaired relaxation filling pattern 2. Mild aortic stenosis 3. Normal RV systolic pressure with normal right atrial pressures 4. Mildly dilated ascending aorta at 4 cm 5. No gross pericardial effusion HLD - continue atorvastatin mood disorder - continue venlafaxine VTE ppx - UFH dispo - anticipate STR In my clinical judgment, the patient requires continued inpatient hospitalization for the following reasons: IV ABX+ placement Total time managing care of this patient today: 35 minutes. Quality Stroke Does the patient have a stroke diagnosis?: No VTE Prior VTE?: No VTE Risk Level:: Medical - moderate - high VTE Device Contraindication: Treatment Not Indicated VTE Drug Contraindication: N/A - Med Ordered
[2023-01-15] MEDS: Potassium Chloride ER 20 MEQ TAB.ER.PRT 40 MEQ PO (11:33)
--- NOTE | 2023-01-15 12:00 | PC.NURSE ---
Pt called the aide into the room at approximately 1130. Stated that she was having a chest pain. I responded to the room. pt sitting in her bed, cheeks flushed. No SOB, bp is 125/60, HR 65, RR 17, O2 97% on RA. I interviewed her about the cause of the pain, she stated she was not sure. I contacted Dr. Robles at 11:44 and discussed this event. He ordered a stat EKG, with STAT troponin level. Will ctm and if findings are negative, will assess the need for antianxiety medication.
[2023-01-15 13:28] LABS: Troponin-I High Sensitivity 15.6 ng/L (<3.5-17.0)
[2023-01-15] MEDS: Remdesivir 100 MG in 0.9 % Sodium Chloride 230 ML 115 MG IV (13:30)
[2023-01-15 15:35] LABS: Troponin-I High Sensitivity 13.8 ng/L (<3.5-17.0)
[2023-01-15] MEDS: cefTRIAXone sodium 1 GM in 0.9 % Sodium Chloride 50 ML IV (16:27)
[2023-01-15] MEDS: Melatonin 3 MG TABLET PO (22:02)
[2023-01-15] MEDS: Venlafaxine HCl ER 75 MG CAP.ER.24H PO (22:02)
[2023-01-16] MEDS: Azithromycin 500 MG in 0.9 % Sodium Chloride 250 ML 125 MG IV (02:04)
[2023-01-16] MEDS: guaiFENesin DM 100/10/5 ML 5 ML SYRUP PO ×6 (02:04→20:24)
[2023-01-16 03:45] VITALS: BP 146/67; PULSE 69; RESP 18; TEMP 37; O2SAT 96
[2023-01-16] MEDS: Omeprazole 20 MG CAPSULE.DR PO (05:33)
[2023-01-16 07:26] VITALS: BP 135/64; PULSE 69; RESP 18; TEMP 36.9; O2SAT 96
[2023-01-16 07:48] LABS: Hematocrit 29.9 % (37.0-47.0); Hemoglobin 9.9 g/dl (12.0-16.0); Mean Corpuscular HGB Conc 33.1 g/dl (31.0-35.0); Mean Corpuscular Hemoglobin 30.2 pg (27.0-33.0); Mean Corpuscular Volume 91.2 fL (80.0-98.0); Mean Platelet Volume 10.9 fL (9.4-12.3); Platelet Count 254 X10*3/uL (160-400); Red Blood Count 3.28 X10*6/uL (4.20-5.50); Red Cell Distribution Width 13.5 % (11.0-16.0); White Blood Count 7.8 X10*3/uL (4.8-10.8)
[2023-01-16 08:08] LABS: B Type Natriuretic Peptide 186 pg/mL (<100)
[2023-01-16 08:10] LABS: Anion Gap 12 (12-20); Blood Urea Nitrogen 30 mg/dL (9-16); C Reactive Protein 4.98 mg/dL (< or = 0.50); Calcium 8.7 mg/dL (8.4-10.2); Carbon Dioxide 27 mmol/L (22-29); Chloride 104 mmol/L (96-108); Estimated Glomerular Filt Rate > 60; Glucose Random 87 mg/dL (60-115); Potassium 3.5 mmol/L (3.3-5.1); Sodium 139 mmol/L (135-145)
[2023-01-16 08:25] LABS: Procalcitonin 0.04 ng/mL
[2023-01-16] MEDS: 0.9 % Sodium Chloride Flush 3 ML SYRINGE IVFLUSH ×3 (10:27→20:24)
[2023-01-16] MEDS: Heparin Sodium,Porcine 5,000 UNIT/ML VIAL 5000 UNIT SUBCUT ×2 (10:27→20:24)
[2023-01-16] MEDS: atenoloL 25 MG TABLET PO (10:28)
[2023-01-16] MEDS: Docusate Sodium 100 MG CAPSULE PO ×2 (10:29→20:24)
[2023-01-16] MEDS: traMADoL HCL 50 MG TABLET 25 MG PO (10:29)
[2023-01-16] MEDS: Venlafaxine HCl ER 150 MG CAP.ER.24H PO (10:29)
[2023-01-16] MEDS: Atorvastatin Calcium 10 MG TABLET PO (10:31)
[2023-01-16] MEDS: amLODIPine Besylate 5 MG TABLET PO (10:32)
[2023-01-16 11:21] VITALS: BP 175/79; PULSE 64; RESP 18; TEMP 36.4; O2SAT 95
[2023-01-16] MEDS: Remdesivir 100 MG in 0.9 % Sodium Chloride 230 ML 115 MG IV (13:39)
--- NOTE | 2023-01-16 14:21 | HO.PM.IMPN ---
Subjective Subjective Date of Service: 01/16/23 Interval History: No acute issues overnight Review of Systems Denies chest pain Denies shortness of breath Denies nausea vomiting diarrhea Denies fever chills Physical Exam Vital Signs: Vital Signs: Last Vital Signs Temp 97.6 F 01/16/23 11:21 Pulse 64 01/16/23 11:21 Resp 18 01/16/23 11:21 BP 175/79 H 01/16/23 11:21 Pulse Ox 95 01/16/23 11:21 O2 Del Method Room Air 01/16/23 11:21 O2 Flow Rate 1 01/12/23 21:52 Oxygen Flow Rate 2 01/12/23 23:20 BMI result Body Mass Index 24.6 Const: Other: Awake alert no acute distress Resp: Other: Clear to auscultation bilaterally no rales rhonchi or wheezes Cardio: Other: No S4; positive S1-S2; no S3 murmurs rubs or gallops GI: Other: Soft nontender nondistended normoactive bowel sounds Extrem: Other: No edema bilaterally Objective Data Active Medications Acetaminophen (Acetaminophen 325 Mg Tablet) 650 mg PO Q6H PRN PRN Reason: Pain, Mild (Pain Scale 1-3) Amlodipine Besylate (Amlodipine Besylate 5 Mg Tablet) 5 mg PO DAILY [facility]; Protocol Last Admin: 01/16/23 10:32 Dose: 5 mg Documented By: SETH Atenolol (Atenolol 25 Mg Tablet) 25 mg PO DAILY [facility]; Protocol Last Admin: 01/16/23 10:28 Dose: 25 mg Documented By: SETH Atorvastatin Calcium (Atorvastatin Calcium 10 Mg Tablet) 10 mg PO DAILY [facility] Last Admin: 01/16/23 10:31 Dose: 10 mg Documented By: SETH Docusate Sodium (Docusate Sodium 100 Mg Capsule) 100 mg PO BID [facility] Last Admin: 01/16/23 10:29 Dose: 100 mg Documented By: SETH Guaifenesin/Dextromethorphan (Guaifenesin Dm 100/10/5 Ml 5 Ml Syrup) 5 ml PO Q4H [facility] Last Admin: 01/16/23 13:39 Dose: 5 ml Documented By: SETH Heparin Sodium (Porcine) (Heparin Sodium,Porcine 5,000 Unit/Ml Vial) 5,000 unit SUBCUT BID [facility] Last Admin: 01/16/23 10:27 Dose: 5,000 unit Documented By: SETH Hydralazine HCl (Hydralazine Hcl 20 Mg/Ml Vial) 5 mg IVPUSH Q4H PRN; Protocol PRN Reason: SBP>180 Ceftriaxone Sodium 1 gm/ (Sodium Chloride) 50 mls @ 100 mls/hr IV Q24H [facility] Last Infusion: 01/15/23 17:16 Dose: Infused Documented By: JACKIE Azithromycin 500 mg/ Sodium (Chloride) 250 mls @ 125 mls/hr IV Q24H [facility] Last Infusion: 01/16/23 04:11 Dose: Infused Documented By: LESLIE Remdesivir 100 mg/ Sodium (Chloride) 230 mls @ 115 mls/hr IV Q24H [facility] Stop: 01/16/23 15:59 Last Admin: 01/16/23 13:39 Dose: 115 mls/hr Documented By: SETH Magnesium Hydroxide (Milk Of Magnesia 30 Ml Oral.Susp) 30 ml PO DAILY PRN PRN Reason: Constipation Last Admin: 01/13/23 22:27 Dose: 30 ml Documented By: RIA Melatonin (Melatonin 3 Mg Tablet) 3 mg PO BEDTIME [facility] Last Admin: 01/15/23 22:02 Dose: 3 mg Documented By: LESLIE Fluorometholone 0.1 (% Drops,Suspension) 1 each EYE-BOTH BID@0900,1600 [facility] Last Admin: 01/16/23 10:35 Dose: 1 each Documented By: SETH Omeprazole (Omeprazole 20 Mg Capsule.Dr) 20 mg PO DAILY@0630 [facility] Last Admin: 01/16/23 05:33 Dose: 20 mg Documented By: LESLIE Sodium Chloride (0.9 % Sodium Chloride Flush 3 Ml Syringe) 3 ml IVFLUSH QSHIFT [facility] Last Admin: 01/16/23 10:27 Dose: 3 ml Documented By: SETH Tramadol HCl (Tramadol Hcl 50 Mg Tablet) 25 mg PO Q6H PRN PRN Reason: Pain, Severe (Pain Scale 7-10) Last Admin: 01/16/23 10:29 Dose: 25 mg Documented By: SETH Venlafaxine HCl (Venlafaxine Hcl Er 150 Mg Cap.Er.24h) 150 mg PO DAILY [facility] Last Admin: 01/16/23 10:29 Dose: 150 mg Documented By: SETH Venlafaxine HCl (Venlafaxine Hcl Er 75 Mg Cap.Er.24h) 75 mg PO BEDTIME [facility] Last Admin: 01/15/23 22:02 Dose: 75 mg Documented By: LESLIE Labs 01/16/23 07:18 01/16/23 07:18 Labs: Laboratory Results - last 24 hr 01/16/23 07:18 MCV 91.2 MCH 30.2 MCHC 33.1 RDW 13.5 Plt Count 254 MPV 10.9 Absolute Nucleated RBC 0.000 Nucleated RBC % (auto) 0.0 Anion Gap 12 Estim Creat Clear Calc 49.0 Estimated GFR > 60 Random Glucose 87 Calcium 8.7 Total Creatine Kinase 386 H C-Reactive Protein 4.98 H B-Natriuretic Peptide 186 H Procalcitonin 0.04 Assessment and Plan (1) Rhabdomyolysis: Status: Acute (2) CAP (community acquired pneumonia): Status: Acute Plan 87yo F with HTN, HLD, GERD who had mechanical fall without syncope but was done on the ground for several hours and sustained a dislocated R shoulder that was reduced in the ED;tested positive for Covid-19 1.Rhabdomyolysis -resolving with volume repletion -follow clinically 2.CAP/Covid-19 infection -Ceftriaxone/azithromycin (4) -3/3 of remdesivir (risk factors for severe disease) 3.HTN -acceptable control on current therapies -adjust as indicated 4.Acute-chronic HFpEF -resolved; well-compensated -follow clinically Lovenox DNR DNI Requires ongoing hospitalization for IV antibiotics to treat community-acquired pneumonia and to arrange for short-term rehab Quality Stroke Does the patient have a stroke diagnosis?: No VTE Prior VTE?: No VTE Risk Level:: Medical - moderate - high VTE Device Contraindication: Treatment Not Indicated VTE Drug Contraindication: N/A - Med Ordered
--- NOTE | 2023-01-16 15:04 | MHC.CM.PN ---
EMR reviewed and per MD rounds, pt is not medically cleared for D/C due to STR placement pending negative covid test, or when covid recovered. CM will continue to follow.
[2023-01-16 15:23] VITALS: BP 131/65; PULSE 65; RESP 18; TEMP 37.5; O2SAT 96
[2023-01-16] MEDS: Milk of Magnesia 30 ML ORAL.SUSP PO (16:46)
[2023-01-16] MEDS: cefTRIAXone sodium 1 GM in 0.9 % Sodium Chloride 50 ML IV (16:46)
[2023-01-16 19:52] VITALS: BP 117/70; PULSE 72; RESP 20; TEMP 37.1; O2SAT 94
[2023-01-16] MEDS: Melatonin 3 MG TABLET PO (20:24)
[2023-01-16] MEDS: Venlafaxine HCl ER 75 MG CAP.ER.24H PO (20:24)
[2023-01-17] VITALS (7 sets, daily range): BP systolic 131–183; BP diastolic 63–97; PULSE 63–88; RESP 16–18; TEMP 36.3–37.1; O2SAT 94–99
[2023-01-17] MEDS: Azithromycin 500 MG in 0.9 % Sodium Chloride 250 ML 125 MG IV (01:29)
[2023-01-17] MEDS: guaiFENesin DM 100/10/5 ML 5 ML SYRUP PO ×6 (01:29→20:10)
[2023-01-17] MEDS: Omeprazole 20 MG CAPSULE.DR PO (05:59)
[2023-01-17 06:55] LABS: MANUAL DIFF FLAG NO
[2023-01-17 07:02] LABS: Basophils Percent Auto 0.3 % (0-2); Eosinophils Absolute Auto 0.2 X10*3/uL (0.0-0.4); Eosinophils Percent Auto 2.3 % (0-4); Hematocrit 29.4 % (37.0-47.0); Hemoglobin 9.6 g/dl (12.0-16.0); Imm Gran Abs Auto 0.06 X10*3/uL (0.00-0.03); Imm Gran Pct Auto 0.8 % (0.0-0.4); Lymphocytes Absolute Auto 2.8 X10*3/uL (1.2-4.9); Lymphocytes Percent Auto 35.4 % (20-40); Mean Corpuscular HGB Conc 32.7 g/dl (31.0-35.0); Mean Corpuscular Hemoglobin 30.2 pg (27.0-33.0); Mean Corpuscular Volume 92.5 fL (80.0-98.0); Mean Platelet Volume 10.5 fL (9.4-12.3); Monocytes Absolute Auto 1.2 X10*3/uL (0.1-1.2); Monocytes Percent Auto 15.4 % (2-11); Neutrophils Absolute Auto 3.7 x10*3/uL (2.0-8.3); Neutrophils Percent Auto 45.8 % (45-73); Platelet Count 255 X10*3/uL (160-400); Red Blood Count 3.18 X10*6/uL (4.20-5.50); Red Cell Distribution Width 13.4 % (11.0-16.0)
[2023-01-17 07:33] LABS: Alanine Aminotransferase 16 U/L (0-31); Albumin Level 3.1 g/dL (3.5-5.0); Alkaline Phosphatase 55 U/L (39-117); Anion Gap 11 (12-20); Aspartate Amino Transferase 28 U/L (5-31); Bilirubin Total 0.2 mg/dL (0.0-1.0); Blood Urea Nitrogen 29 mg/dL (9-16); Calcium 8.5 mg/dL (8.4-10.2); Carbon Dioxide 27 mmol/L (22-29); Chloride 104 mmol/L (96-108); Creatinine Clr Calc Pharmacy 44.6; Estimated Glomerular Filt Rate > 60; Glucose Fasting 88 mg/dL (60-99); Potassium 3.9 mmol/L (3.3-5.1); Sodium 138 mmol/L (135-145); Total Protein 6.2 g/dL (6.5-8.0)
[2023-01-17] MEDS: Heparin Sodium,Porcine 5,000 UNIT/ML VIAL 5000 UNIT SUBCUT ×2 (10:41→20:10)
[2023-01-17] MEDS: 0.9 % Sodium Chloride Flush 3 ML SYRINGE IVFLUSH ×3 (10:41→20:11)
[2023-01-17] MEDS: Docusate Sodium 100 MG CAPSULE PO ×2 (10:42→20:10)
[2023-01-17] MEDS: Atorvastatin Calcium 10 MG TABLET PO (10:42)
[2023-01-17] MEDS: amLODIPine Besylate 5 MG TABLET PO (10:42)
[2023-01-17] MEDS: Venlafaxine HCl ER 150 MG CAP.ER.24H PO (10:42)
[2023-01-17] MEDS: atenoloL 25 MG TABLET PO (10:49)
--- NOTE | 2023-01-17 14:10 | HO.PM.IMPN ---
Subjective Subjective Date of Service: 01/17/23 Interval History: No acute issues overnight Review of Systems Denies chest pain Denies shortness of breath Denies nausea vomiting diarrhea Denies fever chills Physical Exam Vital Signs: Vital Signs: Last Vital Signs Temp 97.6 F 01/17/23 12:00 Pulse 88 01/17/23 12:00 Resp 16 01/17/23 12:00 BP 140/76 H 01/17/23 12:00 Pulse Ox 95 01/17/23 12:00 O2 Del Method Room Air 01/17/23 07:42 O2 Flow Rate 1 01/12/23 21:52 Oxygen Flow Rate 2 01/12/23 23:20 BMI result Body Mass Index 24.6 Const: Other: Awake alert no acute distress Resp: Other: Clear to auscultation bilaterally no rales rhonchi or wheezes Cardio: Other: No S4; positive S1-S2; no S3 murmurs rubs or gallops GI: Other: Soft nontender nondistended normoactive bowel sounds Extrem: Other: No edema bilaterally Objective Data Active Medications Acetaminophen (Acetaminophen 325 Mg Tablet) 650 mg PO Q6H PRN PRN Reason: Pain, Mild (Pain Scale 1-3) Amlodipine Besylate (Amlodipine Besylate 5 Mg Tablet) 5 mg PO DAILY [facility]; Protocol Last Admin: 01/17/23 10:42 Dose: 5 mg Documented By: LIDIA Atenolol (Atenolol 25 Mg Tablet) 25 mg PO DAILY [facility]; Protocol Last Admin: 01/17/23 10:49 Dose: 25 mg Documented By: LIDIA Atorvastatin Calcium (Atorvastatin Calcium 10 Mg Tablet) 10 mg PO DAILY [facility] Last Admin: 01/17/23 10:42 Dose: 10 mg Documented By: LIDIA Docusate Sodium (Docusate Sodium 100 Mg Capsule) 100 mg PO BID [facility] Last Admin: 01/17/23 10:42 Dose: 100 mg Documented By: LIDIA Guaifenesin/Dextromethorphan (Guaifenesin Dm 100/10/5 Ml 5 Ml Syrup) 5 ml PO Q4H [facility] Last Admin: 01/17/23 13:30 Dose: 5 ml Documented By: LIDIA Heparin Sodium (Porcine) (Heparin Sodium,Porcine 5,000 Unit/Ml Vial) 5,000 unit SUBCUT BID [facility] Last Admin: 01/17/23 10:41 Dose: 5,000 unit Documented By: LIDIA Hydralazine HCl (Hydralazine Hcl 20 Mg/Ml Vial) 5 mg IVPUSH Q4H PRN; Protocol PRN Reason: SBP>180 Ceftriaxone Sodium 1 gm/ (Sodium Chloride) 50 mls @ 100 mls/hr IV Q24H [facility] Last Infusion: 01/16/23 17:31 Dose: Infused Documented By: SETH Azithromycin 500 mg/ Sodium (Chloride) 250 mls @ 125 mls/hr IV Q24H [facility] Last Infusion: 01/17/23 03:55 Dose: Infused Documented By: JENNA Magnesium Hydroxide (Milk Of Magnesia 30 Ml Oral.Susp) 30 ml PO DAILY PRN PRN Reason: Constipation Last Admin: 01/16/23 16:46 Dose: 30 ml Documented By: SETH Melatonin (Melatonin 3 Mg Tablet) 3 mg PO BEDTIME [facility] Last Admin: 01/16/23 20:24 Dose: 3 mg Documented By: JENNA Fluorometholone 0.1 (% Drops,Suspension) 1 each EYE-BOTH BID@0900,1600 [facility] Last Admin: 01/17/23 10:42 Dose: 1 each Documented By: LIDIA Omeprazole (Omeprazole 20 Mg Capsule.Dr) 20 mg PO DAILY@0630 [facility] Last Admin: 01/17/23 05:59 Dose: 20 mg Documented By: JENNA Sodium Chloride (0.9 % Sodium Chloride Flush 3 Ml Syringe) 3 ml IVFLUSH QSHIFT [facility] Last Admin: 01/17/23 10:41 Dose: 3 ml Documented By: LIDIA Tramadol HCl (Tramadol Hcl 50 Mg Tablet) 25 mg PO Q6H PRN PRN Reason: Pain, Severe (Pain Scale 7-10) Last Admin: 01/16/23 10:29 Dose: 25 mg Documented By: SETH Venlafaxine HCl (Venlafaxine Hcl Er 150 Mg Cap.Er.24h) 150 mg PO DAILY [facility] Last Admin: 01/17/23 10:42 Dose: 150 mg Documented By: LIDIA Venlafaxine HCl (Venlafaxine Hcl Er 75 Mg Cap.Er.24h) 75 mg PO BEDTIME [facility] Last Admin: 01/16/23 20:24 Dose: 75 mg Documented By: JENNA Labs 01/17/23 06:49 01/17/23 06:49 Labs: Laboratory Results - last 24 hr 01/17/23 06:49 MCV 92.5 MCH 30.2 MCHC 32.7 RDW 13.4 Plt Count 255 MPV 10.5 Immature Gran % (Auto) 0.8 H Neut % (Auto) 45.8 Lymph % (Auto) 35.4 [place] % (Auto) 15.4 H Eos % (Auto) 2.3 Baso % (Auto) 0.3 Lymph # (Auto) 2.8 [place] # (Auto) 1.2 Eos # (Auto) 0.2 Baso # (Auto) 0.0 Abs Immat Gran (auto) 0.06 H Absolute Neuts (auto) 3.7 Absolute Nucleated RBC 0.000 Nucleated RBC % (auto) 0.0 Anion Gap 11 L Estim Creat Clear Calc 44.6 Estimated GFR > 60 Fasting Glucose 88 Calcium 8.5 Total Bilirubin 0.2 AST 28 ALT 16 Alkaline Phosphatase 55 Total Protein 6.2 L Albumin 3.1 L Assessment and Plan (1) CAP (community acquired pneumonia): Status: Acute (2) Rhabdomyolysis: Status: Acute Plan 87yo F with HTN, HLD, GERD who had mechanical fall without syncope but was done on the ground for several hours and sustained a dislocated R shoulder that was reduced in the ED;tested positive for Covid-19 1.Rhabdomyolysis -resolving with volume repletion -follow clinically 2.CAP/Covid-19 infection -Ceftriaxone/azithromycin (5) -3/3 of remdesivir (risk factors for severe disease) 3.HTN -acceptable control on current therapies -adjust as indicated 4.Acute-chronic HFpEF -resolved; well-compensated -follow clinically Lovenox DNR DNI Requires ongoing hospitalization for IV antibiotics to treat community-acquired pneumonia and to arrange for short-term rehab Quality Stroke Does the patient have a stroke diagnosis?: No VTE Prior VTE?: No VTE Risk Level:: Medical - moderate - high VTE Device Contraindication: Treatment Not Indicated VTE Drug Contraindication: N/A - Med Ordered
[2023-01-17] MEDS: cefTRIAXone sodium 1 GM in 0.9 % Sodium Chloride 50 ML IV (17:37)
[2023-01-17] MEDS: Melatonin 3 MG TABLET PO (20:10)
[2023-01-17] MEDS: Venlafaxine HCl ER 75 MG CAP.ER.24H PO (20:10)
[2023-01-18] VITALS (7 sets, daily range): BP systolic 131–180; BP diastolic 55–71; PULSE 66–76; RESP 18–20; TEMP 36.6–36.9; O2SAT 93–98
[2023-01-18] MEDS: guaiFENesin DM 100/10/5 ML 5 ML SYRUP PO ×6 (00:58→20:59)
[2023-01-18] MEDS: Azithromycin 500 MG in 0.9 % Sodium Chloride 250 ML 125 MG IV (00:58)
[2023-01-18] MEDS: Omeprazole 20 MG CAPSULE.DR PO (05:48)
[2023-01-18 06:27] LABS: MANUAL DIFF FLAG NO
[2023-01-18 06:31] LABS: Basophils Percent Auto 0.2 % (0-2); Eosinophils Absolute Auto 0.2 X10*3/uL (0.0-0.4); Eosinophils Percent Auto 1.8 % (0-4); Hematocrit 28.8 % (37.0-47.0); Hemoglobin 9.4 g/dl (12.0-16.0); Imm Gran Abs Auto 0.06 X10*3/uL (0.00-0.03); Imm Gran Pct Auto 0.7 % (0.0-0.4); Lymphocytes Absolute Auto 2.6 X10*3/uL (1.2-4.9); Lymphocytes Percent Auto 30.7 % (20-40); Mean Corpuscular HGB Conc 32.6 g/dl (31.0-35.0); Mean Corpuscular Hemoglobin 30.2 pg (27.0-33.0); Mean Corpuscular Volume 92.6 fL (80.0-98.0); Mean Platelet Volume 10.6 fL (9.4-12.3); Monocytes Absolute Auto 1.2 X10*3/uL (0.1-1.2); Monocytes Percent Auto 14.1 % (2-11); Neutrophils Absolute Auto 4.4 x10*3/uL (2.0-8.3); Neutrophils Percent Auto 52.5 % (45-73); Platelet Count 277 X10*3/uL (160-400); Red Blood Count 3.11 X10*6/uL (4.20-5.50); Red Cell Distribution Width 13.5 % (11.0-16.0); White Blood Count 8.3 X10*3/uL (4.8-10.8)
[2023-01-18 06:47] LABS: Alanine Aminotransferase 17 U/L (0-31); Albumin Level 3.2 g/dL (3.5-5.0); Alkaline Phosphatase 62 U/L (39-117); Anion Gap 11 (12-20); Aspartate Amino Transferase 30 U/L (5-31); Bilirubin Total 0.2 mg/dL (0.0-1.0); Blood Urea Nitrogen 23 mg/dL (9-16); Calcium 8.8 mg/dL (8.4-10.2); Carbon Dioxide 27 mmol/L (22-29); Chloride 104 mmol/L (96-108); Creatinine Clr Calc Pharmacy 44.1; Estimated Glomerular Filt Rate > 60; Glucose Fasting 105 mg/dL (60-99); Potassium 3.8 mmol/L (3.3-5.1); Sodium 138 mmol/L (135-145); Total Protein 6.5 g/dL (6.5-8.0)
[2023-01-18] MEDS: atenoloL 25 MG TABLET PO (08:38)
[2023-01-18] MEDS: amLODIPine Besylate 5 MG TABLET PO (08:38)
[2023-01-18] MEDS: Acetaminophen 325 MG TABLET 650 MG PO ×2 (08:38→17:56)
[2023-01-18] MEDS: Heparin Sodium,Porcine 5,000 UNIT/ML VIAL 5000 UNIT SUBCUT ×2 (08:38→20:58)
[2023-01-18] MEDS: Venlafaxine HCl ER 150 MG CAP.ER.24H PO (08:38)
[2023-01-18] MEDS: Atorvastatin Calcium 10 MG TABLET PO (08:38)
[2023-01-18] MEDS: 0.9 % Sodium Chloride Flush 3 ML SYRINGE IVFLUSH ×3 (08:38→20:59)
[2023-01-18] MEDS: Docusate Sodium 100 MG CAPSULE PO ×2 (08:39→20:59)
[2023-01-18 11:36] LABS: COVID-19 Test Positive (Negative); IDNOW Serial# 08D9AD1C
--- NOTE | 2023-01-18 14:31 | P.PNIM_ITS ---
Subjective Subjective Date of Service: 01/18/23 Interval History: No acute issues overnight. Remains hemodynamically stable Review of Systems Denies chest pain Denies shortness of breath Denies nausea vomiting diarrhea Denies fever chills Physical Exam 2 Vital Signs: Vital Signs: Last Vital Signs Temp 97.9 F 01/18/23 12:00 Pulse 66 01/18/23 12:00 Resp 18 01/18/23 12:00 BP 149/64 H 01/18/23 12:00 Pulse Ox 95 01/18/23 12:00 O2 Del Method Room Air 01/18/23 12:00 O2 Flow Rate 1 01/12/23 21:52 Oxygen Flow Rate 2 01/12/23 23:20 BMI result Body Mass Index 24.6 Const: Other: Awake alert no acute distress Resp: Other: Clear to auscultation bilaterally no rales rhonchi or wheezes Cardio: Other: No S4; positive S1-S2; no S3 murmurs rubs or gallops GI: Other: Soft nontender nondistended normoactive bowel sounds Extrem: Other: No edema bilaterally Objective Data Active Medications Acetaminophen (Acetaminophen 325 Mg Tablet) 650 mg PO Q6H PRN PRN Reason: Pain, Mild (Pain Scale 1-3) Last Admin: 01/18/23 08:38 Dose: 650 mg Documented By: LIDIA Amlodipine Besylate (Amlodipine Besylate 5 Mg Tablet) 5 mg PO DAILY [facility]; Protocol Last Admin: 01/18/23 08:38 Dose: 5 mg Documented By: LIDIA Atenolol (Atenolol 25 Mg Tablet) 25 mg PO DAILY [facility]; Protocol Last Admin: 01/18/23 08:38 Dose: 25 mg Documented By: LIDIA Atorvastatin Calcium (Atorvastatin Calcium 10 Mg Tablet) 10 mg PO DAILY [facility] Last Admin: 01/18/23 08:38 Dose: 10 mg Documented By: LIDIA Docusate Sodium (Docusate Sodium 100 Mg Capsule) 100 mg PO BID [facility] Last Admin: 01/18/23 08:39 Dose: 100 mg Documented By: LIDIA Guaifenesin/Dextromethorphan (Guaifenesin Dm 100/10/5 Ml 5 Ml Syrup) 5 ml PO Q4H [facility] Last Admin: 01/18/23 11:16 Dose: 5 ml Documented By: LIDIA Heparin Sodium (Porcine) (Heparin Sodium,Porcine 5,000 Unit/Ml Vial) 5,000 unit SUBCUT BID [facility] Last Admin: 01/18/23 08:38 Dose: 5,000 unit Documented By: LIDIA Hydralazine HCl (Hydralazine Hcl 20 Mg/Ml Vial) 5 mg IVPUSH Q4H PRN; Protocol PRN Reason: SBP>180 Ceftriaxone Sodium 1 gm/ (Sodium Chloride) 50 mls @ 100 mls/hr IV Q24H [facility] Last Infusion: 01/17/23 18:09 Dose: Infused Documented By: LIDIA Azithromycin 500 mg/ Sodium (Chloride) 250 mls @ 125 mls/hr IV Q24H [facility] Last Infusion: 01/18/23 04:12 Dose: Infused Documented By: JENNA Magnesium Hydroxide (Milk Of Magnesia 30 Ml Oral.Susp) 30 ml PO DAILY PRN PRN Reason: Constipation Last Admin: 01/16/23 16:46 Dose: 30 ml Documented By: SETH Melatonin (Melatonin 3 Mg Tablet) 3 mg PO BEDTIME [facility] Last Admin: 01/17/23 20:10 Dose: 3 mg Documented By: JENNA Fluorometholone 0.1 (% Drops,Suspension) 1 each EYE-BOTH BID@0900,1600 [facility] Last Admin: 01/18/23 08:39 Dose: 1 each Documented By: LIDIA Omeprazole (Omeprazole 20 Mg Capsule.Dr) 20 mg PO DAILY@0630 [facility] Last Admin: 01/18/23 05:48 Dose: 20 mg Documented By: JENNA Sodium Chloride (0.9 % Sodium Chloride Flush 3 Ml Syringe) 3 ml IVFLUSH QSHIFT [facility] Last Admin: 01/18/23 08:38 Dose: 3 ml Documented By: LIDIA Venlafaxine HCl (Venlafaxine Hcl Er 150 Mg Cap.Er.24h) 150 mg PO DAILY [facility] Last Admin: 01/18/23 08:38 Dose: 150 mg Documented By: LIDIA Venlafaxine HCl (Venlafaxine Hcl Er 75 Mg Cap.Er.24h) 75 mg PO BEDTIME [facility] Last Admin: 01/17/23 20:10 Dose: 75 mg Documented By: HO.BREAUX Labs 01/18/23 06:10 01/18/23 06:10 Labs: Laboratory Results - last 24 hr 01/18/23 01/18/23 06:10 11:20 MCV 92.6 MCH 30.2 MCHC 32.6 RDW 13.5 Plt Count 277 MPV 10.6 Immature Gran % (Auto) 0.7 H Neut % (Auto) 52.5 Lymph % (Auto) 30.7 [place] % (Auto) 14.1 H Eos % (Auto) 1.8 Baso % (Auto) 0.2 Lymph # (Auto) 2.6 [place] # (Auto) 1.2 Eos # (Auto) 0.2 Baso # (Auto) 0.0 Abs Immat Gran (auto) 0.06 H Absolute Neuts (auto) 4.4 Absolute Nucleated RBC 0.000 Nucleated RBC % (auto) 0.0 Anion Gap 11 L Estim Creat Clear Calc 44.1 Estimated GFR > 60 Fasting Glucose 105 H Calcium 8.8 Total Bilirubin 0.2 AST 30 ALT 17 Alkaline Phosphatase 62 Total Protein 6.5 Albumin 3.2 L COVID-19 (JOE) Positive A COVID-19 Clin Com See Note Assessment and Plan (1) Rhabdomyolysis: Status: Acute (2) CAP (community acquired pneumonia): Status: Acute Plan 87yo F with HTN, HLD, GERD who had mechanical fall without syncope but was done on the ground for several hours and sustained a dislocated R shoulder that was reduced in the ED;tested positive for Covid-19 1.Rhabdomyolysis -resolving with volume repletion -follow clinically 2.CAP/Covid-19 infection -Ceftriaxone/azithromycin (6) -3/3 of remdesivir (risk factors for severe disease) 3.HTN -acceptable control on current therapies -adjust as indicated 4.Acute-chronic HFpEF -resolved; well-compensated -follow clinically Lovenox DNR DNI Requires ongoing hospitalization for IV antibiotics to treat community-acquired pneumonia and to arrange for short-term rehab Quality Stroke Does the patient have a stroke diagnosis?: No VTE Prior VTE?: No VTE Risk Level:: Medical - moderate - high VTE Device Contraindication: Treatment Not Indicated VTE Drug Contraindication: N/A - Med Ordered
[2023-01-18] MEDS: cefTRIAXone sodium 1 GM in 0.9 % Sodium Chloride 50 ML IV (17:17)
[2023-01-18] MEDS: Melatonin 3 MG TABLET PO (20:59)
[2023-01-18] MEDS: Venlafaxine HCl ER 75 MG CAP.ER.24H PO (20:59)
[2023-01-19 04:00] VITALS: BP 149/66; PULSE 63; RESP 22; TEMP 37.1; O2SAT 98
[2023-01-19] MEDS: Omeprazole 20 MG CAPSULE.DR PO (04:45)
[2023-01-19] MEDS: traMADoL HCL 50 MG TABLET PO ×2 (04:45→18:09)
[2023-01-19] MEDS: guaiFENesin DM 100/10/5 ML 5 ML SYRUP PO ×5 (04:45→22:14)
[2023-01-19] MEDS: Azithromycin 500 MG in 0.9 % Sodium Chloride 250 ML 125 MG IV (04:46)
[2023-01-19 07:16] VITALS: BP 146/65; PULSE 71; RESP 20; TEMP 36.9; O2SAT 98
[2023-01-19] MEDS: Heparin Sodium,Porcine 5,000 UNIT/ML VIAL 5000 UNIT SUBCUT ×2 (07:59→22:13)
[2023-01-19] MEDS: Docusate Sodium 100 MG CAPSULE PO ×2 (07:59→22:13)
[2023-01-19] MEDS: amLODIPine Besylate 5 MG TABLET PO (07:59)
[2023-01-19] MEDS: Venlafaxine HCl ER 150 MG CAP.ER.24H PO (07:59)
[2023-01-19] MEDS: atenoloL 25 MG TABLET PO (07:59)
[2023-01-19] MEDS: 0.9 % Sodium Chloride Flush 3 ML SYRINGE IVFLUSH ×3 (07:59→22:14)
[2023-01-19] MEDS: Atorvastatin Calcium 10 MG TABLET PO (07:59)
[2023-01-19 08:06] LABS: Basophils Percent Auto 0.3 % (0-2); Eosinophils Absolute Auto 0.3 X10*3/uL (0.0-0.4); Eosinophils Percent Auto 2.6 % (0-4); Hemoglobin 9.3 g/dl (12.0-16.0); Imm Gran Abs Auto 0.08 X10*3/uL (0.00-0.03); Imm Gran Pct Auto 0.8 % (0.0-0.4); Lymphocytes Absolute Auto 2.4 X10*3/uL (1.2-4.9); Lymphocytes Percent Auto 24.9 % (20-40); MANUAL DIFF FLAG SCAN; Mean Corpuscular HGB Conc 32.1 g/dl (31.0-35.0); Mean Corpuscular Volume 93.5 fL (80.0-98.0); Mean Platelet Volume 11.1 fL (9.4-12.3); Monocytes Absolute Auto 1.2 X10*3/uL (0.1-1.2); Monocytes Percent Auto 12.8 % (2-11); Neutrophils Absolute Auto 5.6 x10*3/uL (2.0-8.3); Neutrophils Percent Auto 58.6 % (45-73); PLT CLUMP 1; Red Cell Distribution Width 13.6 % (11.0-16.0); SCAN SMEAR FLAG 1
[2023-01-19 08:07] LABS: White Blood Count 9.5 X10*3/uL (4.8-10.8)
[2023-01-19 08:24] LABS: Alanine Aminotransferase 16 U/L (0-31); Albumin Level 3.3 g/dL (3.5-5.0); Alkaline Phosphatase 65 U/L (39-117); Anion Gap 12 (12-20); Aspartate Amino Transferase 26 U/L (5-31); Bilirubin Total 0.2 mg/dL (0.0-1.0); Blood Urea Nitrogen 21 mg/dL (9-16); Calcium 8.9 mg/dL (8.4-10.2); Carbon Dioxide 27 mmol/L (22-29); Chloride 106 mmol/L (96-108); Creatinine Clr Calc Pharmacy 42.5; Estimated Glomerular Filt Rate > 60; Glucose Fasting 94 mg/dL (60-99); Sodium 141 mmol/L (135-145); Total Protein 6.8 g/dL (6.5-8.0)
[2023-01-19 08:34] LABS: Platelet Count 262 X10*3/uL (160-400); SLIDE REVIEW VERIFIED
[2023-01-19 10:58] VITALS: BP 146/64; PULSE 68; RESP 20; TEMP 37.2; O2SAT 97
--- NOTE | 2023-01-19 13:29 | P.PNIM_ITS ---
Subjective Subjective Date of Service: 01/19/23 Interval History: No acute changes overnight. Remains COVID positive Review of Systems Denies chest pain Denies shortness of breath Denies nausea vomiting diarrhea Denies fever chills Physical Exam 2 Vital Signs: Vital Signs: Last Vital Signs Temp 99.0 F 01/19/23 10:58 Pulse 68 01/19/23 10:58 Resp 20 01/19/23 10:58 BP 146/64 H 01/19/23 10:58 Pulse Ox 97 01/19/23 10:58 O2 Del Method Room Air 01/19/23 10:58 O2 Flow Rate 1 01/12/23 21:52 Oxygen Flow Rate 2 01/12/23 23:20 BMI result Body Mass Index 24.6 Const: Other: Awake alert no acute distress Resp: Other: Clear to auscultation bilaterally no rales rhonchi or wheezes Cardio: Other: No S4; positive S1-S2; no S3 murmurs rubs or gallops GI: Other: Soft nontender nondistended normoactive bowel sounds Extrem: Other: No edema bilaterally Objective Data Active Medications Acetaminophen (Acetaminophen 325 Mg Tablet) 650 mg PO Q6H PRN PRN Reason: Pain, Mild (Pain Scale 1-3) Last Admin: 01/18/23 17:56 Dose: 650 mg Documented By: LIDIA Amlodipine Besylate (Amlodipine Besylate 5 Mg Tablet) 5 mg PO DAILY [facility]; Protocol Last Admin: 01/19/23 07:59 Dose: 5 mg Documented By: LIDIA Atenolol (Atenolol 25 Mg Tablet) 25 mg PO DAILY [facility]; Protocol Last Admin: 01/19/23 07:59 Dose: 25 mg Documented By: LIDIA Atorvastatin Calcium (Atorvastatin Calcium 10 Mg Tablet) 10 mg PO DAILY [facility] Last Admin: 01/19/23 07:59 Dose: 10 mg Documented By: LIDIA Docusate Sodium (Docusate Sodium 100 Mg Capsule) 100 mg PO BID [facility] Last Admin: 01/19/23 07:59 Dose: 100 mg Documented By: LIDIA Guaifenesin/Dextromethorphan (Guaifenesin Dm 100/10/5 Ml 5 Ml Syrup) 5 ml PO Q4H [facility] Last Admin: 01/19/23 07:59 Dose: 5 ml Documented By: LIDIA Heparin Sodium (Porcine) (Heparin Sodium,Porcine 5,000 Unit/Ml Vial) 5,000 unit SUBCUT BID [facility] Last Admin: 01/19/23 07:59 Dose: 5,000 unit Documented By: LIDIA Hydralazine HCl (Hydralazine Hcl 20 Mg/Ml Vial) 5 mg IVPUSH Q4H PRN; Protocol PRN Reason: SBP>180 Ceftriaxone Sodium 1 gm/ (Sodium Chloride) 50 mls @ 100 mls/hr IV Q24H [facility] Last Infusion: 01/18/23 17:54 Dose: Infused Documented By: LIDIA Azithromycin 500 mg/ Sodium (Chloride) 250 mls @ 125 mls/hr IV Q24H [facility] Last Infusion: 01/19/23 07:25 Dose: Infused Documented By: LIDIA Magnesium Hydroxide (Milk Of Magnesia 30 Ml Oral.Susp) 30 ml PO DAILY PRN PRN Reason: Constipation Last Admin: 01/16/23 16:46 Dose: 30 ml Documented By: SETH Melatonin (Melatonin 3 Mg Tablet) 3 mg PO BEDTIME [facility] Last Admin: 01/18/23 20:59 Dose: 3 mg Documented By: ELLA Fluorometholone 0.1 (% Drops,Suspension) 1 each EYE-BOTH BID@0900,1600 [facility] Last Admin: 01/19/23 08:00 Dose: 1 each Documented By: LIDIA Omeprazole (Omeprazole 20 Mg Capsule.Dr) 20 mg PO DAILY@0630 [facility] Last Admin: 01/19/23 04:45 Dose: 20 mg Documented By: ELLA Sodium Chloride (0.9 % Sodium Chloride Flush 3 Ml Syringe) 3 ml IVFLUSH QSHIFT [facility] Last Admin: 01/19/23 07:59 Dose: 3 ml Documented By: LIDIA Tramadol HCl (Tramadol Hcl 50 Mg Tablet) 50 mg PO Q6H PRN PRN Reason: Pain, Moderate(Pain Scale 4-6) Last Admin: 01/19/23 04:45 Dose: 50 mg Documented By: ELLA Venlafaxine HCl (Venlafaxine Hcl Er 150 Mg Cap.Er.24h) 150 mg PO DAILY [facility] Last Admin: 01/19/23 07:59 Dose: 150 mg Documented By: LIDIA Venlafaxine HCl (Venlafaxine Hcl Er 75 Mg Cap.Er.24h) 75 mg PO BEDTIME [facility] Last Admin: 01/18/23 20:59 Dose: 75 mg Documented By: ELLA Labs 01/19/23 07:28 01/19/23 07:28 Labs: Laboratory Results - last 24 hr 01/19/23 07:28 MCV 93.5 MCH 30.0 MCHC 32.1 RDW 13.6 Plt Count 262 MPV 11.1 Immature Gran % (Auto) 0.8 H Neut % (Auto) 58.6 Lymph % (Auto) 24.9 [place] % (Auto) 12.8 H Eos % (Auto) 2.6 Baso % (Auto) 0.3 Lymph # (Auto) 2.4 [place] # (Auto) 1.2 Eos # (Auto) 0.3 Baso # (Auto) 0.0 Abs Immat Gran (auto) 0.08 H Absolute Neuts (auto) 5.6 Absolute Nucleated RBC 0.000 Nucleated RBC % (auto) 0.0 Smear Tech's Comments VERIFIED Anion Gap 12 Estim Creat Clear Calc 42.5 Estimated GFR > 60 Fasting Glucose 94 Calcium 8.9 Total Bilirubin 0.2 AST 26 ALT 16 Alkaline Phosphatase 65 Total Protein 6.8 Albumin 3.3 L Assessment and Plan (1) CAP (community acquired pneumonia): Status: Acute (2) Rhabdomyolysis: Status: Acute Plan 87yo F with HTN, HLD, GERD who had mechanical fall without syncope but was done on the ground for several hours and sustained a dislocated R shoulder that was reduced in the ED;tested positive for Covid-19 1.Rhabdomyolysis -resolving with volume repletion -follow clinically 2.CAP/Covid-19 infection -Ceftriaxone/azithromycin (7) -3/3 of remdesivir (risk factors for severe disease) 3.HTN -acceptable control on current therapies -adjust as indicated 4.Acute-chronic HFpEF -resolved; well-compensated -follow clinically Lovenox DNR DNI Requires ongoing hospitalization for IV antibiotics to treat community-acquired pneumonia and to arrange for short-term rehab Quality Stroke Does the patient have a stroke diagnosis?: No VTE Prior VTE?: No VTE Risk Level:: Medical - moderate - high VTE Device Contraindication: Treatment Not Indicated VTE Drug Contraindication: N/A - Med Ordered
[2023-01-19 15:56] VITALS: BP 132/71; PULSE 81; RESP 20; TEMP 36.8; O2SAT 98
[2023-01-19] MEDS: cefTRIAXone sodium 1 GM in 0.9 % Sodium Chloride 50 ML IV (17:40)
[2023-01-19 20:00] VITALS: BP 153/79; PULSE 68; RESP 18; TEMP 36.5; O2SAT 96
[2023-01-19] MEDS: Venlafaxine HCl ER 75 MG CAP.ER.24H PO (22:14)
[2023-01-19] MEDS: Melatonin 3 MG TABLET PO (22:14)
--- NOTE | 2023-01-19 23:37 | PC.NURSE ---
Assumed care of patient 19:15. See shift assessment, EMAR, and tasks for full details. No distress noted. Pt resting in bed. Continues on airborne precautions for +covid. High falls measures in place. Handoff report given to oncoming nurse at 23:15.
[2023-01-20] VITALS: BP 151/60; PULSE 76; RESP 18; TEMP 36.7; O2SAT 96
[2023-01-20] MEDS: guaiFENesin DM 100/10/5 ML 5 ML SYRUP PO ×6 (00:12→22:04)
[2023-01-20] MEDS: Azithromycin 500 MG in 0.9 % Sodium Chloride 250 ML 125 MG IV (00:12)
[2023-01-20 04:00] VITALS: BP 159/69; PULSE 67; RESP 18; TEMP 36.9; O2SAT 98
[2023-01-20] MEDS: Omeprazole 20 MG CAPSULE.DR PO (06:09)
[2023-01-20] MEDS: traMADoL HCL 50 MG TABLET PO ×3 (06:09→22:07)
[2023-01-20 07:15] VITALS: BP 129/61; PULSE 65; RESP 18; TEMP 36.4; O2SAT 95
[2023-01-20] MEDS: Docusate Sodium 100 MG CAPSULE PO ×2 (09:54→22:04)
[2023-01-20] MEDS: atenoloL 25 MG TABLET PO (09:54)
[2023-01-20] MEDS: Atorvastatin Calcium 10 MG TABLET PO (09:54)
[2023-01-20] MEDS: Heparin Sodium,Porcine 5,000 UNIT/ML VIAL 5000 UNIT SUBCUT ×2 (09:54→22:02)
[2023-01-20] MEDS: Venlafaxine HCl ER 150 MG CAP.ER.24H PO (09:54)
[2023-01-20] MEDS: 0.9 % Sodium Chloride Flush 3 ML SYRINGE IVFLUSH ×2 (10:38→17:58)
[2023-01-20] MEDS: amLODIPine Besylate 5 MG TABLET PO (10:38)
[2023-01-20 11:12] VITALS: BP 152/67; PULSE 68; RESP 18; TEMP 37; O2SAT 99
--- NOTE | 2023-01-20 14:45 | HO.PM.IMPN ---
Subjective Subjective Date of Service: 01/20/23 Interval History: No acute issues overnight. Status unchanged Review of Systems Denies chest pain Denies shortness of breath Denies nausea vomiting diarrhea Denies fever chills Physical Exam Vital Signs: Vital Signs: Last Vital Signs Temp 98.6 F 01/20/23 11:12 Pulse 68 01/20/23 11:12 Resp 18 01/20/23 11:12 BP 152/67 H 01/20/23 11:12 Pulse Ox 99 01/20/23 11:12 O2 Del Method Room Air 01/20/23 11:12 O2 Flow Rate 1 01/12/23 21:52 Oxygen Flow Rate 2 01/12/23 23:20 BMI result Body Mass Index 24.6 Const: Other: Awake alert no acute distress Resp: Other: Clear to auscultation bilaterally no rales rhonchi or wheezes Cardio: Other: No S4; positive S1-S2; no S3 murmurs rubs or gallops GI: Other: Soft nontender nondistended normoactive bowel sounds Extrem: Other: No edema bilaterally Objective Data Active Medications Acetaminophen (Acetaminophen 325 Mg Tablet) 650 mg PO Q6H PRN PRN Reason: Pain, Mild (Pain Scale 1-3) Last Admin: 01/18/23 17:56 Dose: 650 mg Documented By: LIDIA Amlodipine Besylate (Amlodipine Besylate 5 Mg Tablet) 5 mg PO DAILY [facility]; Protocol Last Admin: 01/20/23 10:38 Dose: 5 mg Documented By: FRANCISCO Atenolol (Atenolol 25 Mg Tablet) 25 mg PO DAILY [facility]; Protocol Last Admin: 01/20/23 09:54 Dose: 25 mg Documented By: FRANCISCO Atorvastatin Calcium (Atorvastatin Calcium 10 Mg Tablet) 10 mg PO DAILY [facility] Last Admin: 01/20/23 09:54 Dose: 10 mg Documented By: FRANCISCO Docusate Sodium (Docusate Sodium 100 Mg Capsule) 100 mg PO BID [facility] Last Admin: 01/20/23 09:54 Dose: 100 mg Documented By: FRANCISCO Guaifenesin/Dextromethorphan (Guaifenesin Dm 100/10/5 Ml 5 Ml Syrup) 5 ml PO Q4H [facility] Last Admin: 01/20/23 13:51 Dose: 5 ml Documented By: FRANCISCO Heparin Sodium (Porcine) (Heparin Sodium,Porcine 5,000 Unit/Ml Vial) 5,000 unit SUBCUT BID [facility] Last Admin: 01/20/23 09:54 Dose: 5,000 unit Documented By: FRANCISCO Hydralazine HCl (Hydralazine Hcl 20 Mg/Ml Vial) 5 mg IVPUSH Q4H PRN; Protocol PRN Reason: SBP>180 Ceftriaxone Sodium 1 gm/ (Sodium Chloride) 50 mls @ 100 mls/hr IV Q24H [facility] Last Infusion: 01/19/23 18:14 Dose: Infused Documented By: LIDIA Azithromycin 500 mg/ Sodium (Chloride) 250 mls @ 125 mls/hr IV Q24H [facility] Last Infusion: 01/20/23 02:24 Dose: Infused Documented By: CULLEN Magnesium Hydroxide (Milk Of Magnesia 30 Ml Oral.Susp) 30 ml PO DAILY PRN PRN Reason: Constipation Last Admin: 01/16/23 16:46 Dose: 30 ml Documented By: SETH Melatonin (Melatonin 3 Mg Tablet) 3 mg PO BEDTIME [facility] Last Admin: 01/19/23 22:14 Dose: 3 mg Documented By: NICHELLE Fluorometholone 0.1 (% Drops,Suspension) 1 each EYE-BOTH BID@0900,1600 [facility] Last Admin: 01/20/23 10:38 Dose: 1 each Documented By: FRANCISCO Omeprazole (Omeprazole 20 Mg Capsule.Dr) 20 mg PO DAILY@0630 [facility] Last Admin: 01/20/23 06:09 Dose: 20 mg Documented By: CULLEN Sodium Chloride (0.9 % Sodium Chloride Flush 3 Ml Syringe) 3 ml IVFLUSH QSHIFT [facility] Last Admin: 01/20/23 10:38 Dose: 3 ml Documented By: FRANCISCO Tramadol HCl (Tramadol Hcl 50 Mg Tablet) 50 mg PO Q6H PRN PRN Reason: Pain, Moderate(Pain Scale 4-6) Last Admin: 01/20/23 13:51 Dose: 50 mg Documented By: FRANCISCO Venlafaxine HCl (Venlafaxine Hcl Er 150 Mg Cap.Er.24h) 150 mg PO DAILY [facility] Last Admin: 01/20/23 09:54 Dose: 150 mg Documented By: FRANCISCO Venlafaxine HCl (Venlafaxine Hcl Er 75 Mg Cap.Er.24h) 75 mg PO BEDTIME [facility] Last Admin: 01/19/23 22:14 Dose: 75 mg Documented By: NICHELLE Labs 01/19/23 07:28 01/19/23 07:28 Assessment and Plan (1) Rhabdomyolysis: Status: Acute Plan 87yo F with HTN, HLD, GERD who had mechanical fall without syncope but was done on the ground for several hours and sustained a dislocated R shoulder that was reduced in the ED;tested positive for Covid-19 1.Rhabdomyolysis -resolving with volume repletion -follow clinically 2.CAP/Covid-19 infection -Ceftriaxone/azithromycin (7) -3/3 of remdesivir (risk factors for severe disease) 3.HTN -acceptable control on current therapies -adjust as indicated 4.Acute-chronic HFpEF -resolved; well-compensated -follow clinically Lovenox DNR DNI Requires ongoing hospitalization for IV antibiotics to treat community-acquired pneumonia and to arrange for short-term rehab Quality Stroke Does the patient have a stroke diagnosis?: No VTE Prior VTE?: No VTE Risk Level:: Medical - moderate - high VTE Device Contraindication: Treatment Not Indicated VTE Drug Contraindication: N/A - Med Ordered
[2023-01-20 16:00] VITALS: BP 141/63; PULSE 65; RESP 18; TEMP 36.5; O2SAT 96
[2023-01-20] MEDS: cefTRIAXone sodium 1 GM in 0.9 % Sodium Chloride 50 ML IV (17:58)
[2023-01-20 20:00] VITALS: BP 147/68; PULSE 67; RESP 18; TEMP 36.4; O2SAT 99
[2023-01-20] MEDS: Venlafaxine HCl ER 75 MG CAP.ER.24H PO (22:03)
[2023-01-20] MEDS: Melatonin 3 MG TABLET PO (22:04)
[2023-01-21] VITALS (8 sets, daily range): BP systolic 97–147; BP diastolic 56–75; PULSE 65–99; RESP 17–20; TEMP 36.1–37.3; O2SAT 95–98
[2023-01-21] MEDS: Azithromycin 500 MG in 0.9 % Sodium Chloride 250 ML 125 MG IV (03:39)
[2023-01-21] MEDS: guaiFENesin DM 100/10/5 ML 5 ML SYRUP PO ×4 (03:41→21:48)
[2023-01-21] MEDS: traMADoL HCL 50 MG TABLET PO ×3 (04:00→16:47)
[2023-01-21] MEDS: Omeprazole 20 MG CAPSULE.DR PO (06:37)
[2023-01-21] MEDS: Venlafaxine HCl ER 150 MG CAP.ER.24H PO (10:12)
[2023-01-21] MEDS: Acetaminophen 325 MG TABLET 650 MG PO ×2 (10:14→16:46)
[2023-01-21] MEDS: amLODIPine Besylate 5 MG TABLET PO (10:14)
[2023-01-21] MEDS: atenoloL 25 MG TABLET PO (10:14)
[2023-01-21] MEDS: Docusate Sodium 100 MG CAPSULE PO ×2 (10:14→21:48)
[2023-01-21] MEDS: Heparin Sodium,Porcine 5,000 UNIT/ML VIAL 5000 UNIT SUBCUT ×2 (10:15→21:48)
[2023-01-21] MEDS: Atorvastatin Calcium 10 MG TABLET PO (10:15)
[2023-01-21] MEDS: 0.9 % Sodium Chloride Flush 3 ML SYRINGE IVFLUSH ×3 (10:15→21:58)
--- NOTE | 2023-01-21 13:57 | HO.PM.IMPN ---
Subjective Subjective Date of Service: 01/21/23 Interval History: some cough, no dyspnea Review of Systems Review of Systems: Yes all other systems are reviewed and are negative Physical Exam Vital Signs: Vital Signs: Last Vital Signs Temp 97 F 01/21/23 11:58 Pulse 65 01/21/23 11:58 Resp 17 01/21/23 11:58 BP 139/65 01/21/23 11:58 Pulse Ox 98 01/21/23 11:58 O2 Del Method Room Air 01/21/23 11:58 O2 Flow Rate 1 01/12/23 21:52 Oxygen Flow Rate 2 01/12/23 23:20 BMI result Body Mass Index 24.6 Gen: in no acute distress HEENT: sclera anicteric, moist mucus membranes Neck: supple Lungs: clear to auscultation bilaterally Heart: regular rate and rhythm, no murmurs Abd: soft, non-tender, non-distended Ext: no edema Skin: warm/well-perfused Neuro: alert and oriented x3, no focal findings Psych: appropriate affect Objective Data Active Medications Acetaminophen (Acetaminophen 325 Mg Tablet) 650 mg PO Q6H PRN PRN Reason: Pain, Mild (Pain Scale 1-3) Last Admin: 01/21/23 10:14 Dose: 650 mg Documented By: EMILY Amlodipine Besylate (Amlodipine Besylate 5 Mg Tablet) 5 mg PO DAILY [facility]; Protocol Last Admin: 01/21/23 10:14 Dose: 5 mg Documented By: EMILY Atenolol (Atenolol 25 Mg Tablet) 25 mg PO DAILY [facility]; Protocol Last Admin: 01/21/23 10:14 Dose: 25 mg Documented By: EMILY Atorvastatin Calcium (Atorvastatin Calcium 10 Mg Tablet) 10 mg PO DAILY [facility] Last Admin: 01/21/23 10:15 Dose: 10 mg Documented By: EMILY Docusate Sodium (Docusate Sodium 100 Mg Capsule) 100 mg PO BID [facility] Last Admin: 01/21/23 10:14 Dose: 100 mg Documented By: EMILY Guaifenesin/Dextromethorphan (Guaifenesin Dm 100/10/5 Ml 5 Ml Syrup) 5 ml PO Q4H [facility] Last Admin: 01/21/23 10:12 Dose: 5 ml Documented By: EMILY Heparin Sodium (Porcine) (Heparin Sodium,Porcine 5,000 Unit/Ml Vial) 5,000 unit SUBCUT BID [facility] Last Admin: 01/21/23 10:15 Dose: 5,000 unit Documented By: EMILY Hydralazine HCl (Hydralazine Hcl 20 Mg/Ml Vial) 5 mg IVPUSH Q4H PRN; Protocol PRN Reason: SBP>180 Magnesium Hydroxide (Milk Of Magnesia 30 Ml Oral.Susp) 30 ml PO DAILY PRN PRN Reason: Constipation Last Admin: 01/16/23 16:46 Dose: 30 ml Documented By: SETH Melatonin (Melatonin 3 Mg Tablet) 3 mg PO BEDTIME [facility] Last Admin: 01/20/23 22:04 Dose: 3 mg Documented By: CHEY Fluorometholone 0.1 (% Drops,Suspension) 1 each EYE-BOTH BID@0900,1600 [facility] Last Admin: 01/20/23 17:57 Dose: 1 each Documented By: FRANCISCO Omeprazole (Omeprazole 20 Mg Capsule.Dr) 20 mg PO DAILY@0630 [facility] Last Admin: 01/21/23 06:37 Dose: 20 mg Documented By: CHEY Sodium Chloride (0.9 % Sodium Chloride Flush 3 Ml Syringe) 3 ml IVFLUSH QSHIFT [facility] Last Admin: 01/21/23 10:15 Dose: 3 ml Documented By: EMILY Tramadol HCl (Tramadol Hcl 50 Mg Tablet) 50 mg PO Q6H PRN PRN Reason: Pain, Moderate(Pain Scale 4-6) Last Admin: 01/21/23 10:12 Dose: 50 mg Documented By: EMILY Venlafaxine HCl (Venlafaxine Hcl Er 150 Mg Cap.Er.24h) 150 mg PO DAILY [facility] Last Admin: 01/21/23 10:12 Dose: 150 mg Documented By: EMILY Venlafaxine HCl (Venlafaxine Hcl Er 75 Mg Cap.Er.24h) 75 mg PO BEDTIME [facility] Last Admin: 01/20/23 22:03 Dose: 75 mg Documented By: CHEY Labs 01/19/23 07:28 01/19/23 07:28 Assessment and Plan (1) Rhabdomyolysis: Status: Acute Plan d10 87yo F with HTN, HLD, GERD who had mechanical fall without syncope but was done on the ground for several hours and sustained a dislocated R shoulder that was reduced in the ED concern of CHF with CXR findings of interstitial edema and elevated BNP developed cough with purulent sputum 01/13/23 and started antibiotics for PNA tested positive for Covid-19 01/13/23 dislocated R shoulder - s/p reduction, f/u with Ortho as outpt, transfer to [facility] eventually mild rhabdomyolysis - CPK came down with IV NS PNA - completed 7d of ceftriaxone + azithromycin Covid-19 infection - completed 3 d of remdesivir HTN - continue atenolol + amlodipine acute-chronic HFpEF - Cardiology consulted, appears euvolemic, does not need any more diuresis - TTE 01/13: 1. Normal LV ejection fraction of 65-70% with mild LVH with impaired relaxation filling pattern 2. Mild aortic stenosis 3. Normal RV systolic pressure with normal right atrial pressures 4. Mildly dilated ascending aorta at 4 cm 5. No gross pericardial effusion HLD - continue atorvastatin mood disorder - continue venlafaxine VTE ppx - UFH dispo - anticipate STR In my clinical judgment, the patient requires continued inpatient hospitalization for the following reasons: placement Total time managing care of this patient today: 35 minutes. Quality Stroke Does the patient have a stroke diagnosis?: No VTE Prior VTE?: No VTE Risk Level:: Medical - moderate - high VTE Device Contraindication: Treatment Not Indicated VTE Drug Contraindication: N/A - Med Ordered
--- NOTE | 2023-01-21 14:37 | MHC.CM.PN ---
Addendum entered by Aditi Resendez 01/21/23 16:10: Pt updated on bed offer from Nina Berumen, she was not entirely happy but seemed to understand why it was the best plan for her. Original Note: EMR reviewed and per MD rounds, pt is medically cleared for D/C, plan will be for her to D/C tomorrow for STR. This CM spoke with pts daughter/HCP Dalila regarding STR beds, Dalila agreeable to adding Demar[facility] Burrows to referral. Afterwards, Nina Berumen offered bed for pt for tomorrow 01/22 when covid recovered, off precautions, and pending insurance authorization. CM will continue to follow.
[2023-01-21 15:25] LABS: Folate 13.8 ng/mL (> or = 4.0); Vitamin B12 1590 pg/mL (200-900)
[2023-01-21] MEDS: Melatonin 3 MG TABLET PO (21:48)
[2023-01-21] MEDS: Venlafaxine HCl ER 75 MG CAP.ER.24H PO (21:48)
[2023-01-22 04:00] VITALS: BP 128/62; PULSE 66; RESP 18; TEMP 36.5; O2SAT 96
[2023-01-22] MEDS: Omeprazole 20 MG CAPSULE.DR PO (06:17)
[2023-01-22] MEDS: guaiFENesin DM 100/10/5 ML 5 ML SYRUP PO ×2 (06:17→09:15)
[2023-01-22 07:39] VITALS: BP 132/64; PULSE 73; RESP 18; TEMP 37; O2SAT 94
[2023-01-22 07:46] LABS: Hematocrit 27.2 % (37.0-47.0); Hemoglobin 8.8 g/dl (12.0-16.0); Immature Retic Fraction 16.2 % (3.0-15.9); Mean Corpuscular HGB Conc 32.4 g/dl (31.0-35.0); Mean Corpuscular Hemoglobin 31.2 pg (27.0-33.0); Mean Corpuscular Volume 96.5 fL (80.0-98.0); Mean Platelet Volume 10.5 fL (9.4-12.3); Platelet Count 279 X10*3/uL (160-400); Red Blood Count 2.82 X10*6/uL (4.20-5.50); Red Cell Distribution Width 13.7 % (11.0-16.0); Retic HGB Equivalent 36.1 pg (30.0-35.0); Reticulocytes Absolute 0.056 X10*6/uL (0.026-0.095); White Blood Count 7.5 X10*3/uL (4.8-10.8)
[2023-01-22 08:11] LABS: Iron 58 mcg/dL (30-160); Lactate Dehydrogenase 195 U/L (122-220); Percent Iron Saturation 30 % (15-50); Total Iron Binding Capacity 191 mcg/dL (228-428); Unsaturated Iron Binding 133 ug/dL
[2023-01-22 08:15] LABS: Ferritin 61 ng/mL (10-250)
[2023-01-22] MEDS: traMADoL HCL 50 MG TABLET PO (09:16)
[2023-01-22] MEDS: Heparin Sodium,Porcine 5,000 UNIT/ML VIAL 5000 UNIT SUBCUT (09:16)
[2023-01-22] MEDS: Atorvastatin Calcium 10 MG TABLET PO (09:16)
[2023-01-22] MEDS: atenoloL 25 MG TABLET PO (09:16)
[2023-01-22] MEDS: amLODIPine Besylate 5 MG TABLET PO (09:17)
[2023-01-22] MEDS: 0.9 % Sodium Chloride Flush 3 ML SYRINGE IVFLUSH (09:17)
[2023-01-22] MEDS: Venlafaxine HCl ER 150 MG CAP.ER.24H PO (09:17)
[2023-01-22] MEDS: Docusate Sodium 100 MG CAPSULE PO (09:18)
--- NOTE | 2023-01-22 09:54 | MHC.CM.PN ---
Second IMM given 01/22. Auth received for STR at [facility]. Transport set up via BLS/[facility] at 11am. Pt and her daughter/HCP Dalila informed of plan.
--- NOTE | 2023-01-22 10:25 | PM.DS ---
DS: Providers Provider Date of Service: 01/22/23 Date of admission: 01/12/23 23:58 Date of discharge: 01/22/23 Primary care physician: Saritha Russell MD Consults: 01/13/23 11:51 Consult to Cardiology Routine Consulting Provider: [facility] Cardiovascular Services Reason for consultation: elevated BNP, CHF DS: Diagnosis Discharge Diagnosis (1) Rhabdomyolysis: Status: Acute (2) CAP (community acquired pneumonia): Status: Acute (3) Anterior dislocation of right shoulder: Status: Acute (4) Essential hypertension: Status: Acute (5) COVID-19 virus infection: Status: Acute (6) Acute on chronic heart failure with preserved ejection fraction (HFpEF): Status: Acute DS: Summary Hospital Course Hospital Course: From the history and physical by the admitting hospitalist, Charlie Ramos MD, 01/13/23: 87 year old female with history of falls, HTN, anxiety and others per PMH. She was found on the floor by her son after about 5 hrs. Patient states that she fell but not able elaborate on the circumstance. She didn't hit her head but injured the right should which was found to be dislocated and was reduced by ED provider. She is otherwise doing well and has no other complaint. CT head, neck no fracture, pelvis xray no fracture. CXR cardiomegally, patchy airway disease, CPK is mildly elevated around 1600. She has elevated BNP level 977(no old value) but with no aparent signs of symptoms of heart failure. 87yo F with HTN, HLD, GERD who had a mechanical fall without syncope but was down on the ground for several hours and sustained a dislocated R shoulder that was reduced in the ED here in [facility]. She was found to have CHF and pneumonia, along with rhabdomyolysis and so was admitted to the telemetry unit. Hospital course by problem: dislocated R shoulder - Reduced in the [facility] ED. Sling placed for comfort only. To follow up with [facility] Orthopedics in 1 week. Transferred to SNF for short-term rehabilitation. mild rhabdomyolysis - CPK came down with IV NS. community-acquired pneumonia - Completed 7d of ceftriaxone + azithromycin. Not bacteremic. Not septic. Not hypoxic. Covid-19 infection - Relatively mild with no hypoxia, so no steroids needed. Completed 3d of remdesivir to reduce the risk of severe disease. Completed 10d of isolation. HTN - Atenolol continued; amlodipine added due to persistently elevated blood pressures. acute-chronic HFpEF - Was diuresed with a few doses of IV furosemide. Cardiology consulted. Did not require any maintenance diuretic. TTE 01/13: 1. Normal LV ejection fraction of 65-70% with mild LVH with impaired relaxation filling pattern 2. Mild aortic stenosis 3. Normal RV systolic pressure with normal right atrial pressures 4. Mildly dilated ascending aorta at 4 cm 5. No gross pericardial effusion To follow up with [facility] Cardiology in 2 weeks. Time Attestation Discharge coordination time: Greater than 30 minutes Quality: Safe Use of Opioids Does Pt have an Active Cancer Diagnosis on the Problem List?: No Quality: Stroke Does the patient have a stroke diagnosis?: No Physical Exam Vital Signs: Vital Signs: Last Vital Signs Temp 98.6 F 01/22/23 07:39 Pulse 73 01/22/23 07:39 Resp 18 01/22/23 07:39 BP 132/64 01/22/23 07:39 Pulse Ox 94 01/22/23 07:39 O2 Del Method Room Air 01/22/23 07:39 O2 Flow Rate 1 01/12/23 21:52 Oxygen Flow Rate 2 01/12/23 23:20 BMI result Body Mass Index 24.6 Gen: in no acute distress HEENT: sclera anicteric, moist mucus membranes Neck: supple Lungs: clear to auscultation bilaterally Heart: regular rate and rhythm, no murmurs Abd: soft, non-tender, non-distended Ext: no edema Skin: warm/well-perfused Neuro: alert and oriented x3, no focal findings Psych: appropriate affect DS: Data Data Completed and Pending Completed studies during hospitalization [Text1]: Laboratory Results WBC 7.5 X10*3/uL (4.8-10.8) 01/22/23 07:18 RBC 2.82 X10*6/uL (4.20-5.50) L 01/22/23 07:18 Hgb 8.8 g/dl (12.0-16.0) L 01/22/23 07:18 Hct 27.2 % (37.0-47.0) L 01/22/23 07:18 MCV 96.5 fL (80.0-98.0) 01/22/23 07:18 MCH 31.2 pg (27.0-33.0) 01/22/23 07:18 MCHC 32.4 g/dl (31.0-35.0) 01/22/23 07:18 RDW 13.7 % (11.0-16.0) 01/22/23 07:18 Plt Count 279 X10*3/uL (160-400) 01/22/23 07:18 MPV 10.5 fL (9.4-12.3) 01/22/23 07:18 Immature Gran % (Auto) 0.8 % (0.0-0.4) H 01/19/23 07:28 Neut % (Auto) 58.6 % (45-73) 01/19/23 07:28 Lymph % (Auto) 24.9 % (20-40) 01/19/23 07:28 [place] % (Auto) 12.8 % (2-11) H 01/19/23 07:28 Eos % (Auto) 2.6 % (0-4) 01/19/23 07:28 Baso % (Auto) 0.3 % (0-2) 01/19/23 07:28 Lymph # (Auto) 2.4 X10*3/uL (1.2-4.9) 01/19/23 07:28 [place] # (Auto) 1.2 X10*3/uL (0.1-1.2) 01/19/23 07:28 Eos # (Auto) 0.3 X10*3/uL (0.0-0.4) 01/19/23 07:28 Baso # (Auto) 0.0 X10*3/uL (0.0-0.2) 01/19/23 07:28 Abs Immat Gran (auto) 0.08 X10*3/uL (0.00-0.03) H 01/19/23 07:28 Absolute Neuts (auto) 5.6 x10*3/uL (2.0-8.3) 01/19/23 07:28 Absolute Nucleated RBC 0.000 X10*3/uL (0.0-0.012) 01/22/23 07:18 Nucleated RBC % (auto) 0.0 /100WBC (0.0-0.2) 01/22/23 07:18 Smear Tech's Comments VERIFIED 01/19/23 07:28 Absolute Retic 0.056 X10*6/uL (0.026-0.095) 01/22/23 07:18 Percent Retic 2.0 % (0.5-1.8) H 01/22/23 07:18 Immature Retic Fraction 16.2 % (3.0-15.9) H 01/22/23 07:18 Retic Hgb Equivalent 36.1 pg (30.0-35.0) H 01/22/23 07:18 Sodium 141 mmol/L (135-145) 01/19/23 07:28 Potassium 4.0 mmol/L (3.3-5.1) 01/19/23 07:28 Chloride 106 mmol/L (96-108) 01/19/23 07:28 Carbon Dioxide 27 mmol/L (22-29) 01/19/23 07:28 Anion Gap 12 (12-20) 01/19/23 07:28 BUN 21 mg/dL (9-16) H 01/19/23 07:28 Creatinine 0.82 mg/dL (0.5-1.4) 01/19/23 07:28 Estim Creat Clear Calc 42.5 01/19/23 07:28 Estimated GFR > 60 01/19/23 07:28 Random Glucose 87 mg/dL (60-115) 01/16/23 07:18 Fasting Glucose 94 mg/dL (60-99) 01/19/23 07:28 Calcium 8.9 mg/dL (8.4-10.2) 01/19/23 07:28 Magnesium 2.1 mg/dL (1.6-2.6) 01/15/23 06:39 Iron 58 mcg/dL (30-160) 01/22/23 07:18 TIBC 191 mcg/dL (228-428) L 01/22/23 07:18 % Saturation 30 % (15-50) 01/22/23 07:18 Unsat Iron Binding 133 ug/dL 01/22/23 07:18 Ferritin 61 ng/mL (10-250) 01/22/23 07:18 Total Bilirubin 0.2 mg/dL (0.0-1.0) 01/19/23 07:28 Direct Bilirubin 0.1 mg/dL (0.0-0.5) 01/12/23 17:26 AST 26 U/L (5-31) 01/19/23 07:28 ALT 16 U/L (0-31) 01/19/23 07:28 Alkaline Phosphatase 65 U/L (39-117) 01/19/23 07:28 Lactate Dehydrogenase 195 U/L (122-220) 01/22/23 07:18 Total Creatine Kinase 386 U/L (26-140) H 01/16/23 07:18 Troponin I High Sens 13.8 ng/L (<3.5-17.0) 01/15/23 15:04 C-Reactive Protein 4.98 mg/dL (< or = 0.50) H 01/16/23 07:18 B-Natriuretic Peptide 186 pg/mL (<100) H 01/16/23 07:18 Total Protein 6.8 g/dL (6.5-8.0) 01/19/23 07:28 Albumin 3.3 g/dL (3.5-5.0) L 01/19/23 07:28 Lipase 11 U/L (8-78) 01/12/23 17:26 Vitamin B12 1590 pg/mL (200-900) H 01/21/23 14:21 Folate 13.8 ng/mL (> or = 4.0) 01/21/23 14:21 Procalcitonin 0.04 ng/mL 01/16/23 07:18 Urine Color Yellow 01/12/23 20:17 Urine Appearance Turbid 01/12/23 20:17 Urine pH 8.5 (5.0-9.0) 01/12/23 20:17 Ur Specific [place] 1.015 (1.005-1.025) 01/12/23 20:17 Urine Protein 30 (1+) mg/dL (Neg-Trace) H 01/12/23 20:17 Urine Glucose (UA) Negative mg/dL (Negative) 01/12/23 20:17 Urine Ketones Negative mg/dL (Negative) 01/12/23 20:17 Urine Blood Trace (Negative) H 01/12/23 20:17 Urine Nitrite Negative (Negative) 01/12/23 20:17 Ur Leukocyte Esterase Trace (Negative) H 01/12/23 20:17 Urine RBC 3-5 /HPF (0-2) H 01/12/23 20:17 Urine WBC 0-5 /HPF (0-5) 01/12/23 20:17 Ur Squamous Epith Cells 11-20 /HPF (0-2) 01/12/23 20:17 Urine Bacteria 4+ (None Seen) 01/12/23 20:17 Hyaline Casts 3-5 /LPF (0-2) 01/12/23 20:17 Respiratory Panel Turner See Note 01/13/23 18:12 Adenovirus (Rapid PCR) Not Detected (Not Detect.) 01/13/23 18:12 B.pert (TEM-PCR) Not Detected (Not Detect.) 01/13/23 18:12 B.parapertussis DNA PCR Not Detected (Not Detect.) 01/13/23 18:12 C. pneumoniae DNA (PCR) Not Detected (Not Detect.) 01/13/23 18:12 Coronavirus OC43 (PCR) Not Detected (Not Detect.) 01/13/23 18:12 Coronavirus HKU1 (PCR) Not Detected (Not Detect.) 01/13/23 18:12 Coronavirus 229E (PCR) Not Detected (Not Detect.) 01/13/23 18:12 COVID-19 (JOE) Positive (Negative) A 01/18/23 11:20 COVID-19 Clin Com See Note 01/18/23 11:20 Coronavirus NL63 (PCR) Not Detected (Not Detect.) 01/13/23 18:12 Human Metapneumovir PCR Not Detected (Not Detect.) 01/13/23 18:12 Influenza A (RT-PCR) Not Detected (Not Detect.) 01/13/23 18:12 Influenza B (RT-PCR) Not Detected (Not Detect.) 01/13/23 18:12 M. pneumoniae (PCR) Not Detected (Not Detect.) 01/13/23 18:12 Parainfluenza 1 (PCR) Not Detected (Not Detect.) 01/13/23 18:12 Parainfluenza 2 (PCR) Not Detected (Not Detect.) 01/13/23 18:12 Parainfluenza 3 (PCR) Not Detected (Not Detect.) 01/13/23 18:12 Parainfluenza 4 (PCR) Not Detected (Not Detect.) 01/13/23 18:12 RSV (PCR) Not Detected (Not Detect.) 01/13/23 18:12 Entero/Rhino (PCR) Not Detected (Not Detect.) 01/13/23 18:12 SARS-CoV-2 RNA (RT-PCR) Detected (Not Detect.) A 01/13/23 18:[address] 01/12/23 16:58 IMPRESSION: 1. No acute intracranial process seen. 2. There is no acute fracture, dislocation or subluxation in cervical spine. Head CT 01/12/23 16:58 IMPRESSION: 1. No acute intracranial process seen. 2. There is no acute fracture, dislocation or subluxation in cervical spine. Chest X-Ray 01/12/23 19:21 IMPRESSION: 1. Interstitial prominence with patchy left lower lobe airspace opacities, new/increased when compared to the most recent chest radiograph. 2. Mild cardiomegaly. 3. Partially visualized anteroinferior right humeral head dislocation. Elbow X-Ray 01/12/23 19:21 IMPRESSION: RIGHT SHOULDER: Anteroinferior dislocation of the humeral head with humeral head cortical impaction, consistent with an acute Hill-Sachs deformity. Moderate acromioclavicular osteoarthritis. RIGHT ELBOW: No displaced fracture. Hip/Pelvis X-Ray 01/12/23 19:21 IMPRESSION: 1. No acute fracture or dislocation. 2. Mild bilateral hip osteoarthritis, right greater than left. Shoulder X-Ray 01/12/23 23:12 IMPRESSION: Successful reduction of right shoulder dislocation. Discharge Plan Discharge Anticipated Discharge Date/Time: 01/22/23 10:19 Patient Disposition: [facility] SN[facility] Discharge Diagnosis: R shoulder dislocation mild rhabdomyolysis hypertension CHF community-acquired pneumonia Covid-19 infection Referrals: [facility] [Other] - 1 Week [facility] Orthopedic Surgeons [Provider Group] - 1 Week Saritha Ellis MD [Primary Care Provider] - 1 Week Mrac Tam MD [Physician] - 2 Weeks Discharge Medications: New amlodipine 5 mg Tablet 5 mg PO DAILY Qty: 30 0RF Protocol: Hold for SBP< HOLD for SBP < : 90 Continued venlafaxine 75 mg capsule,extended release 24hr 75 mg PO DAILY 90 Days Qty: 90 3RF atorvastatin 10 mg tablet 10 mg PO DAILY 90 Days Qty: 90 3RF atenolol 25 mg tablet 25 mg PO DAILY 90 Days Qty: 90 3RF venlafaxine 150 mg capsule,extended release 24hr 150 mg PO DAILY 90 Days Qty: 90 3RF cyanocobalamin (vitamin B-12) 1,000 mcg Tablet 1,000 mcg PO DAILY melatonin 3 mg Tablet 3 mg PO BEDTIME esomeprazole magnesium [Nexium] 20 mg Capsule,Delayed Release(Dr/Ec) 20 mg PO DAILY@0630 tramadol 50 mg tablet 50 mg PO Q8H PRN (Reason: Moderate Pain (Scale Score 5-6)) 30 Days Qty: 90 0RF (DME) compression stockings 40 mmHg knee high See Rx Instructions .Route .MEDSUPPLY Qty: 2 2RF Rx Instructions: As directed fluorometholone 0.1 % drops,suspension 1 drp ophthalmic (eye) BID@0900,1600 bethanechol chloride 50 mg tablet 50 mg PO BID 90 Days Qty: 180 1RF Discharge Orders: Discharge Order (Routine); Ordered 01/22/23 Ordered By: Jeannette Robles Diet: Low salt diet Activity on Discharge: As tolerated Stand Alone Forms: Patient Portal Discharge page Care Plan Goals: recovery from fall/shoulder dislocation cardiovascular health Health Concerns: R shoulder dislocation - sling for comfort only - see [facility] Orthopedics in 1 week mild rhabdomyolysis - resolved after IV hydration hypertension - continue atenolol 25 mg daily, add amlodipine 5 mg daily CHF - low-sodium diet: less than 2000 mg of sodium daily. Weigh yourself daily and call your doctor if your weight goes up by more than 3 lb/day or 5 lb/week. - see [facility] Cardiology in 2 weeks community-acquired pneumonia - completed antibiotics Covid-19 infection - completed remdesivir + isolation Please follow up with your primary care doctor within 1 week of discharge from short-term rehabilitation. Return to the hospital if you experience recurrent or worsening symptoms. Plan of Treatment: see above Assessment: See Discharge Summary.
[2023-01-24 20:13] LABS: Strep Pneumo Ag urine Not Detected (Not Detected)
[2023-01-27 04:33] LABS: Legionella Ag Urine Not Detected (Not Detected)
== END 2023-01-22 11:36 | disposition skilled nursing facility (03) | DRG 291 ==
LOC: HO.ED 01-13 00:01 → HO.EDOVER 01-13 00:06 → HO.IMC 01-13 19:17
PROVIDERS: Hospitalist; Nurse Practitioner Acute Care; Admitting Provider Internal Medicine; Emergency Provider Emergency Medicine; PCP Internal Medicine; Visit Provider Family Medicine
DX: I11.0 Hypertensive heart disease with heart failure (principal); I50.33 Acute on chronic diastolic (congestive) heart failure; U07.1 COVID-19; J44.0 Chronic obstructive pulmonary disease with (acute) lower respiratory infection; M62.82 Rhabdomyolysis; S43.014A Anterior dislocation of right humerus, initial encounter; E87.6 Hypokalemia; I35.0 Nonrheumatic aortic (valve) stenosis; E78.5 Hyperlipidemia, unspecified; Z66 Do not resuscitate; W19.XXXA Unspecified fall, initial encounter; Z79.899 Other long term (current) drug therapy
CPT/HCPCS: 36415; 70450; 71045; 72125; 73020; 73030; 73070; 73502; 80048; 80053; 80076; 81001; 82550; 82607; 82728; 82746; 83540; 83615; 83690; 83735; 83880; 84145; 84484; 85025; 85027; 85045; 86140; 87449; 87633; 87635; 87899; 93005; 93306; 97116; 97162; 97166; 97530; 97535; 99285; J0248; J0456; J0696; J1644; J1940; J2270; J2704; Q9957

== ENCOUNTER 2023-01-12 23:58 | Outpatient (BNV) | payer OTHER, SELFPAY | END 2023-01-15 12:04 | PROVIDERS: Admitting Provider Internal Medicine; Emergency Provider Emergency Medicine; PCP Internal Medicine; Visit Provider Internal Medicine Cardiovascular Disease | DX: I45.10 Unspecified right bundle-branch block (principal); R94.31 Abnormal electrocardiogram [ECG] [EKG] | CPT/HCPCS: 93010 ==

== ENCOUNTER 2023-01-12 23:58 | Outpatient (BNV) | payer OTHER, SELFPAY | END 2023-01-13 07:00 | PROVIDERS: Admitting Provider Internal Medicine; Emergency Provider Emergency Medicine; PCP Internal Medicine; Visit Provider Internal Medicine Cardiovascular Disease | DX: I35.0 Nonrheumatic aortic (valve) stenosis (principal) | CPT/HCPCS: 93306 ==

== ENCOUNTER → 2023-01-12 23:58 | Outpatient (BNV) | payer OTHER, SELFPAY | PROVIDERS: Admitting Provider Internal Medicine; Emergency Provider Emergency Medicine; PCP Internal Medicine; Visit Provider Internal Medicine Cardiovascular Disease | DX: R79.89 Other specified abnormal findings of blood chemistry (principal); W19.XXXA Unspecified fall, initial encounter | CPT/HCPCS: 99222 ==

== ENCOUNTER → 2023-01-12 23:58 | Outpatient (BNV) | payer OTHER, SELFPAY | PROVIDERS: Admitting Provider Internal Medicine; Emergency Provider Emergency Medicine; Visit Provider Nurse Practitioner Acute Care | DX: S43.014A Anterior dislocation of right humerus, initial encounter (principal); W19.XXXA Unspecified fall, initial encounter | CPT/HCPCS: 99223; 99232; 99233; 99239 ==

== ENCOUNTER 2023-01-29 15:37 | Inpatient (IN) | payer OTHER, SELFPAY ==
[2023-01-29] VITALS (9 sets, daily range): BP systolic 142–192; BP diastolic 60–99; PULSE 70–76; RESP 11–22; TEMP 34.9–36.4; O2SAT 97–100; BMI 24.1
--- NOTE | ~2023-01-29 | XR_ITS ---
EXAMINATION: XR CHEST CLINICAL INFORMATION: Hypothermia and sepsis. COMPARISON: None available. TECHNIQUE: Frontal view of the chest was obtained. FINDINGS: The lungs are well-expanded without acute pneumonic process. The heart size is enlarged. Perivascular is prominent. No gross bony abnormality seen.. XR/XR chest 1V IMPRESSION: Cardiomegaly with mild pulmonary vascular congestion. No acute pneumonic process seen.
--- NOTE | ~2023-01-29 | CT_ITS ---
EXAMINATION: CT ABDOMEN AND PELVIS WITHOUT CONTRAST CLINICAL INFORMATION: Bacteremia. COMPARISON: CT abdomen pelvis 03/19/2022 TECHNIQUE: Multidetector volumetric imaging was performed from the superior aspect of the liver through the pubic symphysis. Sagittal and coronal reformatted images were obtained on the technologist's workstation. This CT examination was performed using dose optimization techniques as appropriate, variously including the following: *Automated exposure control *Adjustment of mA and/or kV according to patient size (this includes techniques or standardized protocols for targeted exams where dose is matched to indication/reason for exam; i.e. extremities or head) *Use of iterative reconstruction technique DLP: 481 mGy-cm FINDINGS: LUNG BASES: There is bilateral increase interstitial markings likely chronic changes. No consolidation or mass seen. The heart size is enlarged. There is mitral and aortic valve calcifications as well as mild coronary artery calcifications. There is small to moderate-sized hiatal hernia. LIVER, GALLBLADDER, AND BILIARY TREE: The liver is normal in size, shape, and attenuation. No focal hepatic lesion or biliary ductal dilatation is present. The gallbladder is unremarkable with no evidence of radiopaque gallstones, gallbladder wall thickening, or obvious pericholecystic inflammatory changes. PANCREAS: Unremarkable. SPLEEN: Unremarkable. ADRENAL GLANDS: Unremarkable. KIDNEYS AND URETERS: The kidneys are normal in size, shape, and attenuation. No hydronephrosis, hydroureter, or calculi seen. No perinephric stranding. Moderate bilateral hydronephrosis seen previously has resolved. BLADDER: There is diffuse bladder wall thickening with a Matthews's catheter within. GASTROINTESTINAL TRACT: There is scattered stool, diverticula and gas in colon without distention or diverticulitis. The small bowel loops are normal caliber. Appendix is normal caliber. There is are mild. Appendix fat stranding, nonspecific. ABDOMINAL WALL: No significant hernia is appreciated. LYMPH NODES: Normal. VASCULAR: The abdominal aorta is of normal caliber. No aneurysmal dilatation seen. PELVIC VISCERA: The uterus is midline and appears unremarkable. There is no adnexal mass or free fluid seen. There is nonsegmental mild rectal and distal sigmoid colon wall thickening. Minimal surrounding fat stranding is seen. OSSEOUS STRUCTURES: There are degenerative disc changes L5-S1 and L1-L2 disc levels with mild ventral spondylosis. There is old compression deformity T11 and L1 vertebra. The L1 vertebral deformity is new since 03/19/[address]/CT abdomen pelvis wo IV con IMPRESSION: Mild rectal and distal sigmoid wall thickening with mild fat stranding. Recommend digital exam or flexible sigmoidoscopy. Sigmoid colon diverticulosis without diverticulitis. Moderate constipation. No air-fluid levels, abscess or free air seen. Small to moderate-sized hiatal hernia is stable. Fleischner guidelines were followed.
--- NOTE | ~2023-01-29 | XR_ITS ---
EXAMINATION: XR ABDOMEN KUB CLINICAL INDICATION: Nausea, check for ileus, constipation is over. COMPARISON: None available. TECHNIQUE: AP view of the abdomen. FINDINGS: There is scattered stool and gas seen throughout the colon without significant distention. There is no organomegaly. No radiopaque calculi. There is mild dextroscoliosis mid lumbar spine. There is intramedullary femoral sharmaine and compression screw stabilizing the left proximal femoral fracture. There is a small probe overlying the lower pelvis likely in the bladder. There is mild levoscoliosis with degenerative disc changes and spondylosis throughout lumbar spine. XR/XR KUB IMPRESSION: 1. Mild constipation. No acute process seen. 2. There is intramedullary femoral sharmaine and compression screw stabilizing the left proximal femoral fracture.
--- NOTE | 2023-01-29 16:00 | PC.NURSE ---
a&ox3, 94.9 rectal temp, hypertensive, otherwise vss and up to date. 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 pt comes in today from rehab in [place] d/t hypothermia, fatigue, weakness, n/v. per pt's family members - when pt finished physical therapy evaluation at facility - pt became nauseous, started vomiting and just looked off. vital signs obtained at facility where pt was found w/ low temp. pt placed on bear hugger upon arrival. 16Fr temp sensing cai catheter placed/documented. 18gIV placed in the right AC via EMS transport. pt denies pain. no sob/wob noted. respirations even/unlabored. call nicholson placed within reach.
--- NOTE | 2023-01-29 16:17 | ECG_ITS ---
Test Reason : WEAKNESS Blood Pressure : / mmHG Vent. Rate : 072 BPM Atrial Rate : 072 BPM P-R Int : 166 ms QRS Dur : 130 ms QT Int : 472 ms P-R-T Axes : 015 -17 -01 degrees QTc Int : 516 ms Normal sinus rhythm Right bundle branch block Minimal voltage criteria for LVH, may be normal variant ( R in aVL ) Abnormal ECG When compared with ECG of 15-JAN-2023 12:04, QRS axis Shifted right Nonspecific T wave abnormality has replaced inverted T waves in Inferior leads T wave inversion no longer evident in Lateral leads Referred By: Generic ED Physician Electronically Signed By:Moses Arredondo
--- NOTE | 2023-01-29 16:41 | ED_ITS ---
HPI - General Adult General Chief complaint: General Medical Stated complaint: hypoyhermia(95.1),julissa (40)weakness,fatigue Time Seen by Provider: 01/29/23 16:24 Source: patient, family (Son) and EMS Mode of arrival: EMS Limitations: no limitations History of Present Illness HPI narrative: 87-year-old female came in by ambulance from rehab for evaluation of hypothermia. Patient did not feel well all day today, feeling generalized weakness, nausea, 1 time vomiting, chills. Patient otherwise declined headache, blurry vision, neck stiffness, chest pain, shortness of breath, abdominal pain. Related Data Home Medications Medication Instructions Recorded Confirmed fluorometholone 0.1 % eye 1 drp ophthalmic (eye) 11/16/19 01/13/23 drops,suspension BID@0900,1600 cyanocobalamin (vitamin B-12) 1,000 mcg PO DAILY 07/08/21 01/13/23 1,000 mcg tablet melatonin 3 mg tablet 3 mg PO BEDTIME 07/08/21 01/13/23 esomeprazole magnesium 20 mg 20 mg PO DAILY@0630 09/07/21 01/13/23 capsule,delayed release (Nexium) Previous Rx's Medication Instructions Recorded venlafaxine 75 mg capsule,extended 75 mg PO DAILY 90 days #90 caps 02/19/22 release 24 hr atorvastatin 10 mg tablet 10 mg PO DAILY 90 days #90 tabs 02/28/22 compression stockings 40 mmHg #2 ea 03/06/22 bethanechol chloride 50 mg tablet 50 mg PO BID 90 days #180 tabs 05/21/22 atenolol 25 mg tablet 25 mg PO DAILY 90 days #90 tabs 11/17/22 venlafaxine 150 mg 150 mg PO DAILY 90 days #90 caps 11/17/22 capsule,extended release 24 hr tramadol 50 mg tablet 50 mg PO Q8H PRN Moderate Pain 12/30/22 (Scale Score 5-6) 30 days #90 tabs amlodipine 5 mg tablet 5 mg PO DAILY #30 tabs 01/22/23 Allergies Allergy/AdvReac Type Severity Reaction Status Date / Time codeine [CODEINE] Allergy Mild upset Verified 12/30/22 14:58 stomach, nause Review of Systems 2 Review of Systems: All other systems are reviewed and are negative Constitutional: Reports as per HPI and Reports no additional constitutional complaints Eyes: Reports as per HPI and Reports no additional eye complaints Reports system reviewed and no additional complaints, except as documented Cardiovascular: Reports as per HPI and Reports no additional cardiovascular complaints Respiratory: Reports as per HPI and Reports no additional respiratory complaints Gastrointestinal: Reports as per HPI and Reports no additional gastrointestinal complaints Genitourinary: Reports no additional female genitourinary complaints Musculoskeletal: Reports no additional musculoskeletal complaints Skin/Breast: Reports system reviewed and no additional complaints, except as docu Psychiatric: Reports no additional psychiatric complaints Endocrine: Reports no additional endocrine complaints Hematologic/Lymphatic: Reports no additional hematologic/lymphatic complaints Allergic/Immunologic: Reports no additional allergic/immunologic complaints Reports system reviewed and no additional complaints, except as documented and Reports Abnormal speech present [facility] Past Medical History Medical History Asthma Vertigo Polyuria Anxiety Essential hypertension GERD (gastroesophageal reflux disease) Familial hypercholesterolemia Endogenous depression COPD (chronic obstructive pulmonary disease) Surgical History S/P lumpectomy of breast History of eye surgery History of cataract surgery Family History Family History Father No problems noted. Mother No problems noted. Brother No problems noted. Sister No problems noted. Son No problems noted. Daughter No problems noted. Social History Social History Household Members: Children Housing: Apartment Do you presently have visiting nurse or other home services: Yes (3 days/wk) Alcohol intake: never Patient Tobacco Use Status: Never used Tobacco Smoked in Last 30 Days: No e-Cigarette/Vaping Use: Never Used Second Hand Smoke Exposure: No Use of substances other than those prescribed or required for medical reasons: No Advance Directives: Yes Advance Directives on File: Yes Advance Directives Date on File: 07/22/21 service: No Current occupational status: retired Cognitive needs: Yes Hearing needs: No Vision needs: Yes Physical Exam ED Vital Signs: Vital Signs - 24 hr 01/29/23 16:00 01/29/23 16:10 01/29/23 16:18 Temperature 94.9 F L 94.9 F L 95.4 F L Pulse Rate 76 71 Respiratory Rate 20 12 Blood Pressure 177/77 H 192/99 H Pulse Oximetry 100 98 Oxygen Delivery Method Room Air Room Air 01/29/23 16:58 01/29/23 17:35 01/29/23 18:23 Temperature 96.3 F L 96.8 F 97.2 F Pulse Rate 71 74 Respiratory Rate 16 14 Blood Pressure 191/80 H 142/66 H Pulse Oximetry 100 99 Oxygen Delivery Method Room Air Room Air BMI result Body Mass Index 24.1 Vital signs have been reviewed and appear to be correct. Blood pressure elevated. Heart rate normal. Respiratory rate normal. Hypothermic. Oxygen saturation normal. Appearance: Alert. Oriented X3. No acute distress. Head: Normal external exam. Normocephalic. Atraumatic. No Kim signs noted. No raccoon eyes noted Eyes: PERRLA. EOMI. Conjunctiva and sclera normal. Eyelids normal. ENT: TM's Normal. Pharynx normal. Uvula midline. Moist mucous membranes. No trismus noted. No drooling noted. No muffled voice noted. Neck: Normal inspection. Neck supple. FROM. No adenopathy. Thyroid Normal. No meningeal signs. No neck mass noted. CVS: Normal heart rate and rhythm. Heart sound normal. No murmurs noted. Pulses normal throughout. Respiratory: No respiratory distress. Painless inspiration. Breath sounds normal. No wheezes/rales/rhonchi noted. Chest nontender. No accessory muscle usage noted or decreased air movement noted. Abdomen: Soft and nontender. Bowel sounds normal in all 4 quadrants. No distention noted. No organomegaly noted. No visible injury noted. Back: No CVA tenderness. Full range of motion noted. Skin: Skin warm and dry. Normal skin color. Normal skin turgor. No rashes/lesions/lacerations noted. Extremities: No lower extremity edema. Extremities exhibit normal range of motion. Extremities nontender. Neuro: Oriented X 3. Cranial nerve exam: II-XII are grossly intact No motor deficit. No sensory deficit. Reflexes normal. Course Reevaluation(s) Reevaluation #1: 87-year-old female came in from rehab with hypothermia, generalized weakness, chills. Patient found to have a UTI will start the patient on ceftriaxone patient meet criteria area for SIRS but no severe sepsis or septic shock will admit the patient, administer IV ceftriaxone, gentle hydration. Time: 18:59 Medical Decision Making Differential Diagnosis Differential Diagnoses: The differential diagnosis associated with the presentation includes (Septic shock, sirs, UTI, dehydration, electrolyte abnormality, severe anemia, pneumonia, pneumothorax.) Admission/Observation Consideration of admission/observation: Escalation of care including admission/observation considered Consult Healthcare Provider Management of the patient was discussed with: Hospitalist (Dr. Kelley) Lab Data MDM Lab Attestation statement: I reviewed the patient's lab results. 01/29/23 16:54 01/29/23 16:54 Labs: Lab Results 01/29/23 01/29/23 Range/Units 16:54 17:28 WBC 14.7 H (4.8-10.8) X10*3/uL RBC 3.79 L D (4.20-5.50) X10*6/uL Hgb 11.5 L D (12.0-16.0) g/dl Hct 34.7 L D (37.0-47.0) % MCV 91.6 (80.0-98.0) fL MCH 30.3 (27.0-33.0) pg MCHC 33.1 (31.0-35.0) g/dl RDW 13.2 (11.0-16.0) % Plt Count 355 D (160-400) X10*3/uL MPV 10.0 (9.4-12.3) fL Immature Gran % (Auto) 0.6 H (0.0-0.4) % Neut % (Auto) 86.3 H (45-73) % Lymph % (Auto) 4.8 L (20-40) % [place] % (Auto) 8.0 (2-11) % Eos % (Auto) 0.1 (0-4) % Baso % (Auto) 0.2 (0-2) % Lymph # (Auto) 0.7 L (1.2-4.9) X10*3/uL [place] # (Auto) 1.2 (0.1-1.2) X10*3/uL Eos # (Auto) 0.0 (0.0-0.4) X10*3/uL Baso # (Auto) 0.0 (0.0-0.2) X10*3/uL Abs Immat Gran (auto) 0.09 H (0.00-0.03) X10*3/uL Absolute Neuts (auto) 12.7 H (2.0-8.3) x10*3/uL Absolute Nucleated RBC 0.000 (0.0-0.012) X10*3/uL Nucleated RBC % (auto) 0.0 (0.0-0.2) /100WBC Sodium 135 (135-145) mmol/L Potassium 4.4 (3.3-5.1) mmol/L Chloride 99 (96-108) mmol/L Carbon Dioxide 23 (22-29) mmol/L Anion Gap 17 (12-20) BUN 35 H (9-16) mg/dL Creatinine 1.13 (0.5-1.4) mg/dL Estim Creat Clear Calc 30.9 Estimated GFR 46 Random Glucose 119 H (60-115) mg/dL Lactic Acid 1.6 (0.5-2.0) mmol/L Calcium 9.8 D (8.4-10.2) mg/dL Urine Color Dark Yellow Urine Appearance Turbid Urine pH 6.5 (5.0-9.0) Ur Specific [place] 1.015 (1.005-1.025) Urine Protein 100 (2+) H (Neg-Trace) mg/dL Urine Glucose (UA) Negative (Negative) mg/dL Urine Ketones Negative (Negative) mg/dL Urine Blood Moderate (2+) H (Negative) Urine Nitrite Negative (Negative) Ur Leukocyte Esterase Large (3+) H (Negative) Urine RBC >20 H (0-2) /HPF Urine WBC >50 H (0-5) /HPF Ur Squamous Epith Cells >20 (0-2) /HPF Urine Bacteria 4+ (None Seen) Hyaline Casts >20 (0-2) /LPF Influenza Type A (PCR) NEGATIVE (Negative) Influenza Type B (PCR) NEGATIVE (Negative) RSV RNA Qual (PCR) NEGATIVE (Negative) SARS-CoV-2 RNA (RT-PCR) NEGATIVE (Negative) Discharge Plan Discharge Clinical Impression: Acute UTI Hypothermia Qualifiers: Encounter type: initial encounter Qualified Code(s): T68.XXXA - Hypothermia, initial encounter Patient Disposition: Admitted As Inpatient Prescriptions: No Action venlafaxine 75 mg capsule,extended release 24hr 75 mg PO DAILY 90 Days Qty: 90 3RF atorvastatin 10 mg tablet 10 mg PO DAILY 90 Days Qty: 90 3RF atenolol 25 mg tablet 25 mg PO DAILY 90 Days Qty: 90 3RF venlafaxine 150 mg capsule,extended release 24hr 150 mg PO DAILY 90 Days Qty: 90 3RF cyanocobalamin (vitamin B-12) 1,000 mcg Tablet 1,000 mcg PO DAILY melatonin 3 mg Tablet 3 mg PO BEDTIME esomeprazole magnesium [Nexium] 20 mg Capsule,Delayed Release(Dr/Ec) 20 mg PO DAILY@0630 amlodipine 5 mg Tablet 5 mg PO DAILY Qty: 30 0RF Protocol: Hold for SBP< HOLD for SBP < : 90 tramadol 50 mg tablet 50 mg PO Q8H PRN (Reason: Moderate Pain (Scale Score 5-6)) 30 Days Qty: 90 0RF (DME) compression stockings 40 mmHg knee high See Rx Instructions .Route .MEDSUPPLY Qty: 2 2RF Rx Instructions: As directed fluorometholone 0.1 % drops,suspension 1 drp ophthalmic (eye) BID@0900,1600 bethanechol chloride 50 mg tablet 50 mg PO BID 90 Days Qty: 180 1RF
--- NOTE | 2023-01-29 16:56 | PC.NURSE ---
labs obtained/sent to lab.
[2023-01-29 17:02] LABS: MANUAL DIFF FLAG NO
[2023-01-29 17:16] LABS: Lactic Acid 1.6 mmol/L (0.5-2.0)
[2023-01-29 17:17] LABS: Anion Gap 17 (12-20); Blood Urea Nitrogen 35 mg/dL (9-16); Calcium 9.8 mg/dL (8.4-10.2); Carbon Dioxide 23 mmol/L (22-29); Chloride 99 mmol/L (96-108); Creatinine Clr Calc Pharmacy 30.9; Estimated Glomerular Filt Rate 46; Glucose Random 119 mg/dL (60-115); Potassium 4.4 mmol/L (3.3-5.1); Sodium 135 mmol/L (135-145)
[2023-01-29 17:27] LABS: Basophils Percent Auto 0.2 % (0-2); Eosinophils Percent Auto 0.1 % (0-4); Hematocrit 34.7 % (37.0-47.0); Hemoglobin 11.5 g/dl (12.0-16.0); Imm Gran Abs Auto 0.09 X10*3/uL (0.00-0.03); Imm Gran Pct Auto 0.6 % (0.0-0.4); Lymphocytes Absolute Auto 0.7 X10*3/uL (1.2-4.9); Lymphocytes Percent Auto 4.8 % (20-40); Mean Corpuscular HGB Conc 33.1 g/dl (31.0-35.0); Mean Corpuscular Hemoglobin 30.3 pg (27.0-33.0); Mean Corpuscular Volume 91.6 fL (80.0-98.0); Monocytes Absolute Auto 1.2 X10*3/uL (0.1-1.2); Neutrophils Absolute Auto 12.7 x10*3/uL (2.0-8.3); Neutrophils Percent Auto 86.3 % (45-73); Platelet Count 355 X10*3/uL (160-400); Red Blood Count 3.79 X10*6/uL (4.20-5.50); Red Cell Distribution Width 13.2 % (11.0-16.0); White Blood Count 14.7 X10*3/uL (4.8-10.8)
--- NOTE | 2023-01-29 17:30 | PC.NURSE ---
pt's temperature continues to increase at this time d/t placement of bear hugger. increases in core temperature documented in vitals section. pt incontinent of stool - this RN and tech Suad changed pt over/applied new padding. urine obtained/sent to lab. tech bedside performing ekg. respirations remain even/unlabored. family bedside. call nicholson placed within reach.
[2023-01-29 17:47] LABS: Influenza A PCR NEGATIVE (Negative); Influenza B PCR NEGATIVE (Negative); Resp Syncy Virus RNA Qual PCR NEGATIVE (Negative); SARS COV2 PCR INHOUSE NEGATIVE (Negative)
[2023-01-29 17:51] LABS: Appearance Urine Turbid; Color Urine Dark Yellow; Glucose Urine UA Negative (Negative); Leukocyte Esterase Urine Large (3+) (Negative); Nitrite Urine Negative (Negative); PH 6.5 (5.0-9.0); Specific Gravity - Urine 1.015 (1.005-1.025); UMIC TRIGGER UACC YES; Urine Blood Moderate (2+) (Negative); Urine Ketones Negative (Negative); Urine Protein 100 (2+) mg/dL (Neg-Trace)
[2023-01-29 18:09] LABS: Bacteria Urine 4+ (None Seen); Hyaline Casts Urine >20 /LPF (0-2); RBC Urine >20 /HPF (0-2); Squamous Epithelial Cell Urine >20 /HPF (0-2); UACC Culture Trigger YES; WBC Urine >50 /HPF (0-5)
--- NOTE | 2023-01-29 18:23 | PC.NURSE ---
core temp of 97.2 via cai catheter. pt verbalizing that she is too hot and requesting bear hugger to be removed. bear hugger removed at this time. pt still verbalizing no pain. denies n/v/any other sx. respirations remain even/unlabored. family bedside. pt awaiting to be seen by provider. call nicholson placed within reach.
--- NOTE | 2023-01-29 19:00 | PHA.MEDREC ---
Pharmacy Consult ? Medication Reconciliation Pharmacy has completed the medication reconciliation. Patient came from [facility] with med list. Kinjal Acosta, AntonioD
[2023-01-29] MEDS: 0.9 % Sodium Chloride 1,000 ML 250 ML IV (19:05)
[2023-01-29] MEDS: cefTRIAXone sodium 1 GM in 0.9 % Sodium Chloride 50 ML IV (19:13)
--- NOTE | 2023-01-29 19:16 | PC.NURSE ---
medications administered per provider order. xray bedside.
--- NOTE | 2023-01-29 19:27 | P.HPHOSP_ITS ---
History of Present Illness Date of Service: 01/29/23 Attending physician on admission: Brandon Kelley Chief Complaint: Hypothermia Pt is an 87-year-old female with a PMH significant for?HFpEF, HTN, hx of falls, and anxiety who presents to the ED from short term rehab for evaluation of hypothermia, generalized weakness, and chills. Patient was recently admitted to the hospital on 01/07-01/22 for evaluation of mechanical fall without syncope. Was found to have a dislocated right shoulder that was reduced in the ED, and admitted to the hospital for treatment of mild rhabdomyolysis, community- acquired pneumonia, COVID-19 infection, and acute HFpEF exacerbation. She was transferred to SNF for short-term rehabilitation secondary to her dislocated right shoulder injury. Reports she had been doing better but today felt overall weak, fatigued, alternating hot and cold, nauseous and vomiting just a little that she describes as more like spitting up saliva. Pt is also complaining of constipation, saying she is straining to go but cannot. Reports normally has bowel movement every day, but last movement 2-3 days ago. Has been passing gas. Denies chest pain/pressure palpitations. No shortness of breath. Denies headache. No abdominal pain. In the ED pt was hypothermic as low as 94.9 and hypertensive as high as 192/99, otherwise vitals WNL. Labs were significant for leukocytosis of 14.7, H&H 11.5/34.7, BUN 35 and creatinine 1.13, mildly elevated above baseline. Electrolytes WNL. Lactic acid WNL at 1.6. UA was positive for UTI. Patient tested negative for influenza type a and B, RSV, and COVID. CXR showed cardiomegaly with mild pulmonary vascular congestion, but no acute pneumonic process seen. EKG demonstrated normal sinus rhythm with right bundle branch block and nonspecific T wave abnormality with a QTc of 516. Pt was placed in a Nadia Hugger, and treated with IVF and ceftriaxone. Pt will be admitted to the hospital for treatment and further evaluation of sepsis in the setting of acute UTI. Review of Systems 2 Review of Systems: Feeling hot and cold Generalized weakness Nausea, vomiting Constipation No chest pain/pressure, palpitations Denies shortness of breath No abdominal pain PMFSH Medical History Asthma Vertigo Polyuria Anxiety Essential hypertension GERD (gastroesophageal reflux disease) Familial hypercholesterolemia Endogenous depression COPD (chronic obstructive pulmonary disease) Family History Father No problems noted. Mother No problems noted. Brother No problems noted. Sister No problems noted. Son No problems noted. Daughter No problems noted. Surgical History S/P lumpectomy of breast History of eye surgery History of cataract surgery Social History Household Members: Children Housing: Apartment Do you presently have visiting nurse or other home services: Yes (3 days/wk) Alcohol intake: never Patient Tobacco Use Status: Never used Tobacco Smoked in Last 30 Days: No e-Cigarette/Vaping Use: Never Used Second Hand Smoke Exposure: No Use of substances other than those prescribed or required for medical reasons: No Advance Directives: Yes Advance Directives on File: Yes Advance Directives Date on File: 07/22/21 service: No Current occupational status: retired Cognitive needs: Yes Hearing needs: No Vision needs: Yes Meds Allergies Allergy/AdvReac Type Severity Reaction Status Date / Time codeine [CODEINE] Allergy Mild upset Verified 12/30/22 14:58 stomach, nause Active Medications: Current Medications Sodium Chloride (Ns) 1,000 mls @ 250 mls/hr IV .Q4H ONE Stop: 01/29/23 22:54 Last Admin: 01/29/23 19:05 Dose: 250 mls/hr Home Medications Medication Instructions Recorded Confirmed Last Taken Type fluorometholone 0.1 % eye 1 drp ophthalmic (eye) 11/16/19 01/29/23 07/07/21 History drops,suspension BID@0900,1600 cyanocobalamin (vitamin B-12) 1,000 mcg PO DAILY 07/08/21 01/29/23 07/07/21 History 1,000 mcg tablet melatonin 3 mg tablet 3 mg PO BEDTIME 07/08/21 01/29/23 Unknown History esomeprazole magnesium 20 mg 20 mg PO DAILY@0630 09/07/21 01/29/23 Unknown History capsule,delayed release (Nexium) Physical Exam 2 Vital Signs and Narrative: Vital Signs: Last Vital Signs Temp 97.2 F 01/29/23 18:23 Pulse 74 01/29/23 18:23 Resp 14 01/29/23 18:23 BP 142/66 H 01/29/23 18:23 Pulse Ox 99 01/29/23 18:23 O2 Del Method Room Air 01/29/23 18:23 BMI result Body Mass Index 24.1 Constitutional: Alert, in no acute distress. Mental Status: Oriented to person, place and time. Eyes: Pupils are equal, round, and reactive to light. Ear, Nose, and Throat: Oropharynx clear, mucous membranes moist. Ears and nose without deformities. Trachea midline. Respiratory: Clear to auscultation bilaterally. No wheezing, rales, or rhonchi. Cardiovascular: S1, S2 regular. No murmurs, rubs, or gallops. Gastrointestinal: Abdomen soft, non-tender, non-distended. Normal bowel sounds. Neurologic: Cranial nerves II-XII are grossly intact bilaterally. No focal neurological deficits. Moves all extremities spontaneously. Skin: Warm, dry. Musculoskeletal: No cyanosis or clubbing. Extremities: Trace edema. Psychiatric: Normal mood and affect. Results Labs 01/29/23 16:54 01/29/23 16:54 Labs: Laboratory Results - last 24 hr 01/29/23 01/29/23 16:54 17:28 MCV 91.6 MCH 30.3 MCHC 33.1 RDW 13.2 Plt Count 355 D MPV 10.0 Immature Gran % (Auto) 0.6 H Neut % (Auto) 86.3 H Lymph % (Auto) 4.8 L [place] % (Auto) 8.0 Eos % (Auto) 0.1 Baso % (Auto) 0.2 Lymph # (Auto) 0.7 L [place] # (Auto) 1.2 Eos # (Auto) 0.0 Baso # (Auto) 0.0 Abs Immat Gran (auto) 0.09 H Absolute Neuts (auto) 12.7 H Absolute Nucleated RBC 0.000 Nucleated RBC % (auto) 0.0 Anion Gap 17 Estim Creat Clear Calc 30.9 Estimated GFR 46 Random Glucose 119 H Lactic Acid 1.6 Calcium 9.8 D Urine Color Dark Yellow Urine Appearance Turbid Urine pH 6.5 Ur Specific [place] 1.015 Urine Protein 100 (2+) H Urine Glucose (UA) Negative Urine Ketones Negative Urine Blood Moderate (2+) H Urine Nitrite Negative Ur Leukocyte Esterase Large (3+) H Urine RBC >20 H Urine WBC >50 H Ur Squamous Epith Cells >20 Urine Bacteria 4+ Hyaline Casts >20 Influenza Type A (PCR) NEGATIVE Influenza Type B (PCR) NEGATIVE RSV RNA Qual (PCR) NEGATIVE SARS-CoV-2 RNA (RT-PCR) NEGATIVE Assessment and Plan (1) Acute UTI: Status: Acute (2) Hypothermia: Qualifiers: Encounter type: initial encounter Qualified Code(s): T68.XXXA - Hypothermia, initial encounter Status: Acute Plan Pt is an 87-year-old female with a PMH significant for?HFpEF, HTN, hx of falls, and anxiety who presents to the ED from short term rehab for evaluation of hypothermia, generalized weakness, and chills. Pt will be admitted to the hospital for treatment and further evaluation of sepsis in the setting of acute UTI. Hypothermia, resolved Patient's temperature as low as 94.9 in the ED Was placed in a Nadia Hugger until temperature normalized, currently 97.5 Monitor temperature Acute UTI with sepsis UA positive for UTI Patient meets sepsis criteria: Hypothermia, leukocytosis; lactic acid WNL at 1.6 Given IVF and ceftriaxone in the ED Pt with hx of pseudomonas aeruginosa UTI, will treat with levofloxacin, started 01/29/2023 Follow cultures Constipation Milk of Mag x1 dose Docusate tomorrow and then prn Hx of recent fall with right shoulder dislocation Continue home tramadol prn PT evaluation HTN Continue amlodipine, atenolol HLD Continue statin GERD Continue PPI Mood disorder Continue venlafaxine DNR/DNI Attending:?Dr. Kelley DVT Prophylaxis: Heparin Pt will require a hospitalization of at least two nights for treatment of?hypothermia and sepsis in the setting of acute UTI. Patient require IV antibiotics and close monitoring. Quality Stroke Does the patient have a stroke diagnosis?: No VTE Prior VTE?: No VTE Risk Level:: Medical - moderate - high VTE Device Contraindication: Treatment Not Indicated VTE Drug Contraindication: N/A - Med Ordered
[2023-01-29] MEDS: Heparin Sodium,Porcine 5,000 UNIT/ML VIAL 5000 UNIT SUBCUT (22:08)
[2023-01-29] MEDS: Melatonin 3 MG TABLET PO (22:08)
[2023-01-29] MEDS: Milk of Magnesia 30 ML ORAL.SUSP PO (22:08)
--- NOTE | 2023-01-29 22:25 | PC.NURSE ---
This tag writer assumed care of this Pt at 2100. Pt A&Ox3, soft spoken, denies any pain, reports not being able to move bowels in 2-3 days, denies ABD pain. Pt medicated per APR. Temp sensing cai intact draining. Pt reports being cold, warm blanket provided. Pt reports not being able to use right arm d/t shoulder dislocation.
[2023-01-29] MEDS: levoFLOXacin/D5W 750 MG/150 ML PIGGYBACK 100 MG IV (23:42)
--- NOTE | 2023-01-29 23:45 | PC.NURSE ---
Addendum entered by Mildred Askew 01/29/23 23:46: Matthews cath draining dark color urine with sediment. Original Note: Pt incontinent of large brown loose BM, incontinent care provided. Skin warm, dry and intact.
[2023-01-30] MEDS: 0.9 % Sodium Chloride Flush 3 ML SYRINGE IVFLUSH ×2 (01:56→09:48)
[2023-01-30] MEDS: ondansetron HCL 4 MG/2 ML VIAL IVPUSH ×3 (03:39→21:54)
[2023-01-30 05:58] VITALS: BP 109/61; PULSE 73; RESP 18; TEMP 36; O2SAT 96
[2023-01-30 06:08] LABS: Hematocrit 38.2 % (37.0-47.0); Hemoglobin 12.8 g/dl (12.0-16.0); Mean Corpuscular HGB Conc 33.5 g/dl (31.0-35.0); Mean Corpuscular Hemoglobin 30.5 pg (27.0-33.0); Mean Corpuscular Volume 91.2 fL (80.0-98.0); Mean Platelet Volume 9.9 fL (9.4-12.3); Platelet Count 393 X10*3/uL (160-400); Red Blood Count 4.19 X10*6/uL (4.20-5.50); Red Cell Distribution Width 13.4 % (11.0-16.0)
--- NOTE | 2023-01-30 06:18 | PC.NURSE ---
Pt had episode of incontinence this am. This RN and tech washed patient and completed a full bed change. Matthews in place draining dark destini urine with sediment. C/o nausea with dry heaves, requesting water but unable to tolerate PO intake. Pt repositioned for comfort. Bed in lowest position, bed alarm on, call nicholson within reach.
[2023-01-30 06:20] LABS: White Blood Count 46.1 X10*3/uL (4.8-10.8)
[2023-01-30 06:25] LABS: Anion Gap 18 (12-20); Blood Urea Nitrogen 42 mg/dL (9-16); Carbon Dioxide 22 mmol/L (22-29); Chloride 103 mmol/L (96-108); Creatinine Clr Calc Pharmacy 25.1; Estimated Glomerular Filt Rate 36; Glucose Random 138 mg/dL (60-115); Potassium 4.3 mmol/L (3.3-5.1); Sodium 139 mmol/L (135-145)
[2023-01-30] MEDS: Docusate Sodium 100 MG CAPSULE PO (09:50)
[2023-01-30] MEDS: Venlafaxine HCl ER 150 MG CAP.ER.24H PO (09:50)
[2023-01-30] MEDS: atenoloL 25 MG TABLET PO ×2 (09:50→10:16)
[2023-01-30] MEDS: Cyanocobalamin (Vitamin B-12) 1,000 MCG TABLET 1000 MCG PO (09:50)
[2023-01-30] MEDS: Omeprazole 20 MG CAPSULE.DR PO (09:50)
[2023-01-30] MEDS: Atorvastatin Calcium 10 MG TABLET PO (09:50)
[2023-01-30] MEDS: Venlafaxine HCl ER 75 MG CAP.ER.24H PO ×2 (09:50→10:16)
[2023-01-30] MEDS: Heparin Sodium,Porcine 5,000 UNIT/ML VIAL 5000 UNIT SUBCUT ×2 (09:51→21:53)
[2023-01-30] MEDS: amLODIPine Besylate 5 MG TABLET PO (09:51)
[2023-01-30] MEDS: Tamsulosin HCL 0.4 MG CAPSULE PO (10:13)
[2023-01-30 11:20] VITALS: BP 109/61; PULSE 73; O2SAT 96
--- NOTE | 2023-01-30 12:09 | HO.PM.IMPN ---
Subjective Subjective Date of Service: 01/30/23 Interval History: Seen and evaluated this morning Feeling sick to her stomach [place] [address] Cr worsening to 1.4 Review of Systems Review of Systems: Yes all other systems are reviewed and are negative Physical Exam Vital Signs: Vital Signs: Last Vital Signs Temp 96.8 F 01/30/23 05:58 Pulse 73 01/30/23 11:20 Resp 18 01/30/23 05:58 BP 109/61 01/30/23 11:20 Pulse Ox 96 01/30/23 11:20 O2 Del Method Room Air 01/30/23 05:58 BMI result Body Mass Index 24.1 Const: Other: Constitutional : Awake, interactive, not in distress Neck : Normal inspection, Supple Cardiovascular : RRR, no JVP, no lower extremity edema Respiratory : good bilateral air entry, no crackles, wheezes or rhonchi Gastrointestinal: soft, lax, Normal bowel sounds, Non tender Skin : Warm, Dry Neurological : Alert & oriented x3, No focal deficit Objective Data Active Medications Acetaminophen (Acetaminophen 325 Mg Tablet) 650 mg PO Q6H PRN PRN Reason: Pain, Mild (Pain Scale 1-3) Amlodipine Besylate (Amlodipine Besylate 5 Mg Tablet) 5 mg PO DAILY [facility]; Protocol Last Admin: 01/30/23 09:51 Dose: 5 mg Documented By: DOUGLAS Atenolol (Atenolol 25 Mg Tablet) 25 mg PO DAILY [facility]; Protocol Last Admin: 01/30/23 10:16 Dose: 25 mg Documented By: DOUGLAS Atorvastatin Calcium (Atorvastatin Calcium 10 Mg Tablet) 10 mg PO DAILY [facility] Last Admin: 01/30/23 09:50 Dose: 10 mg Documented By: DOUGLAS Bethanechol Chloride (Bethanechol Chloride 25 Mg Tablet) 50 mg PO BID [facility] Cyanocobalamin (Cyanocobalamin (Vitamin B-12) 1,000 Mcg Tablet) 1,000 mcg PO DAILY [facility] Last Admin: 01/30/23 09:50 Dose: 1,000 mcg Documented By: DOUGLAS Docusate Sodium (Docusate Sodium 100 Mg Capsule) 100 mg PO BID [facility] Stop: 01/31/23 08:59 Last Admin: 01/30/23 09:50 Dose: 100 mg Documented By: DOUGLAS Docusate Sodium (Docusate Sodium 100 Mg Capsule) 100 mg PO BEDTIME PRN PRN Reason: Constipation Heparin Sodium (Porcine) (Heparin Sodium,Porcine 5,000 Unit/Ml Vial) 5,000 unit SUBCUT Q12H [facility] Last Admin: 01/30/23 09:51 Dose: 5,000 unit Documented By: DOUGLAS Levofloxacin (Levaquin) 750 mg in 150 mls @ 100 mls/hr IV Q48H [facility] Last Infusion: 01/30/23 03:49 Dose: Infused Documented By: JANIYA Melatonin (Melatonin 3 Mg Tablet) 3 mg PO BEDTIME [facility] Last Admin: 01/29/23 22:08 Dose: 3 mg Documented By: BOOGIE Non-Formulary Medication (Fluorometholone) 1 drop EYE-BOTH BID@0900,1600 [facility] Omeprazole (Omeprazole 20 Mg Capsule.Dr) 20 mg PO DAILY@0630 [facility] Last Admin: 01/30/23 09:50 Dose: 20 mg Documented By: DOUGLAS Ondansetron HCl (Ondansetron Hcl 4 Mg/2 Ml Vial) 4 mg IVPUSH Q6H PRN PRN Reason: Nausea and Vomiting Last Admin: 01/30/23 07:48 Dose: 4 mg Documented By: DOUGLAS Sodium Chloride (0.9 % Sodium Chloride Flush 3 Ml Syringe) 3 ml IVFLUSH QSHIFT [facility] Last Admin: 01/30/23 09:48 Dose: 3 ml Documented By: DOUGLAS Tamsulosin HCl (Tamsulosin Hcl 0.4 Mg Capsule) 0.4 mg PO DAILY [facility] Last Admin: 01/30/23 10:13 Dose: 0.4 mg Documented By: DOUGLAS Tramadol HCl (Tramadol Hcl 50 Mg Tablet) 50 mg PO Q8H PRN PRN Reason: Moderate Pain (Scale Score 5-6) Venlafaxine HCl (Venlafaxine Hcl Er 75 Mg Cap.Er.24h) 75 mg PO DAILY [facility] Last Admin: 01/30/23 10:16 Dose: 75 mg Documented By: DOUGLAS Venlafaxine HCl (Venlafaxine Hcl Er 150 Mg Cap.Er.24h) 150 mg PO DAILY [facility] Last Admin: 01/30/23 09:50 Dose: 150 mg Documented By: DOUGLAS Labs 01/30/23 05:58 01/30/23 05:58 Labs: Laboratory Results - last 24 hr 01/29/23 01/29/23 01/30/23 16:54 17:28 05:58 MCV 91.6 91.2 MCH 30.3 30.5 MCHC 33.1 33.5 RDW 13.2 13.4 Plt Count 355 D 393 MPV 10.0 9.9 Immature Gran % (Auto) 0.6 H Neut % (Auto) 86.3 H Lymph % (Auto) 4.8 L [place] % (Auto) 8.0 Eos % (Auto) 0.1 Baso % (Auto) 0.2 Lymph # (Auto) 0.7 L [place] # (Auto) 1.2 Eos # (Auto) 0.0 Baso # (Auto) 0.0 Abs Immat Gran (auto) 0.09 H Absolute Neuts (auto) 12.7 H Absolute Nucleated RBC 0.000 0.000 Nucleated RBC % (auto) 0.0 0.0 Smear Path Review SEE NOTE Anion Gap 17 18 Estim Creat Clear Calc 30.9 25.1 Estimated GFR 46 36 Random Glucose 119 H 138 H Lactic Acid 1.6 Calcium 9.8 D 10.0 Urine Color Dark Yellow Urine Appearance Turbid Urine pH 6.5 Ur Specific [place] 1.015 Urine Protein 100 (2+) H Urine Glucose (UA) Negative Urine Ketones Negative Urine Blood Moderate (2+) H Urine Nitrite Negative Ur Leukocyte Esterase Large (3+) H Urine RBC >20 H Urine WBC >50 H Ur Squamous Epith Cells >20 Urine Bacteria 4+ Hyaline Casts >20 Influenza Type A (PCR) NEGATIVE Influenza Type B (PCR) NEGATIVE RSV RNA Qual (PCR) NEGATIVE SARS-CoV-2 RNA (RT-PCR) NEGATIVE Microbiology Microbiology Results: Microbiology 01/29/23 Unknown Urine Culture - Preliminary Urine clean catch - Urine crow top No growth to date. Assessment and Plan (1) Acute UTI: Status: Acute (2) Hypothermia: Status: Acute (3) Sepsis: Status: Acute Plan Pt is an 87-year-old female with a PMH significant for?HFpEF, HTN, hx of falls, and anxiety who presents to the ED from short term rehab for evaluation of hypothermia, generalized weakness, and chills. Pt will be admitted to the hospital for treatment and further evaluation of sepsis in the setting of acute UTI. Sepsis 2/2 Acute UTI UA positive for UTI IVF hx of pseudomonas aeruginosa UTI,Continue levofloxacin, started 01/29/2023 Matthews placed in ED Urology consult Follow cultures Constipation Milk of Mag x1 dose Docusate prn Hx of recent fall with right shoulder dislocation Continue home tramadol prn PT evaluation HTN Continue amlodipine, atenolol HLD Continue statin GERD Continue PPI Mood disorder Continue venlafaxine DNR/DNI DVT Prophylaxis: Heparin Pt will require a hospitalization overnight for treatment of?hypothermia and sepsis in the setting of acute UTI. Patient require IV antibiotics and work and family life consultant opinion Quality Stroke Does the patient have a stroke diagnosis?: No VTE Prior VTE?: No VTE Risk Level:: Medical - moderate - high VTE Device Contraindication: Treatment Not Indicated VTE Drug Contraindication: N/A - Med Ordered
[2023-01-30 12:26] VITALS: BP 162/80; PULSE 77; RESP 17; TEMP 36.6; O2SAT 97
[2023-01-30 12:43] VITALS: BMI 24.1
[2023-01-30] MEDS: Pantoprazole Sodium 40 MG/10 ML VIAL IVPUSH (14:41)
[2023-01-30] MEDS: Lactated Ringers 1,000 ML 100 ML IVCONT (14:44)
[2023-01-30 15:45] VITALS: BP 139/58; PULSE 80; RESP 17; TEMP 36.8; O2SAT 97
[2023-01-30 16:58] LABS: Basophils Absolute Auto 0.1 X10*3/uL (0.0-0.2); Basophils Percent Auto 0.2 % (0-2); Hematocrit 37.6 % (37.0-47.0); Hemoglobin 12.7 g/dl (12.0-16.0); Imm Gran Abs Auto 0.49 X10*3/uL (0.00-0.03); Imm Gran Pct Auto 1.5 % (0.0-0.4); Lymphocytes Absolute Auto 1.2 X10*3/uL (1.2-4.9); Lymphocytes Percent Auto 3.8 % (20-40); MANUAL DIFF FLAG SCAN; Mean Corpuscular HGB Conc 33.8 g/dl (31.0-35.0); Mean Corpuscular Hemoglobin 30.5 pg (27.0-33.0); Mean Corpuscular Volume 90.4 fL (80.0-98.0); Mean Platelet Volume 10.9 fL (9.4-12.3); Monocytes Absolute Auto 2.5 X10*3/uL (0.1-1.2); Monocytes Percent Auto 7.8 % (2-11); Neutrophils Absolute Auto 27.6 x10*3/uL (2.0-8.3); Neutrophils Percent Auto 86.7 % (45-73); Platelet Count 378 X10*3/uL (160-400); Red Blood Count 4.16 X10*6/uL (4.20-5.50); Red Cell Distribution Width 13.8 % (11.0-16.0); SCAN SMEAR FLAG 1
--- NOTE | 2023-01-30 17:05 | PM.UROCN ---
History of Present Illness Consult details Consult date: 01/30/23 Narrative: CC: Urinary retention with recurrent UTI 87-year-old female Known to Urology Has high bladder residual and hypotonic bladder Previous discussions regarding use of clean intermittent catheterization Does not have manual dexterity in order to do this Currently with Matthews catheter in place Would leave catheter due to high white count and evidence for UTI Continue with IV antibiotics May benefit from suprapubic tube which could be placed on Thursday Review of Systems Constitutional: Constitutional: Denies chills and Denies fever(s) Cardiovascular: Cardiovascular: Reports no additional cardiovascular complaints and Denies syncope Respiratory: Respiratory: Denies cough Gastrointestinal: Gastrointestinal: Denies abdominal pain and Denies heartburn Genitourinary: Genitourinary: Reports as per HPI and Denies change in libido Neurologic: Denies syncope Psychiatric: Psychiatric: Denies change in libido Endocrine: Endocrine: Denies change in libido [facility] Past Medical History Medical History Asthma Vertigo Polyuria Anxiety Essential hypertension GERD (gastroesophageal reflux disease) Familial hypercholesterolemia Endogenous depression COPD (chronic obstructive pulmonary disease) Family History Family History Father No problems noted. Mother No problems noted. Brother No problems noted. Sister No problems noted. Son No problems noted. Daughter No problems noted. Surgical History Surgical History S/P lumpectomy of breast History of eye surgery History of cataract surgery Social History Social History Household Members: Family Housing: Apartment Do you presently have visiting nurse or other home services: Yes Alcohol intake: never Patient Tobacco Use Status: Never used Tobacco e-Cigarette/Vaping Use: Never Used Second Hand Smoke Exposure: No Advance Directives Date on File: 07/22/21 service: No Current occupational status: retired Cognitive needs: Yes Hearing needs: No Vision needs: Yes Meds Allergies Allergy/AdvReac Type Severity Reaction Status Date / Time codeine [CODEINE] Allergy Mild upset Verified 12/30/22 14:58 stomach, nause Active Medications: Current Medications Acetaminophen (Acetaminophen 325 Mg Tablet) 650 mg PO Q6H PRN PRN Reason: Pain, Mild (Pain Scale 1-3) Amlodipine Besylate (Amlodipine Besylate 5 Mg Tablet) 5 mg PO DAILY [facility]; Protocol Last Admin: 01/30/23 09:51 Dose: 5 mg Atenolol (Atenolol 25 Mg Tablet) 25 mg PO DAILY [facility]; Protocol Last Admin: 01/30/23 10:16 Dose: 25 mg Atorvastatin Calcium (Atorvastatin Calcium 10 Mg Tablet) 10 mg PO DAILY [facility] Last Admin: 01/30/23 09:50 Dose: 10 mg Bethanechol Chloride (Bethanechol Chloride 25 Mg Tablet) 50 mg PO BID [facility] Cyanocobalamin (Cyanocobalamin (Vitamin B-12) 1,000 Mcg Tablet) 1,000 mcg PO DAILY [facility] Last Admin: 01/30/23 09:50 Dose: 1,000 mcg Docusate Sodium (Docusate Sodium 100 Mg Capsule) 100 mg PO BID [facility] Stop: 01/31/23 08:59 Last Admin: 01/30/23 09:50 Dose: 100 mg Docusate Sodium (Docusate Sodium 100 Mg Capsule) 100 mg PO BEDTIME PRN PRN Reason: Constipation Heparin Sodium (Porcine) (Heparin Sodium,Porcine 5,000 Unit/Ml Vial) 5,000 unit SUBCUT Q12H [facility] Last Admin: 01/30/23 09:51 Dose: 5,000 unit Levofloxacin (Levaquin) 750 mg in 150 mls @ 100 mls/hr IV Q48H [facility] Last Infusion: 01/30/23 03:49 Dose: Infused Lactated Ringer's (Lr) 1,000 mls @ 100 mls/hr IVCONT .Q10H [facility] Last Admin: 01/30/23 14:44 Dose: 100 mls/hr Vancomycin HCl 1,500 mg/ (Sodium Chloride) 500 mls @ 333.333 mls/hr IV ONCE ONE Stop: 01/30/23 18:29 Melatonin (Melatonin 3 Mg Tablet) 3 mg PO BEDTIME [facility] Last Admin: 01/29/23 22:08 Dose: 3 mg Pt Own Medication ( Fluorometholone 0.1 % Drops,Suspension) 1 drop EYE-RIGHT DAILY@2100 [facility] Omeprazole (Omeprazole 20 Mg Capsule.Dr) 20 mg PO DAILY@0630 [facility] Last Admin: 01/30/23 09:50 Dose: 20 mg Ondansetron HCl (Ondansetron Hcl 4 Mg/2 Ml Vial) 4 mg IVPUSH Q6H PRN PRN Reason: Nausea and Vomiting Last Admin: 01/30/23 07:48 Dose: 4 mg Pharmacy Consult (Consult Rx Vancomycin Dosing) 1 each MISCELLANE DAILY PRN PRN Reason: Consult order Sodium Chloride (0.9 % Sodium Chloride Flush 3 Ml Syringe) 3 ml IVFLUSH QSHIFT [facility] Last Admin: 01/30/23 16:33 Dose: Not Given Tamsulosin HCl (Tamsulosin Hcl 0.4 Mg Capsule) 0.4 mg PO DAILY [facility] Last Admin: 01/30/23 10:13 Dose: 0.4 mg Tramadol HCl (Tramadol Hcl 50 Mg Tablet) 50 mg PO Q8H PRN PRN Reason: Moderate Pain (Scale Score 5-6) Venlafaxine HCl (Venlafaxine Hcl Er 75 Mg Cap.Er.24h) 75 mg PO DAILY [facility] Last Admin: 01/30/23 10:16 Dose: 75 mg Venlafaxine HCl (Venlafaxine Hcl Er 150 Mg Cap.Er.24h) 150 mg PO DAILY [facility] Last Admin: 01/30/23 09:50 Dose: 150 mg Home Medications Medication Instructions Recorded Confirmed Last Taken Type fluorometholone 0.1 % eye 1 drp ophthalmic (eye) 11/16/19 01/29/23 07/07/21 History drops,suspension BID@0900,1600 cyanocobalamin (vitamin B-12) 1,000 mcg PO DAILY 07/08/21 01/29/23 07/07/21 History 1,000 mcg tablet melatonin 3 mg tablet 3 mg PO BEDTIME 07/08/21 01/29/23 Unknown History esomeprazole magnesium 20 mg 20 mg PO DAILY@0630 09/07/21 01/29/23 Unknown History capsule,delayed release (Nexium) Physical Exam Vital Signs: Vital Signs: Last Vital Signs Temp 98.2 F 01/30/23 15:45 Pulse 80 01/30/23 15:45 Resp 17 01/30/23 15:45 BP 139/58 L 01/30/23 15:45 Pulse Ox 97 01/30/23 15:45 O2 Del Method Room Air 01/30/23 15:45 BMI result Body Mass Index 24.1 Const: General: cooperative, healthy appearing, comfortable and no acute distress Orientation/consciousness: patient oriented x3 HEENT: Face and sinus: Yes normal facial exam Mouth: moist mucous membranes Neck: Neck: Yes normal visual inspection, Yes full ROM and Yes trachea midline Chest: Chest palpation & inspection: normal inspection of the chest Resp: Effort & Inspection: normal respiratory effort, able to speak in complete sentences and no respiratory distress GI: Inspection: Yes normal to inspection Back/Spine/Pelvis: Cervical Spine: normal cervical lordosis Thoracic/Lumbar Spine: thoracic and lumbar spine normal to inspection Skin: General skin exam: no rashes or lesions noted Neuro: General: patient oriented x3, gait normal, tone normal and moves all extremities Extrem: General: Yes normal to inspection and Yes capillary refill normal Results Labs 01/30/23 05:58 01/30/23 05:58 Labs: Abnormal lab results 01/29/23 01/29/23 01/30/23 Range/Units 16:54 17:28 05:58 WBC 14.7 H 46.1 H* (4.8-10.8) X10*3/uL RBC 3.79 L D 4.19 L (4.20-5.50) X10*6/uL Hgb 11.5 L D (12.0-16.0) g/dl Hct 34.7 L D (37.0-47.0) % Immature Gran % (Auto) 0.6 H (0.0-0.4) % Neut % (Auto) 86.3 H (45-73) % Lymph % (Auto) 4.8 L (20-40) % Lymph # (Auto) 0.7 L (1.2-4.9) X10*3/uL Abs Immat Gran (auto) 0.09 H (0.00-0.03) X10*3/uL Absolute Neuts (auto) 12.7 H (2.0-8.3) x10*3/uL BUN 35 H 42 H (9-16) mg/dL Random Glucose 119 H 138 H (60-115) mg/dL Urine Protein 100 (2+) H (Neg-Trace) mg/dL Urine Blood Moderate (2+) H (Negative) Ur Leukocyte Esterase Large (3+) H (Negative) Urine RBC >20 H (0-2) /HPF Urine WBC >50 H (0-5) /HPF Short CBC 01/29/23 01/30/23 Range/Units 16:54 05:58 WBC 14.7 H 46.1 H* (4.8-10.8) X10*3/uL Hgb 11.5 L D 12.8 (12.0-16.0) g/dl Hct 34.7 L D 38.2 (37.0-47.0) % Plt Count 355 D 393 (160-400) X10*3/uL BMP 01/29/23 01/30/23 16:54 05:58 Sodium 135 139 Potassium 4.4 4.3 Chloride 99 103 Carbon Dioxide 23 22 BUN 35 H 42 H Creatinine 1.13 1.39 Calcium 9.8 D 10.0 Urine 01/29/23 Range/Units 17:28 Urine Color Dark Yellow Urine Appearance Turbid Urine pH 6.5 (5.0-9.0) Ur Specific [place] 1.015 (1.005-1.025) Urine Protein 100 (2+) H (Neg-Trace) mg/dL Urine Glucose (UA) Negative (Negative) mg/dL All other labs normal. Assessment and Plan (1) Acute UTI: Status: Acute (2) Incomplete bladder emptying: Status: Acute Plan Continue with Matthews catheter Procedures Date of Service Date of Service: 01/30/23
[2023-01-30 17:17] LABS: White Blood Count 31.9 X10*3/uL (4.8-10.8)
[2023-01-30] MEDS: vancomycin HCL 1,500 MG in 0.9 % Sodium Chloride 500 ML 333.33 MG IV (17:20)
[2023-01-30 17:24] LABS: SLIDE REVIEW VERIFIED
[2023-01-30 19:44] VITALS: BP 170/82; PULSE 78; RESP 18; TEMP 37.1; O2SAT 93
[2023-01-31 04:00] VITALS: BP 122/58; PULSE 70; RESP 16; TEMP 36.8; O2SAT 92
[2023-01-31] MEDS: Lactated Ringers 1,000 ML 100 ML IVCONT ×2 (06:42→18:09)
[2023-01-31 06:55] LABS: Creatinine Clr Calc Pharmacy 24.1; Estimated Glomerular Filt Rate 35
[2023-01-31 06:59] VITALS: BP 150/67; PULSE 68; RESP 17; TEMP 36.6; O2SAT 97
[2023-01-31 07:57] LABS: Basophils Percent Auto 0.1 % (0-2); Hematocrit 31.2 % (37.0-47.0); Hemoglobin 10.2 g/dl (12.0-16.0); Imm Gran Abs Auto 0.65 X10*3/uL (0.00-0.03); Imm Gran Pct Auto 2.4 % (0.0-0.4); Lymphocytes Absolute Auto 1.7 X10*3/uL (1.2-4.9); Lymphocytes Percent Auto 6.2 % (20-40); MANUAL DIFF FLAG SCAN; Mean Corpuscular HGB Conc 32.7 g/dl (31.0-35.0); Mean Corpuscular Hemoglobin 30.4 pg (27.0-33.0); Mean Corpuscular Volume 93.1 fL (80.0-98.0); Mean Platelet Volume 10.7 fL (9.4-12.3); Monocytes Absolute Auto 2.7 X10*3/uL (0.1-1.2); Neutrophils Absolute Auto 22.1 x10*3/uL (2.0-8.3); Neutrophils Percent Auto 81.3 % (45-73); Platelet Count 336 X10*3/uL (160-400); Red Blood Count 3.35 X10*6/uL (4.20-5.50); Red Cell Distribution Width 14.2 % (11.0-16.0); SCAN SMEAR FLAG 1; White Blood Count 27.2 X10*3/uL (4.8-10.8)
[2023-01-31 08:27] LABS: SLIDE REVIEW VERIFIED
[2023-01-31] MEDS: Venlafaxine HCl ER 150 MG CAP.ER.24H PO (10:07)
[2023-01-31] MEDS: Tamsulosin HCL 0.4 MG CAPSULE PO (10:07)
[2023-01-31] MEDS: atenoloL 25 MG TABLET PO (10:07)
[2023-01-31] MEDS: Cyanocobalamin (Vitamin B-12) 1,000 MCG TABLET 1000 MCG PO (10:07)
[2023-01-31] MEDS: Bethanechol Chloride 25 MG TABLET 50 MG PO ×2 (10:07→20:58)
[2023-01-31] MEDS: Omeprazole 20 MG CAPSULE.DR PO ×2 (10:07→18:46)
[2023-01-31] MEDS: amLODIPine Besylate 5 MG TABLET PO (10:07)
[2023-01-31] MEDS: 0.9 % Sodium Chloride Flush 3 ML SYRINGE IVFLUSH ×2 (10:08→18:10)
[2023-01-31] MEDS: Heparin Sodium,Porcine 5,000 UNIT/ML VIAL 5000 UNIT SUBCUT ×2 (10:08→20:56)
[2023-01-31] MEDS: Atorvastatin Calcium 10 MG TABLET PO (10:08)
[2023-01-31] MEDS: ondansetron HCL 4 MG/2 ML VIAL IVPUSH ×2 (10:18→18:04)
--- NOTE | 2023-01-31 12:14 | P.PNIM_ITS ---
Subjective Subjective Date of Service: 01/31/23 Interval History: Seen and evaluated this morning Feels better this morning with less nausea and vomiting blood culture [place] [address] Cr worsening to 1.44 Review of Systems Review of Systems: Yes all other systems are reviewed and are negative Physical Exam 2 Vital Signs: Vital Signs: Last Vital Signs Temp 98 F 01/31/23 06:59 Pulse 68 01/31/23 06:59 Resp 17 01/31/23 06:59 BP 150/67 H 01/31/23 06:59 Pulse Ox 97 01/31/23 06:59 O2 Del Method Room Air 01/31/23 06:59 BMI result Body Mass Index 24.1 Const: Other: Constitutional : Awake, interactive, not in distress Neck : Normal inspection, Supple Cardiovascular : RRR, no JVP, no lower extremity edema Respiratory : good bilateral air entry, no crackles, wheezes or rhonchi Gastrointestinal: soft, lax, Normal bowel sounds, Non tender Skin : Warm, Dry Neurological : Alert & oriented x3, No focal deficit Objective Data Active Medications Acetaminophen (Acetaminophen 325 Mg Tablet) 650 mg PO Q6H PRN PRN Reason: Pain, Mild (Pain Scale 1-3) Amlodipine Besylate (Amlodipine Besylate 5 Mg Tablet) 5 mg PO DAILY [facility]; Protocol Last Admin: 01/31/23 10:07 Dose: 5 mg Documented By: BELGICA Atenolol (Atenolol 25 Mg Tablet) 25 mg PO DAILY [facility]; Protocol Last Admin: 01/31/23 10:07 Dose: 25 mg Documented By: BELGICA Atorvastatin Calcium (Atorvastatin Calcium 10 Mg Tablet) 10 mg PO DAILY [facility] Last Admin: 01/31/23 10:08 Dose: 10 mg Documented By: BELGICA Bethanechol Chloride (Bethanechol Chloride 25 Mg Tablet) 50 mg PO BID [facility] Last Admin: 01/31/23 10:07 Dose: 50 mg Documented By: BELGICA Cyanocobalamin (Cyanocobalamin (Vitamin B-12) 1,000 Mcg Tablet) 1,000 mcg PO DAILY [facility] Last Admin: 01/31/23 10:07 Dose: 1,000 mcg Documented By: BELGICA Docusate Sodium (Docusate Sodium 100 Mg Capsule) 100 mg PO BEDTIME PRN PRN Reason: Constipation Heparin Sodium (Porcine) (Heparin Sodium,Porcine 5,000 Unit/Ml Vial) 5,000 unit SUBCUT Q12H [facility] Last Admin: 01/31/23 10:08 Dose: 5,000 unit Documented By: BELGICA Levofloxacin (Levaquin) 750 mg in 150 mls @ 100 mls/hr IV Q48H [facility] Last Infusion: 01/30/23 03:49 Dose: Infused Documented By: JANIYA Lactated Ringer's (Lr) 1,000 mls @ 100 mls/hr IVCONT .Q10H [facility] Last Admin: 01/31/23 06:42 Dose: 100 mls/hr Documented By: JANIYA Vancomycin HCl 750 mg/ Sodium (Chloride) 265 mls @ 265 mls/hr IV Q24H [facility] Melatonin (Melatonin 3 Mg Tablet) 3 mg PO BEDTIME [facility] Last Admin: 01/30/23 21:54 Dose: Not Given Documented By: JANIYA Non-Admin Reason: n/v Pt Own Medication ( Fluorometholone 0.1 % Drops,Suspension) 1 drop EYE-RIGHT DAILY@2100 [facility] Last Admin: 01/30/23 21:54 Dose: 1 drop Documented By: JANIYA Omeprazole (Omeprazole 20 Mg Capsule.) 20 mg PO DAILY@0630 [facility] Last Admin: 01/31/23 10:07 Dose: 20 mg Documented By: BELGICA Ondansetron HCl (Ondansetron Hcl 4 Mg/2 Ml Vial) 4 mg IVPUSH Q6H PRN PRN Reason: Nausea and Vomiting Last Admin: 01/31/23 10:18 Dose: 4 mg Documented By: BELGICA Pharmacy Consult (Consult Rx Vancomycin Dosing) 1 each MISCELLANE DAILY PRN PRN Reason: Consult order Sodium Chloride (0.9 % Sodium Chloride Flush 3 Ml Syringe) 3 ml IVFLUSH QSHIFT [facility] Last Admin: 01/31/23 10:08 Dose: 3 ml Documented By: BELGICA Tamsulosin HCl (Tamsulosin Hcl 0.4 Mg Capsule) 0.4 mg PO DAILY [facility] Last Admin: 01/31/23 10:07 Dose: 0.4 mg Documented By: BELGICA Tramadol HCl (Tramadol Hcl 50 Mg Tablet) 50 mg PO Q8H PRN PRN Reason: Moderate Pain (Scale Score 5-6) Venlafaxine HCl (Venlafaxine Hcl Er 150 Mg Cap.Er.24h) 150 mg PO DAILY [facility] Last Admin: 01/31/23 10:07 Dose: 150 mg Documented By: BELGICA Venlafaxine HCl (Venlafaxine Hcl Er 75 Mg Cap.Er.24h) 75 mg PO BEDTIME [facility] Venlafaxine HCl (Venlafaxine Hcl Er 75 Mg Cap.Er.24h) 75 mg PO BEDTIME [facility] Labs 01/31/23 07:01 01/31/23 04:01 Labs: Laboratory Results - last 24 hr 01/30/23 01/31/23 01/31/23 16:12 04:01 07:01 MCV 90.4 93.1 MCH 30.5 30.4 MCHC 33.8 32.7 RDW 13.8 14.2 Plt Count 378 336 MPV 10.9 10.7 Immature Gran % (Auto) 1.5 H 2.4 H Neut % (Auto) 86.7 H 81.3 H Lymph % (Auto) 3.8 L 6.2 L Thomas % (Auto) 7.8 10.0 Eos % (Auto) 0.0 0.0 Baso % (Auto) 0.2 0.1 Lymph # (Auto) 1.2 1.7 Thomas # (Auto) 2.5 H 2.7 H Eos # (Auto) 0.0 0.0 Baso # (Auto) 0.1 0.0 Abs Immat Gran (auto) 0.49 H 0.65 H Absolute Neuts (auto) 27.6 H 22.1 H Absolute Nucleated RBC 0.000 0.000 Nucleated RBC % (auto) 0.0 0.0 Smear Tech's Comments VERIFIED VERIFIED Hold Purple Top SEE NOTE Estim Creat Clear Calc 24.1 Estimated GFR 35 Random Vancomycin 16.0 Microbiology Microbiology Results: Microbiology 01/29/23 16:54 Blood Culture - Final Blood - Venous Coag negative Staphylococcus 01/29/23 17:35 Blood Culture - Preliminary Blood - Venous No growth after 24 hours. 01/29/23 Unknown Urine Culture - Preliminary Urine clean catch - Urine crow top No growth to date. Assessment and Plan (1) Sepsis: Status: Acute (2) Acute UTI: Status: Acute (3) Hypothermia: Status: Acute Plan Pt is an 87-year-old female with a PMH significant for?HFpEF, HTN, hx of falls, and anxiety who presents to the ED from short term rehab for evaluation of hypothermia, generalized weakness, and chills. Pt will be admitted to the hospital for treatment and further evaluation of sepsis in the setting of acute UTI. Sepsis 2/2 Acute UTI UA positive for UTI IVF hx of pseudomonas aeruginosa UTI,Continue levofloxacin, started 01/29/2023 Matthews placed in ED Urology consult, outpatient follow up, keep Matthews in place. Follow cultures Leukocytosis WBCs trending down to 27k likely leukomoid reaction, responding to antibiotics follow CBC Constipation Milk of Mag x1 dose Docusate prn Hx of recent fall with right shoulder dislocation Continue home tramadol prn PT evaluation HTN Continue amlodipine, atenolol HLD Continue statin GERD Continue PPI Mood disorder Continue venlafaxine DNR/DNI DVT Prophylaxis: Heparin Pt will require a hospitalization overnight for treatment of?hypothermia and sepsis in the setting of acute UTI. Patient require IV antibiotics pending final cultures Quality Stroke Does the patient have a stroke diagnosis?: No VTE Prior VTE?: No VTE Risk Level:: Medical - moderate - high VTE Device Contraindication: Treatment Not Indicated VTE Drug Contraindication: N/A - Med Ordered
[2023-01-31 13:33] LABS: Leukocytes Stool Qualitative NEGATIVE (NEGATIVE)
--- NOTE | 2023-01-31 15:10 | MHC.CM.PN ---
PATIENT IS IN FROM [facility] PLAN IS FOR HER RETURN TO FACILITY. HCP ON FILE AND VERIFIED. REFERRAL PLACED FOR FACILITY TO FOLLOW. IMM 01/31 IN CHART
[2023-01-31 15:32] VITALS: BP 153/66; PULSE 68; RESP 18; TEMP 36.3; O2SAT 98
[2023-01-31 16:29] LABS: CDiff Gene PCR NEGATIVE (Negative)
[2023-01-31 19:21] VITALS: BP 134/64; PULSE 67; RESP 18; TEMP 36.7; O2SAT 95
[2023-01-31] MEDS: levoFLOXacin/D5W 750 MG/150 ML PIGGYBACK 100 MG IV (20:55)
[2023-01-31] MEDS: Melatonin 3 MG TABLET PO (20:58)
[2023-01-31] MEDS: Venlafaxine HCl ER 75 MG CAP.ER.24H PO (21:09)
[2023-02-01 03:55] VITALS: BP 119/56; PULSE 71; RESP 16; TEMP 36.3; O2SAT 96
[2023-02-01] MEDS: Lactated Ringers 1,000 ML 100 ML IVCONT (06:48)
[2023-02-01 07:07] LABS: Hematocrit 25.6 % (37.0-47.0); Hemoglobin 8.3 g/dl (12.0-16.0); Mean Corpuscular HGB Conc 32.4 g/dl (31.0-35.0); Mean Corpuscular Hemoglobin 30.5 pg (27.0-33.0); Mean Corpuscular Volume 94.1 fL (80.0-98.0); Mean Platelet Volume 10.6 fL (9.4-12.3); Platelet Count 246 X10*3/uL (160-400); Red Blood Count 2.72 X10*6/uL (4.20-5.50); Red Cell Distribution Width 14.1 % (11.0-16.0); White Blood Count 11.2 X10*3/uL (4.8-10.8)
[2023-02-01 07:25] LABS: Anion Gap 12 (12-20); Blood Urea Nitrogen 44 mg/dL (9-16); Calcium 8.2 mg/dL (8.4-10.2); Carbon Dioxide 22 mmol/L (22-29); Chloride 106 mmol/L (96-108); Creatinine Clr Calc Pharmacy 31.1; Estimated Glomerular Filt Rate 46; Glucose Random 86 mg/dL (60-115); Potassium 3.4 mmol/L (3.3-5.1); Sodium 137 mmol/L (135-145)
[2023-02-01 07:27] VITALS: BP 125/59; PULSE 69; RESP 16; TEMP 36.1; O2SAT 95
[2023-02-01] MEDS: Omeprazole 20 MG CAPSULE.DR PO ×2 (09:08→17:17)
[2023-02-01] MEDS: Heparin Sodium,Porcine 5,000 UNIT/ML VIAL 5000 UNIT SUBCUT ×2 (10:07→21:09)
[2023-02-01] MEDS: Famotidine 20 MG TABLET PO (10:56)
[2023-02-01] MEDS: Simethicone 80 MG TAB.CHEW PO ×3 (10:57→21:10)
--- NOTE | 2023-02-01 11:33 | P.PNIM_ITS ---
Subjective Subjective Date of Service: 02/01/23 Interval History: Seen and evaluated this morning Feels better this morning but still belching blood [place] [address] Cr improved to 1.1 Review of Systems Review of Systems: Yes all other systems are reviewed and are negative Physical Exam 2 Vital Signs: Vital Signs: Last Vital Signs Temp 97.0 F 02/01/23 07:27 Pulse 69 02/01/23 07:27 Resp 16 02/01/23 07:27 BP 125/59 L 02/01/23 07:27 Pulse Ox 95 02/01/23 07:27 O2 Del Method Room Air 02/01/23 07:27 BMI result Body Mass Index 24.1 Const: Other: Constitutional : Awake, interactive, not in distress Neck : Normal inspection, Supple Cardiovascular : RRR, no JVP, no lower extremity edema Respiratory : good bilateral air entry, no crackles, wheezes or rhonchi Gastrointestinal: soft, lax, Normal bowel sounds, Non tender Skin : Warm, Dry Neurological : Alert & oriented x3, No focal deficit Objective Data Active Medications Acetaminophen (Acetaminophen 325 Mg Tablet) 650 mg PO Q6H PRN PRN Reason: Pain, Mild (Pain Scale 1-3) Amlodipine Besylate (Amlodipine Besylate 5 Mg Tablet) 5 mg PO DAILY [facility]; Protocol Last Admin: 02/01/23 10:07 Dose: 5 mg Documented By: BELGICA Atenolol (Atenolol 25 Mg Tablet) 25 mg PO DAILY [facility]; Protocol Last Admin: 02/01/23 10:07 Dose: 25 mg Documented By: BELGICA Atorvastatin Calcium (Atorvastatin Calcium 10 Mg Tablet) 10 mg PO DAILY [facility] Last Admin: 02/01/23 10:07 Dose: 10 mg Documented By: BELGICA Bethanechol Chloride (Bethanechol Chloride 25 Mg Tablet) 50 mg PO BID [facility] Last Admin: 02/01/23 10:07 Dose: 50 mg Documented By: BELGICA Cyanocobalamin (Cyanocobalamin (Vitamin B-12) 1,000 Mcg Tablet) 1,000 mcg PO DAILY [facility] Last Admin: 02/01/23 10:07 Dose: 1,000 mcg Documented By: BELGICA Docusate Sodium (Docusate Sodium 100 Mg Capsule) 100 mg PO BEDTIME PRN PRN Reason: Constipation Famotidine (Famotidine 20 Mg Tablet) 20 mg PO DAILY [facility] Last Admin: 02/01/23 10:56 Dose: 20 mg Documented By: BELGICA Heparin Sodium (Porcine) (Heparin Sodium,Porcine 5,000 Unit/Ml Vial) 5,000 unit SUBCUT Q12H [facility] Last Admin: 02/01/23 10:07 Dose: 5,000 unit Documented By: BELGICA Levofloxacin (Levaquin) 750 mg in 150 mls @ 100 mls/hr IV Q48H [facility] Last Infusion: 01/31/23 22:32 Dose: Infused Documented By: FREDDIE Melatonin (Melatonin 3 Mg Tablet) 3 mg PO BEDTIME [facility] Last Admin: 01/31/23 20:58 Dose: 3 mg Documented By: FREDDIE Pt Own Medication ( Fluorometholone 0.1 % Drops,Suspension) 1 drop EYE-RIGHT DAILY@2100 [facility] Last Admin: 01/31/23 20:59 Dose: 1 drop Documented By: FREDDIE Omeprazole (Omeprazole 20 Mg Capsule.) 20 mg PO BID@0830,1630 [facility] Last Admin: 02/01/23 09:08 Dose: 20 mg Documented By: BELGICA Ondansetron HCl (Ondansetron Hcl 4 Mg/2 Ml Vial) 4 mg IVPUSH Q6H PRN PRN Reason: Nausea and Vomiting Last Admin: 01/31/23 18:04 Dose: 4 mg Documented By: FREDDIE Simethicone (Simethicone 80 Mg Tab.Chew) 80 mg PO QIDWMHS [facility] Last Admin: 02/01/23 10:57 Dose: 80 mg Documented By: BELGICA Sodium Chloride (0.9 % Sodium Chloride Flush 3 Ml Syringe) 3 ml IVFLUSH QSHIFT [facility] Last Admin: 02/01/23 09:14 Dose: Not Given Documented By: BELGICA Non-Admin Reason: IV Running Tamsulosin HCl (Tamsulosin Hcl 0.4 Mg Capsule) 0.4 mg PO DAILY [facility] Last Admin: 02/01/23 10:07 Dose: 0.4 mg Documented By: BELGICA Tramadol HCl (Tramadol Hcl 50 Mg Tablet) 50 mg PO Q8H PRN PRN Reason: Moderate Pain (Scale Score 5-6) Venlafaxine HCl (Venlafaxine Hcl Er 150 Mg Cap.Er.24h) 150 mg PO DAILY [facility] Last Admin: 02/01/23 10:07 Dose: 150 mg Documented By: BELGICA Venlafaxine HCl (Venlafaxine Hcl Er 75 Mg Cap.Er.24h) 75 mg PO BEDTIME [facility] Last Admin: 01/31/23 21:09 Dose: 75 mg Documented By: MIMIIT Labs 02/01/23 06:42 02/01/23 06:42 Labs: Laboratory Results - last 24 hr 01/31/23 02/01/23 12:27 06:42 MCV 94.1 MCH 30.5 MCHC 32.4 RDW 14.1 Plt Count 246 D MPV 10.6 Absolute Nucleated RBC 0.000 Nucleated RBC % (auto) 0.0 Anion Gap 12 Estim Creat Clear Calc 31.1 Estimated GFR 46 Random Glucose 86 Calcium 8.2 L D Stool Leukocytes, Qual NEGATIVE C. difficile Tox B Gene NEGATIVE Microbiology Microbiology Results: Microbiology 01/29/23 17:35 Blood Culture - Preliminary Blood - Venous Prelim: GNR Gram Stain only 01/29/23 Unknown Urine Culture - Final Urine clean catch - Urine crow top No growth. 01/29/23 16:54 Blood Culture - Final Blood - Venous Coag negative Staphylococcus Assessment and Plan (1) Sepsis: Status: Acute (2) Acute UTI: Status: Acute (3) Acute kidney injury: Status: Acute (4) Gram-negative bacteremia: Status: Acute Plan Pt is an 87-year-old female with a PMH significant for?HFpEF, HTN, hx of falls, and anxiety who presents to the ED from short term rehab for evaluation of hypothermia, generalized weakness, and chills. Pt will be admitted to the hospital for treatment and further evaluation of sepsis in the setting of acute UTI. Sepsis 2/2 Acute UTI and GNR Bacteremia UA positive for UTI pending final blood cultures DC IVF hx of pseudomonas aeruginosa UTI, Continue levofloxacin, started 01/29/2023 Matthews placed in ED Urology consult, outpatient follow up, keep Matthews in place. Follow cultures Leukocytosis WBCs trending down to 11k likely leukomoid reaction, responding to antibiotics follow CBC ZEE on CKD3 Cr improving to 1.1 today , baseline around 0.8 follow BMP Constipation Milk of Mag x1 dose Docusate prn Hx of recent fall with right shoulder dislocation Continue home tramadol prn PT evaluation HTN Continue amlodipine, atenolol HLD Continue statin GERD Continue PPI Mood disorder Continue venlafaxine DNR/DNI DVT Prophylaxis: Heparin Pt will require a hospitalization overnight for treatment of?hypothermia and sepsis in the setting of acute UTI. Patient require IV antibiotics pending final cultures Quality Stroke Does the patient have a stroke diagnosis?: No VTE Prior VTE?: No VTE Risk Level:: Medical - moderate - high VTE Device Contraindication: Treatment Not Indicated VTE Drug Contraindication: N/A - Med Ordered
[2023-02-01] MEDS: amLODIPine Besylate 5 MG TABLET PO (13:47)
[2023-02-01] MEDS: Atorvastatin Calcium 10 MG TABLET PO (13:47)
[2023-02-01] MEDS: Tamsulosin HCL 0.4 MG CAPSULE PO (13:47)
[2023-02-01] MEDS: Cyanocobalamin (Vitamin B-12) 1,000 MCG TABLET 1000 MCG PO (13:47)
[2023-02-01] MEDS: atenoloL 25 MG TABLET PO (13:47)
[2023-02-01] MEDS: Venlafaxine HCl ER 150 MG CAP.ER.24H PO (13:47)
[2023-02-01 15:28] VITALS: BP 124/56; PULSE 70; RESP 16; TEMP 36.3; O2SAT 97
[2023-02-01] MEDS: 0.9 % Sodium Chloride Flush 3 ML SYRINGE IVFLUSH (17:17)
[2023-02-01 19:04] VITALS: BP 123/58; PULSE 86; RESP 17; TEMP 36.3; O2SAT 95
[2023-02-01 20:00] VITALS: BP 120/56; PULSE 77; RESP 17; TEMP 36.3; O2SAT 95
[2023-02-01] MEDS: Bethanechol Chloride 25 MG TABLET 50 MG PO (21:10)
[2023-02-01] MEDS: Melatonin 3 MG TABLET PO (21:10)
[2023-02-01] MEDS: Venlafaxine HCl ER 75 MG CAP.ER.24H PO (21:11)
[2023-02-02] VITALS: BP 124/56; PULSE 65; RESP 16; TEMP 36.8; O2SAT 94
[2023-02-02] MEDS: Magnesium Hydrox/Alum Hydrox 30 ML ORAL.SUSP PO (00:33)
[2023-02-02] MEDS: 0.9 % Sodium Chloride Flush 3 ML SYRINGE IVFLUSH ×3 (00:35→17:26)
[2023-02-02 06:21] LABS: Anion Gap 11 (12-20); Blood Urea Nitrogen 29 mg/dL (9-16); Calcium 8.2 mg/dL (8.4-10.2); Carbon Dioxide 23 mmol/L (22-29); Chloride 107 mmol/L (96-108); Creatinine Clr Calc Pharmacy 38.7; Estimated Glomerular Filt Rate 59; Glucose Random 92 mg/dL (60-115); Potassium 3.2 mmol/L (3.3-5.1); Sodium 138 mmol/L (135-145)
[2023-02-02 07:37] VITALS: BP 142/65; PULSE 65; RESP 16; TEMP 36.5; O2SAT 95
[2023-02-02] MEDS: atenoloL 25 MG TABLET PO (09:21)
[2023-02-02] MEDS: amLODIPine Besylate 5 MG TABLET PO (09:21)
[2023-02-02] MEDS: Omeprazole 20 MG CAPSULE.DR PO ×2 (09:22→17:20)
[2023-02-02] MEDS: Tamsulosin HCL 0.4 MG CAPSULE PO (09:22)
[2023-02-02] MEDS: Venlafaxine HCl ER 150 MG CAP.ER.24H PO (09:22)
[2023-02-02] MEDS: Cyanocobalamin (Vitamin B-12) 1,000 MCG TABLET 1000 MCG PO (09:23)
[2023-02-02] MEDS: Famotidine 20 MG TABLET PO (09:23)
[2023-02-02] MEDS: Potassium Chloride Packet 20 MEQ PACKET 40 MEQ PO (09:24)
[2023-02-02] MEDS: Atorvastatin Calcium 10 MG TABLET PO (09:24)
[2023-02-02] MEDS: Simethicone 80 MG TAB.CHEW PO ×4 (09:24→21:31)
[2023-02-02] MEDS: Bethanechol Chloride 25 MG TABLET 50 MG PO ×2 (09:24→21:32)
[2023-02-02] MEDS: Heparin Sodium,Porcine 5,000 UNIT/ML VIAL 5000 UNIT SUBCUT ×2 (09:26→21:31)
[2023-02-02 10:18] LABS: White Blood Count 7.1 X10*3/uL (4.8-10.8)
--- NOTE | 2023-02-02 11:11 | HO.PM.IMPN ---
Subjective Subjective Date of Service: 02/02/23 Interval History: Seen and evaluated this morning Feels better this morning but still belching and reporting heartburn blood culture growing GNR, still pending Review of Systems Review of Systems: Yes all other systems are reviewed and are negative Physical Exam Vital Signs: Vital Signs: Last Vital Signs Temp 97.7 F 02/02/23 07:37 Pulse 65 02/02/23 07:37 Resp 16 02/02/23 07:37 BP 142/65 H 02/02/23 07:37 Pulse Ox 95 02/02/23 07:37 O2 Del Method Room Air 02/02/23 07:37 BMI result Body Mass Index 24.1 Const: Other: Constitutional : Awake, interactive, not in distress Neck : Normal inspection, Supple Cardiovascular : RRR, no JVP, no lower extremity edema Respiratory : good bilateral air entry, no crackles, wheezes or rhonchi Gastrointestinal: soft, lax, Normal bowel sounds, Non tender Skin : Warm, Dry Neurological : Alert & oriented x3, No focal deficit Objective Data Active Medications Acetaminophen (Acetaminophen 325 Mg Tablet) 650 mg PO Q6H PRN PRN Reason: Pain, Mild (Pain Scale 1-3) Al Hydroxide/Mg Hydroxide (Magnesium Hydrox/Alum Hydrox 30 Ml Oral.Susp) 30 ml PO Q6H PRN PRN Reason: Heartburn Last Admin: 02/02/23 00:33 Dose: 30 ml Documented By: CARRIE Amlodipine Besylate (Amlodipine Besylate 5 Mg Tablet) 5 mg PO DAILY [facility]; Protocol Last Admin: 02/02/23 09:21 Dose: 5 mg Documented By: BRANDIE Atenolol (Atenolol 25 Mg Tablet) 25 mg PO DAILY [facility]; Protocol Last Admin: 02/02/23 09:21 Dose: 25 mg Documented By: BRANDIE Atorvastatin Calcium (Atorvastatin Calcium 10 Mg Tablet) 10 mg PO DAILY [facility] Last Admin: 02/02/23 09:24 Dose: 10 mg Documented By: BRANDIE Bethanechol Chloride (Bethanechol Chloride 25 Mg Tablet) 50 mg PO BID [facility] Last Admin: 02/02/23 09:24 Dose: 50 mg Documented By: BRANDIE Cyanocobalamin (Cyanocobalamin (Vitamin B-12) 1,000 Mcg Tablet) 1,000 mcg PO DAILY [facility] Last Admin: 02/02/23 09:23 Dose: 1,000 mcg Documented By: BRANDIE Docusate Sodium (Docusate Sodium 100 Mg Capsule) 100 mg PO BEDTIME PRN PRN Reason: Constipation Heparin Sodium (Porcine) (Heparin Sodium,Porcine 5,000 Unit/Ml Vial) 5,000 unit SUBCUT Q12H [facility] Last Admin: 02/02/23 09:26 Dose: 5,000 unit Documented By: BRANDIE Levofloxacin (Levofloxacin 750 Mg Tablet) 750 mg PO Q48H [facility] Melatonin (Melatonin 3 Mg Tablet) 3 mg PO BEDTIME [facility] Last Admin: 02/01/23 21:10 Dose: 3 mg Documented By: FREDDIE Pt Own Medication ( Fluorometholone 0.1 % Drops,Suspension) 1 drop EYE-RIGHT DAILY@2100 [facility] Last Admin: 02/01/23 21:11 Dose: 1 drop Documented By: FREDDIE Omeprazole (Omeprazole 20 Mg Capsule.) 20 mg PO BID@0830,1630 [facility] Last Admin: 02/02/23 09:22 Dose: 20 mg Documented By: BRANDIE Ondansetron HCl (Ondansetron Hcl 4 Mg/2 Ml Vial) 4 mg IVPUSH Q6H PRN PRN Reason: Nausea and Vomiting Last Admin: 01/31/23 18:04 Dose: 4 mg Documented By: FREDDIE Simethicone (Simethicone 80 Mg Tab.Chew) 80 mg PO QIDWMHS [facility] Last Admin: 02/02/23 09:24 Dose: 80 mg Documented By: BRANDIE Sodium Chloride (0.9 % Sodium Chloride Flush 3 Ml Syringe) 3 ml IVFLUSH QSHIFT [facility] Last Admin: 02/02/23 09:21 Dose: 3 ml Documented By: BRANDIE Sucralfate (Sucralfate Oral Suspension 1 Gm/10 Ml Oral.Susp) 1 gm PO QIDACHS [facility] Tamsulosin HCl (Tamsulosin Hcl 0.4 Mg Capsule) 0.4 mg PO DAILY [facility] Last Admin: 02/02/23 09:22 Dose: 0.4 mg Documented By: BRANDIE Tramadol HCl (Tramadol Hcl 50 Mg Tablet) 50 mg PO Q8H PRN PRN Reason: Moderate Pain (Scale Score 5-6) Venlafaxine HCl (Venlafaxine Hcl Er 150 Mg Cap.Er.24h) 150 mg PO DAILY [facility] Last Admin: 02/02/23 09:22 Dose: 150 mg Documented By: DOBROB Venlafaxine HCl (Venlafaxine Hcl Er 75 Mg Cap.Er.24h) 75 mg PO BEDTIME [facility] Last Admin: 02/01/23 21:11 Dose: 75 mg Documented By: BEIT Labs 02/02/23 09:35 02/02/23 05:55 Labs: Laboratory Results - last 24 hr 02/02/23 05:55 Hold Purple Top SEE NOTE Anion Gap 11 L Estim Creat Clear Calc 38.7 Estimated GFR 59 Random Glucose 92 Calcium 8.2 L Microbiology Microbiology Results: Microbiology 01/29/23 17:35 Blood Culture - Preliminary Blood - Venous Prelim: GNR Gram Stain only 01/29/23 16:54 Blood Culture - Preliminary Blood - Venous Coag negative Staphylococcus Prelim: GNR Gram Stain only Assessment and Plan (1) Gram-negative bacteremia: Status: Acute (2) Acute kidney injury: Status: Acute (3) Sepsis: Status: Acute Plan Pt is an 87-year-old female with a PMH significant for?HFpEF, HTN, hx of falls, and anxiety who presents to the ED from short term rehab for evaluation of hypothermia, generalized weakness, and chills. Pt will be admitted to the hospital for treatment and further evaluation of sepsis in the setting of acute UTI. Sepsis 2/2 Acute UTI and GNR Bacteremia UA positive for UTI, Cx negative. pending final blood cultures DC IVF hx of pseudomonas aeruginosa UTI, Continue levofloxacin, started 01/29/2023 Matthews placed in ED Urology consult, outpatient follow up, keep Matthews in place. Follow cultures Leukocytosis WBCs trending down to 11k likely leukomoid reaction, responding to antibiotics follow CBC ZEE on CKD3 Cr improving to 1.1 today , baseline around 0.8 follow BMP Constipation Milk of Mag x1 dose Docusate prn Hx of recent fall with right shoulder dislocation Continue home tramadol prn PT evaluation HTN Continue amlodipine, atenolol HLD Continue statin GERD Continue PPI Mood disorder Continue venlafaxine DNR/DNI DVT Prophylaxis: Heparin Pt will require a hospitalization overnight for treatment of?hypothermia and sepsis in the setting of acute UTI. Patient require IV antibiotics pending final cultures Quality Stroke Does the patient have a stroke diagnosis?: No VTE Prior VTE?: No VTE Risk Level:: Medical - moderate - high VTE Device Contraindication: Treatment Not Indicated VTE Drug Contraindication: N/A - Med Ordered
[2023-02-02] MEDS: Sucralfate Oral Suspension 1 GM/10 ML ORAL.SUSP PO ×3 (12:27→21:30)
[2023-02-02 12:43] VITALS: BP 142/65; PULSE 65; O2SAT 95
[2023-02-02 15:50] VITALS: BP 133/61; PULSE 68; RESP 18; TEMP 36.3; O2SAT 92
[2023-02-02] MEDS: Venlafaxine HCl ER 75 MG CAP.ER.24H PO (21:31)
[2023-02-02] MEDS: levoFLOXacin 750 MG TABLET PO (21:31)
[2023-02-02] MEDS: Melatonin 3 MG TABLET PO (21:31)
[2023-02-03] VITALS: BP 140/71; PULSE 68; RESP 18; TEMP 36.9; O2SAT 95
[2023-02-03] MEDS: 0.9 % Sodium Chloride Flush 3 ML SYRINGE IVFLUSH ×4 (00:14→20:07)
[2023-02-03 08:00] VITALS: BP 179/78; PULSE 68; RESP 12; TEMP 36; O2SAT 95
[2023-02-03] MEDS: Sucralfate Oral Suspension 1 GM/10 ML ORAL.SUSP PO ×4 (08:30→20:06)
[2023-02-03] MEDS: Omeprazole 20 MG CAPSULE.DR PO ×2 (08:31→17:34)
[2023-02-03] MEDS: Bethanechol Chloride 25 MG TABLET 50 MG PO ×2 (08:31→20:06)
[2023-02-03] MEDS: Cyanocobalamin (Vitamin B-12) 1,000 MCG TABLET 1000 MCG PO (08:31)
[2023-02-03] MEDS: Tamsulosin HCL 0.4 MG CAPSULE PO (08:31)
[2023-02-03] MEDS: Simethicone 80 MG TAB.CHEW PO ×4 (08:31→20:06)
[2023-02-03] MEDS: Venlafaxine HCl ER 150 MG CAP.ER.24H PO (08:31)
[2023-02-03] MEDS: amLODIPine Besylate 5 MG TABLET PO (08:31)
[2023-02-03] MEDS: Heparin Sodium,Porcine 5,000 UNIT/ML VIAL 5000 UNIT SUBCUT ×2 (08:32→20:07)
[2023-02-03] MEDS: Atorvastatin Calcium 10 MG TABLET PO (08:32)
[2023-02-03] MEDS: atenoloL 25 MG TABLET PO (08:32)
--- NOTE | 2023-02-03 09:38 | P.PNIM_ITS ---
Subjective Subjective Date of Service: 02/03/23 Interval History: Seen and evaluated this morning Feels better this morning but still belching and reporting heartburn blood culture growing GNR, still pending Review of Systems Review of Systems: Yes all other systems are reviewed and are negative Physical Exam 2 Vital Signs: Vital Signs: Last Vital Signs Temp 96.8 F 02/03/23 08:00 Pulse 68 02/03/23 08:00 Resp 12 02/03/23 08:00 BP 179/78 H 02/03/23 08:00 Pulse Ox 95 02/03/23 08:00 O2 Del Method Room Air 02/03/23 08:00 BMI result Body Mass Index 24.1 Const: Other: Constitutional : Awake, interactive, not in distress Neck : Normal inspection, Supple Cardiovascular : RRR, no JVP, no lower extremity edema Respiratory : good bilateral air entry, no crackles, wheezes or rhonchi Gastrointestinal: soft, lax, Normal bowel sounds, Non tender Skin : Warm, Dry Neurological : Alert & oriented x3, No focal deficit Objective Data Active Medications Acetaminophen (Acetaminophen 325 Mg Tablet) 650 mg PO Q6H PRN PRN Reason: Pain, Mild (Pain Scale 1-3) Al Hydroxide/Mg Hydroxide (Magnesium Hydrox/Alum Hydrox 30 Ml Oral.Susp) 30 ml PO Q6H PRN PRN Reason: Heartburn Last Admin: 02/02/23 00:33 Dose: 30 ml Documented By: CARRIE Amlodipine Besylate (Amlodipine Besylate 5 Mg Tablet) 5 mg PO DAILY [facility]; Protocol Last Admin: 02/03/23 08:31 Dose: 5 mg Documented By: PETE Atenolol (Atenolol 25 Mg Tablet) 25 mg PO DAILY [facility]; Protocol Last Admin: 02/03/23 08:32 Dose: 25 mg Documented By: PETE Atorvastatin Calcium (Atorvastatin Calcium 10 Mg Tablet) 10 mg PO DAILY [facility] Last Admin: 02/03/23 08:32 Dose: 10 mg Documented By: PETE Bethanechol Chloride (Bethanechol Chloride 25 Mg Tablet) 50 mg PO BID [facility] Last Admin: 02/03/23 08:31 Dose: 50 mg Documented By: PETE Cyanocobalamin (Cyanocobalamin (Vitamin B-12) 1,000 Mcg Tablet) 1,000 mcg PO DAILY [facility] Last Admin: 12/19/23 08:31 Dose: 1,000 mcg Documented By: PETE Docusate Sodium (Docusate Sodium 100 Mg Capsule) 100 mg PO BEDTIME PRN PRN Reason: Constipation Heparin Sodium (Porcine) (Heparin Sodium,Porcine 5,000 Unit/Ml Vial) 5,000 unit SUBCUT Q12H [facility] Last Admin: 02/03/23 08:32 Dose: 5,000 unit Documented By: PETE Levofloxacin (Levofloxacin 750 Mg Tablet) 750 mg PO Q48H [facility] Last Admin: 02/02/23 21:31 Dose: 750 mg Documented By: WILLAM Melatonin (Melatonin 3 Mg Tablet) 3 mg PO BEDTIME [facility] Last Admin: 02/02/23 21:31 Dose: 3 mg Documented By: WILLAM Pt Own Medication ( Fluorometholone 0.1 % Drops,Suspension) 1 drop EYE-RIGHT DAILY@2100 [facility] Last Admin: 02/02/23 21:32 Dose: 1 drop Documented By: WILLAM Omeprazole (Omeprazole 20 Mg Capsule.) 20 mg PO BID@0830,1630 [facility] Last Admin: 02/03/23 08:31 Dose: 20 mg Documented By: PETE Ondansetron HCl (Ondansetron Hcl 4 Mg/2 Ml Vial) 4 mg IVPUSH Q6H PRN PRN Reason: Nausea and Vomiting Last Admin: 01/31/23 18:04 Dose: 4 mg Documented By: FREDDIE Simethicone (Simethicone 80 Mg Tab.Chew) 80 mg PO QIDWMHS [facility] Last Admin: 02/03/23 08:31 Dose: 80 mg Documented By: PETE Sodium Chloride (0.9 % Sodium Chloride Flush 3 Ml Syringe) 3 ml IVFLUSH QSHIFT [facility] Last Admin: 02/03/23 08:30 Dose: 3 ml Documented By: PETE Sucralfate (Sucralfate Oral Suspension 1 Gm/10 Ml Oral.Susp) 1 gm PO QIDACHS [facility] Last Admin: 02/03/23 08:30 Dose: 1 gm Documented By: PETE Tamsulosin HCl (Tamsulosin Hcl 0.4 Mg Capsule) 0.4 mg PO DAILY [facility] Last Admin: 02/03/23 08:31 Dose: 0.4 mg Documented By: PETE Tramadol HCl (Tramadol Hcl 50 Mg Tablet) 50 mg PO Q8H PRN PRN Reason: Moderate Pain (Scale Score 5-6) Venlafaxine HCl (Venlafaxine Hcl Er 150 Mg Cap.Er.24h) 150 mg PO DAILY [facility] Last Admin: 02/03/23 08:31 Dose: 150 mg Documented By: PETE Venlafaxine HCl (Venlafaxine Hcl Er 75 Mg Cap.Er.24h) 75 mg PO BEDTIME [facility] Last Admin: 02/02/23 21:31 Dose: 75 mg Documented By: LYSZ Labs 02/02/23 09:35 02/02/23 05:55 Microbiology Microbiology Results: Microbiology 01/29/23 17:35 Blood Culture - Preliminary Blood - Venous Prelim: GNR Gram Stain only 01/29/23 16:54 Blood Culture - Preliminary Blood - Venous Coag negative Staphylococcus Prelim: GNR Gram Stain only Assessment and Plan (1) Gram-negative bacteremia: Status: Acute (2) Acute kidney injury: Status: Acute (3) Sepsis: Status: Acute (4) Acute UTI: Status: Acute (5) Hypothermia: Status: Acute Plan Pt is an 87-year-old female with a PMH significant for?HFpEF, HTN, hx of falls, and anxiety who presents to the ED from short term rehab for evaluation of hypothermia, generalized weakness, and chills. Pt will be admitted to the hospital for treatment and further evaluation of sepsis in the setting of acute UTI. Sepsis 2/2 Acute UTI and GNR Bacteremia UA positive for UTI, Cx negative. pending final blood cultures DC IVF hx of pseudomonas aeruginosa UTI, Continue levofloxacin, started 01/29/2023 Matthews placed in ED Urology consult, outpatient follow up, keep Matthews in place. Follow cultures Leukocytosis WBCs trending down to 11k likely leukomoid reaction, responding to antibiotics follow CBC ZEE on CKD3 Cr improving to 1.1 today , baseline around 0.8 follow BMP Constipation Simethicone for bloating Docusate prn Started on Metamucil Hx of recent fall with right shoulder dislocation Continue home tramadol prn PT evaluation HTN Continue amlodipine, atenolol HLD Continue statin GERD Continue PPI Carafate added a dose of reglan Mood disorder Continue venlafaxine DNR/DNI DVT Prophylaxis: Heparin Pt will require a hospitalization overnight for treatment of?hypothermia and sepsis in the setting of acute UTI. Patient require IV antibiotics pending final cultures Quality Stroke Does the patient have a stroke diagnosis?: No VTE Prior VTE?: No VTE Risk Level:: Medical - moderate - high VTE Device Contraindication: Treatment Not Indicated VTE Drug Contraindication: N/A - Med Ordered
[2023-02-03 10:29] VITALS: BP 179/78; PULSE 68; O2SAT 95
[2023-02-03] MEDS: Psyllium seed 3.7 GM PACKET PO (10:42)
[2023-02-03] MEDS: Docusate Sodium 100 MG CAPSULE PO ×2 (10:42→20:06)
[2023-02-03] MEDS: Metoclopramide HCl 10 MG/2 ML VIAL 5 MG IVPUSH (10:42)
[2023-02-03 15:06] VITALS: BP 126/59; PULSE 70; RESP 18; TEMP 36.1; O2SAT 98
[2023-02-03 19:49] VITALS: BP 158/71; PULSE 68; RESP 16; TEMP 36.5; O2SAT 98
[2023-02-03] MEDS: Venlafaxine HCl ER 75 MG CAP.ER.24H PO (20:06)
[2023-02-03] MEDS: Melatonin 3 MG TABLET PO (20:06)
[2023-02-03] MEDS: Magnesium Hydrox/Alum Hydrox 30 ML ORAL.SUSP PO (20:06)
[2023-02-04] VITALS: BP 162/76; PULSE 76; RESP 16; TEMP 36.4; O2SAT 98
[2023-02-04 07:42] VITALS: BP 184/84; PULSE 74; RESP 16; TEMP 36.2; O2SAT 96
[2023-02-04] MEDS: Docusate Sodium 100 MG CAPSULE PO ×2 (08:13→21:56)
[2023-02-04] MEDS: Tamsulosin HCL 0.4 MG CAPSULE PO (08:13)
[2023-02-04] MEDS: Simethicone 80 MG TAB.CHEW PO ×4 (08:13→21:24)
[2023-02-04] MEDS: Atorvastatin Calcium 10 MG TABLET PO (08:13)
[2023-02-04] MEDS: Cyanocobalamin (Vitamin B-12) 1,000 MCG TABLET 1000 MCG PO (08:13)
[2023-02-04] MEDS: atenoloL 25 MG TABLET PO (08:13)
[2023-02-04] MEDS: Bethanechol Chloride 25 MG TABLET 50 MG PO ×2 (08:13→21:24)
[2023-02-04] MEDS: Omeprazole 20 MG CAPSULE.DR PO ×2 (08:13→17:28)
[2023-02-04] MEDS: Sucralfate Oral Suspension 1 GM/10 ML ORAL.SUSP PO ×4 (08:13→21:26)
[2023-02-04] MEDS: amLODIPine Besylate 5 MG TABLET PO (08:13)
[2023-02-04] MEDS: 0.9 % Sodium Chloride Flush 3 ML SYRINGE IVFLUSH ×3 (08:13→21:27)
[2023-02-04] MEDS: Venlafaxine HCl ER 150 MG CAP.ER.24H PO (08:13)
[2023-02-04] MEDS: Psyllium seed 3.7 GM PACKET PO (08:14)
--- NOTE | 2023-02-04 09:40 | HO.PM.IMPN ---
Subjective Subjective Date of Service: 02/04/23 Interval History: no complaints Physical Exam Vital Signs: Vital Signs: Last Vital Signs Temp 97.2 F 02/04/23 07:42 Pulse 74 02/04/23 07:42 Resp 16 02/04/23 07:42 BP 184/84 H 02/04/23 07:42 Pulse Ox 96 02/04/23 07:42 O2 Del Method Room Air 02/04/23 07:42 BMI result Body Mass Index 24.1 Const: Other: Constitutional : Awake, interactive, not in distress Neck : Normal inspection, Supple Cardiovascular : RRR, no JVP, no lower extremity edema Respiratory : good bilateral air entry, no crackles, wheezes or rhonchi Gastrointestinal: soft, lax, Normal bowel sounds, Non tender Skin : Warm, Dry Neurological : Alert & oriented x3, No focal deficit Objective Data Active Medications Acetaminophen (Acetaminophen 325 Mg Tablet) 650 mg PO Q6H PRN PRN Reason: Pain, Mild (Pain Scale 1-3) Al Hydroxide/Mg Hydroxide (Magnesium Hydrox/Alum Hydrox 30 Ml Oral.Susp) 30 ml PO Q6H PRN PRN Reason: Heartburn Last Admin: 02/03/23 20:06 Dose: 30 ml Documented By: WENDI Amlodipine Besylate (Amlodipine Besylate 5 Mg Tablet) 5 mg PO DAILY [facility]; Protocol Last Admin: 02/04/23 08:13 Dose: 5 mg Documented By: PETE Atenolol (Atenolol 25 Mg Tablet) 25 mg PO DAILY [facility]; Protocol Last Admin: 02/04/23 08:13 Dose: 25 mg Documented By: PETE Atorvastatin Calcium (Atorvastatin Calcium 10 Mg Tablet) 10 mg PO DAILY [facility] Last Admin: 02/04/23 08:13 Dose: 10 mg Documented By: PETE Bethanechol Chloride (Bethanechol Chloride 25 Mg Tablet) 50 mg PO BID [facility] Last Admin: 02/04/23 08:13 Dose: 50 mg Documented By: PETE Cyanocobalamin (Cyanocobalamin (Vitamin B-12) 1,000 Mcg Tablet) 1,000 mcg PO DAILY [facility] Last Admin: 02/04/23 08:13 Dose: 1,000 mcg Documented By: PETE Docusate Sodium (Docusate Sodium 100 Mg Capsule) 100 mg PO BID [facility] Last Admin: 02/04/23 08:13 Dose: 100 mg Documented By: PETE Heparin Sodium (Porcine) (Heparin Sodium,Porcine 5,000 Unit/Ml Vial) 5,000 unit SUBCUT Q12H [facility] Last Admin: 02/03/23 20:07 Dose: 5,000 unit Documented By: WENDI Levofloxacin (Levofloxacin 750 Mg Tablet) 750 mg PO Q48H [facility] Last Admin: 02/02/23 21:31 Dose: 750 mg Documented By: WILLAM Melatonin (Melatonin 3 Mg Tablet) 3 mg PO BEDTIME [facility] Last Admin: 02/03/23 20:06 Dose: 3 mg Documented By: WENDI Pt Own Medication ( Fluorometholone 0.1 % Drops,Suspension) 1 drop EYE-RIGHT DAILY@2100 [facility] Last Admin: 02/03/23 20:07 Dose: 1 drop Documented By: WENDI Omeprazole (Omeprazole 20 Mg Capsule.) 20 mg PO BID@0830,1630 [facility] Last Admin: 02/04/23 08:13 Dose: 20 mg Documented By: PETE Ondansetron HCl (Ondansetron Hcl 4 Mg/2 Ml Vial) 4 mg IVPUSH Q6H PRN PRN Reason: Nausea and Vomiting Last Admin: 01/31/23 18:04 Dose: 4 mg Documented By: FREDDIE Psyllium Hydrophilic Mucilloid (Psyllium Seed 3.7 Gm Packet) 3.7 gm PO DAILY [facility] Last Admin: 02/04/23 08:14 Dose: 3.7 gm Documented By: PETE Simethicone (Simethicone 80 Mg Tab.Chew) 80 mg PO QIDWMHS [facility] Last Admin: 02/04/23 08:13 Dose: 80 mg Documented By: PETE Sodium Chloride (0.9 % Sodium Chloride Flush 3 Ml Syringe) 3 ml IVFLUSH QSHIFT [facility] Last Admin: 02/04/23 08:13 Dose: 3 ml Documented By: PETE Sucralfate (Sucralfate Oral Suspension 1 Gm/10 Ml Oral.Susp) 1 gm PO QIDACHS [facility] Last Admin: 02/04/23 08:13 Dose: 1 gm Documented By: PETE Tamsulosin HCl (Tamsulosin Hcl 0.4 Mg Capsule) 0.4 mg PO DAILY [facility] Last Admin: 02/04/23 08:13 Dose: 0.4 mg Documented By: PETE Venlafaxine HCl (Venlafaxine Hcl Er 150 Mg Cap.Er.24h) 150 mg PO DAILY [facility] Last Admin: 02/04/23 08:13 Dose: 150 mg Documented By: PETE Venlafaxine HCl (Venlafaxine Hcl Er 75 Mg Cap.Er.24h) 75 mg PO BEDTIME [facility] Last Admin: 02/03/23 20:06 Dose: 75 mg Documented By: KAMRANQC Labs 02/02/23 09:35 02/02/23 05:55 Microbiology Microbiology Results: Microbiology 01/29/23 17:35 Blood Culture - Final Blood - Venous Bacteroides eggerthii 01/29/23 16:54 Blood Culture - Final Blood - Venous Coag negative Staphylococcus Bacteroides eggerthii Assessment and Plan (1) Gram-negative bacteremia: Status: Acute (2) Acute kidney injury: Status: Acute (3) Sepsis: Status: Acute (4) Acute UTI: Status: Acute (5) Hypothermia: Status: Acute Plan 87F PMH significant for?HFpEF, HTN, hx of falls, and anxiety who presented to the ED from short term rehab for evaluation of hypothermia, generalized weakness, and chills. Pt admitted to the hospital for treatment and further evaluation of sepsis in the setting of acute UTI. Sepsis 2/2 Acute UTI and bacteroides Bacteremia UA positive for UTI, Cx negative. Continue levofloxacin, started 01/29/2023 Matthews placed in ED Urology consult, outpatient follow up, keep Matthews in place. ID follow up ZEE on CKD3 resolved Constipation Simethicone for bloating Docusate prn Started on Metamucil Hx of recent fall with right shoulder dislocation Continue home tramadol prn PT evaluation HTN Continue amlodipine, atenolol HLD Continue statin GERD Continue PPI Carafate added a dose of reglan Mood disorder Continue venlafaxine DNR/DNI DVT Prophylaxis: Heparin reason for continued hospitalization:follow up ID for abx recs Quality Stroke Does the patient have a stroke diagnosis?: No VTE Prior VTE?: No VTE Risk Level:: Medical - moderate - high VTE Device Contraindication: Treatment Not Indicated VTE Drug Contraindication: N/A - Med Ordered
[2023-02-04] MEDS: Heparin Sodium,Porcine 5,000 UNIT/ML VIAL 5000 UNIT SUBCUT ×2 (10:56→21:26)
--- NOTE | 2023-02-04 11:04 | MHC.CM.PN ---
Per MD rounds patient may discharge later today. [facility] has been notified of possible discharge today. A clinical update has been sent to the facility. CM will follow for discharge.
[2023-02-04 11:05] VITALS: BP 144/67
[2023-02-04 13:02] VITALS: BP 144/67
[2023-02-04 15:33] VITALS: BP 146/65; PULSE 70; RESP 18; TEMP 36.7; O2SAT 98
--- NOTE | 2023-02-04 17:13 | P.CNID_ITS ---
History of Present Illness Data of Consult Service Date: 02/04/23 Requesting physician: Tano Garnica Primary Care Provider: Saritha Russell MD HPI Reason for consult: bacteroides bacteremia She presents with nausea,vomiting and chills for a da She has also had longstanding discomfort with eructation. She has not had colonoscopy and/or upper endoscopy due to age. She has no dysuria or abdominal pain,but some bloated feeling . She is on day 01/29 Levaquin for concern over infection ?UTI? Review of Systems 2 Review of Systems: Yes all other systems are reviewed and are negative Gastrointestinal: Gastrointestinal: Reports bloating and Reports dyspepsia PMFSH Past Medical History Medical History Elevated brain natriuretic peptide (BNP) level Fall Asthma Vertigo Polyuria Anxiety Essential hypertension GERD (gastroesophageal reflux disease) Familial hypercholesterolemia Endogenous depression COPD (chronic obstructive pulmonary disease) Family History Family History Father No problems noted. Mother No problems noted. Brother No problems noted. Sister No problems noted. Son No problems noted. Daughter No problems noted. Family history: reviewed and not pertinent Surgical History Surgical History S/P lumpectomy of breast History of eye surgery History of cataract surgery Social History Social History Household Members: Family Housing: Apartment Do you presently have visiting nurse or other home services: Yes Alcohol intake: never Patient Tobacco Use Status: Never used Tobacco e-Cigarette/Vaping Use: Never Used Second Hand Smoke Exposure: No Advance Directives Date on File: 07/22/21 service: No Current occupational status: retired Cognitive needs: Yes Hearing needs: No Vision needs: Yes Meds Allergies Allergy/AdvReac Type Severity Reaction Status Date / Time codeine [CODEINE] Allergy Mild upset Verified 12/30/22 14:58 stomach, nause Active Medications: Current Medications Acetaminophen (Acetaminophen 325 Mg Tablet) 650 mg PO Q6H PRN PRN Reason: Pain, Mild (Pain Scale 1-3) Al Hydroxide/Mg Hydroxide (Magnesium Hydrox/Alum Hydrox 30 Ml Oral.Susp) 30 ml PO Q6H PRN PRN Reason: Heartburn Last Admin: 02/03/23 20:06 Dose: 30 ml Amlodipine Besylate (Amlodipine Besylate 5 Mg Tablet) 5 mg PO DAILY [facility]; Protocol Last Admin: 02/04/23 08:13 Dose: 5 mg Atenolol (Atenolol 25 Mg Tablet) 25 mg PO DAILY [facility]; Protocol Last Admin: 02/04/23 08:13 Dose: 25 mg Atorvastatin Calcium (Atorvastatin Calcium 10 Mg Tablet) 10 mg PO DAILY [facility] Last Admin: 02/04/23 08:13 Dose: 10 mg Bethanechol Chloride (Bethanechol Chloride 25 Mg Tablet) 50 mg PO BID [facility] Last Admin: 02/04/23 08:13 Dose: 50 mg Cyanocobalamin (Cyanocobalamin (Vitamin B-12) 1,000 Mcg Tablet) 1,000 mcg PO DAILY [facility] Last Admin: 02/04/23 08:13 Dose: 1,000 mcg Docusate Sodium (Docusate Sodium 100 Mg Capsule) 100 mg PO BID [facility] Last Admin: 02/04/23 08:13 Dose: 100 mg Heparin Sodium (Porcine) (Heparin Sodium,Porcine 5,000 Unit/Ml Vial) 5,000 unit SUBCUT Q12H [facility] Last Admin: 02/04/23 10:56 Dose: 5,000 unit Metronidazole (Flagyl) 500 mg in 100 mls @ 100 mls/hr IV Q12H [facility] Levofloxacin (Levofloxacin 750 Mg Tablet) 750 mg PO Q48H [facility] Last Admin: 02/02/23 21:31 Dose: 750 mg Melatonin (Melatonin 3 Mg Tablet) 3 mg PO BEDTIME [facility] Last Admin: 02/03/23 20:06 Dose: 3 mg Pt Own Medication ( Fluorometholone 0.1 % Drops,Suspension) 1 drop EYE-RIGHT DAILY@2100 [facility] Last Admin: 02/03/23 20:07 Dose: 1 drop Omeprazole (Omeprazole 20 Mg Capsule.Dr) 20 mg PO BID@0830,1630 [facility] Last Admin: 02/04/23 08:13 Dose: 20 mg Ondansetron HCl (Ondansetron Hcl 4 Mg/2 Ml Vial) 4 mg IVPUSH Q6H PRN PRN Reason: Nausea and Vomiting Last Admin: 01/31/23 18:04 Dose: 4 mg Psyllium Hydrophilic Mucilloid (Psyllium Seed 3.7 Gm Packet) 3.7 gm PO DAILY [facility] Last Admin: 02/04/23 08:14 Dose: 3.7 gm Simethicone (Simethicone 80 Mg Tab.Chew) 80 mg PO QIDWMHS [facility] Last Admin: 02/04/23 11:00 Dose: 80 mg Sodium Chloride (0.9 % Sodium Chloride Flush 3 Ml Syringe) 3 ml IVFLUSH QSHIFT [facility] Last Admin: 02/04/23 08:13 Dose: 3 ml Sucralfate (Sucralfate Oral Suspension 1 Gm/10 Ml Oral.Susp) 1 gm PO QIDACHS [facility] Last Admin: 02/04/23 10:56 Dose: 1 gm Tamsulosin HCl (Tamsulosin Hcl 0.4 Mg Capsule) 0.4 mg PO DAILY [facility] Last Admin: 02/04/23 08:13 Dose: 0.4 mg Venlafaxine HCl (Venlafaxine Hcl Er 150 Mg Cap.Er.24h) 150 mg PO DAILY [facility] Last Admin: 02/04/23 08:13 Dose: 150 mg Venlafaxine HCl (Venlafaxine Hcl Er 75 Mg Cap.Er.24h) 75 mg PO BEDTIME [facility] Last Admin: 02/03/23 20:06 Dose: 75 mg Home Medications Medication Instructions Recorded Confirmed Last Taken Type fluorometholone 0.1 % eye 1 drp ophthalmic (eye) 11/16/19 01/29/23 07/07/21 History drops,suspension BID@0900,1600 cyanocobalamin (vitamin B-12) 1,000 mcg PO DAILY 07/08/21 01/29/23 07/07/21 History 1,000 mcg tablet melatonin 3 mg tablet 3 mg PO BEDTIME 07/08/21 01/29/23 Unknown History esomeprazole magnesium 20 mg 20 mg PO DAILY@0630 09/07/21 01/29/23 Unknown History capsule,delayed release (Nexium) venlafaxine 75 mg capsule,extended 75 mg PO BEDTIME 01/31/23 01/31/23 Unknown History release 24 hr Physical Exam 2 Vital Signs: Vital Signs: Last Vital Signs Temp 98.1 F 02/04/23 15:33 Pulse 70 02/04/23 15:33 Resp 18 02/04/23 15:33 BP 146/65 H 02/04/23 15:33 Pulse Ox 98 02/04/23 15:33 O2 Del Method Room Air 02/04/23 15:33 BMI result Body Mass Index 24.1 Const: General: cooperative HEENT: Head: Yes normal to inspection Face and sinus: Yes normal facial exam Mouth: Normal oral and palatal mucosa present Teeth and gingiva: d entition normal Eyes: General: appearance normal, both eyes and all related structures P upils: Equal, round and reactive pupils present Resp: Effort & Inspection: normal respiratory effort Cardio: Rate: regular rate Rhythm: regular rhythm GI: Other: mild epigastric discomfort Palpation (GI): Soft to palpation and nontender : General: Yes no CVA tenderness Back/Spine/Pelvis: Back: no CVA tenderness Skin: General skin exam: no rashes or lesions noted Neuro: General: moves all extremities Cranial nerves: Yes Equal, round and reactive pupils present Extrem: General: Yes normal to inspection Psych: Appearance: grossly normal Results Labs 02/02/23 09:35 02/02/23 05:55 Microbiology Microbiology Results: Microbiology 01/29/23 17:35 Blood - Venous Blood Culture - Final Bacteroides eggerthii 01/29/23 16:54 Blood - Venous Blood Culture - Final Coag negative Staphylococcus Bacteroides eggerthii 01/29/23 Unknown Urine clean catch - Urine crow top Urine Culture - Final No growth. Assessment and Plan (1) Sepsis: Status: Acute She has concern over bacteroides being abdominal source?tear esophagus from vomiting?esophageal hernis?SBO or gastric or colonic mass This is anerobic bacteria. Plan Add Flagyl to either Levaquin or piperacillin/tazobactam. Check CT abdomen and pelvis evaluate above esophageal and/or lower abdominal source. Duration Flagyl probably 14 days total.
[2023-02-04] MEDS: metroNIDAZOLE/NS 500 MG/100 ML PIGGYBACK 100 MG IV (17:29)
[2023-02-04] MEDS: Melatonin 3 MG TABLET PO (21:24)
[2023-02-04] MEDS: levoFLOXacin 750 MG TABLET PO (21:24)
[2023-02-04] MEDS: Venlafaxine HCl ER 75 MG CAP.ER.24H PO (21:24)
[2023-02-04 23:39] VITALS: BP 132/63; PULSE 72; RESP 18; TEMP 37.1; O2SAT 95
[2023-02-05] MEDS: metroNIDAZOLE/NS 500 MG/100 ML PIGGYBACK 100 MG IV ×2 (04:53→16:57)
[2023-02-05 07:22] LABS: Hematocrit 27.2 % (37.0-47.0); Hemoglobin 8.9 g/dl (12.0-16.0); Mean Corpuscular HGB Conc 32.7 g/dl (31.0-35.0); Mean Corpuscular Hemoglobin 30.3 pg (27.0-33.0); Mean Corpuscular Volume 92.5 fL (80.0-98.0); Mean Platelet Volume 10.3 fL (9.4-12.3); Platelet Count 266 X10*3/uL (160-400); Red Blood Count 2.94 X10*6/uL (4.20-5.50); Red Cell Distribution Width 13.6 % (11.0-16.0); White Blood Count 7.6 X10*3/uL (4.8-10.8)
[2023-02-05 07:28] LABS: Anion Gap 11 (12-20); Blood Urea Nitrogen 9 mg/dL (9-16); Calcium 8.5 mg/dL (8.4-10.2); Carbon Dioxide 27 mmol/L (22-29); Chloride 105 mmol/L (96-108); Creatinine Clr Calc Pharmacy 45.8; Estimated Glomerular Filt Rate > 60; Glucose Fasting 102 mg/dL (60-99); Potassium 3.4 mmol/L (3.3-5.1); Sodium 140 mmol/L (135-145)
[2023-02-05] MEDS: Cyanocobalamin (Vitamin B-12) 1,000 MCG TABLET 1000 MCG PO (07:35)
[2023-02-05] MEDS: 0.9 % Sodium Chloride Flush 3 ML SYRINGE IVFLUSH ×3 (07:35→23:54)
[2023-02-05] MEDS: Psyllium seed 3.7 GM PACKET PO (07:35)
[2023-02-05] MEDS: Bethanechol Chloride 25 MG TABLET 50 MG PO ×2 (07:35→22:05)
[2023-02-05] MEDS: Sucralfate Oral Suspension 1 GM/10 ML ORAL.SUSP PO ×4 (07:35→22:05)
[2023-02-05] MEDS: atenoloL 25 MG TABLET PO (07:36)
[2023-02-05] MEDS: Atorvastatin Calcium 10 MG TABLET PO (07:36)
[2023-02-05] MEDS: Venlafaxine HCl ER 150 MG CAP.ER.24H PO (07:36)
[2023-02-05] MEDS: Omeprazole 20 MG CAPSULE.DR PO ×2 (07:36→16:56)
[2023-02-05] MEDS: Simethicone 80 MG TAB.CHEW PO ×4 (07:36→22:06)
[2023-02-05] MEDS: amLODIPine Besylate 5 MG TABLET PO (07:36)
[2023-02-05] MEDS: Tamsulosin HCL 0.4 MG CAPSULE PO (07:36)
[2023-02-05] MEDS: Docusate Sodium 100 MG CAPSULE PO ×2 (07:38→22:06)
[2023-02-05 07:45] VITALS: BP 185/86; PULSE 75; RESP 18; TEMP 37.4; O2SAT 96
--- NOTE | 2023-02-05 08:33 | HO.PM.IMPN ---
Subjective Subjective Date of Service: 02/05/23 Interval History: no complaints Physical Exam Vital Signs: Vital Signs: Last Vital Signs Temp 99.4 F 02/05/23 07:45 Pulse 75 02/05/23 07:45 Resp 18 02/05/23 07:45 BP 185/86 H 02/05/23 07:45 Pulse Ox 96 02/05/23 07:45 O2 Del Method Room Air 02/05/23 07:45 BMI result Body Mass Index 24.1 Const: General: cooperative HEENT: Head: Yes normal to inspection Face and sinus: Yes normal facial exam Mouth: Normal oral and palatal mucosa present Teeth and gingiva: dentition normal Eyes: General: appearance normal, both eyes and all related structures Pupils: Equal, round and reactive pupils present Resp: Effort & Inspection: normal respiratory effort Cardio: Rate: regular rate Rhythm: regular rhythm GI: Other: mild epigastric discomfort Palpation (GI): Soft to palpation and nontender : General: Yes no CVA tenderness Back/Spine/Pelvis: Back: no CVA tenderness Skin: General skin exam: no rashes or lesions noted Neuro: General: moves all extremities Cranial nerves: Yes Equal, round and reactive pupils present Extrem: General: Yes normal to inspection Psych: Appearance: grossly normal Objective Data Active Medications Acetaminophen (Acetaminophen 325 Mg Tablet) 650 mg PO Q6H PRN PRN Reason: Pain, Mild (Pain Scale 1-3) Al Hydroxide/Mg Hydroxide (Magnesium Hydrox/Alum Hydrox 30 Ml Oral.Susp) 30 ml PO Q6H PRN PRN Reason: Heartburn Last Admin: 02/03/23 20:06 Dose: 30 ml Documented By: KAMRANQC Amlodipine Besylate (Amlodipine Besylate 5 Mg Tablet) 5 mg PO DAILY [facility]; Protocol Last Admin: 02/05/23 07:36 Dose: 5 mg Documented By: MANDI Atenolol (Atenolol 25 Mg Tablet) 25 mg PO DAILY [facility]; Protocol Last Admin: 02/05/23 07:36 Dose: 25 mg Documented By: MANDI Atorvastatin Calcium (Atorvastatin Calcium 10 Mg Tablet) 10 mg PO DAILY [facility] Last Admin: 02/05/23 07:36 Dose: 10 mg Documented By: MANDI Bethanechol Chloride (Bethanechol Chloride 25 Mg Tablet) 50 mg PO BID [facility] Last Admin: 02/05/23 07:35 Dose: 50 mg Documented By: MANDI Cyanocobalamin (Cyanocobalamin (Vitamin B-12) 1,000 Mcg Tablet) 1,000 mcg PO DAILY [facility] Last Admin: 02/05/23 07:35 Dose: 1,000 mcg Documented By: MANDI Docusate Sodium (Docusate Sodium 100 Mg Capsule) 100 mg PO BID [facility] Last Admin: 02/05/23 07:38 Dose: 100 mg Documented By: MANDI Heparin Sodium (Porcine) (Heparin Sodium,Porcine 5,000 Unit/Ml Vial) 5,000 unit SUBCUT Q12H [facility] Last Admin: 02/04/23 21:26 Dose: 5,000 unit Documented By: WENDI Metronidazole (Flagyl) 500 mg in 100 mls @ 100 mls/hr IV Q12H [facility] Last Infusion: 02/05/23 05:56 Dose: Infused Documented By: WENDI Levofloxacin (Levofloxacin 750 Mg Tablet) 750 mg PO Q48H [facility] Last Admin: 02/04/23 21:24 Dose: 750 mg Documented By: WENDI Melatonin (Melatonin 3 Mg Tablet) 3 mg PO BEDTIME [facility] Last Admin: 02/04/23 21:24 Dose: 3 mg Documented By: WENDI Pt Own Medication ( Fluorometholone 0.1 % Drops,Suspension) 1 drop EYE-RIGHT DAILY@2100 [facility] Last Admin: 02/04/23 21:26 Dose: 1 drop Documented By: WENDI Omeprazole (Omeprazole 20 Mg Capsule.) 20 mg PO BID@0830,1630 [facility] Last Admin: 02/05/23 07:36 Dose: 20 mg Documented By: MANDI Ondansetron HCl (Ondansetron Hcl 4 Mg/2 Ml Vial) 4 mg IVPUSH Q6H PRN PRN Reason: Nausea and Vomiting Last Admin: 01/31/23 18:04 Dose: 4 mg Documented By: FREDDIE Psyllium Hydrophilic Mucilloid (Psyllium Seed 3.7 Gm Packet) 3.7 gm PO DAILY [facility] Last Admin: 02/05/23 07:35 Dose: 3.7 gm Documented By: MANDI Simethicone (Simethicone 80 Mg Tab.Chew) 80 mg PO QIDWMHS [facility] Last Admin: 02/05/23 07:36 Dose: 80 mg Documented By: MANDI Sodium Chloride (0.9 % Sodium Chloride Flush 3 Ml Syringe) 3 ml IVFLUSH QSHIFT [facility] Last Admin: 02/05/23 07:35 Dose: 3 ml Documented By: MANDI Sucralfate (Sucralfate Oral Suspension 1 Gm/10 Ml Oral.Susp) 1 gm PO QIDACHS [facility] Last Admin: 02/05/23 07:35 Dose: 1 gm Documented By: MANDI Tamsulosin HCl (Tamsulosin Hcl 0.4 Mg Capsule) 0.4 mg PO DAILY [facility] Last Admin: 02/05/23 07:36 Dose: 0.4 mg Documented By: MANDI Venlafaxine HCl (Venlafaxine Hcl Er 150 Mg Cap.Er.24h) 150 mg PO DAILY [facility] Last Admin: 02/05/23 07:36 Dose: 150 mg Documented By: MANDI Venlafaxine HCl (Venlafaxine Hcl Er 75 Mg Cap.Er.24h) 75 mg PO BEDTIME [facility] Last Admin: 02/04/23 21:24 Dose: 75 mg Documented By: KAMRANQC Labs 02/05/23 07:05 02/05/23 07:05 Labs: Laboratory Results - last 24 hr 02/05/23 07:05 MCV 92.5 MCH 30.3 MCHC 32.7 RDW 13.6 Plt Count 266 MPV 10.3 Absolute Nucleated RBC 0.000 Nucleated RBC % (auto) 0.0 Anion Gap 11 L Estim Creat Clear Calc 45.8 Estimated GFR > 60 Fasting Glucose 102 H Calcium 8.5 Assessment and Plan (1) Gram-negative bacteremia: Status: Acute (2) Acute kidney injury: Status: Acute (3) Sepsis: Status: Acute (4) Acute UTI: Status: Acute (5) Hypothermia: Status: Acute Plan 87F PMH significant for?HFpEF, HTN, hx of falls, and anxiety who presented to the ED from short term rehab for evaluation of hypothermia, generalized weakness, and chills. Pt admitted to the hospital for treatment and further evaluation of sepsis in the setting of acute UTI. Sepsis 2/2 Acute UTI and bacteroides Bacteremia UA positive for UTI, Cx negative. check CT abd Continue levofloxacin, started 01/29/2023, flagyl started 02/04/23 (end feb 17, 2023) Matthews placed in ED Urology consult, outpatient follow up, keep Matthews in place. ID follow up ZEE on CKD3 resolved Constipation Simethicone for bloating Docusate prn Started on Metamucil Hx of recent fall with right shoulder dislocation Continue home tramadol prn PT rec str HTN Continue amlodipine, atenolol HLD Continue statin GERD Continue PPI Carafate Mood disorder Continue venlafaxine DNR/DNI DVT Prophylaxis: Heparin reason for continued hospitalization:follow up CT abd Quality Stroke Does the patient have a stroke diagnosis?: No VTE Prior VTE?: No VTE Risk Level:: Medical - moderate - high VTE Device Contraindication: Treatment Not Indicated VTE Drug Contraindication: N/A - Med Ordered
[2023-02-05] MEDS: Heparin Sodium,Porcine 5,000 UNIT/ML VIAL 5000 UNIT SUBCUT ×2 (10:50→22:05)
[2023-02-05 15:20] VITALS: BP 122/63; PULSE 71; RESP 16; TEMP 36.4; O2SAT 99
[2023-02-05] MEDS: Venlafaxine HCl ER 75 MG CAP.ER.24H PO (22:06)
[2023-02-05] MEDS: Melatonin 3 MG TABLET PO (22:06)
[2023-02-05] MEDS: traMADoL HCL 50 MG TABLET 25 MG PO (22:43)
[2023-02-05 23:20] VITALS: BP 163/76; PULSE 70; RESP 18; TEMP 36.2; O2SAT 98
[2023-02-06] MEDS: metroNIDAZOLE/NS 500 MG/100 ML PIGGYBACK 100 MG IV (05:30)
[2023-02-06 07:22] LABS: Hematocrit 28.7 % (37.0-47.0); Hemoglobin 9.1 g/dl (12.0-16.0); Mean Corpuscular HGB Conc 31.7 g/dl (31.0-35.0); Mean Corpuscular Hemoglobin 30.3 pg (27.0-33.0); Mean Corpuscular Volume 95.7 fL (80.0-98.0); Mean Platelet Volume 10.6 fL (9.4-12.3); Platelet Count 280 X10*3/uL (160-400); Red Cell Distribution Width 13.7 % (11.0-16.0); White Blood Count 10.1 X10*3/uL (4.8-10.8)
[2023-02-06 07:33] LABS: Anion Gap 12 (12-20); Blood Urea Nitrogen 8 mg/dL (9-16); Calcium 8.4 mg/dL (8.4-10.2); Carbon Dioxide 26 mmol/L (22-29); Chloride 103 mmol/L (96-108); Creatinine Clr Calc Pharmacy 46.5; Estimated Glomerular Filt Rate > 60; Glucose Fasting 92 mg/dL (60-99); Sodium 138 mmol/L (135-145)
[2023-02-06 08:00] VITALS: BP 167/71; PULSE 70; RESP 16; TEMP 36.3; O2SAT 97
[2023-02-06] MEDS: Sucralfate Oral Suspension 1 GM/10 ML ORAL.SUSP PO ×2 (08:52→12:16)
[2023-02-06] MEDS: Heparin Sodium,Porcine 5,000 UNIT/ML VIAL 5000 UNIT SUBCUT (08:52)
[2023-02-06] MEDS: Simethicone 80 MG TAB.CHEW PO (08:53)
[2023-02-06] MEDS: Tamsulosin HCL 0.4 MG CAPSULE PO (08:53)
[2023-02-06] MEDS: Venlafaxine HCl ER 150 MG CAP.ER.24H PO (08:53)
[2023-02-06] MEDS: Bethanechol Chloride 25 MG TABLET 50 MG PO (08:53)
[2023-02-06] MEDS: Omeprazole 20 MG CAPSULE.DR PO (08:54)
[2023-02-06] MEDS: Psyllium seed 3.7 GM PACKET PO (08:54)
[2023-02-06] MEDS: atenoloL 25 MG TABLET PO (08:54)
[2023-02-06] MEDS: Cyanocobalamin (Vitamin B-12) 1,000 MCG TABLET 1000 MCG PO (08:54)
[2023-02-06] MEDS: Docusate Sodium 100 MG CAPSULE PO (08:54)
[2023-02-06] MEDS: amLODIPine Besylate 5 MG TABLET PO (08:54)
[2023-02-06] MEDS: traMADoL HCL 50 MG TABLET 25 MG PO (08:54)
[2023-02-06] MEDS: 0.9 % Sodium Chloride Flush 3 ML SYRINGE IVFLUSH (08:55)
[2023-02-06 09:02] VITALS: BP 167/71; PULSE 70; O2SAT 97
[2023-02-06] MEDS: Atorvastatin Calcium 10 MG TABLET PO (09:08)
--- NOTE | 2023-02-06 10:07 | PM.DS ---
DS: Providers Provider Date of Service: 02/06/23 Date of admission: 01/29/23 21:04 Primary care physician: Saritha Russell MD Consults: 01/30/23 09:10 Consult to Urology Routine Consulting Provider: Jass Waite Reason for consultation: recurrent UTI with hx of retention. 02/04/23 07:30 Consult to Infectious Diseases Routine Consulting Provider: [facility] Infectious Disease Reason for consultation: bacteroides bacteremia DS: Diagnosis Discharge Diagnosis (1) Gram-negative bacteremia: Status: Acute (2) Acute kidney injury: Status: Acute (3) Sepsis: Status: Acute (4) Acute UTI: Status: Acute (5) Hypothermia: Status: Acute DS: Summary Hospital Course Hospital Course: from initial hpi: 87-year-old female with a PMH significant for?HFpEF, HTN, hx of falls, and anxiety who presents to the ED from short term rehab for evaluation of hypothermia, generalized weakness, and chills. Patient was recently admitted to the hospital on 01/07-01/22 for evaluation of mechanical fall without syncope. Was found to have a dislocated right shoulder that was reduced in the ED, and admitted to the hospital for treatment of mild rhabdomyolysis, community-acquired pneumonia, COVID-19 infection, and acute HFpEF exacerbation. She was transferred to SNF for short-term rehabilitation secondary to her dislocated right shoulder injury. Reports she had been doing better but today felt overall weak, fatigued, alternating hot and cold, nauseous and vomiting just a little that she describes as more like spitting up saliva. Pt is also complaining of constipation, saying she is straining to go but cannot. Reports normally has bowel movement every day, but last movement 2-3 days ago. Has been passing gas. Denies chest pain/pressure palpitations. No shortness of breath. Denies headache. No abdominal pain. In the ED pt was hypothermic as low as 94.9 and hypertensive as high as 192/99, otherwise vitals WNL. Labs were significant for leukocytosis of 14.7, H&H 11.5/34.7, BUN 35 and creatinine 1.13, mildly elevated above baseline. Electrolytes WNL. Lactic acid WNL at 1.6. UA was positive for UTI. Patient tested negative for influenza type a and B, RSV, and COVID. CXR showed cardiomegaly with mild pulmonary vascular congestion, but no acute pneumonic process seen. EKG demonstrated normal sinus rhythm with right bundle branch block and nonspecific T wave abnormality with a QTc of 516. Pt was placed in a Nadia Hugger, and treated with IVF and ceftriaxone. Pt will be admitted to the hospital for treatment and further evaluation of sepsis in the setting of acute UTI. hospital course: Patient was admitted for sepsis secondary to acute urinary tract infection in a patient with urinary retention as well as Bacteroides bacteremia likely from unspecified GI source. She was initially treated with levofloxacin with resolution of sepsis. After cultures for Bacteroides came back, Flagyl was added. She was seen by infectious disease recommended 2 week course of Flagyl to be completed 02/17/2023, and CT abdomen which revealed mild fat stranding around distal colon, recommended direct visualization, for which patient will be referred to GI as outpatient. For urinary retention she has a Cai in place and will follow up with Urology as outpatient. For acute kidney injury on CKD 3 she is back to baseline. Patient noted to have hiatal hernia with significant indigestion, as on PPI and Carafate and simethicone. For hypertension was continue on amlodipine and atenolol. For hyperlipidemia was continue on statin. For mood disorder continued on effexor. patient seen by PT who reccomended STR to which patient will be discharged, expected to require less than 30 days. Time Attestation Discharge coordination time: Greater than 30 minutes Quality: Safe Use of Opioids Does Pt have an Active Cancer Diagnosis on the Problem List?: No Quality: Stroke Does the patient have a stroke diagnosis?: No Physical Exam Vital Signs: Vital Signs: Last Vital Signs Temp 97.3 F 02/06/23 08:00 Pulse 70 02/06/23 09:02 Resp 16 02/06/23 08:00 BP 167/71 H 02/06/23 09:02 Pulse Ox 97 02/06/23 09:02 O2 Del Method Room Air 02/06/23 08:00 BMI result Body Mass Index 24.1 Const: General: cooperative HEENT: Head: Yes normal to inspection Face and sinus: Yes normal facial exam Mouth: Normal oral and palatal mucosa present Teeth and gingiva: dentition normal Eyes: General: appearance normal, both eyes and all related structures Pupils: Equal, round and reactive pupils present Resp: Effort & Inspection: normal respiratory effort Cardio: Rate: regular rate Rhythm: regular rhythm GI: Other: mild epigastric discomfort Palpation (GI): Soft to palpation and nontender : General: Yes no CVA tenderness Back/Spine/Pelvis: Back: no CVA tenderness Skin: General skin exam: no rashes or lesions noted Neuro: General: moves all extremities Cranial nerves: Yes Equal, round and reactive pupils present Extrem: General: Yes normal to inspection Psych: Appearance: grossly normal DS: Data Data Completed and Pending Completed studies during hospitalization [Text1]: Procedures Introduction of Remdesivir Anti-infective into Peripheral Vein, Percutaneous Approach, [employer] (01/12/23) Reposition Left Upper Femur with Internal Fixation Device, Percutaneous Approach (07/08/21) Reposition Right Shoulder Joint, External Approach (01/12/23) Labs on day of discharge: Laboratory Results - last 24 hr 02/06/23 05:59 WBC 10.1 RBC 3.00 L Hgb 9.1 L Hct 28.7 L MCV 95.7 MCH 30.3 MCHC 31.7 RDW 13.7 Plt Count 280 MPV 10.6 Absolute Nucleated RBC 0.000 Nucleated RBC % (auto) 0.0 Sodium 138 Potassium 3.0 L Chloride 103 Carbon Dioxide 26 Anion Gap 12 BUN 8 L Creatinine 0.75 Estim Creat Clear Calc 46.5 Estimated GFR > 60 Fasting Glucose 92 Calcium 8.4 Discharge Plan Discharge Anticipated Discharge Date/Time: 02/06/23 09:41 Patient Disposition: Xfer [facility] Discharge Diagnosis: uti, bacteroides, urinary retention Referrals: [facility] [Other] - 1 Week Jass Waite MD [Physician] - 1 Week Saritha Ellis MD [Primary Care Provider] - 1 Week Mehdi Wolfe MD [Physician] - 1 Week Discharge Medications: New sucralfate 100 mg/mL Suspension 1 g PO QIDACHS Qty: 0 0RF tamsulosin 0.4 mg Capsule 0.4 mg PO DAILY Qty: 0 0RF simethicone [Gas Relief (simethicone)] 80 mg Tablet,Chewable 80 mg PO QIDWMHS Qty: 0 0RF metronidazole 500 mg tablet 500 mg PO TID Qty: 42 0RF Continued atorvastatin 10 mg tablet 10 mg PO DAILY 90 Days Qty: 90 3RF atenolol 25 mg tablet 25 mg PO DAILY 90 Days Qty: 90 3RF venlafaxine 150 mg capsule,extended release 24hr 150 mg PO DAILY 90 Days Qty: 90 3RF cyanocobalamin (vitamin B-12) 1,000 mcg Tablet 1,000 mcg PO DAILY melatonin 3 mg Tablet 3 mg PO BEDTIME esomeprazole magnesium [Nexium] 20 mg Capsule,Delayed Release(Dr/Ec) 20 mg PO DAILY@0630 amlodipine 5 mg Tablet 5 mg PO DAILY Qty: 30 0RF Protocol: Hold for SBP< HOLD for SBP < : 90 venlafaxine 75 mg capsule,extended release 24hr 75 mg PO BEDTIME tramadol 50 mg tablet 50 mg PO Q8H PRN (Reason: Moderate Pain (Scale Score 5-6)) 30 Days Qty: 90 0RF (DME) compression stockings 40 mmHg knee high See Rx Instructions .Route .MEDSUPPLY Qty: 2 2RF Rx Instructions: As directed fluorometholone 0.1 % drops,suspension 1 drp ophthalmic (eye) BID@0900,1600 bethanechol chloride 50 mg tablet 50 mg PO BID 90 Days Qty: 180 1RF Discharge Orders: Discharge Order (Routine); Ordered 02/06/23 Ordered By: Tano Garnica Diet: Advance to usual diet Activity on Discharge: As tolerated Stand Alone Forms: Patient Portal Discharge page Care Plan Goals: recovery Health Concerns: urianry retetnion, bacteroides, haital hernia Plan of Treatment: 2 weeks flagyl, follow up iwth gi, , keep cai for now Assessment: see above
--- NOTE | 2023-02-06 10:40 | MHC.CM.PN ---
IMM 02/05/23 Patient is discharged today . She will resume STR @ [facility]. All discharge info has been sent to the facility. Transportation is booked for [employer]. Patients dtr has been notified of the discharge time.
== END 2023-02-06 14:09 | disposition skilled nursing facility (03) | DRG 872 ==
LOC: HO.ED 19:03 → HO.EDOVER 21:39 → HO.S3 01-30 11:06
PROVIDERS: Student in an Organized Health Care Education/Training Program; Admitting Provider Student in an Organized Health Care Education/Training Program; Emergency Provider Emergency Medicine; PCP Internal Medicine; Visit Provider Internal Medicine
DX: A41.9 Sepsis, unspecified organism (principal); I13.0 Hypertensive heart and chronic kidney disease with heart failure and stage 1 through stage 4 chronic kidney disease, or unspecified chronic kidney disease; I50.32 Chronic diastolic (congestive) heart failure; N17.9 Acute kidney failure, unspecified; R68.0 Hypothermia, not associated with low environmental temperature; R33.9 Retention of urine, unspecified; Z66 Do not resuscitate; N18.30 Chronic kidney disease, stage 3 unspecified; K59.00 Constipation, unspecified; J44.9 Chronic obstructive pulmonary disease, unspecified; E78.5 Hyperlipidemia, unspecified; Z20.822 Contact with and (suspected) exposure to COVID-19; Z87.440 Personal history of urinary (tract) infections; Z79.899 Other long term (current) drug therapy
CPT/HCPCS: 0241U; 36415; 71045; 74018; 74176; 80048; 80202; 81001; 82565; 83605; 85025; 85027; 87040; 87076; 87086; 87147; 87185; 87205; 87493; 89055; 93005; 97110; 97116; 97161; 97530; 99285; C1758; C9113; J0696; J1644; J1836; J1956; J2405; J2550; J2765; J3371; J7120

== ENCOUNTER → 2023-01-29 16:17 | Outpatient (BNV) | payer OTHER, SELFPAY | PROVIDERS: Admitting Provider Student in an Organized Health Care Education/Training Program; Emergency Provider Emergency Medicine; PCP Internal Medicine; Visit Provider Internal Medicine Cardiovascular Disease | DX: R94.31 Abnormal electrocardiogram [ECG] [EKG] (principal) | CPT/HCPCS: 93010 ==

== ENCOUNTER → 2023-01-29 21:04 | Outpatient (BNV) | payer OTHER, SELFPAY | PROVIDERS: Admitting Provider Student in an Organized Health Care Education/Training Program; Emergency Provider Emergency Medicine; PCP Internal Medicine; Visit Provider Internal Medicine | DX: A41.9 Sepsis, unspecified organism (principal) | CPT/HCPCS: 99222 ==

== ENCOUNTER → 2023-01-29 21:04 | Outpatient (BNV) | payer OTHER, SELFPAY | PROVIDERS: Admitting Provider Student in an Organized Health Care Education/Training Program; Emergency Provider Emergency Medicine; PCP Internal Medicine; Visit Provider Urology | DX: N39.0 Urinary tract infection, site not specified (principal); R33.9 Retention of urine, unspecified | CPT/HCPCS: 99222 ==

== ENCOUNTER → 2023-01-29 21:04 | Outpatient (BNV) | payer OTHER, SELFPAY | PROVIDERS: Admitting Provider Student in an Organized Health Care Education/Training Program; Emergency Provider Emergency Medicine; PCP Internal Medicine; Visit Provider Student in an Organized Health Care Education/Training Program | DX: N17.9 Acute kidney failure, unspecified (principal); A41.9 Sepsis, unspecified organism; N39.0 Urinary tract infection, site not specified; T68.XXXA Hypothermia, initial encounter | CPT/HCPCS: 99223; 99232; 99233; 99239 ==

== ENCOUNTER 2023-02-19 10:46 | Outpatient (AMB) | payer OTHER, SELFPAY ==
--- NOTE | 2023-02-19 10:50 | MHC.OFFVIS ---
Intake Intake Visit Reasons: discuss SP tube Intake Note: Patient is present for discussion on SP Tube placement Allergies codeine [CODEINE] Allergy (Mild, Verified 12/30/22 14:58) upset stomach, nause HPI HPI Comments History of Present Illness Details Maryanne is a pleasant female. She is a patient of Dr. Russell. She seen for the following urologic conditions - overactive bladder - incomplete bladder emptying after hip fracture - recurrent UTI Accompanied by son Discussion regarding suprapubic tube placement Has Matthews catheter in place Prior Cystoscopy Dilated, large volume bladder with significant trabeculations Failure bethanechol and alpha-iain Prior PVR over 700 Overflow incontinence Imaging - 04/10 bilateral mild hydronephrosis secondary to incomplete bladder emptying, creatinine 0.8 Incomplete bladder emptying PVR 546 Current UTI over past 2 years on low-dose suppression with trimethoprim Bladder aggravated after fall with broken hip Had been treated previously for overactive bladder Current medications terazosin 1 mg PFSH Medical History Elevated brain natriuretic peptide (BNP) level Fall Asthma Vertigo Polyuria Anxiety Essential hypertension GERD (gastroesophageal reflux disease) Familial hypercholesterolemia Endogenous depression COPD (chronic obstructive pulmonary disease) Surgical History S/P lumpectomy of breast History of eye surgery History of cataract surgery Family History Father No problems noted. Mother No problems noted. Brother No problems noted. Sister No problems noted. Son No problems noted. Daughter No problems noted. Social History Household Members: Family Housing: Apartment Do you presently have visiting nurse or other home services: Yes Alcohol intake: never Patient Tobacco Use Status: Never used Tobacco e-Cigarette/Vaping Use: Never Used Second Hand Smoke Exposure: No Advance Directives Date on File: 07/22/21 service: No Current occupational status: retired Cognitive needs: Yes Hearing needs: No Vision needs: Yes Review of Systems Const Denies chills and Denies fever(s) Card Reports no additional complaints and Denies syncope Resp Denies cough GI Denies abdominal pain and Denies heartburn Reports as per HPI and Denies change in libido Neuro Denies syncope Psych Denies change in libido Endo Denies change in libido Physical Exam Const General: cooperative, healthy appearing, comfortable and no acute distress Orientation/consciousness: patient oriented x3 HEENT Face and sinus: Yes normal facial exam Mouth: moist mucous membranes Neck Neck: Yes normal visual inspection, Yes full ROM and Yes trachea midline Chest Chest palpation & inspection: normal inspection of the chest Resp Effort & Inspection: normal respiratory effort, able to speak in complete sentences and no respiratory distress GI Inspection: Yes normal to inspection Back/Spine/Pelvis Cervical Spine: normal cervical lordosis Thoracic/Lumbar Spine: thoracic and lumbar spine normal to inspection Skin General skin exam: no rashes or lesions noted Neuro General: patient oriented x3, gait normal, tone normal and moves all extremities Extrem General: Yes normal to inspection and Yes capillary refill normal Assessment & Plan Assessment & Plan (1) Overflow incontinence: Code(s): N39.490 - Overflow incontinence (2) Incomplete bladder emptying: Code(s): R33.9 - Retention of urine, unspecified Plan Risks, benefits and alternatives to therapy were discussed. These include but are not limited to infection, bleeding, damage to local organs and tissues, need for further interventions. Anesthetic risks regarding cardiac arrhythmia, blood clots, and potential mortality were discussed. The patient understands the typical recovery time and the outpatient nature of the procedure. After consideration of these risks the patient gives full informed consent and they wish to move ahead with the procedure. Cystoscopy, suprapubic tube placement Patient Instructions: Imaging studies, laboratory and physical exam results were discussed and reviewed in detail. No major barriers to patient understanding were identified. An opportunity to ask questions regarding the treatment plan was provided. All questions were answered. The patient expressed understanding and agreement with the above treatment plan. The patient is aware they should contact our office by phone for worsening of their current condition or the appearance of new urologic symptoms. Compliance is encouraged with any medications and followup testing that is ordered. It is a privilege to participate in the urologic care of your patient. If you have any questions or concerns regarding treatment for the above conditions, or other urologic issues, please do not hesitate to contact me. The office telephone contact is [phone]. This note is constructed using voice recognition software. While every effort has been made to ensure accuracy edge sander errors may have been included. Yours sincerely, Dr Jass aWite MD, [facility] - Urology Providers of Expert, Compassionate Care for the Genitourinary System Coding Level of Care Code Est Pt Level 4 (40698) Diagnoses Overflow incontinence N39.490 Incomplete bladder emptying R33.9
== END 2023-02-19 11:14 | disposition home or self-care (01) ==
PROVIDERS: PCP Internal Medicine; Visit Provider Urology
DX: N39.490 Overflow incontinence (principal); R33.9 Retention of urine, unspecified
CPT/HCPCS: 99214

== ENCOUNTER → 2023-02-19 10:46 | Outpatient (BNVA) | payer OTHER, SELFPAY | PROVIDERS: PCP Internal Medicine; Visit Provider Urology | DX: N39.490 Overflow incontinence (principal); R33.9 Retention of urine, unspecified | CPT/HCPCS: 99212 ==

== ENCOUNTER 2023-03-11 12:12 | Outpatient (AMB) | payer OTHER, SELFPAY ==
--- NOTE | 2023-03-11 12:17 | A.OFFPC_ITS ---
Intake Visit Reasons: [facility] [phone] Environmental Technician Required: No Accompanied by: Son Allergies codeine [CODEINE] Allergy (Mild, Verified 03/11/23 13:22) upset stomach, nause Medication List - Last Reconciled 03/11/23 by Saritha Russell MD amlodipine 5 mg See Protocol PO DAILY atenolol 25 mg PO DAILY 90 days atorvastatin 10 mg PO DAILY 90 days bethanechol chloride 50 mg PO BID 90 days [compression stockings 40 mmHg As directed] cyanocobalamin (vitamin B-12) 1,000 mcg PO DAILY esomeprazole magnesium (Nexium) 20 mg PO DAILY@0630 fluorometholone 0.1% 1 drp ophthalmic (eye) BID@0900,1600 melatonin 3 mg PO BEDTIME simethicone (Gas Relief (simethicone)) 80 mg PO QIDWMHS sucralfate 1 g (10 mL) PO QIDACHS tamsulosin 0.4 mg PO DAILY tramadol 50 mg PO Q8H PRN 30 days venlafaxine ER 150 mg PO DAILY 90 days venlafaxine ER 75 mg PO DAILY 90 days Tobacco use date assessed: 03/11/23 Fall risk assessment: 1 Fall in past year Last assessed Fall Risk: 03/11/23 Dental Screening Dental Screen Date: 03/11/23 Did you have a dental visit in the last 12 months?: No Did you have a dental problem in the last 6 months where you did not have access to dental care?: No Was dental information given to patient?: Patient has dentist HPI HPI Comments History of Present Illness Details This an 87-year-old female with hypertension, GERD, pure hypercholesterolemia and mild major depression that has tele health visit by video today as follow-up on her conditions. She was discharged from [facility] 5 days ago due to syncope and feels markedly improved. She also had a UTI and has a Matthews catheter which will be evaluated in 5 days by Urology to see if it can be removed. Compliant with all her medications. Blood pressure has been stable at rehab. GERD stable with esomeprazole. On statins for her cholesterol. Depression has been well control with venlafaxine. Walks with a walker at home. 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 [facility] Medical History Elevated brain natriuretic peptide (BNP) level Fall Asthma Vertigo Polyuria Anxiety Essential hypertension GERD (gastroesophageal reflux disease) Familial hypercholesterolemia Endogenous depression COPD (chronic obstructive pulmonary disease) Surgical History S/P lumpectomy of breast History of eye surgery History of cataract surgery Family History Father No problems noted. Mother No problems noted. Brother No problems noted. Sister No problems noted. Son No problems noted. Daughter No problems noted. Social History Household Members: Family Housing: Apartment Do you presently have visiting nurse or other home services: Yes Alcohol intake: never Patient Tobacco Use Status: Never used Tobacco e-Cigarette/Vaping Use: Never Used Second Hand Smoke Exposure: No Advance Directives Date on File: 07/22/21 service: No Current occupational status: retired Cognitive needs: Yes Hearing needs: No Vision needs: Yes Questionnaire PHQ-9 Over the last 2 weeks, how often have you been bothered by any of the following problems? 1. Little interest or pleasure in doing things: not at all 2. Feeling down, depressed, or hopeless: several days 3. Trouble falling or staying asleep, or sleeping too much: several days 4. Feeling tired or having little energy: not at all 5. Poor appetite or overeating: not at all 6. Feeling bad about yourself - or that you are a failure or have let yourself or your family down: not at all 7. Trouble concentrating on things, such as reading the newspaper or watching television: not at all 8. Moving or speaking so slowly that other people could have noticed. Or the opposite - being so fidgety or restless that you have been moving around a lot more than usual: not at all 9. Thoughts that you would be better off or of hurting yourself in some way: not at all Total score: 2 Depression Screening Interpretation: Negative Depression Screening Done: Yes 17537 - PHQ-9 Billing: Yes Source: Developed by Drs. Mehdi Marcum, Elis Cruz, Florentin Barriga and colleagues, with an educational manish from [employer]. Thrive Questionnaire Date Thrive assessed: 03/11/23 I am a: Patient What is your living situation today?: I have a steady place to live Within the past 12 months, did the food you bought not last and you didn't have the money to get more?: Never true Within the past 12 months, did you worry whether your food would run out before you got money to buy more?: Never true Do you have trouble paying for medicines?: No Do you have trouble getting transportation to medical appointments?: No Do you have trouble paying your heating and electricity bill?: No Do you have trouble taking care of your child, family member or friend?: No Do you have trouble with day-to-day activities such as bathing, preparing meals, shopping, managing finances, etc.?: No Are you currently unemployed and looking for a job?: No Are you interested in more education?: No Please select the resources that you would like help with: None Currently or been in a relationship where the following occur: no concerns reported THRIVE Score: 0 AUDIT C Alcohol Use Questionnaire (AUDIT-C) 1. How often do you have a drink containing alcohol?: Never Total Score: 0 HAYDEN-7 AMB Questionnaire HAYDEN-7 Date HAYDEN - 7 assessed: 03/11/23 Feeling nervous, anxious, or on edge: 1 = Several days Not being able to stop or control worryin = Not at all Worrying too much about different things: 0 = Not at all Trouble relaxin = Not at all Being so restless that it is hard to sit still: 0 = Not at all Becoming easily annoyed or irritable: 0 = Not at all Feeling afraid as if something awful might happen: 0 = Not at all Total HAYDEN-7 score (0-4 normal; 5-9 mild; 10-14 moderate; 15-21 severe): 1 Source: Developed by Drs. Mehdi Marcum, Elis Cruz, Florentin Barriga and colleagues, with an educational manish from [employer]. HAYDEN-7 Assessment Billing HAYDEN-7 Assessment Tool: HAYDEN-7 Assessment 66374 Review of Systems Const All systems reviewed & are unremarkable except as noted in HPI and below Eyes Reports no additional complaints, Denies change in vision and Denies other visual disturbances Card Denies chest pain at rest, Denies chest pain with activity, Denies edema, Denies irregular heart rhythm, Denies claudication, Denies dyspnea, Denies dyspnea on exertion, Denies orthopnea, Denies paroxysmal nocturnal dyspnea and Denies slow heart rate Resp Denies cough, Denies dyspnea and Denies dyspnea on exertion GI Denies abdominal pain, Denies change in bowel habits, Denies excessive flatus, Denies nausea and Denies vomiting Denies urinary incontinence, Denies urinary hesitancy and Denies urinary urgency Musc Denies abnormal gait, Denies atrophy, Denies deformity and Denies limited range of motion Skin/Breast Denies bleeding lesions, Denies changing lesions and Denies rash Neuro Denies abnormal gait, Denies behavioral changes, Denies confusion and Denies la ck of coordination Psych Denies behavioral changes and Denies confusion Physical exam (Primary Care) Tobacco/Smoking Status: Tobacco use Status Tobacco use date assessed 03/11/23 03/11/23 12:21 Patient Tobacco Use Status Never used Tobacco 03/11/23 12:21 e-Cigarette/Vaping Use Never Used 03/11/23 12:21 PHQ-9: PHQ-9 Score PHQ-9: Total score 2 03/11/23 13:15 Depression Screening Interpretation: Negative Thrive Assessment: Date of Thrive Assessment Date Thrive assessed 03/11/23 03/11/23 12:21 Currently or been in a relationship where the following occur: no concerns reported Const General: No confusion Orientation/consciousness: patient oriented x3 and No confusion HENCA Head: Yes normocephalic and Yes atraumatic Ears: external ears normal General nose exam: Normal external nose present and No nasal discharge present Mouth: lip normal Eyes General: appearance normal, both eyes and all related structures Eyelids: Yes eyelids normal Conjunctivae: conjunctivae normal Neck Neck: Yes normal visual inspection and Yes supple Skin General skin exam: no rashes or lesions noted Neuro General: patient oriented x3, no focal motor deficits and No confusion Extrem General: Yes full ROM Psych Appearance: grossly normal Telehealth Telehealth Location of provider rendering services: practice address Location of patient: address on file Patient Identification confirmed using: Name, : Yes Telehealth method: video Patient verbally consented to treatment: Yes Patient verbally consented to billing insurance company: Yes Patient informed of any privacy concerns related to visit: Yes Minutes spent on Phone/Video with Pt.: 19 Assessment and Plan Assessment & Plan (1) Mild major depression: Code(s): F32.0 - Major depressive disorder, single episode, mild Plan: Continue venlafaxine. (2) GERD (gastroesophageal reflux disease): Code(s): K21.9 - Gastro-esophageal reflux disease without esophagitis Plan: Continue esomeprazole. (3) Hyperlipidemia: Code(s): E78.5 - Hyperlipidemia, unspecified Plan: Continue statins, (4) Essential hypertension: Code(s): I10 - Essential (primary) hypertension Plan: Continue amlodipine. Blood pressure goal is equal or less than 130/80. Medications: New fluconazole 150 mg PO Q3D 2 tabs 0RF Coding Level of Care Code Tele Est Pt Level 4 (42240) Diagnoses Mild major depression F32.0 GERD (gastroesophageal reflux disease) K21.9 Hyperlipidemia E78.5 Essential hypertension I10 Additional Codes HAYDEN-7 Assessment Billing - HAYDEN-7 Assessment Tool: HAYDEN-7 Assessment 22653 ([id number]) Time Spent (min) 19
== END 2023-03-11 14:26 | disposition home or self-care (01) ==
LOC: HO.HMGH 12:12
PROVIDERS: PCP Internal Medicine; Visit Provider Internal Medicine
DX: K21.9 Gastro-esophageal reflux disease without esophagitis (principal); F32.0 Major depressive disorder, single episode, mild; E78.5 Hyperlipidemia, unspecified; I10 Essential (primary) hypertension
CPT/HCPCS: 99214

== ENCOUNTER 2023-03-16 07:53 | Day surgery (SDC) | payer OTHER, SELFPAY ==
--- NOTE | 2023-03-13 12:08 | HO.ANESPROP2 ---
Documented by User: Anette Sterling NP 03/13/23 12:11 HPI - Anesthesia Eval Consult details Narrative: 87yo F for Cystoscopy superpubic tube placement PMFSH Active Problems Active Problems: All Active Problems (Updated 02/14/23 @ 00:03 by Cecile Araiza) Gram-negative bacteremia (Acute) Acute on chronic heart failure with preserved ejection fraction (HFpEF) (Acute) COVID-19 virus infection (Acute) Hospital discharge follow-up (Acute) Hyperlipidemia (Acute) Polyarthropathy (Acute) Mild major depression (Acute) GERD (gastroesophageal reflux disease) (Acute) Anorexia (Acute) Overflow incontinence (Acute) Incomplete bladder emptying (Acute) Anemia (Acute) Essential hypertension (Acute) COPD (chronic obstructive pulmonary disease) (Acute) Lymphedema (Acute) Ulcer of left heel (Acute) Wound (Acute) Recurrent UTI (Acute) Urinary retention (Acute) Intertrochanteric fracture of left hip (Acute) Closed intertrochanteric fracture (Acute) Asthma (Acute) Vertigo (Acute) Familial hypercholesterolemia (Acute) Endogenous depression (Acute) Urinary tract infection (Acute) Past Medical History Medical History Hx of dislocation of shoulder Elevated brain natriuretic peptide (BNP) level Fall Asthma Vertigo Polyuria Anxiety Essential hypertension GERD (gastroesophageal reflux disease) Familial hypercholesterolemia Endogenous depression COPD (chronic obstructive pulmonary disease) Family History Family History Father No problems noted. Mother No problems noted. Brother No problems noted. Sister No problems noted. Son No problems noted. Daughter No problems noted. Family history of problems with anesthesia: No Surgical History Surgical History History of hip surgery S/P lumpectomy of breast History of eye surgery History of cataract surgery History of Problems with Anesthesia: No Social History Social History Household Members: Family Housing: Apartment Do you presently have visiting nurse or other home services: Yes Alcohol intake: never Patient Tobacco Use Status: Never used Tobacco e-Cigarette/Vaping Use: Never Used Second Hand Smoke Exposure: No Use of substances other than those prescribed or required for medical reasons: No Are you DNR?: Yes Advance Directives: No Advance Directives Information Provided: Yes Advance Directives Date on File: 07/22/21 service: No Current occupational status: retired Cognitive needs: Yes Hearing needs: No Vision needs: Yes Meds Allergies Allergy/AdvReac Type Severity Reaction Status Date / Time codeine [CODEINE] Allergy Mild upset Verified 03/11/23 13:22 stomach, nause Home Medications Medication Instructions Recorded Confirmed Last Taken Type fluorometholone 0.1 % eye 1 drp ophthalmic (eye) 11/16/19 03/16/23 07/07/21 History drops,suspension BID@0900,1600 cyanocobalamin (vitamin B-12) 1,000 mcg PO DAILY 07/08/21 03/16/23 07/07/21 History 1,000 mcg tablet melatonin 3 mg tablet 3 mg PO BEDTIME 07/08/21 03/16/23 Unknown History esomeprazole magnesium 20 mg 20 mg PO DAILY@0630 09/07/21 03/16/23 Unknown History capsule,delayed release (Nexium) Exam Pertinent Lab Results Pertinent Lab Results: Laboratory Tests 02/06/23 05:59 WBC 10.1 Hgb 9.1 L Hct 28.7 L Plt Count 280 Sodium 138 Potassium 3.0 L Chloride 103 Carbon Dioxide 26 BUN 8 L Creatinine 0.75 Narrative Narrative: EKG 01/2023 Vent. Rate : 072 BPM Atrial Rate : 072 BPM P-R Int : 166 ms QRS Dur : 130 ms QT Int : 472 ms P-R-T Axes : 015 -17 -01 degrees QTc Int : 516 ms Normal sinus rhythm Right bundle branch block Minimal voltage criteria for LVH, may be normal variant ( R in aVL ) Abnormal ECG When compared with ECG of 15-JAN-2023 12:04, QRS axis Shifted right Nonspecific T wave abnormality has replaced inverted T waves in Inferior leads T wave inversion no longer evident in Lateral leads ECHO 12/2022 Conclusions: - 1. Normal LV ejection fraction of 65-70% with mild LVH with impaired relaxation filling pattern 2. Mild aortic stenosis 3. Normal RV systolic pressure with normal right atrial pressures 4. Mildly dilated ascending aorta at 4 cm 5. No gross pericardial effusion Assessment and Plan Assessment Anesthesia Assessment: Chart Reviewed Final Anesthetic Review Family History of Problems with Anesthesia: No History of Problems with Anesthesia: No Documented by User: Kim North MD 03/16/23 09:01 [facility] Past Medical History Medical History Hx of dislocation of shoulder Elevated brain natriuretic peptide (BNP) level Fall Asthma Vertigo Polyuria Anxiety Essential hypertension GERD (gastroesophageal reflux disease) Familial hypercholesterolemia Endogenous depression COPD (chronic obstructive pulmonary disease) Family History Family History Father No problems noted. Mother No problems noted. Brother No problems noted. Sister No problems noted. Son No problems noted. Daughter No problems noted. Surgical History Surgical History History of hip surgery S/P lumpectomy of breast History of eye surgery History of cataract surgery Social History Social History Household Members: Family Housing: Apartment Do you presently have visiting nurse or other home services: Yes Alcohol intake: never Patient Tobacco Use Status: Never used Tobacco e-Cigarette/Vaping Use: Never Used Second Hand Smoke Exposure: No Use of substances other than those prescribed or required for medical reasons: No Are you DNR?: Yes Advance Directives: No Advance Directives Information Provided: Yes Advance Directives Date on File: 07/22/21 service: No Current occupational status: retired Cognitive needs: Yes Hearing needs: No Vision needs: Yes Meds Allergies Allergy/AdvReac Type Severity Reaction Status Date / Time codeine [CODEINE] Allergy Mild upset Verified 03/11/23 13:22 stomach, nause Home Medications Medication Instructions Recorded Confirmed Last Taken Type fluorometholone 0.1 % eye 1 drp ophthalmic (eye) 09/30/20 01/29/24 05/22/22 History drops,suspension BID@0900,1600 cyanocobalamin (vitamin B-12) 1,000 mcg PO DAILY 07/08/21 03/16/23 07/07/21 History 1,000 mcg tablet melatonin 3 mg tablet 3 mg PO BEDTIME 07/08/21 03/16/23 Unknown History esomeprazole magnesium 20 mg 20 mg PO DAILY@0630 09/07/21 03/16/23 Unknown History capsule,delayed release (Nexium) Exam Airway Mallampati Class: I TM Dist: >3cm Neck ROM: Limited Denture: Upper and Lower Heart: rrr Lungs: cta Assessment and Plan Assessment Anesthesia Assessment: Anesthesia Plan Discussed Final Anesthetic Review NPO: Yes ASA Class: III Final Preanesthetic Review: No Changes in Pt Med Stat, Meds/Allgs Chart Reviewed, Consent Obtained/Reviewed, Anes Risks/Benef Reviewed and DNR Form (If Appl.) (limited reversal per pts wishes) Patient Risk: Intermediate Procedure Risk: Low Anesthetic Plan Anesthetic Plan: GA and MAC: Disposition: Standard PACU
[2023-03-16 08:16] VITALS: BMI 24.7
[2023-03-16 08:38] VITALS: BP 148/59; PULSE 66; RESP 16; TEMP 36.6; O2SAT 97
[2023-03-16] MEDS: Lactated Ringers 1,000 ML 100 ML IVCONT (09:01)
--- NOTE | 2023-03-16 10:31 | MHC.SHP ---
Pre-Procedural Eval Section A - 24 Hr Update-Section A only Date of Service: 03/16/23 The patient is an INPATIENT: No Changes since office visit: No Cold of Flu in the past 2 weeks, No New Medical Problems, No Changes in Medication and No Patient answered all questions The patient has been examined within 24 hours of the surgical procedure. The History & Physical has been completed within 30 days and I have reviewed it.: No Section B - Complete if H&P > 30 days Chief Complaint: Retention of urine, unspecified Details of Present Illness: Cystoscopy suprapubic tube placement Relevant Social History: None Present Medications: see Short Stay Collaborative assessment Medical History: Significant History History of Previous Operations: No relevant previous surgery Allergies: Allergies Allergy/AdvReac Type Severity Reaction Status Date / Time codeine [CODEINE] Allergy Mild upset Verified 03/11/23 13:22 stomach, nause Review of Systems Sugical H&P ROS: Negative: Constitution, Cardiovascular, Respiratory, Neurological, Psychiatric, Hem-Onc, Allergic/Immunologic, Gastrointestinal, Genitourinary, Musculoskeletal, Integumentary, Endocrine and Eyes/Ears/Nose/Throat Exam Surgical H&P Exam: Normal: HEENT, Normal: Heart, Normal: Lungs, Normal: Extremities, Normal: Abdomen, Normal: Skin and Normal: Neurological Plan Diagnosis/Plan: Unchanged (cysto, suprapubic tube placement) I have reviewed the history and physical and performed a pertinent physical examination on my patient. No changes have occurred unless specified. Time Spent With Patient Time: Total time managing care of this patient today ____ minutes.
[2023-03-16 11:13] VITALS: BP 145/59; PULSE 62; RESP 18; TEMP 37.1; O2SAT 95
[2023-03-16 11:28] VITALS: BP 138/71; PULSE 64; RESP 18; O2SAT 100
[2023-03-16 11:43] VITALS: BP 158/59; PULSE 65; RESP 18; TEMP 36.9; O2SAT 100
--- NOTE | 2023-03-16 12:01 | P.OP_ITS ---
Operative Note Operative Note Date of Service: 03/16/23 Narrative: PreOperative Diagnosis:?neurogenic bladder Post Operative Diagnosis:?neurogenic bladder Procedure:? 1. Cystoscopy 2. Suprapubic tube placement Surgeon: Dr Jass Waite Anesthesia:?Sedation plus local Indications for procedure: Failed voiding trial, has been on tamsulosin and bethanechol for incomplete bl adder emptying Procedure: After informed consent was verified the patient was brought to the operating room and placed in a supine position.? Anesthesia was administered per protocol. The patient was placed in a modified dorsal lithotomy position and prepped and draped in a sterile fashion. A safety pause was performed confirming patient identity, procedure and antibiotics. A 22 Angolan cystoscope was inserted per urethra. Bladder was examined in its entirety. No abnormalities seen. Air bubble was located at the dome of the bladder. A finder needle was inserted 2 fingerbreaths above the symphysis pubis on the abdomen into the bladder.? The needle was visualized in the bladder via cystoscopy. Local anesthetic was infiltrated subcutaneously around the needle introduction site. A small, 1cm horizontal incision was made.? A trocar introducer was advanced through the abdominal wall into the bladder under visualization. The obturator was removed and a 16 Fr cai catheter placed. 7cc was used to inflate the balloon. The external portion of the trocar was removed. Dressing was placed, the bladder was emptied, and a drainage bag was attached. The patient tolerated the procedure and was transferred in stable condition to the recovery area. Suprapubic tube will be changed in 1 month with a follow-up office visit.
== END 2023-03-16 12:34 | disposition home or self-care (01) ==
PROVIDERS: PCP Internal Medicine; Visit Provider Urology
PROC: 0TJB8ZZ Inspection of Bladder, Via Natural or Artificial Opening Endoscopic (ICD-10-PCS; CPT 52000; principal; 2023-03-16 10:00)
DX: N31.9 Neuromuscular dysfunction of bladder, unspecified (principal); R33.9 Retention of urine, unspecified; N39.490 Overflow incontinence; I10 Essential (primary) hypertension; E78.00 Pure hypercholesterolemia, unspecified; J44.9 Chronic obstructive pulmonary disease, unspecified; Z79.02 Long term (current) use of antithrombotics/antiplatelets; Z79.899 Other long term (current) drug therapy
CPT/HCPCS: 51102; J1956; J2704; J2795

== ENCOUNTER → 2023-03-16 07:53 | Outpatient (BNV) | payer OTHER, SELFPAY | PROVIDERS: PCP Internal Medicine; Visit Provider Urology | DX: R33.9 Retention of urine, unspecified (principal) | CPT/HCPCS: 51102 ==

== ENCOUNTER 2023-04-22 13:27 | Outpatient (AMB) | payer OTHER, SELFPAY ==
--- NOTE | 2023-04-22 13:59 | A.OFFVIS_ITS ---
Intake Intake Visit Reasons: SPT change (First) Intake Note: Patient presents today for a SPT change Meds- None Allergies to Antibiotic- No Known Allergies Blood Thinner- None Patient stated she is no longer taking Tamsulosin Cleaner Housekeeping Required: No Accompanied by: Self / Same As Patient Allergies codeine [CODEINE] Allergy (Mild, Verified 04/22/23 14:17) upset stomach, nause HPI HPI Comments History of Present Illness Details Maryanne is a pleasant female. She is a patient of Dr. Russell. She seen for the following urologic conditions - overactive bladder - incomplete bladder emptying after hip fracture - recurrent UTI Accompanied by son First change performed in office today with 18 Sammarinese Start vitamin-C and methenamine VNA will change Prior Cystoscopy Dilated, large volume bladder with significant trabeculations Failure bethanechol and alpha-iain Prior PVR over 700 Overflow incontinence Imaging - 04/10 bilateral mild hydronephrosis sec ondary to incomplete bladder emptying, creatinine 0.8 Incomplete bladder emptying PVR 546 Current UTI over past 2 years on low-dose suppression with trimethoprim Bladder aggravated after fall with broken hip Had been treated previously for overactive bladder Current medications terazosin 1 mg PFSH Medical History Hx of dislocation of shoulder Elevated brain natriuretic peptide (BNP) level Fall Asthma Vertigo Polyuria Anxiety Essential hypertension GERD (gastroesophageal reflux disease) Familial hypercholesterolemia Endogenous depression COPD (chronic obstructive pulmonary disease) Surgical History History of hip surgery S/P lumpectomy of breast History of eye surgery History of cataract surgery Family History Father No problems noted. Mother No problems noted. Brother No problems noted. Sister No problems noted. Son No problems noted. Daughter No problems noted. Social History (Reviewed 04/22/23 @ 14:19 by JAKI Burnett Household Members: Family Housing: Apartment Do you presently have visiting nurse or other home services: Yes Alcohol intake: never Patient Tobacco Use Status: Never used Tobacco e-Cigarette/Vaping Use: Never Used Second Hand Smoke Exposure: No Advance Directives Date on File: 07/22/21 service: No Current occupational status: retired Cognitive needs: Yes Hearing needs: No Vision needs: Yes Review of Systems Const Denies chills and Denies fever(s) Card Reports no additional complaints and Denies syncope Resp Denies cough GI Denies abdominal pain and Denies heartburn Reports as per HPI and Denies change in libido Neuro Denies syncope Psych Denies change in libido Endo Denies change in libido Physical Exam Const General: cooperative, healthy appearing, comfortable and no acute distress Orientation/consciousness: patient oriented x3 HEENT Face and sinus: Yes normal facial exam Mouth: moist mucous membranes Neck Neck: Yes normal visual inspection, Yes full ROM and Yes trachea midline Chest Chest palpation & inspection: normal inspection of the chest Resp Effort & Inspection: normal respiratory effort, able to speak in complete sentences and no respiratory distress GI Inspection: Yes normal to inspection Back/Spine/Pelvis Cervical Spine: normal cervical lordosis Thoracic/Lumbar Spine: thoracic and lumbar spine normal to inspection Skin General skin exam: no rashes or lesions noted Neuro General: patient oriented x3, gait normal, tone normal and moves all extremities Extrem General: Yes normal to inspection and Yes capillary refill normal Office Procedures Bladder/Catheter Procedure Details: Clean technique SPT removed and upsized to 18 Sammarinese gold Matthews catheter No issues with exchange [id number] of bladder tube Procedure code (CPT) selection complete Assessment & Plan Assessment & Plan (1) Urinary retention: Code(s): R33.9 - Retention of urine, unspecified Plan Six-month follow-up nurse-practitioner Medications: New ascorbic acid (vitamin C) 1 g PO DAILY 90 tabs 1RF 90 days N39.0 - Urinary tract infection, site not specified methenamine hippurate 1 g PO DAILY 90 tabs 1RF 90 days N39.0 - Urinary tract infection, site not specified drainage bag ([employer] Urinary Drain Bag) As directed 1 ea 11RF Neurogenic bladder R33.9 - Retention of urine, unspecified, N31.9 - Neuromuscular dysfunction of bladder, unspecified Patient Instructions: Imaging studies, laboratory and physical exam results were discussed and reviewed in detail. No major barriers to patient understanding were identified. An opportunity to ask questions regarding the treatment plan was provided. All questions were answered. The patient expressed understanding and agreement with the above treatment plan. The patient is aware they should contact our office by phone for worsening of their current condition or the appearance of new urologic symptoms. Compliance is encouraged with any medications and followup testing that is ordered. It is a privilege to participate in the urologic care of your patient. If you have any questions or concerns regarding treatment for the above conditions, or other urologic issues, please do not hesitate to contact me. The office telephone contact is [phone]. This note is constructed using voice recognition software. While every effort has been made to ensure accuracy dna sequencing associate errors may have been included. Yours sincerely, Dr Jass Waite MD, [facility] - Urology Providers of Expert, Compassionate Care for the Genitourinary System Coding Level of Care Code Est Pt Level 4 (28622) Diagnoses Urinary retention R33.9 CPT Codes Bladder/Catheter Procedure - CPT: 13877-Qeuqhi of bladder tube ([id number])
== END 2023-04-22 14:46 | disposition home or self-care (01) ==
PROVIDERS: PCP Internal Medicine; Visit Provider Urology
DX: R33.9 Retention of urine, unspecified (principal); Z96.0 Presence of urogenital implants
CPT/HCPCS: 51705; 99213

== ENCOUNTER → 2023-04-22 13:27 | Outpatient (BNVA) | payer OTHER, SELFPAY | PROVIDERS: PCP Internal Medicine; Visit Provider Urology | DX: R33.9 Retention of urine, unspecified (principal) | CPT/HCPCS: 51705; 99212 ==

== ENCOUNTER 2023-05-07 13:23 | Outpatient (AMB) | payer OTHER, SELFPAY ==
--- NOTE | 2023-05-07 13:27 | MHC.PC.OV ---
Vital Signs 05/07/23 13:33 Height 5 ft 4 in Weight 131 lb BMI 22.5 BP 112/66 Blood Pressure Location Lt brachial Intake Visit Reasons: depression, NEEDS 30 MINUTES Intake Note: Patient here for a follow up Depression Hanging Flags Decorator Required: No Accompanied by: Son Allergies codeine [CODEINE] Allergy (Mild, Verified 05/07/23 14:03) upset stomach, nause Medication List - Last Reconciled 05/07/23 by Saritha Russell MD [adult diapers pull-ups As directed] amlodipine 5 mg PO DAILY ascorbic acid (vitamin C) 1 g PO DAILY 90 days atenolol 25 mg PO DAILY 90 days atorvastatin 10 mg PO DAILY 90 days [compression stockings 40 mmHg As directed] cyanocobalamin (vitamin B-12) 1,000 mcg PO DAILY 90 days drainage bag (Application [employer] Urinary Drain Bag) As directed esomeprazole magnesium (Nexium) 20 mg PO DAILY@0630 90 days fluorometholone 0.1% 1 drp ophthalmic (eye) BID@0900,1600 methenamine hippurate 1 g PO DAILY 90 days tramadol 50 mg PO Q8H PRN 30 days venlafaxine ER 150 mg PO DAILY 90 days venlafaxine ER 75 mg PO DAILY 90 days Tobacco use date assessed: 03/11/23 Fall risk assessment: 2 + Falls in past year Last assessed Fall Risk: 05/07/23 Dental Screening Dental Screen Date: 05/07/23 Did you have a dental visit in the last 12 months?: No Did you have a dental problem in the last 6 months where you did not have access to dental care?: No Was dental information given to patient?: Patient declined HPI HPI Comments History of Present Illness Details This is an 87 year old female with hypertension, mild major depression,congestive heart failure with preserved ejection fraction, hyperlipidemia and GERD that comes today accompanied by son Davon for follo up on her conditions. BP stable. Depression stable with Venlafaxine. Has not gain 5 lbs in a week. On statin for elevated cholesterol. GERD stable with PPIs. Urinary incontinence is follow by urology. In wheelchair due to gait instability. [facility] Medical History (Updated 05/08/23 @ 13:18 by Saritha Russell MD) Acute on chronic heart failure with preserved ejection fraction (HFpEF) Ulcer of left heel Intertrochanteric fracture of left hip Closed intertrochanteric fracture Hx of dislocation of shoulder Elevated brain natriuretic peptide (BNP) level Fall Asthma Vertigo Polyuria Anxiety Essential hypertension GERD (gastroesophageal reflux disease) Familial hypercholesterolemia Endogenous depression COPD (chronic obstructive pulmonary disease) Surgical History History of hip surgery S/P lumpectomy of breast History of eye surgery History of cataract surgery Family History Father No problems noted. Mother No problems noted. Brother No problems noted. Sister No problems noted. Son No problems noted. Daughter No problems noted. Social History Household Members: Family Housing: Apartment Do you presently have visiting nurse or other home services: Yes Alcohol intake: never Patient Tobacco Use Status: Never used Tobacco e-Cigarette/Vaping Use: Never Used Second Hand Smoke Exposure: No Advance Directives Date on File: 07/22/21 service: No Current occupational status: retired Cognitive needs: Yes Hearing needs: No Vision needs: Yes Questionnaire Thrive Questionnaire Date Thrive assessed: 03/11/23 HAYDEN-7 AMB Questionnaire HAYDEN-7 Date HAYDEN - 7 assessed: 03/11/23 Source: Developed by Drs. Mehdi Marcum, Elis Cruz, Florentin Barriga and colleagues, with an educational manish from [employer]. Review of Systems Const All systems reviewed & are unremarkable except as noted in HPI and below Eyes Reports no additional complaints, Denies change in vision and Denies other visual disturbances Card Denies chest pain at rest, Denies chest pain with activity, Denies edema, Denies irregular heart rhythm, Denies claudication, Denies dyspnea, Denies dyspnea on exertion, Denies orthopnea, Denies paroxysmal nocturnal dyspnea and Denies slow heart rate Resp Denies cough, Denies dyspnea and Denies dyspnea on exertion GI Denies abdominal pain, Denies change in bowel habits, Denies excessive flatus, Denies nausea and Denies vomiting Denies urinary incontinence, Denies urinary hesitancy and Denies urinary urgency Musc Denies abnormal gait, Denies atrophy, Denies deformity and Denies limited range of motion Skin/Breast Denies bleeding lesions, Denies changing lesions and Denies rash Neuro Denies abnormal gait and Denies lack of coordination Physical exam (Primary Care) Vital Signs: Last Vital Signs BP 112/66 05/07/23 13:33 BMI result Body Mass Index 22.5 Tobacco/Smoking Status: Tobacco use Status Tobacco use date assessed 03/11/23 05/07/23 13:30 Patient Tobacco Use Status Never used Tobacco 05/07/23 13:30 e-Cigarette/Vaping Use Never Used 05/07/23 13:30 Thrive Assessment: Date of Thrive Assessment Date Thrive assessed 03/11/23 05/07/23 13:30 Eyes General: appearance normal, both eyes and all related structures Eyelids: Yes eyelids normal Conjunctivae: conjunctivae normal Neck Neck: Yes normal visual inspection and Yes supple Resp Effort & Inspection: normal respiratory effort Auscultation: clear to auscultation bilaterally Cardio Jugular venous distension: no JVD Rate: regular rate Rhythm: regular rhythm Heart sounds: S1 normal heart sound present and S2 normal heart sound present Psych Appearance: grossly normal Assessment and Plan Assessment & Plan (1) CHF (congestive heart failure): Code(s): I50.9 - Heart failure, unspecified Plan: Continue atenolol. The goal is to not gain 5 lbs in a week. (2) Mild major depression: Code(s): F32.0 - Major depressive disorder, single episode, mild Plan: Continue Venlafaxine. (3) Hyperlipidemia: Code(s): E78.5 - Hyperlipidemia, unspecified Plan: Continue statin. (4) Essential hypertension: Code(s): I10 - Essential (primary) hypertension Plan: Continue amlodipine. BP goal is equal or less than 130/80. (5) GERD (gastroesophageal reflux disease): Code(s): K21.9 - Gastro-esophageal reflux disease without esophagitis Plan: Stabel with esomeprazole. Orders: Orders CA echo transthoracic complete 05/07/23 I50.9 - Heart failure, unspecified, R01.1 - Cardiac murmur, unspecified Comprehensive [place]. Panel Fast 05/07/23 I50.9 - Heart failure, unspecified NT-proBNP 05/07/23 I50.9 - Heart failure, unspecified Vitamin D 25-OH Total 05/07/23 E55.9 - Vitamin D deficiency, unspecified Complete Blood Count Auto Diff 05/07/23 D64.9 - Anemia, unspecified IRON PROFILE 05/07/23 D64.9 - Anemia, unspecified Lipid Panel 05/07/23 E78.5 - Hyperlipidemia, unspecified, I50.9 - Heart failure, unspecified Medications: New latex gloves (Latex Gloves, Medium) As directed 48 ea 11RF N39.46 - Mixed incontinence Coding Level of Care Code Est Pt Level 4 (11197) Diagnoses CHF (congestive heart failure) I50.9 Mild major depression F32.0 Hyperlipidemia E78.5 Essential hypertension I10 GERD (gastroesophageal reflux disease) K21.9 Time Spent (min) 25
[2023-05-07 13:33] VITALS: BP 112/66; BMI 22.5
== END 2023-05-07 14:27 | disposition home or self-care (01) ==
PROVIDERS: PCP Internal Medicine; Visit Provider Internal Medicine
DX: I11.0 Hypertensive heart disease with heart failure (principal); I50.9 Heart failure, unspecified; F32.0 Major depressive disorder, single episode, mild; E78.5 Hyperlipidemia, unspecified; K21.9 Gastro-esophageal reflux disease without esophagitis
CPT/HCPCS: 99214

== ENCOUNTER → 2023-08-17 23:59 | Outpatient (BNV) | payer OTHER, SELFPAY | PROVIDERS: PCP Internal Medicine; Visit Provider Internal Medicine | DX: I11.0 Hypertensive heart disease with heart failure (principal); I50.30 Unspecified diastolic (congestive) heart failure | CPT/HCPCS: G0179 ==

== ENCOUNTER 2023-09-02 14:18 | Outpatient (AMB) | payer OTHER, SELFPAY ==
--- NOTE | 2023-09-02 14:20 | MHC.OFFWIV ---
Intake Vital Signs 09/02/23 14:21 Height 5 ft 4 in BMI Reason not done Patient refused/unable BP 112/70 Blood Pressure Location Lt brachial Position Sitting Pulse 72 Pulse Source Pulse Oximeter Pulse Oximetry (%) 98 Oxygen Delivery Method Room Air Intake Visit Reasons: EP ?UTI/Wax removal Intake Note: Pt c/o UTI symptoms and ear blockage Patient Tobacco Use Status: Never used Tobacco Allergies codeine [CODEINE] Allergy (Mild, Verified 09/02/23 14:20) upset stomach, nause Do you need a note to return to daycare/school/sports/work: No HPI HPI Comments History of Present Illness Details She presents for her ear complaint with son She lives with other son Current son present in office is Davon. he is concerned for her ears but also increased agitation Pt's only complaint is her ears Pt states ears feel blocked No hearing aid use She sees Dr Roper for PCP; has called and she has stand by appointment September 15. Pt has been using debrox without relief No fever or chills noticed She has hx of urostomy Son states very ansy asking Per son he is more concerned with her increased agitation these last few weeks He said she seems fixated on her urostomy; has been placed > 3-[address] Waite and a nurse comes daily to check site and change tube every 6-8 weeks No recent follow up with urology No abnormalities seen per pt and denies change in smell or color Son Davon unsure if it smells but said they empty it every 4 hours and she is fixated on emptying it more often. Pt states nornal amount of urine but sometimes it is smaller depending what she drinks She does endorse increased dislike of her ostomy and said she feels like she doesnt know enough about it to take care of it Son said all she does is hang around the house Patient actively denies SI or HI This discussion has not been made with PCP yet [facility] Medical History (Updated 09/02/23 @ 14:49 by Bety Mckeon PA-C) Acute on chronic heart failure with preserved ejection fraction (HFpEF) Ulcer of left heel Intertrochanteric fracture of left hip Closed intertrochanteric fracture Hx of dislocation of shoulder Elevated brain natriuretic peptide (BNP) level Fall Asthma Vertigo Polyuria Anxiety Essential hypertension GERD (gastroesophageal reflux disease) Familial hypercholesterolemia Endogenous depression COPD (chronic obstructive pulmonary disease) Surgical History History of hip surgery S/P lumpectomy of breast History of eye surgery History of cataract surgery Family History Father No problems noted. Mother No problems noted. Brother No problems noted. Sister No problems noted. Son No problems noted. Daughter No problems noted. Social History Household Members: Family Housing: Apartment Do you presently have visiting nurse or other home services: Yes Alcohol intake: never Patient Tobacco Use Status: Never used Tobacco e-Cigarette/Vaping Use: Never Used Second Hand Smoke Exposure: No Advance Directives Date on File: 07/22/21 service: No Current occupational status: retired Cognitive needs: Yes Hearing needs: No Vision needs: Yes Review of Systems Const Denies chills, Denies fatigue and Denies fever(s) ENT Denies otalgia (+ blocked hearing bilaterally) and Denies nasal discharge Card Denies chest pain Resp Denies cough GI Denies abdominal pain and Reports other (urostomy with normal output) Denies hematuria and Reports other (urostomy) Skin/Breast Denies erythema Neuro Reports behavioral changes (per son more agitated. Not physical) Psych Reports behavioral changes (per son more agitated. Not physical), Reports mood swings, Denies homicidal ideation and Denies suicidal ideation Endo Denies fatigue Physical Exam Vital Signs: Last Vital Signs Pulse 72 09/02/23 14:21 BP 112/70 09/02/23 14:21 Pulse Ox 98 09/02/23 14:21 Oxygen Delivery Method Room Air 09/02/23 14:21 General: Non-toxic, NAD. Speaking full sentences. Sitting upright in wheelchair Skin: Warm dry throughout. Eye: EOMI HENT: Bilateral canals + cerumen. Unable to see TM Respiratory: No tachypnea Abdominal: urostomy in place. Faint urine odor without discharge noted. No abdominal rashes or erythema. Non-distended abdomen. Neurology: Alert. No aphasia or facial droop. Psych: Good mood and affect Office Procedures Cerumen Removal From which ear canal was the cerumen removed: bilateral Removal: otoscope w/curette Notes: patient tolerated procedure well, no complications and ear canal clear [id number] Wax Removal by Spoon/Curette Results AMB Urinalysis, Automated UA Leukoctes 500 [place]/uL Last Edit by Vikas Gipson CMA on 09/02/23 14:57 UA Nitrite Positive Last Edit by Vikas Gipson CMA on 09/02/23 14:57 UA Urobilinogen 0.2 mg/dL Last Edit by Vikas Gipson CMA on 09/02/23 14:57 UA Protein 30 mg/dL Last Edit by Vikas Gipson CMA on 09/02/23 14:57 UA pH 6.0 Last Edit by Vikas Gipson CMA on 09/02/23 14:57 UA Blood 80 Pravin/uL Last Edit by Vikas Gipson CMA on 09/02/23 14:57 UA Specific [place] 1.010 Last Edit by Vikas Gipson CMA on 09/02/23 14:57 UA Ketone Negative Last Edit by Vikas Gipson CMA on 09/02/23 14:57 UA Bilirubin 0 mg/dL Last Edit by Vikas Gipson CMA on 09/02/23 14:57 UA Glucose 0 mg/dL Last Edit by Vikas Gipson CMA on 09/02/23 14:57 Results Reviewed Results Reviewed: Laboratory Last Values Urine pH (Auto) 6.0 09/02/23 14:55 Specific [place] (Auto) 1.010 09/02/23 14:55 Urine Protein (Auto) 30 mg/dL 09/02/23 14:55 Glucose (UA)(Auto) 0 mg/dL 09/02/23 14:55 Urine Ketones (Auto) Negative 09/02/23 14:55 Urine Blood (Auto) 80 [place]ravin/uL 09/02/23 14:55 Urine Nitrite (Auto) Positive 09/02/23 14:55 Urine Bilirubin (Auto) 0 mg/dL 09/02/23 14:55 Urine Urobilinogen (Auto) 0.2 mg/dL 09/02/23 14:55 Leukocyte Esterase (Auto) 500 [place]/uL 09/02/23 14:55 Assessment & Plan Assessment & Plan (1) Impacted cerumen of both ears: Code(s): H61.23 - Impacted cerumen, bilateral Plan: Pt seen and evaluated. Verbal consent obtained and both ears cleaned with curette. See procedure (2) Agitation: Code(s): R45.1 - Restlessness and agitation Plan: She is alert and does not endourse SI or HI She admits to feelings of difficulty regarding her urostomy U/A + in office and cuture ordered Recommended to pt and son close follow up with PCP to discuss these feelings and also possible need for med adjustment if urine showa no significant finding Keflex to pharmacy Any fever, confusion, weakness, etc go to ER as discussed with pt and son They expressed verbal understanding and all questions answered Orders: Orders AMB Urinalysis Automated Today Z13.9 - Encounter for screening, unspecified Urine Culture Today R45.1 - Restlessness and agitation Medications: New cephalexin hold the methenamine hippurate 1 gram tablet while on antibiotic 250 mg PO BID 10 caps 0RF Coding Level of Care Code Est Pt Level 4 (07248) Diagnoses Impacted cerumen of both ears H61.23 Agitation R45.1 CPT Codes Office Procedure - CPT: 10879-Cxh Wax Removal by Spoon/Curette ([id number])
[2023-09-02 14:21] VITALS: BP 112/70; PULSE 72; O2SAT 98
== END 2023-09-02 15:14 | disposition home or self-care (01) ==
PROVIDERS: PCP Internal Medicine; Visit Provider Physician Assistant
DX: H61.23 Impacted cerumen, bilateral (principal); R45.1 Restlessness and agitation; R82.998 Other abnormal findings in urine
CPT/HCPCS: 69210; 81003; 99214

== ENCOUNTER 2023-09-02 16:33 | Outpatient (REF) | payer OTHER, SELFPAY | END 2023-09-02 16:34 | disposition home or self-care (01) | LOC: HO.LNP 16:33 | PROVIDERS: Visit Provider Physician Assistant | DX: R45.1 Restlessness and agitation (principal) | CPT/HCPCS: 87086 ==

== ENCOUNTER 2023-09-16 14:54 | Outpatient (AMB) | payer OTHER, SELFPAY ==
--- NOTE | 2023-09-16 14:59 | MHC.PC.OV ---
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 Accompanied by: Son Allergies codeine [CODEINE] Allergy (Mild, Verified 09/16/23 15:12) upset stomach, nause Medication List - Last Reconciled 09/16/23 by Saritha Russell MD [adult diapers pull-ups As directed] alprazolam (Xanax) 0.5 mg PO DAILY PRN 30 days amlodipine 5 mg PO DAILY ascorbic acid (vitamin C) 1 g PO DAILY 90 days atenolol 25 mg PO DAILY 90 days atorvastatin 10 mg PO DAILY 90 days catheterization tray As directed for monthly SP tube change [compression stockings 40 mmHg As directed] cyanocobalamin (vitamin B-12) 1,000 mcg PO DAILY 90 days drainage bag (Kenguard Urinary Drain Bag) As directed esomeprazole magnesium (Nexium) 20 mg PO DAILY@0630 90 days fluorometholone 0.1% 1 drp ophthalmic (eye) BID@0900,1600 gauze bandage (Gauze Pad) As directed for SP tube maintenance irrigation set As directed 2/month for SP tube latex gloves (Latex Gloves, Medium) As directed tramadol 50 mg PO Q8H PRN 30 days urinary bag (Urinary Leg Bag) As directed 2/month urinary bag (Urostomy Night Bag) As directed 2/month venlafaxine ER 150 mg PO DAILY 90 days venlafaxine ER 75 mg PO DAILY 90 days water for irrigation, sterile 1 irrig irrigation .PRN Tobacco use date assessed: 03/11/23 Fall risk assessment: No Falls in past year Last assessed Fall Risk: 09/16/23 Dental Screening Dental Screen Date: 05/07/23 HPI HPI Comments History of Present Illness Details This is an 87-year-old female with mild recurrent major depression, anxiety, anemia and congestive heart failure that comes today accompanied by son which is marble cutter operator for follow-up on her conditions. Depression and anxiety have been present even with venlafaxine and this is why I will refer her to outpatient psychiatry. She is aware that Xanax can cause dementia and memory loss as well as looping as and make her fall. She has congestive heart failure from last echocardiogram which is diastolic and will be referred to Cardiology. Denies any chest pain or shortness on breath. No leg swelling and seems euvolemic. Has anemia that will be monitor. In a wheelchair and I thoroughly explained that her BMI was 24.9 and that it is not indicated to have Ensure. She also has hypertension that has been stable with amlodipine. [facility] Medical History (Updated 09/16/23 @ 15:35 by Saritha Russell MD) Acute on chronic heart failure with preserved ejection fraction (HFpEF) Ulcer of left heel Intertrochanteric fracture of left hip Closed intertrochanteric fracture Hx of dislocation of shoulder Elevated brain natriuretic peptide (BNP) level Fall Asthma Vertigo Polyuria Anxiety Essential hypertension GERD (gastroesophageal reflux disease) Familial hypercholesterolemia Endogenous depression COPD (chronic obstructive pulmonary disease) Surgical History History of hip surgery S/P lumpectomy of breast History of eye surgery History of cataract surgery Family History Father No problems noted. Mother No problems noted. Brother No problems noted. Sister No problems noted. Son No problems noted. Daughter No problems noted. Social History Household Members: Family Housing: Apartment Do you presently have visiting nurse or other home services: Yes Alcohol intake: never Patient Tobacco Use Status: Never used Tobacco e-Cigarette/Vaping Use: Never Used Second Hand Smoke Exposure: No Advance Directives Date on File: 07/22/21 service: No Current occupational status: retired Cognitive needs: Yes Hearing needs: No Vision needs: Yes Questionnaire Thrive Questionnaire Date Thrive assessed: 03/11/23 HAYDEN-7 AMB Questionnaire HAYDEN-7 Date HAYDEN - 7 assessed: 03/11/23 Source: Developed by Drs. Mehdi Marcum, Elis Cruz, Florentin Barriga and colleagues, with an educational manish from [employer]. Review of Systems Const All systems reviewed & are unremarkable except as noted in HPI and below Card Denies chest pain at rest, Denies chest pain with activity, Denies edema, Denies irregular heart rhythm, Denies claudication, Denies dyspnea, Denies dyspnea on exertion, Denies orthopnea, Denies paroxysmal nocturnal dyspnea and Denies slow heart rate Resp Denies cough, Denies dyspnea and Denies dyspnea on exertion GI Denies abdominal pain, Denies change in bowel habits, Denies excessive flatus, Denies nausea and Denies vomiting Denies urinary incontinence, Denies urinary hesitancy and Denies urinary urgency Musc Denies abnormal gait, Denies atrophy, Denies deformity and Denies limited range of motion Neuro Denies abnormal gait, Denies behavioral changes and Denies lack of coordination Psych Reports anxiety, Denies behavioral changes and Reports depression Physical exam (Primary Care) Vital Signs: Last Vital Signs BP 120/70 09/16/23 15:01 BMI result Body Mass Index 24.9 Tobacco/Smoking Status: Tobacco use Status Tobacco use date assessed 03/11/23 09/16/23 15:00 Patient Tobacco Use Status Never used Tobacco 09/16/23 15:00 e-Cigarette/Vaping Use Never Used 09/16/23 15:00 Thrive Assessment: Date of Thrive Assessment Date Thrive assessed 03/11/23 09/16/23 15:00 Const Limitations: wheelchair Resp Effort & Inspection: normal respiratory effort Auscultation: clear to auscultation bilaterally Cardio Jugular venous distension: no JVD Rate: regular rate Rhythm: regular rhythm Heart sounds: S1 normal heart sound present and S2 normal heart sound present Extrem General: Yes full ROM Assessment and Plan Assessment & Plan (1) CHF (congestive heart failure): Code(s): I50.9 - Heart failure, unspecified Plan: Referred to Cardiology. The goal is to not gain 5 lb in a week. (2) Mild major depression: Code(s): F32.0 - Major depressive disorder, single episode, mild Plan: Continue venlafaxine. Referred to outpatient psychiatry. (3) Anemia: Code(s): D64.9 - Anemia, unspecified Plan: Repeat hemoglobin. (4) Anxiety: Code(s): F41.9 - Anxiety disorder, unspecified Plan: Continue benzodiazepines as needed. Referred to outpatient psychiatry. (5) Essential hypertension: Code(s): I10 - Essential (primary) hypertension Plan: Continue amlodipine. Blood pressure goal is equal or less than 130/80. Orders: Orders Complete Blood Count Auto Diff Today D64.9 - Anemia, unspecified Lipid Panel Today E78.5 - Hyperlipidemia, unspecified Vitamin B12 and Folate Today E53.8 - Deficiency of other specified B group vitamins Vitamin D 25-OH Total Today E55.9 - Vitamin D deficiency, unspecified IRON PROFILE Today D64.9 - Anemia, unspecified Comprehensive Ramer. Panel Fast Today I50.9 - Heart failure, unspecified NT-proBNP Today I50.9 - Heart failure, unspecified Referrals Psychiatry Outpatient Consultation Service F32.0 - Major depressive disorder, single episode, mild, F41.9 - Anxiety disorder, unspecified Cardiology Referral I50.9 - Heart failure, unspecified Coding Level of Care Code Est Pt Level 4 (19084) Complex EM visit Add On G2211 Diagnoses CHF (congestive heart failure) I50.9 Mild major depression F32.0 Anemia D64.9 Anxiety F41.9 Essential hypertension I10 Time Spent (min) 24
[2023-09-16 15:01] VITALS: BP 120/70; BMI 24.9
== END 2023-09-16 15:36 | disposition home or self-care (01) ==
PROVIDERS: PCP Internal Medicine; Visit Provider Internal Medicine
DX: I11.0 Hypertensive heart disease with heart failure (principal); I50.9 Heart failure, unspecified; F32.0 Major depressive disorder, single episode, mild; D64.9 Anemia, unspecified; F41.9 Anxiety disorder, unspecified
CPT/HCPCS: 99214; G2211

== ENCOUNTER 2023-10-22 13:23 | Outpatient (AMB) | payer OTHER, SELFPAY ==
--- NOTE | 2023-10-22 13:32 | MHC.OFFVIS ---
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 by: Self / Same As Patient Allergies codeine [CODEINE] Allergy (Mild, Verified 10/22/23 18:51) upset stomach, nause Medication List - Last Reconciled 10/22/23 by CONSUELO Chávez-BC [adult diapers pull-ups As directed] alprazolam (Xanax) 0.5 mg PO DAILY PRN 30 days amlodipine 5 mg PO DAILY ascorbic acid (vitamin C) 1 g PO DAILY 90 days atenolol 25 mg PO DAILY 90 days atorvastatin 10 mg PO DAILY 90 days catheterization tray As directed for monthly SP tube change [compression stockings 40 mmHg As directed] cyanocobalamin (vitamin B-12) 1,000 mcg PO DAILY 90 days drainage bag (Kenguard Urinary Drain Bag) As directed esomeprazole magnesium (Nexium) 20 mg PO DAILY@0630 90 days fluorometholone 0.1% 1 drp ophthalmic (eye) BID@0900,1600 gauze bandage (Gauze Pad) As directed for SP tube maintenance irrigation set As directed 2/month for SP tube latex gloves (Latex Gloves, Medium) As directed methenamine hippurate 1 g PO DAILY 90 days tramadol 50 mg PO Q8H PRN 30 days urinary bag (Urinary Leg Bag) As directed 2/month urinary bag (Urostomy Night Bag) As directed 2/month venlafaxine ER 150 mg PO DAILY 90 days venlafaxine ER 75 mg PO DAILY 90 days water for irrigation, sterile 1 irrig irrigation .PRN HPI Comments Details: Latonia is a pleasant 88-year-old female patient of Dr. Juan Russell who was accompanied by her son at today's office visit. She has a past medical history of acute on chronic heart failure, ulcerative of the left heel, elevated BNP, asthma, vertigo, anxiety, hypertension, GERD, depression, and COPD. She presents to the office today for follow-up of her overactive bladder, incomplete bladder emptying, and recurrent urinary tract infections. Of note, patient underwent suprapubic tube placement with Dr. Waite earlier this year 03/11. She reports receiving [facility] services and they have been assisting with suprapubic tube changes up until approximately 8 weeks ago she does not believe it has since been changed. She reports compliance with methenamine and vitamin C as prescribed. She denies any bothersome urinary issues or concerns. She discusses her recent fall after trying to remove a short from her closet. Patient with prior cystoscopy noting dilated, large volume bladder with significant trabeculations. She had previously trialed bethanechol and alpha-iain however continued with increase in PVR in overflow incontinence at which time a suprapubic tube was placed. Suprapubic tube site appears well healed with no redness, drainage, and or odor noted. Nursing in to change suprapubic catheter. Patient otherwise denies any other issues or concerns at this time. [facility] Medical History Acute on chronic heart failure with preserved ejection fraction (HFpEF) Ulcer of left heel Intertrochanteric fracture of left hip Closed intertrochanteric fracture Hx of dislocation of shoulder Elevated brain natriuretic peptide (BNP) level Fall Asthma Vertigo Polyuria Anxiety Essential hypertension GERD (gastroesophageal reflux disease) Familial hypercholesterolemia Endogenous depression COPD (chronic obstructive pulmonary disease) Surgical History History of hip surgery S/P lumpectomy of breast History of eye surgery History of cataract surgery Family History Father No problems noted. Mother No problems noted. Brother No problems noted. Sister No problems noted. Son No problems noted. Daughter No problems noted. Social History Household Members: Family Housing: Apartment Do you presently have visiting nurse or other home services: Yes Alcohol intake: never Patient Tobacco Use Status: Never used Tobacco e-Cigarette/Vaping Use: Never Used Second Hand Smoke Exposure: No Advance Directives Date on File: 07/22/21 service: No Current occupational status: retired Cognitive needs: Yes Hearing needs: No Vision needs: Yes Review of Systems Const Reports as per HPI Eyes Reports no additional complaints ENT Reports no additional complaints Card Reports as per HPI Resp Reports as per HPI GI Reports as per HPI Reports as per HPI Musc Reports as per HPI Neuro Reports as per [facility] Psych Reports as per HPI Endo Reports no additional complaints David/Lymph Reports no additional complaints Aller/Immun Reports no additional complaints Physical Exam Const General: cooperative, healthy appearing, comfortable, no acute distress, well developed, alert and awake Orientation/consciousness: patient oriented x3 Limitations: wheelchair HEENT Head: Yes normal to inspection, Yes normocephalic and Yes atraumatic Ears: hearing grossly normal bilaterally Eyes General: appearance normal, both eyes and all related structures Neck Neck: Yes normal visual inspection and Yes trachea midline Chest Chest palpation & inspection: normal inspection of the chest Resp Effort & Inspection: normal respiratory effort and able to speak in complete sentences Cardio Rate: regular rate GI Inspection: Yes normal to inspection General: Yes no CVA tenderness Back/Spine/Pelvis Back: no CVA tenderness Skin General skin exam: no rashes or lesions noted Neuro General: patient oriented x3 Extrem General: Yes normal to inspection Psych Appearance: grossly normal and well kempt Mental Status: mental status grossly normal Speech and movement: Normal speech and movement present and Clear speech present Affect: normal affect Attitude: cooperative Thought process: Normal thought process present Thought content: Normal thought content present Insight: Fair insight present (Psych) Judgement: Fair judgement present (Psych) Office Procedures Bladder/Catheter Procedure Details: 18 cai catheter with 7.5ml balloon exchanged with new 18fr cai catheter 10ml balloon blue plug. Patient tolerated exchanged well. Patient has VNA services through [facility]- patient reporting nursing not doing catheter changes, will place call and follow up on patient services. Patient to schedule follow up appt with provider at checkout [id number] of bladder tube Procedure code (CPT) selection complete Assessment & Plan Assessment & Plan (1) Overflow incontinence: Code(s): N39.490 - Overflow incontinence Category: Medical (2) Incomplete bladder emptying: Code(s): R33.9 - Retention of urine, unspecified Category: Medical (3) Recurrent UTI: Code(s): N39.0 - Urinary tract infection, site not specified Category: Medical (4) Urinary retention: Code(s): R33.9 - Retention of urine, unspecified Category: Medical Plan Continue methenamine and vitamin-C Suprapubic tube was changed in office today; reviewed with nursing will reach out to VNA nursing to further assess and ensure suprapubic tube is being changed as ordered. Patient currently denies any bothersome urinary issues or concerns. Follow-up in 6 months; or sooner with any issues, concerns, and or questions. Orders: Orders AMB Bladder/Catheter Procedure Today R33.9 - Retention of urine, unspecified Patient Instructions: The patient had an opportunity to ask questions regarding the treatment plan. All questions were answered. Physical exam, labs, and imaging were discussed and reviewed in detail. As well as risks, benefits, and discussion of treatment choices. No major barriers to understanding were identified. The patient expressed understanding and agreement with the above treatment plan. The patient was made aware they should contact our office by phone for worsening of their current condition, the appearance of new symptoms, or with any questions or concerns. Compliance is encouraged with any medications and follow up testing that is ordered. It is a privilege to be allowed the opportunity to participate in? your urological care.? Again, if you have any questions or concerns If you have any questions or concerns please do not hesitate to contact me. The office is [phone]. This note is constructed using voice recognition software. While every effort has been made to ensure accuracy instrument assembler errors may have been included. Yours sincerely, VINNY Chávez Coding Level of Care Code Est Pt Level 3 (09392) Complex EM visit Add On G2211 Diagnoses Overflow incontinence N39.490 Incomplete bladder emptying R33.9 Recurrent UTI N39.0 Urinary retention R33.9 CPT Codes Bladder/Catheter Procedure - CPT: 45966-Augcld of bladder tube ([id number])
== END 2023-10-22 14:31 | disposition home or self-care (01) ==
PROVIDERS: PCP Internal Medicine; Visit Provider Nurse Practitioner Family
DX: N39.490 Overflow incontinence (principal); R33.9 Retention of urine, unspecified; N39.0 Urinary tract infection, site not specified; Z43.6 Encounter for attention to other artificial openings of urinary tract
CPT/HCPCS: 51705; 99213; G2211

== ENCOUNTER → 2023-10-22 13:23 | Outpatient (BNVA) | payer OTHER, SELFPAY | PROVIDERS: PCP Internal Medicine; Visit Provider Nurse Practitioner Family | DX: R33.9 Retention of urine, unspecified (principal); N39.490 Overflow incontinence; N39.0 Urinary tract infection, site not specified; N32.81 Overactive bladder; Z96.0 Presence of urogenital implants; Z79.899 Other long term (current) drug therapy | CPT/HCPCS: 51705; 99212 ==

== ENCOUNTER 2024-02-23 14:24 | Outpatient (AMB) | payer OTHER, SELFPAY ==
[2024-02-23 14:37] VITALS: BP 130/82; BMI 26.2
--- NOTE | 2024-02-23 14:37 | MHC.PC.OV ---
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 Accompanied by: son Allergies codeine [CODEINE] Allergy (Mild, Verified 02/23/24 14:50) upset stomach, nause Medication List - Last Reconciled 02/23/24 by Saritha Rusesll MD [adult diapers pull-ups As directed] alprazolam (Xanax) 0.5 mg PO DAILY PRN 30 days amlodipine 5 mg PO DAILY ascorbic acid (vitamin C) 1 g PO DAILY 90 days atenolol 25 mg PO DAILY 90 days atorvastatin 10 mg PO DAILY 90 days catheterization tray As directed for monthly SP tube change [compression stockings 40 mmHg As directed] cyanocobalamin (vitamin B-12) 1,000 mcg PO DAILY 90 days drainage bag (Kenguard Urinary Drain Bag) As directed esomeprazole magnesium (Nexium) 20 mg PO DAILY@0630 90 days fluorometholone 0.1% 1 drp ophthalmic (eye) BID@0900,1600 gauze bandage (Gauze Pad) As directed for SP tube maintenance irrigation set As directed 2/month for SP tube latex gloves (Latex Gloves, Medium) As directed methenamine hippurate 1 g PO DAILY 90 days sucralfate 10 mL PO BID 30 days tramadol 50 mg PO Q8H PRN 30 days urinary bag (Urinary Leg Bag) As directed 2/month urinary bag (Urostomy Night Bag) As directed 2/month venlafaxine ER 150 mg PO DAILY 90 days venlafaxine ER 75 mg PO DAILY 90 days water for irrigation, sterile 1 irrig irrigation .PRN Tobacco use date assessed: 02/23/24 Fall risk assessment: No Falls in past year Last assessed Fall Risk: 02/23/24 Dental Screening Dental Screen Date: 02/23/24 Did you have a dental visit in the last 12 months?: No Did you have a dental problem in the last 6 months where you did not have access to dental care?: No Was dental information given to patient?: Patient has dentist HPI HPI Comments History of Present Illness Details The patient is an 88-year-old female presenting with hearing loss. She reports difficulty hearing clear conversations, particularly when the television is on, and perceives what sounds like a second conversation occurring. This hearing issue has been persistent and requires further evaluation. The patient has a history of Gastroesophageal Reflux Disease (GERD) and takes Nexium for management. Osteoporosis was previously diagnosed; however, no recent bone density tests have been performed despite suggestions, as the patient is hesitant about retesting. The patient also has a history of essential hypertension, which is currently well-managed with medication. She also reports arthritis, particularly affecting her knees, leading to difficulty walking and poor balance. Interventions for these chronic conditions have included regular medication use, with recommendations for continued monitoring and testing. Also has mild major depression with anxiety that has been stable with medications. [facility] Medical History (Updated 02/23/24 @ 15:03 by Saritha Russell MD) Acute on chronic heart failure with preserved ejection fraction (HFpEF) Ulcer of left heel Intertrochanteric fracture of left hip Closed intertrochanteric fracture Hx of dislocation of shoulder Elevated brain natriuretic peptide (BNP) level Fall Asthma Vertigo Polyuria Anxiety Essential hypertension GERD (gastroesophageal reflux disease) Familial hypercholesterolemia Endogenous depression COPD (chronic obstructive pulmonary disease) Surgical History History of hip surgery S/P lumpectomy of breast History of eye surgery History of cataract surgery Family History Father No problems noted. Mother No problems noted. Brother No problems noted. Sister No problems noted. Son No problems noted. Daughter No problems noted. Social History Household Members: Family Housing: Apartment Do you presently have visiting nurse or other home services: Yes Alcohol intake: never Patient Tobacco Use Status: Never used Tobacco e-Cigarette/Vaping Use: Never Used Second Hand Smoke Exposure: No Advance Directives Date on File: 07/22/21 service: No Current occupational status: retired Cognitive needs: Yes Hearing needs: No Vision needs: Yes Questionnaire PHQ-9 Over the last 2 weeks, how often have you been bothered by any of the following problems? 1. Little interest or pleasure in doing things: not at all 2. Feeling down, depressed, or hopeless: several days 3. Trouble falling or staying asleep, or sleeping too much: several days 4. Feeling tired or having little energy: not at all 5. Poor appetite or overeating: not at all 6. Feeling bad about yourself - or that you are a failure or have let yourself or your family down: not at all 7. Trouble concentrating on things, such as reading the newspaper or watching television: not at all 8. Moving or speaking so slowly that other people could have noticed. Or the opposite - being so fidgety or restless that you have been moving around a lot more than usual: not at all 9. Thoughts that you would be better off or of hurting yourself in some way: not at all Total score: 2 Depression Screening Interpretation: Positive Depression Screening Follow-up: Existing condition, In treatment and Follow-up Visit Requested Depression Screening Done: Yes 31822 - PHQ-9 Billing: Yes Source: Developed by Drs. Mehdi Marcum, Elis Cruz, Florentin Barriga and colleagues, with an educational manish from [employer]. Thrive Questionnaire Date Thrive assessed: 02/23/24 I am a: Parent/Caregiver What is your living situation today?: I have a steady place to live Within the past 12 months, did the food you bought not last and you didn't have the money to get more?: Never true Within the past 12 months, did you worry whether your food would run out before you got money to buy more?: Never true Do you have trouble paying for medicines?: No Do you have trouble getting transportation to medical appointments?: No Do you have trouble paying your heating and electricity bill?: No Do you have trouble taking care of your child, family member or friend?: No Do you have trouble with day-to-day activities such as bathing, preparing meals, shopping, managing finances, etc.?: No Are you currently unemployed and looking for a job?: No Are you interested in more education?: No Please select the resources that you would like help with: None Currently or been in a relationship where the following occur: No concerns reported THRIVE Score: 0 AUDIT C Alcohol Use Questionnaire (AUDIT-C) 1. How often do you have a drink containing alcohol?: Never Total Score: 0 Score Reviewed/Action Taken: No HAYDEN-7 AMB Questionnaire HAYDEN-7 Date HAYDEN - 7 assessed: 02/23/24 Feeling nervous, anxious, or on edge: 1 = Several days Not being able to stop or control worryin = Not at all Worrying too much about different things: 0 = Not at all Trouble relaxin = Not at all Being so restless that it is hard to sit still: 0 = Not at all Becoming easily annoyed or irritable: 0 = Not at all Feeling afraid as if something awful might happen: 0 = Not at all Total HAYDEN-7 score (0-4 normal; 5-9 mild; 10-14 moderate; 15-21 severe): 1 Source: Developed by Drs. Mehdi Marcum, Elis Cruz, Florentin Barriga and colleagues, with an educational manish from [employer]. HAYDEN-7 Assessment Billing HAYDEN-7 Assessment Tool: HAYDEN-7 Assessment 53478 Review of Systems Const All systems reviewed & are unremarkable except as noted in HPI and below Card Denies chest pain at rest, Denies chest pain with activity, Denies edema, Denies irregular heart rhythm, Denies claudication, Denies dyspnea, Denies dyspnea on exertion, Denies orthopnea, Denies paroxysmal nocturnal dyspnea and Denies slow heart rate Resp Denies cough, Denies dyspnea and Denies dyspnea on exertion GI Denies abdominal pain, Denies change in bowel habits, Denies excessive flatus, Denies nausea and Denies vomiting Physical exam (Primary Care) Vital Signs: Last Vital Signs BP 130/82 02/23/24 14:37 BMI result Body Mass Index 26.2 Tobacco/Smoking Status: Tobacco use Status Tobacco use date assessed 02/23/24 02/23/24 14:43 Patient Tobacco Use Status Never used Tobacco 02/23/24 14:43 e-Cigarette/Vaping Use Never Used 02/23/24 14:43 PHQ-9: PHQ-9 Score PHQ-9: Total score 2 02/23/24 15:27 Depression Screening Interpretation: Positive Depression Screening Follow-up: Existing condition, In treatment and Follow-up Visit Requested Thrive Assessment: Date of Thrive Assessment Date Thrive assessed 02/23/24 02/23/24 14:43 Currently or been in a relationship where the following occur: No concerns reported Const Limitations: wheelchair Resp Effort & Inspection: normal respiratory effort Auscultation: clear to auscultation bilaterally Cardio Jugular venous distension: no JVD Rate: regular rate Rhythm: regular rhythm Heart sounds: Murmur heart sound present Extrem General: Yes full ROM Office Procedures Flu Questionnaire Does the patient have a severe egg allergy?: No Immunizations Fluarix Triv [id number] (PF) 45 mcg (15 mcg x 3)/0.5 mL IM syringe Performing Provider: Saritha Russell MD [facility] [place] [facility] Documented (not given) by: MONICA Wolff on 02/23/24 15:31 Reason Not Given: Not Given Coding Level of Care Code Est Pt Level 4 (44289) Complex EM visit Add On G2211 Diagnoses Hearing loss H91.90 Anxiety F41.9 Mild major depression F32.0 Essential hypertension I10 GERD (gastroesophageal reflux disease) K21.9 Hyperlipidemia E78.5 Additional Codes HAYDEN-7 Assessment Billing - HAYDEN-7 Assessment Tool: HAYDEN-7 Assessment 29111 ([id number]) PHQ-9 - 07982 - PHQ-9 Billing: Yes ([id number]) Time Spent (min) 23 Assessment & Plan Assessment & Plan (1) Hearing loss: Code(s): H91.90 - Unspecified hearing loss, unspecified ear Category: Medical (2) Anxiety: Code(s): F41.9 - Anxiety disorder, unspecified Category: Medical (3) Mild major depression: Code(s): F32.0 - Major depressive disorder, single episode, mild Category: Medical (4) Essential hypertension: Code(s): I10 - Essential (primary) hypertension Category: Medical (5) GERD (gastroesophageal reflux disease): Code(s): K21.9 - Gastro-esophageal reflux disease without esophagitis Category: Medical (6) Hyperlipidemia: Code(s): E78.5 - Hyperlipidemia, unspecified Category: Medical Plan - Order blood work to evaluate cholesterol, sugar levels, and further assess general health. - Arrange referral for hearing test to determine the nature of hearing loss, whether conductive or sensorineural. - Consider ordering knee and back X-rays to assess the extent of arthritis. - Continue current medication regimen for GERD and adjust as necessary based on symptoms. - Discuss potential need for updated bone density test for osteoporosis evaluation if patient agrees. Patient was informed and verbally consented to the use of an ambient scribe for clinic note documentation during this visit. I discussed the importance of regular monitoring for her chronic conditions, including hypertension and GERD, and emphasized that her medications appear to be effectively managing her hypertension. We explored the patient?s concerns regarding hearing loss and outlined steps for further evaluation through a hearing test. Risks and benefits of testing and ongoing management were discussed, specifically regarding hearing and potential osteoporosis retesting, to assist in decision-making. I encouraged maintaining regular health evaluations and provided information on nearby facilities for hearing tests. Orders: Orders IRON PROFILE Today D64.9 - Anemia, unspecified Lipid Panel Today E78.5 - Hyperlipidemia, unspecified Comprehensive Met. Panel Today K21.9 - Gastro-esophageal reflux disease without esophagitis Complete Blood Count Auto Diff Today D64.9 - Anemia, unspecified Vitamin B12 and Folate Today E53.8 - Deficiency of other specified B group vitamins Vitamin D 25-OH Total Today E55.9 - Vitamin D deficiency, unspecified Influenza [id number] Immunization Today Z23 - Encounter for immunization Referrals Speech and Hearing Referral H91.90 - Unspecified hearing loss, unspecified ear Patient Instructions: - Continue taking prescribed medications for GERD and hypertension. - Schedule and attend the recommended blood work appointment. - Follow up for a hearing test as discussed to determine the specifics of hearing loss. - Return for consultation if any new symptoms arise or if there is further deterioration in hearing or mobility.
== END 2024-02-23 15:03 | disposition home or self-care (01) ==
PROVIDERS: PCP Internal Medicine; Visit Provider Internal Medicine
DX: H91.90 Unspecified hearing loss, unspecified ear (principal); F41.9 Anxiety disorder, unspecified; F32.0 Major depressive disorder, single episode, mild; I10 Essential (primary) hypertension; K21.9 Gastro-esophageal reflux disease without esophagitis; E78.5 Hyperlipidemia, unspecified; Z23 Encounter for immunization

== ENCOUNTER → 2024-02-23 14:24 | Outpatient (BNVA) | payer OTHER, SELFPAY | PROVIDERS: PCP Internal Medicine; Visit Provider Internal Medicine | DX: D64.9 Anemia, unspecified (principal); K21.9 Gastro-esophageal reflux disease without esophagitis; M81.0 Age-related osteoporosis without current pathological fracture; I10 Essential (primary) hypertension; F41.9 Anxiety disorder, unspecified; H91.90 Unspecified hearing loss, unspecified ear; F32.0 Major depressive disorder, single episode, mild; E78.5 Hyperlipidemia, unspecified | CPT/HCPCS: 90471; 96127; 99212 ==

== ENCOUNTER 2024-04-20 13:44 | Outpatient (AMB) | payer OTHER, SELFPAY ==
--- NOTE | 2024-04-20 13:48 | A.OFFVIS_ITS ---
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 She is a patient of Dr. Russell. She seen for the following urologic conditions - overactive bladder - incomplete bladder emptying after hip fracture - recurrent UTI Six-month follow-up 18 Japanese suprapubic tube Alternating with nurse-practitioner Remains on vitamin-C and methenamine Prescription provided that states 18 Japanese Bard catheter Prior Cystoscopy Dilated, large volume bladder with significant trabeculations Failure bethanechol and alpha-iain Prior PVR over 700 Overflow incontinence Imaging - 04/10 bilateral mild hydronephrosis secondary to incomplete bladder emptying, creatinine 0.8 Incomplete bladder emptying PVR 546 Current UTI over past 2 years on low-dose suppression with trimethoprim Bladder aggravated after fall with broken hip Had been treated previously for overactive bladder 03/11 SPT placement Current medications terazosin 1 mg PFSH Medical History Acute on chronic heart failure with preserved ejection fraction (HFpEF) Ulcer of left heel Intertrochanteric fracture of left hip Closed intertrochanteric fracture Hx of dislocation of shoulder Elevated brain natriuretic peptide (BNP) level Fall Asthma Vertigo Polyuria Anxiety Essential hypertension GERD (gastroesophageal reflux disease) Familial hypercholesterolemia Endogenous depression COPD (chronic obstructive pulmonary disease) Surgical History History of hip surgery S/P lumpectomy of breast History of eye surgery History of cataract surgery Family History Father No problems noted. Mother No problems noted. Brother No problems noted. Sister No problems noted. Son No problems noted. Daughter No problems noted. Social History Household Members: Family Housing: Apartment Do you presently have visiting nurse or other home services: Yes Alcohol intake: never Patient Tobacco Use Status: Never used Tobacco e-Cigarette/Vaping Use: Never Used Second Hand Smoke Exposure: No Advance Directives Date on File: 07/22/21 service: No Current occupational status: retired Cognitive needs: Yes Hearing needs: No Vision needs: Yes Review of Systems Const Denies chills and Denies fever(s) Card Reports no additional complaints and Denies syncope Resp Denies cough GI Denies abdominal pain and Denies heartburn Reports as per HPI and Denies change in libido Neuro Denies syncope Psych Denies change in libido Endo Denies change in libido Physical Exam Const General: cooperative, healthy appearing, comfortable and no acute distress Orientation/consciousness: patient oriented x3 HEENT Face and sinus: Yes normal facial exam Mouth: moist mucous membranes Neck Neck: Yes normal visual inspection, Yes full ROM and Yes trachea midline Chest Chest palpation & inspection: normal inspection of the chest Resp Effort & Inspection: normal respiratory effort, able to speak in complete sentences and no respiratory distress GI Inspection: Yes normal to inspection Back/Spine/Pelvis Cervical Spine: normal cervical lordosis Thoracic/Lumbar Spine: thoracic and lumbar spine normal to inspection Skin General skin exam: no rashes or lesions noted Neuro General: patient oriented x3, gait normal, tone normal and moves all extremities Extrem General: Yes normal to inspection and Yes capillary refill normal Office Procedures Bladder/Catheter Procedure Details: Suprapubic tube using clean technique Eighteen Japanese 8 cc balloon Clean looking insertion site [id number]-[id number] of bladder tube Procedure code (CPT) selection complete Assessment & Plan Assessment & Plan (1) Urinary retention: Code(s): R33.9 - Retention of urine, unspecified Category: Medical Plan Six-month follow-up nurse-practitioner Orders: Orders AMB Bladder/Catheter Procedure Today R33.9 - Retention of urine, unspecified Medications: Changed 2 From catheterization tray As directed for monthly SP tube change 2 ea 5RF R33.9 - Retention of urine, unspecified To catheterization tray Include 18Fr Bard cai catheter 2 ea 5RF R33.9 - Retention of urine, unspecified Refilled drainage bag (Kenguard Urinary Drain Bag) As directed 1 ea 11RF Neurogenic bladder N31.9 - Neuromuscular dysfunction of bladder, unspecified, R33.9 - Retention of urine, unspecified ascorbic acid (vitamin C) 1 g PO DAILY 90 days 90 tabs 1RF N39.0 - Urinary tract infection, site not specified methenamine hippurate 1 g PO DAILY 90 days 90 tabs 1RF N39.0 - Urinary tract infection, site not specified Patient Instructions: This note is constructed using voice recognition software. While every effort has been made to ensure accuracy pole incisor operator errors may have been included. Imaging studies, laboratory and physical exam results were discussed and reviewed in detail. No major barriers to patient understanding were identified. An opportunity to ask questions regarding the treatment plan was provided. All questions were answered. The patient expressed understanding and agreement with the above treatment plan. The patient is aware they should contact our office by phone for worsening of their current condition or the appearance of new urologic symptoms. Compliance is encouraged with any medications and followup testing that is ordered. It is a privilege to participate in the urologic care of your patient. If you have any questions or concerns regarding treatment for the above conditions, or other urologic issues, please do not hesitate to contact me. The office telephone contact is [phone]. Sincerely, Dr Jass Waite MD, [facility] - Urology Compassionate Specialist Care for the Genitourinary System Coding Level of Care Code Est Pt Level 3 (27136) Complex EM visit Add On G2211 Diagnoses Urinary retention R33.9 CPT Codes Bladder/Catheter Procedure - CPT: 83632-Qwmtrd of bladder tube ([id number])
--- OUTSIDE RECORDS SUMMARY | 2024-04-20 16:23 | XMS_ITS | Data Portability ---
Author Organization [employer] Address [address] [place] [id number] Care Team Providers Care Department Administrator Name Role Phone [facility] Referring Provider [phone] Assessment Encounter Date Assessment Date Assessment LastModified by Organization Details LastModified Time 09/06/2021 09/06/2021 Called to evaluate an 85 y/o f w h/o HTN, asthma, HLD, MDD who c/o urinary retention. Patient not seen as she went to ED prior to medic arrival. [email or web address] Not available 09/09/2021 09:57:30 Plan of Treatment Reminders Order Date Submit Date Provider Last Modified By Organization Details Last Modified Time Details Appointments None record ed. Lab None record ed. Referral None record ed. Procedures None record ed. Surgeries None record ed. Imaging None record ed. Medication Orders None record ed. Patient TargetsNo targets recorded. Patient InstructionsNo instructions recorded. Reason for Referral None Reported. Medical Equipment None Reported. Medications Name Sig Start Date Stop Date Status Note LastModified by Organization Details LastModified Time venlafaxine ER 75 mg capsule,exte nded release 24 hr TAKE 1 CAPSULE BY MOUTH DAILY active Not Available Not Available Not Available atorvastatin 10 mg tablet TAKE 1 TABLET BY MOUTH DAILY active Not Available Not Available Not Available atenolol 25 mg tablet TAKE 1 TABLET BY MOUTH DAILY active Not Available Not Available Not Available venlafaxine ER 150 mg capsule,exte nded release 24 hr TAKE 1 CAPSULE BY MOUTH DAILY active Not Available Not Available Not Available trimethoprim 100 mg tablet active Not Available Not Available Not Available sulfamethoxa zole 800 mg-trimethop rim 160 mg tablet TAKE 1 TABLET BY MOUTH TWICE DAILY active Not Available Not Available No t Available tamsulosin 0.4 mg capsule active Not Available Not Available Not Available nitrofuranto in macrocrystal 100 mg capsule TAKE 1 CAPSULE BY MOUTH TWICE DAILY FOR 7 DAYS active Not Available Not Available No t Available fluoromethol one 0.1 % eye drops,suspen brii SHAKE LIQUID AND INSTILL 1 DROP IN BOTH EYES TWICE DAILY active Not Available Not Available Not Available lisinopril 40 mg tablet TAKE 1 TABLET BY MOUTH DAILY active Not Available Not Available Not Available Ventolin HFA 90 mcg/actuatio n aerosol inhaler INHALE 2 PUFFS BY MOUTH EVERY 6 HOURS NEEDED FOR BRONCHOSPAS M active Not Available Not Available No t Available solifenacin 5 mg tablet TAKE 1 TABLET BY MOUTH TWICE DAILY NEEDED FOR URINARY FREQUENCY active Not Available Not Available No t Available Myrbetriq 25 mg tablet,exten ded release TAKE 1 TABLET BY MOUTH DAILY active Not Available Not Available Not Available Wixela Inhub 250 mcg-50 mcg/dose powder for inhalation INHALE 1 PUFF BY MOUTH TWICE DAILY active Not Available Not Available No t Available Gemtesa 75 mg tablet TAKE 1 TABLET BY MOUTH DAILY active Not Available Not Available Not Available Vitals None Recorded Social History None recorded. Functional Status None recorded. Mental Status None recorded. Family History Nothing Reported. Medical History No medical history recorded. Gynecological HistoryNo gynecological history recorded. Obstetrics History GPAL:G 0 P 0 0 0 0 Past Encounters Encounter ID Performer Location Encounter Start Date Encounter Closed Date Diagnosis/Indication Diagnosis SNOMED-CT Code Diagnosis ICD10 Code Diagnosis Note [id number] Modesta Medina MD Main - [facility] [address] [place] [id number] 09/06/2021 18:50:40 09/09/2021 09:57:35 Health Concerns Section Related Observation LastModified by Organization Detai ls LastModified Time None Recorded Concern Status LastModified by Organization Details LastModified Time None Recorded Advance Directives Directive None Recorded Payers Encounter Date Sequence Insurance Name Policy Number Policy Kemp Covered Member ID Kemp Member ID Guarantor Name 09/06/2021 1 [facility] - DOS PRIOR TO 2022 - DUAL ELIGIBLE (MEDICARE REPLACEMENT/ADV ANTAGE - HMO) Latonia Wakefield [id number] Latonia Wakefield Notes Date Note Type Note Provider Name and Address Organization Details Recorded Time 09/06/2021 text/html [facility] Nursing Assessment: Reason For Request: Fear of UTI Has not been able to use the restoom Broken hip but bedbound Patient Reports: Inability to fully empty bladder Denies: Unable to void greater than 5 hours Erection that will not go away after 2 hours Fall or trauma that results in urinary incontinence in the setting of pain Fall or injury that results in incontinence in the absence of pain Lower back pain either unilateral or bilateral, unable to void, painful urination -hematuria Painful urination Frequent and increased urination with flank pain Painful urination with or without fever Chief Complaints: UTI/Pyelonephritis , Weakness/Lethargy, Nausea/Vomiting, Dehydration PMH: Hypertension Allergies: No Known Comments: Member was in Rehab with a f/c and has recently come home and unable to empty bladder. Member is incontinent and may need a straight cath if daughter can not get sample . Member denies Fever/ Chills. Member has poor po intake and c/o Nausea with feeling she may Vomit. Member has abd discomfort. Member BP 176/90 H 70's does have a h/o HTN and on medication for BP . Daughter is aware of when to call 911 .................. .................. .................. .................. .................. .................. .................. ............... Wire Brush Operator Note: No pt contact made. Per dispatch, pt went to ED prior to arrival. .................. .................. .................. .................. .................. .................. .................. ............... Disposition: Unfulfilled Modesta Medina MD [address] [facility],[address], [place], [address], CANEDLARIO - MISBAH THOMAS 09/09/2021 09:57:33 OBGyn Episode No OBEpisode recorded.
--- OUTSIDE RECORDS SUMMARY | 2024-04-20 16:23 | XMS_ITS | Clinical Summary ---
Author Organization [facility] Facility Address [address] [address] Care Team Providers Care Kier Hand Name Role Phone Saritha Ellis MD Primary Care Provider [phone] Medications Gemtesa 75 MG tablet Take 1 tablet by mouth 1 (one) time each day 07/05/2021 Active venlafaxine XR (EFFEXOR-XR) 75 MG 24 hr capsule Take 75 mg by mouth 1 (one) time each day 06/09/2021 Active tamsulosin (FLOMAX) 0.4 MG 24 hr capsule 09/04/2021 Activ e nitrofurantoin (MACRODANTIN) 100 MG capsule Take 100 mg by mouth in the morning and 100 mg in the evening. 09/06/2021 Active Myrbetriq 25 MG tablet sustained-relea se 24 hour Take 1 tablet by mouth 1 (one) time each day 06/17/2021 Active lisinopril 40 MG tablet 09/07/2021 Active fluorometholone (FML) 0.1 % ophthalmic suspension SHAKE LIQUID AND INSTILL 1 DROP IN BOTH EYES TWICE DAILY 06/26/2021 Active cefuroxime (CEFTIN) 250 MG tablet 09/06/2021 Active Active Problems Problem Noted Date Diagnosed Date Anxiety 09/10/2021 Asthma 09/10/2021 Chronic obstructive pulmonary disease 09/10/2021 Acute depression 09/10/2021 Essential (primary) hypertension 09/10/2021 Gastroesophageal reflux disease 09/10/2021 Acute nontraumatic kidney injury 09/10/2021 Social History Tobacco Use Types Packs/Day Years Used Date Smoking Tobacco: Never Assessed Tobacco Cessation:Counseling Given: No Alcohol Use Standard Drinks/Week Comments Never 0 (1 standard drink = 0.6 oz pur e alcohol) Comments Unknown Sex and Gender Information Value Date Recorded Sex Assigned at Not on file Legal Sex Female 10:32 AM EDT Gender Identity Not on file Sexual Orientation Not on file Plan of Treatment Health Maintenance Due Date Last Done Comments Pneumococcal Vaccine: 65+ Ye ars (1 of 1 - PCV) 2001 Influenza Vaccine (#1) 2023 Hepatitis B Vaccine Aged Out No longe r eligible based on patient's age to complete this topic Insurance Care Teams Kier Hand Relationship Specialty Start Date End Date Saritha Ellis MD [address] [place] [address] PCP - General Internal Medicine 07/16/21
== END 2024-04-20 14:35 | disposition home or self-care (01) ==
PROVIDERS: PCP Internal Medicine; Visit Provider Urology
DX: R33.9 Retention of urine, unspecified (principal); Z43.5 Encounter for attention to cystostomy
CPT/HCPCS: 51705; 99213; G2211

== ENCOUNTER → 2024-04-20 13:44 | Outpatient (BNVA) | payer OTHER, SELFPAY | PROVIDERS: PCP Internal Medicine; Visit Provider Urology | DX: N32.81 Overactive bladder (principal); R33.9 Retention of urine, unspecified; N31.9 Neuromuscular dysfunction of bladder, unspecified; N39.0 Urinary tract infection, site not specified; Z46.6 Encounter for fitting and adjustment of urinary device; Z93.50 Unspecified cystostomy status | CPT/HCPCS: 51705; 99212 ==

== ENCOUNTER → 2024-08-01 23:59 | Outpatient (BNV) | payer OTHER, SELFPAY | PROVIDERS: PCP Internal Medicine; Visit Provider Internal Medicine | DX: I11.0 Hypertensive heart disease with heart failure (principal); I50.30 Unspecified diastolic (congestive) heart failure; F33.9 Major depressive disorder, recurrent, unspecified | CPT/HCPCS: G0179 ==

== ENCOUNTER 2024-08-16 15:57 | Outpatient (AMB) | payer OTHER, SELFPAY ==
[2024-08-16 16:12] VITALS: BP 122/70; BMI 26.5
--- NOTE | 2024-08-16 16:12 | A.OFFPC_ITS ---
Vital Signs 08/16/24 16:12 Height 5 ft 4 in Weight 154 lb 5.177 oz BMI 26.5 BP 122/70 Blood Pressure Location Lt brachial Position Sitting Intake Visit Reasons: bp Intake Note: Patient here for a follow up BP Retail Planning Manager Required: No Accompanied by: Son Allergies codeine (CODEINE) Allergy (Mild, Verified 08/16/24 16:20) upset stomach, nause Medication List - Last Reconciled 08/16/24 by Saritha Russell MD [adult diapers pull-ups As directed] alprazolam (Xanax) 0.5 mg PO DAILY PRN 30 days amlodipine 5 mg PO DAILY ascorbic acid (vitamin C) 1 g PO DAILY 90 days atenolol 25 mg PO DAILY 90 days atorvastatin 10 mg PO DAILY 90 days catheterization tray Include 18Fr Bard cai catheter [compression stockings 40 mmHg As directed] cyanocobalamin (vitamin B-12) 1,000 mcg PO DAILY 90 days drainage bag (Kenguard Urinary Drain Bag) As directed esomeprazole magnesium (Nexium) 20 mg PO DAILY@0630 90 days fluorometholone 0.1% 1 drp ophthalmic (eye) BID@0900,1600 gauze bandage (Gauze Pad) As directed for SP tube maintenance irrigation set As directed 2/month for SP tube latex gloves (Latex Gloves, Medium) As directed methenamine hippurate 1 g PO DAILY 90 days sucralfate 10 mL PO BID 30 days tramadol 50 mg PO Q8H PRN 90 days urinary bag (Urostomy Night Bag) As directed 2/month urinary bag (Urinary Leg Bag) As directed 2/month venlafaxine ER 75 mg PO DAILY 90 days venlafaxine ER 150 mg PO DAILY 90 days water for irrigation, sterile 1 irrig irrigation .PRN Tobacco use date assessed: 02/23/24 Dental Screening Dental Screen Date: 02/23/24 HPI HPI Comments History of Present Illness Details The patient is an 88-year-old female presenting with hypertension and dyslipidemia. She has a history of anemia, which will be re-evaluated, and she reports feeling tired. She has been diagnosed with major depressive disorder and is currently on venlafaxine. Despite this, she experiences anxiety and has been using alprazolam as needed, which will be switched to clonazepam for its longer duration of action. The patient has a history of congestive heart failure and urinary retention, for which she sees Dr. Patterson and uses a catheter. She also has lumbar arthritis and gastroesophageal reflux disease, managed with esomeprazole. Her hypercholesterolemia will be monitored, and she is aware of the potential side effects of clonazepam, including addiction, sedation, and memory loss for her anxiety. [facility] Medical History Acute on chronic heart failure with preserved ejection fraction (HFpEF) Ulcer of left heel Intertrochanteric fracture of left hip Closed intertrochanteric fracture Hx of dislocation of shoulder Elevated brain natriuretic peptide (BNP) level Fall Asthma Vertigo Polyuria Anxiety Essential hypertension GERD (gastroesophageal reflux disease) Familial hypercholesterolemia Endogenous depression COPD (chronic obstructive pulmonary disease) Surgical History History of hip surgery S/P lumpectomy of breast History of eye surgery History of cataract surgery Family History Father No problems noted. Mother No problems noted. Brother No problems noted. Sister No problems noted. Son No problems noted. Daughter No problems noted. Social History Household Members: Family Housing: Apartment Do you presently have visiting nurse or other home services: Yes Alcohol intake: never Patient Tobacco Use Status: Never used Tobacco e-Cigarette/Vaping Use: Never Used Second Hand Smoke Exposure: No Advance Directives Date on File: 07/22/21 service: No Current occupational status: retired Cognitive needs: Yes Hearing needs: No Vision needs: Yes Questionnaire PHQ-9 Over the last 2 weeks, how often have you been bothered by any of the following problems? 1. Little interest or pleasure in doing things: not at all 2. Feeling down, depressed, or hopeless: several days 3. Trouble falling or staying asleep, or sleeping too much: more than half the days 4. Feeling tired or having little energy: more than half the days 5. Poor appetite or overeating: several days 6. Feeling bad about yourself - or that you are a failure or have let yourself or your family down: more than half the days 7. Trouble concentrating on things, such as reading the newspaper or watching television: not at all 8. Moving or speaking so slowly that other people could have noticed. Or the opposite - being so fidgety or restless that you have been moving around a lot more than usual: not at all 9. Thoughts that you would be better off or of hurting yourself in some way: several days Total score: 9 Depression Screening Interpretation: Positive Depression Screening Follow-up: Existing condition, In treatment and Follow-up Visit Requested Depression Screening Done: Yes 35581 - PHQ-9 Billing: Yes Source: Developed by Drs. Mehdi Marcum, Elis Cruz, Florentin Barriga and colleagues, with an educational manish from [employer]. Thrive Questionnaire Date Thrive assessed: 06/18/24 I am a: Patient What is your living situation today?: I have a steady place to live Within the past 12 months, did the food you bought not last and you didn't have the money to get more?: Often true Within the past 12 months, did you worry whether your food would run out before you got money to buy more?: Never true Do you have trouble paying for medicines?: No Do you have trouble getting transportation to medical appointments?: No Do you have trouble paying your heating and electricity bill?: No Do you have trouble taking care of your child, family member or friend?: No Do you have trouble with day-to-day activities such as bathing, preparing meals, shopping, managing finances, etc.?: Yes Are you currently unemployed and looking for a job?: I choose not to answer this question Are you interested in more education?: No Please select the resources that you would like help with: None Currently or been in a relationship where the following occur: No concerns reported THRIVE Score: 1 HAYDEN-7 AMB Questionnaire HAYDEN-7 Date HAYDEN - 7 assessed: 02/23/24 Source: Developed by Drs. Mehdi Marcum, Elis Cruz, Florentin Barriga and colleagues, with an educational manish from [employer]. Review of Systems Const All systems reviewed & are unremarkable except as noted in HPI and below Card Denies chest pain at rest, Denies chest pain with activity, Denies edema, Denies irregular heart rhythm, Denies claudication, Denies dyspnea, Denies dyspnea on exertion, Denies orthopnea, Denies paroxysmal nocturnal dyspnea and Denies slow heart rate Resp Denies cough, Denies dyspnea and Denies dyspnea on exertion GI Denies abdominal pain, Denies change in bowel habits, Denies excessive flatus, Denies nausea and Denies vomiting Denies urinary incontinence, Denies urinary hesitancy and Denies urinary urgency Musc Denies atrophy, Denies deformity and Denies limited range of motion Skin/Breast Denies bleeding lesions, Denies changing lesions and Denies rash Psych Reports anxiety and Reports depression Physical exam (Primary Care) Vital Signs: Last Vital Signs BP 122/70 08/16/24 16:12 BMI result Body Mass Index 26.5 Tobacco/Smoking Status: Tobacco use Status Tobacco use date assessed 02/23/24 08/16/24 16:13 Patient Tobacco Use Status Never used Tobacco 08/16/24 16:13 e-Cigarette/Vaping Use Never Used 08/16/24 16:13 PHQ-9: PHQ-9 Score PHQ-9: Total score 9 08/16/24 16:24 Depression Screening Interpretation: Positive Depression Screening Follow-up: Existing condition, In treatment and Follow-up Visit Requested Thrive Assessment: Date of Thrive Assessment Date Thrive assessed 06/18/24 08/16/24 16:13 Currently or been in a relationship where the following occur: No concerns reported Const Limitations: wheelchair Resp Effort & Inspection: normal respiratory effort Auscultation: clear to auscultation bilaterally Cardio Jugular venous distension: no JVD Rate: regular rate Rhythm: regular rhythm Heart sounds: S1 normal heart sound present and S2 normal heart sound present Coding Level of Care Code Est Pt Level 4 (16975) Complex EM visit Add On G2211 Diagnoses Mild major depression F32.0 Anxiety F41.9 Essential hypertension I10 CHF (congestive heart failure) I50.9 Familial hypercholesterolemia E78.01 GERD (gastroesophageal reflux disease) K21.9 Urinary retention R33.9 Additional Codes PHQ-9 - 56598 - PHQ-9 Billing: Yes ([id number]) Time Spent (min) 26 Assessment & Plan Assessment & Plan (1) Mild major depression: Code(s): F32.0 - Major depressive disorder, single episode, mild Category: Medical (2) Anxiety: Code(s): F41.9 - Anxiety disorder, unspecified Category: Medical (3) Essential hypertension: Code(s): I10 - Essential (primary) hypertension Category: Medical (4) CHF (congestive heart failure): Code(s): I50.9 - Heart failure, unspecified Category: Medical (5) Familial hypercholesterolemia: Code(s): E78.01 - Familial hypercholesterolemia Category: Medical (6) GERD (gastroesophageal reflux disease): Code(s): K21.9 - Gastro-esophageal reflux disease without esophagitis Category: Medical (7) Urinary retention: Code(s): R33.9 - Retention of urine, unspecified Category: Medical Plan The patient's hypertension and dyslipidemia will continue to be monitored, with adjustments to her medication regimen as necessary. Her anemia will be re- evaluated to determine the current status and need for further intervention. For her major depressive disorder, she will continue on venlafaxine, and her anxiety management will transition from alprazolam to clonazepam to provide longer-lasting relief. The patient is informed about the risks associated with clonazepam, including potential addiction and memory issues. Her congestive heart failure and urinary retention are being managed with the assistance of Dr. Patterson, and she will continue using a catheter. Her lumbar arthritis and gastroesophageal reflux disease are managed with current medications, including esomeprazole. Her hypercholesterolemia will be checked to ensure it remains under control. Patient was informed and verbally consented to the use of an ambient scribe for clinic note documentation during this visit. Orders: Orders Complete Blood Count Auto Diff 08/16/24 D64.9 - Anemia, unspecified Lipid Panel 08/16/24 E78.5 - Hyperlipidemia, unspecified Vitamin B12 and Folate 08/16/24 E53.8 - Deficiency of other specified B group vitamins Vitamin D 25-OH Total 08/16/24 E55.9 - Vitamin D deficiency, unspecified Comprehensive Ada. Panel Fast 08/16/24 I50.9 - Heart failure, unspecified NT-proBNP 08/16/24 I50.9 - Heart failure, unspecified IRON PROFILE 08/16/24 D64.9 - Anemia, unspecified Medications: New clonazepam (Klonopin) 0.5 mg PO DAILY PRN 30 tabs 0RF anxiety 30 days Discontinued alprazolam (Xanax) Discontinued Reason: No Longer Medically Relevant 0.5 mg PO DAILY 30 days PRN 10 tabs 0RF anxiety
--- OUTSIDE RECORDS SUMMARY | 2024-08-16 16:22 | XMS_ITS | Clinical Summary ---
Author Organization [facility] Facility Address [address] [address] Care Team Providers Care Drywall Taper Name Role Phone Saritha Ellis MD Primary Care Provider [phone] Medications Gemtesa 75 MG tablet Take 1 [...] Due Date Last Done Comments Pneumococcal Vaccine: 50+ Ye ars (1 of 1 - PCV) 1986 Influenza Vaccine (Season Ended) 2024 Hepatitis B Vaccine Aged Out No longe r eligible based on patient's age to complete this topic Insurance Care Teams Drywall Taper Relationship Specialty Start Date End Date Saritha Ellis MD [address] [place] [address] PCP - General Internal Medicine 07/16/21
--- OUTSIDE RECORDS SUMMARY | 2024-08-16 16:22 | XMS_ITS | Data Portability ---
Author Organization [facility] Address [address] [place] [phone] Care Team Providers Care Kiln Furniture Saw Tender Name Role Phone [facility]IMARY [facility]ARE Referring Provider Assessment Encounter Date Assessment Date Assessment LastModified [...] [id number] Modesta Medina MD Main - instED [address] [place] [phone] 09/06/2021 18:50:40 09/09/2021 09:57:35 Health Concerns Section Related Observation LastModified by Organization Detai ls LastModified Time None Recorded Concern Status LastModified by Organization Details LastModified Time None Recorded Advance Directives Directive None Recorded Payers Insurance Date Sequence Insurance Name Policy Number Policy Kemp Covered Member ID Kemp Member ID Guarantor Name 06/17/2024 1 [facility] - DOS PRIOR TO 2022 - DUAL ELIGIBLE (MEDICARE REPLACEMENT/AD VANTAGE - HMO) Latonia Wakefield [id number] Latonia Wakefield 06/17/2024 1 [facility] - DOS ON OR AFTER 2022 - DUAL ELIGIBLE - GROUP HOME OPTIONS AND ONE CARE (MEDICARE REPLACEMENT/AD VANTAGE - HMO) Latonia Wakefield [id number] Latonia Wakefield Notes Date Note Type Note Provider Name and Address Organization Details Recorded Time 09/06/2021 text/html [facility] Nursing Assessment: Reason For Request: Fear of [...] .................. .................. .................. .................. .................. .................. ............... Computer Education Teacher Note: No pt contact made. Per dispatch, pt went to ED prior to arrival. .................. .................. .................. .................. .................. .................. .................. ............... Disposition: Unfulfilled Modesta Medina MD [address] [place] [address],[address], [place], [address], CANDELARIO Vega [facility] SeminaryMISBAH SWIFT 09/09/2021 09:57:33 OBGyn Episode No OBEpisode recorded.
== END 2024-08-16 16:49 | disposition home or self-care (01) ==
LOC: HO.HMCH 15:57
PROVIDERS: PCP Internal Medicine; Visit Provider Internal Medicine
DX: F32.0 Major depressive disorder, single episode, mild (principal); F41.9 Anxiety disorder, unspecified; I10 Essential (primary) hypertension; I50.9 Heart failure, unspecified; E78.01 Familial hypercholesterolemia; K21.9 Gastro-esophageal reflux disease without esophagitis; R33.9 Retention of urine, unspecified

== ENCOUNTER → 2024-08-16 15:57 | Outpatient (BNVA) | payer OTHER, SELFPAY | PROVIDERS: PCP Internal Medicine; Visit Provider Internal Medicine | DX: I11.0 Hypertensive heart disease with heart failure (principal); I50.9 Heart failure, unspecified; E78.5 Hyperlipidemia, unspecified; R33.9 Retention of urine, unspecified; E78.00 Pure hypercholesterolemia, unspecified; F32.0 Major depressive disorder, single episode, mild; F41.9 Anxiety disorder, unspecified; E78.01 Familial hypercholesterolemia; K21.9 Gastro-esophageal reflux disease without esophagitis; Z96.0 Presence of urogenital implants | CPT/HCPCS: 96127; 99212 ==

== ENCOUNTER → 2024-09-05 13:58 | Outpatient (BNVA) | payer OTHER, SELFPAY | PROVIDERS: PCP Internal Medicine; Visit Provider Urology | DX: R33.9 Retention of urine, unspecified (principal) | CPT/HCPCS: 51705 ==

== ENCOUNTER 2024-10-18 13:49 | Outpatient (REF) | payer OTHER, SELFPAY ==
--- NOTE | ~2024-10-18 | XR_ITS ---
EXAMINATION: XR KNEE, RIGHT CLINICAL INFORMATION: M25.561 - Pain in right knee COMPARISON: None available. TECHNIQUE: Four views of the right knee. FINDINGS: No acute fracture or dislocation. Mild depression of the lateral tibial plateau may indicate history of a prior tibial plateau fracture. Mild to moderate lateral compartment joint space narrowing. Minimal medial compartment and patellofemoral compartment narrowing. Overall normal alignment. Mild narrowing of the tibial spines. There is a suprapatellar moderate size joint effusion. There is no soft tissue abnormality. XR/XR knee RT 2V IMPRESSION: 1. Moderate lateral compartment osteoarthrosis, possibly posttraumatic. 2. Suprapatellar joint effusion, moderate in size. Electronically signed by: Tito Cline MD 10/18/2024 03:49 PM EDT
--- NOTE | ~2024-10-18 | XR_ITS ---
EXAMINATION: XR SHOULDER, RIGHT CLINICAL INFORMATION: M25.511 - Pain in right shoulder COMPARISON: 01/12/2023. TECHNIQUE: Two views of the right shoulder. FINDINGS: Normal bone mineralization. No acute fracture, dislocation, or suspicious bone lesion. Normal alignment. There is a Hill-Sachs impaction deformity. This is of uncertain chronicity. The glenohumeral joint demonstrates mild degenerative arthrosis. The AC joint demonstrates mild to moderate degenerative spurring. No acromial undersurface spurring. The subacromial space is preserved. Remainder of the soft tissue and bony structures appear normal. XR/XR shoulder RT min 2V IMPRESSION: 1. Hill-Sachs impaction deformity. Uncertain chronicity. 2. 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 Electronically signed by: Tito Cline MD 10/18/2024 03:52 PM EDT
--- OUTSIDE RECORDS SUMMARY | 2024-10-18 15:03 | XMS_ITS | Clinical Summary ---
Author Organization [facility] Facility Address [address] [address] Care Team Providers Care Screw Machine Tool Setter Name Role Phone Saritha Ellis MD Primary Care Provider [phone] Medications Gemtesa 75 MG tablet Take 1 [...] of 1 - PCV) 1986 Influenza Vaccine (#1) 2024 Hepatitis B Vaccine Aged Out No longe r eligible based on patient's age to complete this topic Insurance Care Teams Screw Machine Tool Setter Relationship Specialty Start Date End Date Saritha Ellis MD [address] [place] [address] PCP - General Internal Medicine 07/16/21
== END 2024-10-18 13:50 | disposition home or self-care (01) ==
LOC: HO.XRAY 13:49
PROVIDERS: PCP Internal Medicine; Visit Provider Internal Medicine
DX: M25.511 Pain in right shoulder (principal); M25.561 Pain in right knee
CPT/HCPCS: 73030; 73560

== ENCOUNTER → 2024-10-18 13:56 | Outpatient (BNV) | payer OTHER, SELFPAY | PROVIDERS: PCP Internal Medicine; Visit Provider Radiology Diagnostic Radiology | DX: M19.011 Primary osteoarthritis, right shoulder (principal); M25.461 Effusion, right knee | CPT/HCPCS: 73030; 73560 ==

== ENCOUNTER → 2024-12-30 15:01 | Outpatient (BNVA) | payer OTHER, SELFPAY | PROVIDERS: PCP Internal Medicine; Visit Provider Urology | DX: Z46.6 Encounter for fitting and adjustment of urinary device (principal); R33.9 Retention of urine, unspecified; Z93.50 Unspecified cystostomy status | CPT/HCPCS: 51705 ==